=== PATIENT | female | born 1960 | race Caucasian/White ===

== ENCOUNTER 2016-12-14 04:45 | Emergency (ER) | payer OTHER ==
[~2016-12-14] VITALS: Ht 149.9 cm; Wt 116.0 kg
[~2016-12-14 04:45] MED LIST: ADVIN25/60 INH; ALBU1AER9 INH; CARB25TA12 PO; CARB25TA14 PO; CRS10; ECON0.05 TD; FURO40TA3 PO; GABA300C19 PO; INSDGI SC; IPRASOL4 INH; KLN5 PO; LAMO100T PO; LMC/150 PO; NRL25 PO; NVLGIPEN SC; OXGN; OXYC1TAB3 PO; PANT1TAB48 PO; PLMINS INH; POLY335019 PO; REPA1TAB42 PO; ROPI3TAB2 PO; SENN8.6T9 PO; TIZA1CAP PO
[2016-12-14 04:58] VITALS: TEMP 37; Ht 149.9 cm; Wt 116.0 kg
[2016-12-14] MEDS ORDERED: OXYMETAZOLINE HCL 0.05% NA SPR 15 ML BTL ONE (05:00)
[2016-12-14] MEDS ORDERED: SILVER NITR/POTASSIUM NITRATE 10 APPLICATOR PACK ONE (05:04)
[2016-12-14 05:18] VITALS: O2SAT 94
[2016-12-14 05:22] LABS: BASO % 0.5 %; BASO ABS # 0.03 K/uL (0-0.2); EOS % 3.6 %; HEMATOCRIT 35.1 % (37-47); IG% 0.7 %; LYMPH ABS # 0.92 K/uL (1.2-3.4); MEAN CELL VOLUME 91.4 fL (80-100); MEAN CORPUSCULAR HEMOGLOBIN 27.6 pg (25-34); MEAN CORPUSCULAR HGB CONC 30.2 g/dl (32-36); MEAN PLATELET VOLUME 8.8 fL (7.4-10.4); MONO % 9.2 %; PLATELET COUNT 248 K/uL (130-400); RED BLOOD COUNT 3.84 M/uL (4.2-5.4); WHITE BLOOD COUNT 5.76 K/uL (4.8-10.8)
[2016-12-14 05:30] LABS: BUN/CREATININE RATIO 33.3 (10-20); CALCIUM 8.9 mg/dl (8.5-10.1); CREATININE 1.4 mg/dl (0.60-1.20); INR 3.4 (0.9-1.1); PARTIAL THROMBOPLASTIN RATIO 1.6; POTASSIUM 4.5 mmol/L (3.5-5.1); PROTHROMBIN TIME (PATIENT) 38.8 SECONDS (9.0-12.0)
[2016-12-14 05:41] LABS: ANISOCYTOSIS PRESENT; COMPLETE YES; TEAR DROP CELLS 1+
[2016-12-14] MEDS ORDERED: ATOR-54 PO (06:02)
[2016-12-14] MEDS ORDERED: FLUT1INH INH (06:05)
[2016-12-14] MEDS ORDERED: PRLSR20 PO (06:11)
[2016-12-14] MEDS ORDERED: OXYCODONE HCL IR 5 MG TAB (IMMEDIATE RELEASE) PO STA (06:12)
[2016-12-14] MEDS ORDERED: AZAT50TA17 PO (06:16)
[2016-12-14] MEDS ORDERED: PRED-301 PO (06:21)
[2016-12-14] MEDS ORDERED: MULT-513 PO (06:24)
[2016-12-14] MEDS ORDERED: ACET-1311 PO (06:25)
[2016-12-14] MEDS ORDERED: INSDGIPEN SQ (06:32)
[2016-12-14] MEDS ORDERED: POTA-74 PO (06:36)
[2016-12-14] MEDS ORDERED: IPRASOL4 INH ×2 (06:38→06:42)
[2016-12-14] MEDS ORDERED: OXYC1TAB3 PO (06:43)
[2016-12-14] MEDS ORDERED: NITR-5 PO (06:46)
[2016-12-14] MEDS ORDERED: TCMD2 PO (06:48)
[2016-12-14] MEDS ORDERED: NYST100010 TD (06:49)
[2016-12-14 06:58] VITALS: BP 149/58; PULSE 90; O2SAT 96
--- NOTE | 2016-12-14 07:56 | EMERGENCY ROOM VISIT NOTE ---
History Report prepared by Silva: Michael Benedict Under the Supervision of: Dr. Blas Flores M.D. First contact with patient: 05:02 Chief Complaint: NOSE BLEED (MINOR) Stated Complaint: NOSE BLEED, ANXIETY History of Present Illness The patient is a 56 year old female who presents to the Emergency Room with complaints of persistent nose bleed for the past few hours. The patient notes that it was mainly bleeding on the right side. She had been scratching and itching her nose before it started bleeding. In the ambulance en route to the ED , the patient got anxious and was given Ativan which helped her symptoms. The patient is at home from rehabilitation for the last week. She has home nursing coming throughout the week. The states she is stable. She has chronic anxiety and also notes chronic back pain. Her back is sore from lying on the stretcher. She has some leg swelling but this is stable for her. Pt denies LOC , headache, fevers, chills, diaphoresis, visual changes, neck pain, chest pain, breathing difficulties, nausea, vomiting, abdominal pain, melena, hematochezia , urinary symptoms, numbness, weakness, lymphadenopathy, rash, or other complaints. Source of History: patient Onset: past few hours Position: nose Timing: other (persistent) Note: Other associated symptoms: anxiety Review of Systems See HPI for pertinent positives and negatives. A total of ten systems were reviewed and were otherwise negative. Past Medical & Surgical Medical Problems: (1) Acute and chronic respiratory failure ([id number]) (2) Anxiety (3) CHF exacerbation (4) Chronic diastolic heart failure (5) Chronic kidney disease stage 3 (6) Chronic obstructive lung disease (7) Chronic pain (8) Depression (9) Diabetes mellitus type 2 (10) Dyslipidemia (11) GERD (gastroesophageal reflux disease) (12) History of DVT (deep vein thrombosis) (13) History of pulmonary embolism (14) Parkinson's disease Surgical Problems: (1) History of cataract surgery (2) History of delivery (3) Hx of rotator cuff surgery (4) S/p cadaver renal transplant Family History Cancer Diabetes mellitus Heart disease Hypertension Kidney disease Kidney stones Social History Smoking Status: Never Smoker Alcohol Use: none Drug Use: none Marital Status: Housing Status: lives with significant other Occupation Status: unemployed Current/Historical Medications Scheduled Atorvastatin (Lipitor), 20 MG PO DAILY Azathioprine (Imuran), 50 MG PO BID Carbidopa/Levodopa (Sinemet 25MG/250MG), 1 TAB PO UD Carbidopa/Levodopa (Sinemet 25MG/100MG), 1 TAB PO TID Cyclosporine (Neoral), 75 MG PO BID Econazole Nitrate 1% (Spectazole 1%), 1 APPLN TD BID Fluticasone Furoate-Vilanterol (Breo Ellipta), 1 PUFFS INH DAILY Furosemide (Lasix), 40 MG PO BID Gabapentin (Neurontin), 300 MG PO TID Insulin Aspart (Novolog Flexpen), 10 UNITS SC TIDM Insulin Glargine (Lantus Solostar), 40 UNITS SQ HS Ipratropium-Albuterol (Duoneb), 1 TREATMENT INH QID Lamotrigine (Lamictal), 100 MG PO QAM Lamotrigine (Lamictal), 150 MG PO QPM Multivitamins/Minerals (Mvi With Minerals), 1 TAB PO DAILY Omeprazole (Prilosec), 20 MG PO QAM Oxygen (Oxygen), 3 LITERS NA CONTINOUS Potassium Chloride (Potassium Chloride Er), 10 MEQ PO BID Prednisone (Prednisone), 5 MG PO QAM Repaglinide (Prandin), 1 MG PO BID Ropinirole Hydrochloride (Requip), 3 MG PO TID Tizanidine Hcl (Tizanidine Hcl), 2 MG PO BID Warfarin Sod (Coumadin), 2 MG PO DAILY Scheduled PRN Acetaminophen (Tylenol), 650 MG PO Q4H PRN for Pain or Fever Clonazepam (Clonazepam), 0.5 MG PO BID PRN for Anxiety Ipratropium-Albuterol (Duoneb), 1 TREATMENT INH Q4H PRN for SOB/Wheezing Nystatin (Topical) (Nystop), 1 APPLN TD TID PRN for EXCORIATION Oxycodone Ir (Roxicodone Ir), 5 MG PO Q6H PRN for Pain Polyethylene Glycol 3350 (Miralax), 17 GM PO DAILY PRN for Constipation Sennosides (Senexon), 8.6 MG PO HS PRN for Constipation Allergies Coded Allergies: Carisoprodol (Verified Allergy, Unknown, ., 08/23/16) Tiotropium (Verified Allergy, Unknown, UNK, 08/23/16) Cimetidine (Verified Adverse Reaction, Mild, SEVERE BRUISING, 08/23/16) Cyclobenzaprine (Verified Adverse Reaction, Mild, HALLUCINATIONS, 08/23/16 ) Iodinated Diagnostic Agents (Verified Adverse Reaction, Unknown, KIDNEY PROBLEMS, 08/23/16) Quetiapine (Verified Adverse Reaction, Unknown, HALLUCINATIONS, 08/23/16) Physical Exam Vital Signs Date Time Temp Pulse Resp B/P Pulse Ox O2 Delivery O2 Flow Rate FiO2 12/14/16 06:58 90 20 149/58 96 Nasal Cannula 3.0 12/14/16 06:09 98 20 133/77 95 Nasal Cannula 3.0 12/14/16 05:18 94 Nasal Cannula 4.0 12/14/16 04:58 37.0 104 30 136/67 95 Nasal Cannula 4.0 12/14/16 04:56 107 Physical Exam GENERAL: Awake, alert, well-appearing, in no distress. mild tachypnea noted. HENT: Normocephalic, atraumatic. Right anterior septum small arterial bleeding. EYES: Normal conjunctiva. Sclera non-icteric. NECK: Supple. No nuchal rigidity. FROM. No JVD. RESPIRATORY: Clear to auscultation. CARDIAC: Tachycardic. Extremities warm and well perfused. Pulses equal. ABDOMEN: Soft, non-distended. No tenderness to palpation. No rebound or guarding. No masses. RECTAL: Deferred. MUSCULOSKELETAL: Chest examination reveals no tenderness. The back is symmetrical on inspection without obvious abnormality. There is no CVA tenderness to palpation. No joint edema. LOWER EXTREMITIES: Calves are equal size bilaterally and non-tender. 2+ lower extremity edema. Mild discoloration is improved. NEURO: Normal sensorium. No sensory or motor deficits noted. SKIN: No rash or jaundice noted. Medical Decision & Procedures Laboratory Results 12/14/16 04:14 Red Blood Count 3.84, Mean Corpuscular Volume 91.4, Mean Corpuscular Hemoglobin 27.6, Mean Corpuscular Hemoglobin Concent 30.2, Mean Platelet Volume 8.8, Neutrophils (%) (Auto) 70.0, Lymphocytes (%) (Auto) 16.0, Monocytes (%) (Auto) 9.2, Eosinophils (%) (Auto) 3.6, Basophils (%) (Auto) 0.5, Neutrophils # (Auto) 4.03, Lymphocytes # (Auto) 0.92, Monocytes # (Auto) 0.53, Eosinophils # (Auto) 0.21, Basophils # (Auto) 0.03 12/14/16 04:14 Test 12/14/16 04:14 White Blood Count 5.76 K/uL (4.8-10.8) Red Blood Count 3.84 M/uL (4.2-5.4) Hemoglobin 10.6 g/dL (12.0-16.0) Hematocrit 35.1 % (37-47) Mean Corpuscular Volume 91.4 fL (80-100) Mean Corpuscular Hemoglobin 27.6 pg (25-34) Mean Corpuscular Hemoglobin Concent 30.2 g/dl (32-36) Platelet Count 248 K/uL (130-400) Mean Platelet Volume 8.8 fL (7.4-10.4) Neutrophils (%) (Auto) 70.0 % Lymphocytes (%) (Auto) 16.0 % Monocytes (%) (Auto) 9.2 % Eosinophils (%) (Auto) 3.6 % Basophils (%) (Auto) 0.5 % Neutrophils # (Auto) 4.03 K/uL (1.4-6.5) Lymphocytes # (Auto) 0.92 K/uL (1.2-3.4) Monocytes # (Auto) 0.53 K/uL (0.11-0.59) Eosinophils # (Auto) 0.21 K/uL (0-0.5) Basophils # (Auto) 0.03 K/uL (0-0.2) RDW Standard Deviation 69.2 fL (36.4-46.3) RDW Coefficient of Variation 21.0 % (11.5-14.5) Immature Granulocyte % (Auto) 0.7 % Immature Granulocyte # (Auto) 0.04 K/uL (0.00-0.02) Nucleated RBC Absolute Count (auto) 0.04 K/uL (0-0) Nucleated Red Blood Cells % 0.6 % Anisocytosis PRESENT Tear Drop Cells 1+ Prothrombin Time 38.8 SECONDS (9.0-12.0) Prothromb Time International Ratio 3.4 (0.9-1.1) Activated Partial Thromboplast Time 40.6 SECONDS (21.0-31.0) Partial Thromboplastin Ratio 1.6 Anion Gap 10.0 mmol/L (3-11) Est Creatinine Clear Calc Drug Dose 50.6 ml/min Estimated GFR () 48.2 Estimated GFR (Non- 41.6 BUN/Creatinine Ratio 33.3 (10-20) Calcium Level 8.9 mg/dl (8.5-10.1) Laboratory results reviewed by me Medications Administered Medications (Trade) Dose Ordered Sig/Tato Route Start Time Stop Time Status Last Admin Dose Admin Oxycodone HCl (Roxicodone Immediate Rel Tab) 5 mg NOW STAT PO 12/14/16 06:12 12/14/16 06:13 DC 12/14/16 06:16 5 MG Procedure Anterior Nasal Packing Indication: Right anterior septum small arterial bleed Verbal consent obtained. Risks and benefits were explained with the usual customary discussion. A time out was taken. Clots were removed with suction. The right naris was prepped with Afrin. Silver nitrate was used to cauterize the vessel. The patient tolerated this well. Hemostasis was achieved. No complications. ED Course 0453: The patient was evaluated in room B9. A complete history and physical exam was performed. 0500: Ordered Oxymetazoline HCl 75 sprays .ROUTE. 0504: Ordered Silver Nitrate/ Potassium Nitrate 1 pkt .ROUTE. 0510: At this time, an anterior nasal packing procedure was performed on the patient. See procedure note above. 0612: Ordered Oxycodone HCl 5 mg PO. 0641: At this time, I reevaluated the patient and discussed staying in the hospital with her. She was feeling better and wanted to go home. 0645: I reevaluated the patient and the bleeding has stopped. She was comfortable and resting. Discussed results and discharge instructions: She verbalized understanding and agreement. The patient is ready for discharge. Medical Decision Prior records/ancillary studies reviewed. Triage Nursing notes reviewed and agree them. Additional history obtained from her . The states that she was picking at her nose before the bleeding. The patient's history was concerning for epistaxis. Differential diagnosis: Etiologies such as spontaneous bleed, coagulopathy, traumatic injury, fracture, septal hematoma, posterior epistaxis as well as other pathologies were entertained. Physical examination findings: As above. Anterior bleeding source. ER treatment provided: Direct pressure and then nasal suctioning. Intranasal Afrin Silver nitrate cautery Fribrillar hemostatic cellulose applied On reassessment the patient felt better. No additional bleeding. The patient requested oxycodone for her back pain. She takes this medication at home. She was given a 5 mg dose. Diagnostics interpreted by me: The labs revealed a mild anemia on CBC. INR was slightly supratherapeutic at 3.4. The patient will hold her Coumadin today. She panel is unremarkable except for mild hyperglycemia. The patient was observed for several hours. She had no additional bleeding. She is slightly super therapeutic and will hold her Coumadin. I discussed treatment options. I asked the if she was doing well enough at home and she has been getting around with his assistance as well as with caregivers that have been ongoing throughout the week. The patient wants to go home. The will transport. I did offer transport. The patient and declined. By the evaluation outlined above emergent etiologies such as coagulopathy, traumatic injury, fracture, septal hematoma, posterior epistaxis, as well as others were deemed relatively unlikely. The patient and were informed about the findings as listed above. All questions were answered and they were pleased with the treatment. Return instructions were outlined and the patient was discharged in stable condition. Outpatient prescription management: No change except hold Coumadin 1 day Referral: The patient was referred her PCP on Friday. Patient was also given information on follow-up with [facility]. The chart was completed utilizing [employer] Speech voice recognition software. Grammatical errors, random word insertions, pronoun errors, and incomplete sentences are an occasional consequence of this system due to software limitations, ambient noise, and hardware issues. Any formal questions or concerns about the content, text, or information contained within the body of this dictation should be directly addressed to the physician for clarification. Impression Primary Impression: Anterior epistaxis Scribe Attestation The scribe's documentation has been prepared under my direction and personally reviewed by me in its entirety. I confirm that the note above accurately reflects all work, treatment, procedures, and medical decision making performed by me. Departure Information Dispostion Home / Self-Care Referrals Cindy Valdez M.D. (PCP) Forms HOME CARE DOCUMENTATION FORM, IMPORTANT VISIT INFORMATION, WORK / SCHOOL INSTRUCTIONS Patient Instructions [facility] Additional Instructions EPISTAXIS (NOSE BLEED) INSTRUCTIONS: Avoid scratching, rubbing, picking, or blowing your nose. Hold your Coumadin just for Friday. The primer expeditor and drier your nasal passages the more likely they are to bleed. The following product are available [id number] at most drug stores/pharmacies. [place] nasal spray or similar generic saline spray to keep the nose moist 3 to 4 times a day. If bleeding recurs apply 2 sprays of Afrin and direct pressure for an uninterrupted 20 minutes with the nasal clip. On and off pressure is much less effective because it will disturb the clots that are forming. If the bleeding is still a problem after 20 minutes or is so heavy despite the pressure return to the emergency department. Continue current medications. For ENT([id number]) follow up call this week the [facility] office at [phone] for an appointment. Tell the psychiatric secretary you were referred from the ER. Follow-up with your primary care physician in 2 to 3 days for a recheck of your current condition. Call the office on Friday.
[2017-01-14] MEDS ORDERED: SNM/25100 PO (11:54)
[2017-01-14] MEDS ORDERED: OXGN (11:54)
[2017-01-14] MEDS ORDERED: LVQ750 PO (11:54)
[2017-02-12] MEDS ORDERED: HYDR-4330 PO (15:11)
[2017-02-12] MEDS ORDERED: KLN5 PO (15:11)
== END 2016-12-14 07:07 | disposition home or self-care (01) ==
LOC: EDBD 04:45 → C.EDB 04:48
DX: R04.0 Epistaxis (principal); I50.32 Chronic diastolic (congestive) heart failure; E11.9 Type 2 diabetes mellitus without complications; N18.3 Chronic kidney disease, stage 3 (moderate); J44.9 Chronic obstructive pulmonary disease, unspecified; K21.9 Gastro-esophageal reflux disease without esophagitis; G20 Parkinson's disease; E78.5 Hyperlipidemia, unspecified; G89.29 Other chronic pain; F32.9 Major depressive disorder, single episode, unspecified; Z86.711 Personal history of pulmonary embolism; Z79.01 Long term (current) use of anticoagulants; Z79.4 Long term (current) use of insulin; Z99.81 Dependence on supplemental oxygen

== ENCOUNTER 2017-01-06 09:05 | Inpatient (IN) | payer OTHER ==
[2017-01-06] VITALS (9 sets, daily range): BP systolic 104–122; BP diastolic 62–77; PULSE 71–97; TEMP 36.8; O2SAT 92–100; BMI 56.9
[~2017-01-06] VITALS: Ht 149.9 cm; Wt 122.1 kg
[~2017-01-06 09:05] MED LIST changes: +ACET-1311 PO; -ADVIN25/60 INH; -ALBU1AER9 INH; +ATOR-54 PO; +AZAT50TA17 PO; -CRS10; +FLUT1INH INH; +GABA-1218 PO; -GABA300C19 PO; -INSDGI SC; +INSDGIPEN SQ; +MULT-513 PO; +NYST100010 TD; -PANT1TAB48 PO; -PLMINS INH; +POTA-74 PO; +PRED-301 PO; +PRLSR20 PO; +REPA1TAB26 PO; -REPA1TAB42 PO; +TCMD2 PO
[2017-01-06] MEDS ORDERED: ALBUT/IPRATROP 3MG/0.5MG NEB 3 ML VIAL INH STA (09:14)
[2017-01-06] MEDS ORDERED: METHYLPREDNISOLONE 125 MG VIAL IV STA (09:14)
--- NOTE | 2017-01-06 09:24 | EMERGENCY ROOM VISIT NOTE ---
History Report prepared by Silva: Arun Arguello Under the Supervision of: Dr. Saul Hernandez D.O. First contact with patient: 09:10 Chief Complaint: RESPIRATORY PROBLEMS Stated Complaint: RESPIRATORY DISTRESS Nursing Triage Summary: pt arrives via EMS lives at home with family reports increased resp distress X 2 days , denies fever chills , cp, RA sats with 3 liters home 02 78%, pt placed on cpap [facility] History of Present Illness The patient is a 56 year old female who presents to the Emergency Room with complaints of difficulty breathing. The patient was recently admitted to a personal care facility but then was discharged. She is currently living at home and started having shortness of breath over the last few days. The patient presented to the emergency department in respiratory distress. She is placed on BiPAP prior to arrival. The patient denies having any chest pain. Reportedly her oxygen saturation was in the high sixties to lower seventies on 3 liters nasal cannula which is what she normally wears. The patient denies having any new swelling in her legs but she does have edema. She denies having a fever or chest pain. History is very limited secondary to respiratory distress. The patient was maintained on BiPAP as soon as she arrived at the emergency department. They were unable to get an IV into the patient said she received no medications prior to arrival. The patient states that she's had similar episodes in the past. The patient states that she was not intubated on her most recent admission. Source of History: patient History Limited By: other (respiratory distress) Onset: Last few days Position: other (global - sob) Timing: other (persistent) Associated Symptoms: No chest pain, No fevers Note: Associated symptoms: Denies any new leg swelling. Review of Systems See HPI for pertinent positives & negatives. A total of 10 systems reviewed and were otherwise negative. Past Medical & Surgical Medical Problems: (1) Acute and chronic respiratory failure ([id number]) (2) Anxiety (3) CHF exacerbation (4) Chronic diastolic heart failure (5) Chronic kidney disease stage 3 (6) Chronic obstructive lung disease (7) Chronic pain (8) Depression (9) Diabetes mellitus type 2 (10) Dyslipidemia (11) GERD (gastroesophageal reflux disease) (12) History of DVT (deep vein thrombosis) (13) History of pulmonary embolism (14) Parkinson's disease Surgical Problems: (1) History of cataract surgery (2) History of delivery (3) Hx of rotator cuff surgery (4) S/p cadaver renal transplant Family History Cancer Diabetes mellitus Heart disease Hypertension Kidney disease Kidney stones Social History Smoking Status: Never Smoker Alcohol Use: none Drug Use: none Marital Status: Housing Status: lives with significant other Occupation Status: unemployed Current/Historical Medications Scheduled Atorvastatin (Lipitor), 20 MG PO DAILY Azathioprine (Imuran), 50 MG PO BID Carbidopa/Levodopa (Sinemet 25MG/250MG), 1 TAB PO UD Carbidopa/Levodopa (Sinemet 25MG/100MG), 1 TAB PO TID Cyclosporine (Neoral), 75 MG PO BID Fluticasone Prop/Salmeterol (Advair Diskus 250/50 60 Dose), 1 PUFF INH BID Furosemide (Lasix), 40 MG PO BID Gabapentin (Neurontin), 300 MG PO TID Insulin Aspart (Novolog Flexpen), 10 UNITS SC TIDM Insulin Glargine (Lantus Solostar), 40 UNITS SQ HS Ipratropium-Albuterol (Duoneb), 1 TREATMENT INH QID Lamotrigine (Lamictal), 100 MG PO QAM Lamotrigine (Lamictal), 150 MG PO QPM Omeprazole (Prilosec), 20 MG PO QAM Oxygen (Oxygen), 3 LITERS NA CONTINOUS Prednisone (Prednisone), 5 MG PO QAM Repaglinide (Prandin), 1 MG PO BID Ropinirole Hydrochloride (Requip), 3 MG PO TID Tizanidine Hcl (Tizanidine Hcl), 2 MG PO BID Warfarin Sod (Coumadin), 2 MG PO HS Scheduled PRN Acetaminophen (Tylenol), 650 MG PO Q4H PRN for Pain or Fever Clonazepam (Clonazepam), 0.5 MG PO BID PRN for Anxiety Hydrocodone/Acetaminophen 5MG/325MG ([place] 5MG/325MG), 1 TABLET PO HS PRN for Pain Ipratropium-Albuterol (Duoneb), 1 TREATMENT INH Q4H PRN for SOB/Wheezing Oxycodone Ir (Roxicodone Ir), 5 MG PO Q6H PRN for Pain Polyethylene Glycol 3350 (Miralax), 17 GM PO DAILY PRN for Constipation Sennosides (Senexon), 8.6 MG PO HS PRN for Constipation Allergies Coded Allergies: Carisoprodol (Verified Allergy, Unknown, ., 01/06/17) Tiotropium (Verified Allergy, Unknown, UNK, 01/06/17) Cimetidine (Verified Adverse Reaction, Mild, SEVERE BRUISING, 01/06/17) Cyclobenzaprine (Verified Adverse Reaction, Mild, HALLUCINATIONS, 01/06/17) Iodinated Diagnostic Agents (Verified Adverse Reaction, Unknown, KIDNEY PROBLEMS, 01/06/17) Quetiapine (Verified Adverse Reaction, Unknown, HALLUCINATIONS, 01/06/17) Physical Exam Vital Signs Date Time Temp Pulse Resp B/P Pulse Ox O2 Delivery O2 Flow Rate FiO2 01/06/17 11:51 100 CPAP 6.0 60 01/06/17 11:20 88 18 104/62 100 CPAP 01/06/17 10:18 91 20 120/77 100 CPAP 01/06/17 09:44 100 CPAP 6.0 01/06/17 09:21 92 01/06/17 09:21 97 25 100 BiPAP/CPAP 60 01/06/17 09:21 97 100 60 01/06/17 09:18 37.0 94 20 121/74 100 CPAP 6.0 01/06/17 09:18 CPAP 6.0 Physical Exam GENERAL: Patient is awake and very anxious appearing she appears to be having significant difficulty breathing. EYES: The conjunctivae are clear. The pupils are round and reactive. EARS, NOSE, MOUTH AND THROAT: The nose is without any evidence of any deformity. Mucous membranes are moist. There is excoriation over the ears were the oxygen tubing appears to be rubbing into her forehead. NECK: The neck is nontender and supple. RESPIRATORY: Significant tachypnea with poor air movement is noted. Severe conversational dyspnea is noted. Diminished breath sounds are noted throughout. CARDIOVASCULAR: Regular rate and rhythm noted there no murmurs rubs or gallops normal S1 normal S2 GASTROINTESTINAL: The abdomen is soft. Bowel sounds are present in all quadrants. Abdomen is nontender MUSCULOSKELETAL/EXTREMITIES: There is no evidence of gross deformity full range of motion is noted in the hips and shoulders SKIN: There is no obvious evidence of any rash. There significant pedal edema noted. Significant venous stasis changes with erythema is noted in both lower extremity's. NEUROLOGIC: Patient is awake alert and oriented x3. Medical Decision & Procedures ER Provider Diagnostic Interpretation: X-ray results as stated below per interpretation by me and the radiologist. CHEST ONE VIEW PORTABLE CLINICAL HISTORY: Sepsis. Respiratory distress. COMPARISON STUDY: Chest radiograph September 02, [address] August 24, 2016. FINDINGS: There is no pneumothorax or pleural effusion. Cardiomegaly is unchanged. Linear left lower lung opacities favor atelectasis. There is right lower lung airspace opacity which may reflect pneumonia. IMPRESSION: 1. Right lower lung opacity which favors pneumonia. Radiographic follow-up to ensure resolution is recommended. 2. Linear left lower lung opacities which favor atelectasis. Electronically signed by: Isaac Magdaleno M.D. 01/06/2017 9:51 AM Dictated Date/Time: 01/06/2017 9:50 AM Laboratory Results 01/06/17 10:15 Red Blood Count 3.37, Mean Corpuscular Volume 95.0, Mean Corpuscular Hemoglobin 27.9, Mean Corpuscular Hemoglobin Concent 29.4, Mean Platelet Volume 8.3, Neutrophils (%) (Auto) 84.3, Lymphocytes (%) (Auto) 7.4, Monocytes (%) (Auto) 6.6, Eosinophils (%) (Auto) 1.2, Basophils (%) (Auto) 0.2, Neutrophils # (Auto) 5.11, Lymphocytes # (Auto) 0.45, Monocytes # (Auto) 0.40, Eosinophils # (Auto) 0.07, Basophils # (Auto) 0.01 01/06/17 10:15 Test 01/06/17 09:12 01/06/17 10:15 01/06/17 10:20 01/06/17 10:24 White Blood Count 6.06 K/uL (4.8-10.8) Red Blood Count 3.37 M/uL (4.2-5.4) Hemoglobin 9.4 g/dL (12.0-16.0) Hematocrit 32.0 % (37-47) Mean Corpuscular Volume 95.0 fL (80-100) Mean Corpuscular Hemoglobin 27.9 pg (25-34) Mean Corpuscular Hemoglobin Concent 29.4 g/dl (32-36) Platelet Count 253 K/uL (130-400) Mean Platelet Volume 8.3 fL (7.4-10.4) Neutrophils (%) (Auto) 84.3 % Lymphocytes (%) (Auto) 7.4 % Monocytes (%) (Auto) 6.6 % Eosinophils (%) (Auto) 1.2 % Basophils (%) (Auto) 0.2 % Neutrophils # (Auto) 5.11 K/uL (1.4-6.5) Lymphocytes # (Auto) 0.45 K/uL (1.2-3.4) Monocytes # (Auto) 0.40 K/uL (0.11-0.59) Eosinophils # (Auto) 0.07 K/uL (0-0.5) Basophils # (Auto) 0.01 K/uL (0-0.2) RDW Standard Deviation 72.2 fL (36.4-46.3) RDW Coefficient of Variation 21.0 % (11.5-14.5) Immature Granulocyte % (Auto) 0.3 % Immature Granulocyte # (Auto) 0.02 K/uL (0.00-0.02) Nucleated RBC Absolute Count (auto) 0.05 K/uL (0-0) Nucleated Red Blood Cells % 0.9 % Polychromasia 1+ Anisocytosis PRESENT Erythrocyte Sedimentation Rate 51 mm/hr (0-21) Anion Gap 8.0 mmol/L (3-11) Est Creatinine Clear Calc Drug Dose 35.9 ml/min Estimated GFR () 29.5 Estimated GFR (Non- 25.5 BUN/Creatinine Ratio 26.3 (10-20) Calcium Level 8.4 mg/dl (8.5-10.1) Phosphorus Level 5.8 mg/dl (2.5-4.9) Magnesium Level 3.2 mg/dl (1.8-2.4) Total Bilirubin 0.7 mg/dl (0.2-1) Aspartate Amino Transf (AST/SGOT) 115 U/L (15-37) Alanine Aminotransferase (ALT/SGPT) 15 U/L (12-78) Alkaline Phosphatase 151 U/L (45-117) Total Creatine Kinase 1170 U/L (26-192) Creatine Kinase MB 9.0 ng/ml (0.5-3.6) Creatine Kinase MB Ratio 0.8 (0-3.0) Troponin I 0.067 ng/ml (0-0.045) C-Reactive Protein 5.52 mg/dl (0-0.29) Pro-B-Type Natriuretic Peptide 5064 pg/ml (0-900) Total Protein 6.7 gm/dl (6.4-8.2) Albumin 3.2 gm/dl (3.4-5.0) Globulin 3.5 gm/dl (2.5-4.0) Albumin/Globulin Ratio 0.9 (0.9-2) Lipase 284 U/L (73-393) Venous Blood pH 7.21 (7.36-7.41) Venous Blood Partial Pressure CO2 61 mmHg (38.0-50.0) Venous Blood Partial Pressure O2 39 mmHg Venous Blood HCO3 24 mmol/L Venous Blood Oxygen Saturation 62.2 % Venous Blood Base Excess -4.2 mmol/L Bedside Lactic Acid Venous 2.10 mmol/L (0.90-1.70) Test 01/06/17 11:40 Laboratory results per my review. Medications Administered Medications (Trade) Dose Ordered Sig/Tato Route Start Time Stop Time Status Last Admin Dose Admin Albuterol/ Ipratropium (Duoneb) 3 ml NOW STAT INH 01/06/17 09:14 01/06/17 09:15 DC 01/06/17 09:20 3 ML Methylprednisolone Sodium Succinate 125 mg 125 mg NOW STAT IV 01/06/17 09:14 01/06/17 09:15 DC 01/06/17 10:14 125 MG Linezolid/Prmx (Zyvox / D5W/ Premixed D5W) 300 ml @ 300 mls/hr ONE STAT IV 01/06/17 10:05 01/06/17 11:04 DC 01/06/17 11:41 300 MLS/HR Levofloxacin 750 mg 750 mg NOW ONCE IV 01/06/17 10:15 01/06/17 10:16 DC 01/06/17 10:14 750 MG Sodium Chloride (Nss 1000ml) 1,000 ml @ 999 mls/hr Q1H1M STAT IV 01/06/17 11:10 01/06/17 12:10 01/06/17 11:19 999 MLS/HR ECG Indication: SOB/dyspnea Rate (beats per minute): 96 Rhythm: normal sinus Findings: 1st degree AV block, no acute ischemic change Change: no significant change (08/25/2016) ED Course 0910: The patient was evaluated in room B9. A complete history and physical examination were performed. 0914: Ordered Solu-Medrol IV 125 mg IV, Duoneb 3 ml INH. 1005: Ordered Linezolid 600 mg/Prmx 300 ml @ 300 mls/hr IV. 1015: Ordered Levaquin / D5W 750 mg IV. 1110: Ordered NSS 1000 ml @ 999 mls/hr IV. 1128: I discussed the patient with Elise Del Real. She will evaluate the patient for further treatment. 1145: Upon reevaluation, the patient is sitting up in bed. I discussed results and treatment plan with her. She verbalizes agreement and understanding. The patient will be evaluated for further management and care. Medical Decision Prior records/ancillary studies reviewed. Triage Nursing notes reviewed. Additional history obtained from the prehospital personnel. The patient's history was concerning for respiratory difficulties. Differential diagnosis: Etiologies such as infections, reactive airway disease, pneumonia, pneumothorax , COPD, CHF, cardiac ischemia, pulmonary embolism, musculoskeletal, gastrointestinal, as well as others were entertained. The patient is a 56-year-old female who presented to the emergency department by ambulance for shortness of breath. The patient was having severe shortness of breath and was placed on BiPAP prior to arrival. The patient was found have significant respiratory acidosis as well as signs of pneumonia. She also has a history of congestive heart failure and had very significant swelling in both lower extremities. She was started on antibiotic. She was also given a DuoNeb. I discussed the patient's laboratory and radiographic studies with her. Her mentation as well as her oxygenation improved significantly. I discussed her case with the on-call [facility] hospitalist group. They've agreed to evaluate the patient in the emergency department for further management and disposition. Consults Time Called: 1120 Consulting Physician: Elise Del Real Returned Call: 1128 I discussed the patient with Elise Del Real. She will evaluate the patient for further treatment. Impression Primary Impression: Respiratory failure Additional Impressions: Respiratory acidosis Right lower lobe pneumonia Elevated troponin Pulmonary edema Scribe Attestation The scribe's documentation has been prepared under my direction and personally reviewed by me in its entirety. I confirm that the note above accurately reflects all work, treatment, procedures, and medical decision making performed by me. Departure Information Dispostion Being Evaluated By Hospitalist Referrals Cindy Valdez M.D. (PCP) Patient Instructions My [facility] Problem Qualifiers Primary Impression: Respiratory failure Chronicity: acute Respiratory failure complication: hypoxia and hypercapnia Qualified Codes: J96.01 - Acute respiratory failure with hypoxia; J96.02 - Acute respiratory failure with hypercapnia Additional Impressions: Right lower lobe pneumonia Pneumonia type: due to unspecified organism Qualified Codes: J18.1 - Lobar pneumonia, unspecified organism Pulmonary edema Chronicity: acute Qualified Codes: J81.0 - Acute pulmonary edema
--- NOTE | 2017-01-06 09:53 | DIAGNOSTIC IMAGING REPORT ---
CHEST ONE VIEW PORTABLE CLINICAL HISTORY: Sepsis. Respiratory distress. COMPARISON STUDY: Chest radiograph September 02, [address] August 24, 2016. FINDINGS: There is no pneumothorax or pleural effusion. Cardiomegaly is unchanged. Linear left lower lung opacities favor atelectasis. There is right lower lung airspace opacity which may reflect pneumonia. IMPRESSION: 1. Right lower lung opacity which favors pneumonia. Radiographic follow-up to ensure resolution is recommended. 2. Linear left lower lung opacities which favor atelectasis. Electronically signed by: Isaac Magdaleno M.D. 01/06/2017 9:51 AM Dictated Date/Time: 01/06/2017 9:50 AM
[2017-01-06] MEDS ORDERED: HYDR-5688 PO (10:00)
[2017-01-06] MEDS ORDERED: LINEZOLID / D5W 600 MG in PREMIXED IN D5W 300 ML IV STA (10:05)
[2017-01-06] MEDS ORDERED: LEVAQUIN 750MG / 150ML D5W IV ONE (10:15)
[2017-01-06] MEDS ORDERED: ADVIN25/60 INH (10:18)
[2017-01-06 10:40] LABS: BASO % 0.2 %; BASO ABS # 0.01 K/uL (0-0.2); EOS % 1.2 %; IG% 0.3 %; LYMPH % 7.4 %; LYMPH ABS # 0.45 K/uL (1.2-3.4); MEAN CORPUSCULAR HEMOGLOBIN 27.9 pg (25-34); MEAN CORPUSCULAR HGB CONC 29.4 g/dl (32-36); MEAN PLATELET VOLUME 8.3 fL (7.4-10.4); MONO % 6.6 %; NEUT % 84.3 %; PLATELET COUNT 253 K/uL (130-400); RED BLOOD COUNT 3.37 M/uL (4.2-5.4); WHITE BLOOD COUNT 6.06 K/uL (4.8-10.8)
[2017-01-06 10:42] LABS: VEN BLD GAS O2 SATURATION 62.2 %; VEN BLOOD GAS BASE EXCESS -4.2 mmol/L
[2017-01-06 10:58] LABS: BUN/CREATININE RATIO 26.3 (10-20); C-REACTIVE PROTEIN 5.52 mg/dl (0-0.29); CALCIUM 8.4 mg/dl (8.5-10.1); CREATININE 2.1 mg/dl (0.60-1.20); MAGNESIUM 3.2 mg/dl (1.8-2.4); POTASSIUM 5.9 mmol/L (3.5-5.1)
[2017-01-06] MEDS ORDERED: SODIUM CHLORIDE 0.9% 1000ML 1,000 ML IV STA (11:10)
[2017-01-06 11:15] LABS: ALB/GLOB RATIO 0.9 (0.9-2); ANISOCYTOSIS PRESENT; CKMB/CK RATIO 0.8 (0-3.0); COMPLETE YES; PHOSPHORUS 5.8 mg/dl (2.5-4.9); POLYCHROMASIA 1+
[2017-01-06 12:05] LABS: URINE APPEARANCE CLOUDY (CLEAR); URINE COLOR DK YELLOW; URINE NITRITE NEG (NEG); URINE SPECIFIC GRAVITY 1.023 (1.000-1.030); UROBILINOGEN NEG (NEG); ZZUR CULT IF INDIC CLEAN CATCH YES
[2017-01-06 12:12] LABS: MANUAL MICROSCOPIC REQUIRED? NO; REVIEW REQ? YES
[2017-01-06 12:13] LABS: URINE BILIRUBIN NEG (NEG)
[2017-01-06] MEDS ORDERED: ROSU5TAB PO (12:14)
[2017-01-06] MEDS ORDERED: PRT40 PO (12:14)
[2017-01-06] MEDS ORDERED: ASPIRIN 81 MG CHEW PO STA (12:23)
[2017-01-06] MEDS ORDERED: GLUCOSE 40% GEL 15 GM TUBE PO PRN (12:30)
[2017-01-06] MEDS ORDERED: ONDANSETRON INJ 2 MG/ML 2 ML VIAL IV PRN (12:30)
[2017-01-06] MEDS ORDERED: NITROGLYCERIN 0.4 MG SL PER TAB CHARGE SL PRN (12:30)
[2017-01-06] MEDS ORDERED: POLYETHYLENE (MIRALAX) 17 GM PACK PO PRN (12:30)
[2017-01-06] MEDS ORDERED: GLUCOSE 10 TABS/TUBE PO PRN (12:30)
[2017-01-06] MEDS ORDERED: GLUCAGON FOR INJ 1 MG VIAL SQ PRN (12:30)
[2017-01-06] MEDS ORDERED: MoRPHine SULFATE 2 MG/ML CARP IV PRN (12:30)
[2017-01-06] MEDS ORDERED: DEXTROSE 50% 50 ML SYR IV PRN (12:30)
[2017-01-06] MEDS ORDERED: CONSULT PHARMACY STA (12:43)
[2017-01-06] MEDS ORDERED: ASPIRIN 324 MG CHEW ONE (12:56)
[2017-01-06] MEDS ORDERED: ATORVASTATIN 40 MG TAB PO ONE (12:57)
[2017-01-06 13:01] LABS: INR 2.5 (0.9-1.1); PARTIAL THROMBOPLASTIN RATIO 1.3; PROTHROMBIN TIME (PATIENT) 27.5 SECONDS (9.0-12.0)
--- NOTE | 2017-01-06 13:18 | History and Physical ---
History & Physical Date & Time of Service: Jan 06, 2017 at 12:24 Chief Complaint: Respiratory Distress Primary Care Physician: Cindy Valdez M.D. History of Present Illness Source: patient, family, clinic records, hospital records Patient seen and examined. 56 year old female with PMHx of Renal Transplant, COPD on chronic oxygen, Parkinson's disease, DM, h/o PE on Coumadin and other problems listed below presents to the ED complaining of SOB x 2 days. History is taken primarily from the patient's who states the patient seemed more SOB starting last evening. She seemed to be confused and maybe hallucinating as well. She was not following commands as well as she usually does. She slept well through the night. She reports an associated cough, without sputum production. She also reports nasal congestion. Today when home health came they thought she seemed SOB so she was referred to the ED for further evaluation. Reportedly at home patient's oxygen level was in the 70s on her chronic 3 liters. EMS placed patient on CPAP and she was transported to the ED. She denies fevers, chills, chest pain, nausea, vomiting, diarrhea, dysuria, calf pain. Patient recently finished a course of Bactrim for LLE wound. She has chronic skin changes to the BLLE, reports edema is chronic. Patient has had a complicated last several months with multiple admission to [facility]. She was discharged home from rehab on 12/06. In the ED patient is placed on BIPAP , she is CXR shows pneumonia. She received IVFs, Solu-Medrol, duonebs and Zyvox and Levaquin. She will be admitted for further workup and treatment Past Medical/Surgical History Medical Problems: (1) Anxiety Status: Chronic (2) Chronic diastolic heart failure Permanent Comment: echo 02/2015 - EF 60-65%, grade II diastolic dysfunction Status: Chronic (3) Chronic kidney disease stage 3 Status: Chronic (4) Chronic obstructive lung disease Permanent Comment: Steroid and O2 dependent Status: Chronic (5) Chronic pain Status: Chronic (6) Depression Status: Chronic (7) Diabetes mellitus type 2 Permanent Comment: on insulin Status: Chronic (8) Dyslipidemia Status: Chronic (9) GERD (gastroesophageal reflux disease) Status: Chronic (10) History of DVT (deep vein thrombosis) Permanent Comment: anticoagulated on Coumadin Status: Chronic (11) History of pulmonary embolism Permanent Comment: anticoagulated on Coumadin Status: Chronic (12) Parkinson's disease Status: Chronic Surgical Problems: (1) History of cataract surgery Permanent Comment: R eye July 2014, L eye August 2014 Status: Chronic (2) History of delivery Status: Chronic (3) Hx of rotator cuff surgery Permanent Comment: 2003 Status: Chronic (4) S/p cadaver renal transplant Status: Chronic Family History Cancer Diabetes mellitus Heart disease Hypertension Kidney disease Kidney stones Social History Smoking Status: Never Smoker Drug Use: none Marital Status: Housing status: lives with family Occupational Status: unemployed Immunizations History of Influenza Vaccine: Yes Influenza Vaccine Date: Jun 17, 2014 History of Tetanus Vaccine?: Yes Tetanus Immunization Date: Aug 11, 2007 History of Pneumococcal: Yes Pneumococcal Date: Oct 17, 2006 History of Hepatitis B Vaccine: Yes Hepatitis Immunization Date: Jun 27, 2014 Multi-Drug Resistant Organisms History of MDRO: Yes Type of MDRO: MRSA Allergies Coded Allergies: Carisoprodol (Verified Allergy, Unknown, ., 01/06/17) Tiotropium (Verified Allergy, Unknown, UNK, 01/06/17) Cimetidine (Verified Adverse Reaction, Mild, SEVERE BRUISING, 01/06/17) Cyclobenzaprine (Verified Adverse Reaction, Mild, HALLUCINATIONS, 01/06/17) Iodinated Diagnostic Agents (Verified Adverse Reaction, Unknown, KIDNEY PROBLEMS, 01/06/17) Quetiapine (Verified Adverse Reaction, Unknown, HALLUCINATIONS, 01/06/17) Home Medications Scheduled Azathioprine (Imuran), 50 MG PO BID Carbidopa/Levodopa (Sinemet 25MG/250MG), 1 TAB PO UD Carbidopa/Levodopa (Sinemet 25MG/100MG), 1 TAB PO TID Cyclosporine (Neoral), 75 MG PO BID Fluticasone Prop/Salmeterol (Advair Diskus 250/50 60 Dose), 1 PUFF INH BID Furosemide (Lasix), 40 MG PO BID Gabapentin (Neurontin), 300 MG PO TID Insulin Aspart (Novolog Flexpen), 10 UNITS SC TIDM Insulin Glargine (Lantus Solostar), 40 UNITS SQ HS Ipratropium-Albuterol (Duoneb), 1 TREATMENT INH QID Lamotrigine (Lamictal), 100 MG PO QAM Lamotrigine (Lamictal), 150 MG PO QPM Oxygen (Oxygen), 3 LITERS NA CONTINOUS Pantoprazole (Pantoprazole Sodium), 40 MG PO DAILY Prednisone (Prednisone), 5 MG PO QAM Repaglinide (Prandin), 1 MG PO BID Ropinirole Hydrochloride (Requip), 3 MG PO TID Rosuvastatin Calcium (Crestor), 2 TAB PO DAILY Tizanidine Hcl (Tizanidine Hcl), 2 MG PO BID Warfarin Sod (Coumadin), 2 MG PO UD Scheduled PRN Acetaminophen (Tylenol), 650 MG PO Q4H PRN for Pain or Fever Clonazepam (Clonazepam), 0.5 MG PO BID PRN for Anxiety Hydrocodone/Acetaminophen 5MG/325MG ([place] 5MG/325MG), 1 TABLET PO HS PRN for Pain Ipratropium-Albuterol (Duoneb), 1 TREATMENT INH Q4H PRN for SOB/Wheezing Oxycodone Ir (Roxicodone Ir), 5 MG PO Q6H PRN for Pain Polyethylene Glycol 3350 (Miralax), 17 GM PO DAILY PRN for Constipation Sennosides ([place]), 8.6 MG PO HS PRN for Constipation Review of Systems See above for pertinent positives & negatives. A total of 10 systems reviewed and were otherwise negative. Physical Exam Vital Signs Date Time Temp Pulse Resp B/P Pulse Ox O2 Delivery O2 Flow Rate FiO2 01/06/17 11:51 100 CPAP 6.0 60 01/06/17 11:20 88 18 104/62 100 CPAP 01/06/17 10:18 91 20 120/77 100 CPAP 01/06/17 09:44 100 CPAP 6.0 01/06/17 09:21 92 01/06/17 09:21 97 25 100 BiPAP/CPAP 60 01/06/17 09:21 97 100 60 01/06/17 09:18 37.0 94 20 121/74 100 CPAP 6.0 01/06/17 09:18 CPAP 6.0 General Appearance: + pertinent finding (Obses 56 year old female lying in bed on BIPAP, in NAD with family at bedside ) Head: normocephalic, atraumatic Eyes: PERRL, EOMI, sclerae normal ENT: hearing grossly normal Neck: supple, no JVD Respiratory/Chest: chest non-tender, + pertinent finding (BIPAP, dreased breath sound, respiratory rate 24 per minute, able to speak in sentences ) Cardiovascular: regular rate, rhythm, no gallop, no JVD, no murmur, normal peripheral pulses Abdomen/GI: normal bowel sounds, non tender, soft Back: normal inspection, no muscle spasm Extremities/Musculoskelatal: no calf tenderness, + pertinent finding (+2 edema , stasis dermatitis, mild erythema to BLLE no drainage ) Neurologic/Psych: alert, oriented x 3, + pertinent finding ( nonfocal ) Skin: warm/dry, no rash Lymphatic: no adenopathy Diagnostics Laboratory Results Results Past 24 Hours Test 01/06/17 09:12 01/06/17 10:15 01/06/17 10:20 01/06/17 10:24 Range/Units White Blood Count 6.06 4.8-10.8 K/uL Red Blood Count 3.37 4.2-5.4 M/uL Hemoglobin 9.4 12.0-16.0 g/dL Hematocrit 32.0 37-47 % Mean Corpuscular Volume 95.0 80-100 fL Mean Corpuscular Hemoglobin 27.9 25-34 pg Mean Corpuscular Hemoglobin Concent 29.4 32-36 g/dl Platelet Count 253 130-400 K/uL Mean Platelet Volume 8.3 7.4-10.4 fL Neutrophils (%) (Auto) 84.3 % Lymphocytes (%) (Auto) 7.4 % Monocytes (%) (Auto) 6.6 % Eosinophils (%) (Auto) 1.2 % Basophils (%) (Auto) 0.2 % Neutrophils # (Auto) 5.11 1.4-6.5 K/uL Lymphocytes # (Auto) 0.45 1.2-3.4 K/uL Monocytes # (Auto) 0.40 0.11-0.59 K/uL Eosinophils # (Auto) 0.07 0-0.5 K/uL Basophils # (Auto) 0.01 0-0.2 K/uL RDW Standard Deviation 72.2 36.4-46.3 fL RDW Coefficient of Variation 21.0 11.5-14.5 % Immature Granulocyte % (Auto) 0.3 % Immature Granulocyte # (Auto) 0.02 0.00-0.02 K/uL Nucleated RBC Absolute Count (auto) 0.05 0-0 K/uL Nucleated Red Blood Cells % 0.9 % Polychromasia 1+ Anisocytosis PRESENT Erythrocyte Sedimentation Rate 51 0-21 mm/hr Sodium Level 140 136-145 mmol/L Potassium Level 5.9 3.5-5.1 mmol/L Chloride Level 107 98-107 mmol/L Carbon Dioxide Level 25 21-32 mmol/L Anion Gap 8.0 3-11 mmol/L Blood Urea Nitrogen 55 7-18 mg/dl Creatinine 2.10 0.60-1.20 mg/dl Est Creatinine Clear Calc Drug Dose 35.9 ml/min Estimated GFR () 29.5 Estimated GFR (Non- 25.5 BUN/Creatinine Ratio 26.3 10-20 Random Glucose 168 70-99 mg/dl Calcium Level 8.4 8.5-10.1 mg/dl Phosphorus Level 5.8 2.5-4.9 mg/dl Magnesium Level 3.2 1.8-2.4 mg/dl Total Bilirubin 0.7 0.2-1 mg/dl Aspartate Amino Transf (AST/SGOT) 115 15-37 U/L Alanine Aminotransferase (ALT/SGPT) 15 12-78 U/L Alkaline Phosphatase 151 45-117 U/L Total Creatine Kinase 1170 26-192 U/L Creatine Kinase MB 9.0 0.5-3.6 ng/ml Creatine Kinase MB Ratio 0.8 0-3.0 Troponin I 0.067 0-0.045 ng/ml C-Reactive Protein 5.52 0-0.29 mg/dl Pro-B-Type Natriuretic Peptide 5064 0-900 pg/ml Total Protein 6.7 6.4-8.2 gm/dl Albumin 3.2 3.4-5.0 gm/dl Globulin 3.5 2.5-4.0 gm/dl Albumin/Globulin Ratio 0.9 0.9-2 Lipase 284 73-393 U/L Venous Blood pH 7.21 7.36-7.41 Venous Blood Partial Pressure CO2 61 38.0-50.0 mmHg Venous Blood Partial Pressure O2 39 mmHg Venous Blood HCO3 24 mmol/L Venous Blood Oxygen Saturation 62.2 % Venous Blood Base Excess -4.2 mmol/L Bedside Lactic Acid Venous 2.10 0.90-1.70 mmol/L Test 01/06/17 11:40 Range/Units Urine Color DK YELLOW Urine Appearance CLOUDY CLEAR Urine pH 5.0 4.5-7.5 Urine Specific [place] 1.023 1.000-1.030 Urine Protein TRACE NEG Urine Glucose (UA) NEG NEG Urine Ketones TRACE NEG Urine Occult Blood NEG NEG Urine Nitrite NEG NEG Urine Bilirubin NEG NEG Urine Urobilinogen NEG NEG Urine Leukocyte Esterase SMALL NEG Microbiology Results 01/06/17 Blood Culture, Received Pending 01/06/17 Blood Culture, Received Pending 01/06/17 Urine Culture, Received Pending Diagnostic Radiology CXR Per radiologist read: IMPRESSION: 1. Right lower lung opacity which favors pneumonia. Radiographic follow-up to ensure resolution is recommended. 2. Linear left lower lung opacities which favor atelectasis. EKG NSR 96 BPM, Qtc 409 Impression Assessment and Plan 56 year old female with multiple comorbidities presents to the ED in acute respiratory distress ACUTE on CHRONIC RESPIRATORY FAILURE secondary to [facility]ALTHCARE ASSOCIATED PNEUMONIA -Admit to tele -H/O COPD with chronic respiratory failure on 3L NC, presents with hypoxia, respiratory distress -Likely COPD exacerbation secondary to underlying HCAP -CXR with RLL infiltrate, lactate 2.1, no leukocytosis, afebrile, VBG pH 7.21, pCO2 61 -Continue BIPAP for respiratory support -repeat VBG, lactate -Empiric Abx with Levaquin and Zyvox -IV solu-medrol 40mg q8h -Duonebs -Panculture pending -CBC, PRP, Mg in AM -Pulmonary consult for further input -Of note, UA possible infection, denies urinary symptoms, culture pending, Levaquin for HCAP will provide empiric UTI coverage HYPERKALEMIA/HYPERMAGNESEMIA/HYPERPHOSPHATEMIA -Likely secondary to EMMA -no EKG changes -IV hydration -follow labs ACUTE KIDNEY INJURY - h/o renal transplant -crea 2.1, baseline 1.2 -?secondary to acute illness, possible dehydration -gentle IVF hydration -hold diuretics -continue immunosuppressive agents -recent Bactrim use for skin wounds--12/16-01/04 COPD -Likely acute exacerbation secondary to HCAP -IV solu-medrol 40mg IV q8h -continue duonebs -continue BIPAP for respiratory support, wean as able -Abx as above -pulmonary consult placed for further management ELEVATED TROPONIN -0.067, denies chest pain, EKG nonischemic -serial [place], EKGs -update echo -continue statin -add aspirin -monitor in tele DIASTOLIC CHF -update echo -hold Lasix for EMMA -chronic lower extremity edema per family -Monitor volume status IDDM -check A1c -expect hyperglycemia with IV steroids, pharmacy consulted for glycemic control -SSI coverage H/O PE -check INR -continue Coumadin PARKINSON'S DISEASE -continue Carbidopa/levodopa GERD -continue PPI H/O MRSA -contact precautions HLD -continue statin DEPRESSION -continue Lamictal, Requip and clonazepam CODE STATUS:FULL CODE per my discussion with the patient and her DVT PROPHYLAXIS: Coumadin DISPO:In my clinical judgment this beneficiary meets acute admission criteria, established by [facility], that includes being hospitalized through two midnights. Patient seen in collaboration with Dr. Szymanski I have seen and evaluated the patient and have discussed the case with the provider above. I agree with the assessment and plan as stated above. Since prior hospitalization at [facility] in late Jul/early Aug where she was taken off Coumadin, she was readmitted with a PE on 09/20 to [facility] and discharged 10/08. She was placed back on the coumadin at that time. She was then readmitted 10/19- 10/25 for sepsis and sent to [facility] for rehab--discharged on 12/06. She was recently seen by Dermatology for BCC that were biopsied and was placed on Bactrim for wound care--stopped 01/04. states patient is not compliant with CPAP at night because "the people at [facility] said she didn't need it." Currently on BIPAP and much improved with respect to mental status, resp rate has normalized and lungs are clear to auscultation with good airflow. I spoke with respiratory and apprised them of this and her need for nightly BIPAP while admitted. She clearly has a pneumonia, and we will support her with abx and BIPAP and screen for flu. Will also consult pulm as there is a component of pHTN likely 2/2 severe PRASANNA, and a h/o chronic COPD on home oxygen. They follow her as an outpatient. One of her main issues is her morbid obesity which, in conjunction with comorbidities, causes difficulties moving/ambulating and is the basis for alot of her skin problems. She currently has nursing to help with showering, etc. Her states that they have been doing fine since being home from [facility] the past few weeks. However, it should be noted that he is not a great historian, and she is coming in with foul smelling skin folds and excoriations above her ears where her oxygen tubes have been rubbing. PT/OT to re-evaluate and appreciate Case Management input here. Charley Szymanski, DO Level of Care Telemetry Advanced Directives Existing Living Will: No Existing Power of Service Center Manager: No Resuscitation Status FULL RESUSCITATION VTE Prophylaxis Given or contraindicated: Unfractionated heparin SQ Social Service Consult Receiving Home Health
[2017-01-06] MEDS ORDERED: ACETAMINOPHEN 325 MG TAB ONE (13:42)
[2017-01-06] MEDS ORDERED: HEPARIN SOD 5000 UNIT/0.5 ML CARP SQ SCH (14:00)
[2017-01-06] MEDS ORDERED: PHARMACY GLYCEMIC MGMT CONSULT PRN (14:11)
[2017-01-06 14:14] LABS: VEN BLD GAS O2 SATURATION 94.1 %; VEN BLOOD GAS BASE EXCESS -4.6 mmol/L
--- NOTE | 2017-01-06 14:42 | Pharmacy Progress Note ---
Glycemic Control Intl Consult Date of Service Jan 06, 2017. Scope Glycemic Pharmacist consulted by Dr Szymanski on 01/06/17 for glycemic control and to write orders per [facility] inpatient glycemic control protocol Objective Weight (Kilograms): 127.000 Accuchecks BSG (last 24hrs): Test 01/06/17 10:15 Random Glucose 168 mg/dl (70-99) Laboratory Data (last 24hrs) Test 01/06/17 10:15 Anion Gap 8.0 mmol/L BUN/Creatinine Ratio 26.3 Blood Urea Nitrogen 55 mg/dl Creatinine 2.10 mg/dl Potassium Level 5.9 mmol/L Sodium Level 140 mmol/L White Blood Count 6.06 K/uL Red Blood Count 3.37 M/uL Hemoglobin 9.4 g/dL Hematocrit 32.0 % Mean Corpuscular Volume 95.0 fL Mean Corpuscular Hemoglobin 27.9 pg Mean Corpuscular Hemoglobin Concent 29.4 g/dl Platelet Count 253 K/uL Mean Platelet Volume 8.3 fL Neutrophils (%) (Auto) 84.3 % Lymphocytes (%) (Auto) 7.4 % Monocytes (%) (Auto) 6.6 % Eosinophils (%) (Auto) 1.2 % Basophils (%) (Auto) 0.2 % Neutrophils # (Auto) 5.11 K/uL Lymphocytes # (Auto) 0.45 K/uL Monocytes # (Auto) 0.40 K/uL Eosinophils # (Auto) 0.07 K/uL Basophils # (Auto) 0.01 K/uL Recent Pertinent Medications Outpatient Anti-diabetic Regimen: * Lantus 40 units HS plus Novolog 10 units with meals * A1c = 7.9 % 08/24/2016 Risk Factors for Insulin Resistance: * Steroids: Solu-Medrol 125 mg IV in ED then Solu-Medrol 40 mg IV q8 hours * Infection: respiratory * Diet: NPO except medications Assessment & Plan ASSESSMENT: * ADA & AACE recommend a goal blood sugar range 140-180 mg/dl for the majority of critically ill & non-critically ill patients. However, more stringent targets may be selected in individual cases. * Ms Haas is a 56 year old F who is familiar to the glycemic service. She is currently being admitted for respiratory distress. She has a couple day history of increased shortness of breath and confusion. She has a cough with sputum. She has been admitted and is started on steroids with antibiotics. * Based upon previous data for the patient where she required Lantus 35 units twice daily and Novolog (correction factor of 1:10 and carbohydrate ratio of 1:5 ) while eating, she required approximately 120 units/day while on the same steroids regimen. Her kidney function was slightly better, but I believe current kidney dysfunction will resolve shortly. This previous data lends itself to a 50/50 basal/bolus split of Lantus 30 units BID while keeping the same Novolog parameters (reduced doses are utilized due to NPO status). As the patient has reasonable outpatient control of her diabetes and with the utilization of steroids, a lower goal range will be used. Overnight Accuchecks will be added to ensure that the patient will not have too high of blood sugars as there are several factors that are different about this admission. PLAN FOR INPATIENT GLYCEMIC CONTROL: * Basal insulin with LANTUS 30 units SQ BID * Correctional Insulin with NOVOLOG Q4hrs while NPO * Goal Range: Low 120 mg/dL - High 160 mg/dL * Correction Factor: 10 mg/dL/unit * Nutritional / Prandial insulin per carb ratio of 1 unit per 5 grams CHO consumed * Please note that the plan above was derived based on current level of insulin resistance and hospital stress. These recommendations are appropriate for inpatient admission only. Plan of care upon discharge will need to be reassessed to avoid potential outpatient hypo/hyperglycemia. Thank you.
[2017-01-06] MEDS ORDERED: LEVOFLOXACIN CONSULT ACTIVE PRN (14:45)
[2017-01-06] MEDS ORDERED: LINEZOLID CONSULT ACTIVE PRN (14:45)
[2017-01-06] MEDS: HYDROCODONE/ACETAMOPHEN 5/325MG TAB PO PRN (15:47)
[2017-01-06] MEDS ORDERED: INSULIN ASPART 100 UNITS/ML 3 ML PEN SC SCH ×2 (16:00→18:00)
[2017-01-06] MEDS ORDERED: WARF2TAB8 PO (16:00)
[2017-01-06] MEDS ORDERED: WARF1TAB6 PO (16:00)
[2017-01-06] MEDS ORDERED: LINEZOLID 600MG / D5W IV SCH (16:30)
[2017-01-06] MEDS ORDERED: CEFEPIME IV 2000 MG in DEXTROSE 5% 100ML IV ONE (16:30)
[2017-01-06] MEDS ORDERED: [UNRECOGNIZED DRUG - REMARK] SCH (16:32)
[2017-01-06] MEDS ORDERED: VANCOMYCIN CONSULT ACTIVE PRN (16:45)
[2017-01-06 16:57] LABS: CKMB/CK RATIO 0.8 (0-3.0)
[2017-01-06] MEDS ORDERED: VANCOMYCIN INJ 2,700 MG in SODIUM CHLORIDE 0.9% 500ML 500 ML IV ONE (17:00)
[2017-01-06] MEDS: CLONAZEPAM 0.5 MG TAB PO PRN (17:51)
[2017-01-06] MEDS ORDERED: NURSING VERBAL MED ORDER ONE ×2 (18:15→20:00)
[2017-01-06] MEDS ORDERED: WARFARIN SOD 1 MG TAB PO SCH (18:30)
[2017-01-06] MEDS: CARBIDOPA/LEVODOPA 25/100MG TAB PO SCH ×2 (19:10→21:01)
[2017-01-06] MEDS: CARBIDOPA/LEVODOPA 25-250 1 EA TAB PO SCH (19:11)
[2017-01-06] MEDS: METHYLPREDNISOLONE IV 40 MG in SYRINGE 0 ML IV SCH (19:12)
[2017-01-06] MEDS: ALBUT/IPRATROP 3MG/0.5MG NEB 3 ML VIAL INH SCH (19:15)
[2017-01-06] MEDS: ACETAMINOPHEN 325 MG TAB PO PRN (19:23)
[2017-01-06] MEDS: SODIUM CHLORIDE 0.9% 1000ML 1,000 ML IV SCH (19:24)
[2017-01-06] MEDS: MICONAZOLE NITRATE POWDER 43 GM EXT PRN (20:54)
[2017-01-06] MEDS: FLUTICASONE/SALMETEROL 250/50 (ADVAIR) 14 PUFF/1 INHALER INH SCH (20:55)
[2017-01-06] MEDS: ROPINIROLE HCL 1 MG TAB PO SCH (20:56)
[2017-01-06] MEDS: GABAPENTIN 300 MG CAP PO SCH (20:56)
[2017-01-06] MEDS: AZATHIOPRINE 50 MG TAB PO SCH (20:57)
[2017-01-06] MEDS: CycloSPORINE (NEORAL) 25 MG CAP PO SCH (20:59)
[2017-01-06] MEDS ORDERED: INSULIN GLARGINE SOLOSTAR 100 UNITS/ML 3 ML PEN SC SCH (21:00)
[2017-01-06] MEDS: INSULIN ASPART 100 UNITS/ML 3 ML PEN SC SCH (21:11)
[2017-01-06 22:25] LABS: INFLUENZA A PCR Neg for Influ A (NEG); INFLUENZA B PCR Neg for Influ B (NEG)
[2017-01-06 23:14] LABS: CKMB/CK RATIO 0.8 (0-3.0)
[2017-01-07] VITALS (14 sets, daily range): BP systolic 113–129; BP diastolic 61–80; PULSE 69–84; TEMP 36.5–36.8; O2SAT 89–100
[2017-01-07] MEDS ORDERED: INSULIN ASPART 100 UNITS/ML 3 ML PEN SC SCH
[2017-01-07] MEDS: METHYLPREDNISOLONE IV 40 MG in SYRINGE 0 ML IV SCH ×2 (02:04→10:39)
[2017-01-07] MEDS: ACETAMINOPHEN 325 MG TAB PO PRN (02:49)
[2017-01-07] MEDS: INSULIN ASPART 100 UNITS/ML 3 ML PEN SC SCH ×4 (05:04→23:51)
[2017-01-07] MEDS: CARBIDOPA/LEVODOPA 25/100MG TAB PO SCH ×5 (05:09→20:08)
[2017-01-07] MEDS: SODIUM CHLORIDE 0.9% 1000ML 1,000 ML IV SCH (05:09)
[2017-01-07 05:59] LABS: HEMATOCRIT 31.9 % (37-47); IG% 0.3 %; LYMPH % 2.5 %; LYMPH ABS # 0.17 K/uL (1.2-3.4); MEAN CELL VOLUME 94.1 fL (80-100); MEAN CORPUSCULAR HEMOGLOBIN 27.7 pg (25-34); MEAN CORPUSCULAR HGB CONC 29.5 g/dl (32-36); MEAN PLATELET VOLUME 8.4 fL (7.4-10.4); MONO % 1.2 %; PLATELET COUNT 234 K/uL (130-400); RED BLOOD COUNT 3.39 M/uL (4.2-5.4); WHITE BLOOD COUNT 6.87 K/uL (4.8-10.8)
[2017-01-07 06:14] LABS: INR 2.9 (0.9-1.1); PROTHROMBIN TIME (PATIENT) 31.9 SECONDS (9.0-12.0)
[2017-01-07 06:30] LABS: BUN/CREATININE RATIO 33.6 (10-20); CALCIUM 8.1 mg/dl (8.5-10.1); CREATININE 1.8 mg/dl (0.60-1.20); MAGNESIUM 3.4 mg/dl (1.8-2.4); POTASSIUM 5.9 mmol/L (3.5-5.1)
[2017-01-07 06:31] LABS: PHOSPHORUS 5.3 mg/dl (2.5-4.9)
[2017-01-07 06:32] LABS: ANISOCYTOSIS PRESENT; COMPLETE YES; ECHINOCYTES 1+; OVALOCYTES 1+
[2017-01-07 07:02] LABS: ESTIMATED AVERAGE GLUCOSE 143 mg/dl; HA1C FLAG Normal (Normal)
[2017-01-07] MEDS: ALBUT/IPRATROP 3MG/0.5MG NEB 3 ML VIAL INH SCH ×4 (07:37→19:09)
[2017-01-07] MEDS: HYDROCODONE/ACETAMOPHEN 5/325MG TAB PO PRN ×2 (08:00→13:50)
--- NOTE | 2017-01-07 08:35 | PULMONARY CONSULTATION ---
DATE OF CONSULTATION: 01/07/2017 HISTORY OF PRESENT ILLNESS: The patient is a 56-year-old female, who was admitted to the hospital last night through the Emergency Room after being evaluated by Dr. Hernandez and Dr. Szymanski has asked me to evaluate the patient from a pulmonary standpoint. The patient carries a history of chronic obstructive lung disease on chronic oxygen therapy and apparently has been hospitalized at [facility] several times for COPD and respiratory failure. She carries a history of chronic respiratory failure secondary to Parkinson's disease and chronic obstructive lung disease. She was hospitalized here in July 2016 with respiratory failure at that time with profound acidosis. On 08/23/2016 her venous blood gas revealed pH of 7.26, pCO2 of 64, pO2 of 45. She did have a CT of the chest on 08/24/2016 that revealed chronic interstitial changes and increase in bronchovascular markings with mild cardiomegaly consistent with perhaps some mild chronic obstructive lung disease and heart failure. Nonetheless, she presented to the Emergency Room with shortness of breath over a two-day period of time. She recently was admitted to a personal care facility and was discharged, had been at [facility], although we are not having any of those records. Chest x-ray at this point reveals a right lower lobe infiltrate. Apparently, she developed shortness of breath over several days' period of time associated with which she states is cough which was nonproductive. She denies aspiration, nausea, vomiting or upper airway symptoms. No one in her family has been ill. She has developed worsening edema of the lower extremities, although she denied that she has some erythematous changes over the lower extremities with edema now and edema of her hands as well. ENT evaluated her and had difficulty with getting an IV placed. She was seen in the Emergency Room. Oxygen saturation is 100% on CPAP, 6 liters. Blood pressure 121/74 and she was afebrile with a pulse of 94 and regular. Chest x-ray showed right lower lobe infiltrate with some atelectatic changes at the left base. White count was normal. Hemoglobin of 9.4, BUN of 55 and creatinine of 2.1. She was placed on IV antibiotics; but only Levaquin and vancomycin. She was given cefepime one dose as well apparently. She has not been placed on any of the penicillin derivatives. Infectious disease consultation has been placed. The patient is comfortable on BiPAP at the present time. She does not wear that at home. She states she has not had any other significant symptoms. She is very limited in her activity at home because of her obesity and chronic obstructive lung disease. She states she has been using her inhalers. There was a history of perhaps some confusion at home with some hallucinations. She was really following commands, although presently she nods her head yes and no appropriately. PAST MEDICAL HISTORY: Well outlined in the records includes; chronic obstructive lung disease with respiratory failure, chronic kidney disease with transplant, obesity, depression, diabetes mellitus, hyperlipidemia and GERD, the patient states that has been under good control. She carries a history of deep vein thrombosis on Coumadin, history of pulmonary embolism and Parkinson's disease. PAST SURGICAL HISTORY: Cataract surgery, , rotator cuff surgery and again the cadaver renal transplant. SOCIAL HISTORY: She states she has never been a tobacco user. She lives with her family. She has not had any industrial exposures from what I can glean from the records. ALLERGIES: Noted and are multiple. MEDICATIONS: Noted. She carries a history of respiratory failure, has been admitted to the intensive care unit several times in the past as well with respiratory failure and sepsis. Her history noted for chronic obstructive lung disease from what I can glean from the records. PHYSICAL EXAMINATION: VITALS: Now reveals her blood pressure to be 124/73, her pulse is 70 and regular, respiratory rate is 20 now and she is afebrile. Her weight is 127.3 kilograms. When she was here in July she was 138.5 kilograms; so she has lost about 11 kilograms in the last six months or so. HEENT: She has a BiPAP in place. There is no evidence of thrush. There is a markedly reduced opening in the posterior pharynx with a large tongue, redundant tissue. No neck vein distention or HJR is noted, but she is obese. I did not detect any adenopathy. Thyroid is nonpalpable. She is sitting up at about 60 degrees. Expansion of the thorax is good with deep inspiration with no muscle weakness noted. HEART: Regular rate and rhythm, 1/6 mid to late systolic murmur heard at the apex. It is nonradiating. I do not detect any gallops, but the heart sounds are quite distant. LUNGS: Reveal few crackles at the right base. No fremitus is noted, but decreased breath sounds are noted. No wheezing is noted. ABDOMEN: Soft and massively obese, nontender. EXTREMITIES: She has some erythematous changes in the lower extremities with some scaling of the left pretibial area. It did not appear to be warm to me. However it was quite erythematous, suggestive of cellulitis. Capillary refill to the toes look good. LABORATORY DATA: White count 6.87, H\T\H 9.4 and 31.9% with a platelet count of 234,000. Venous blood gas is noted; it did improve with BiPAP. Potassium is 5.9, BUN 61, creatinine 1.8. Magnesium was considerably increased at 3.4. INR is 2.9. Today urinalysis revealed 10 to 30 inflammatory cells with some yeast in the urine as well. MRSA DNA surveillance screen is negative. Blood cultures are pending. IMPRESSION: 1. Respiratory failure with hypercapnia and hypoxemia. This appears to be acute on chronic. She states she has never been a tobacco user, much of this may be profound. Hypoventilation syndrome related to her severe chronic obstructive lung disease. 2. Right lower lobe pneumonia. This certainly would complicate her chronic obstructive pulmonary disease if she does have chronic obstructive lung disease. This needs to be considered a healthcare facility associated pneumonia since she has been in a personal alf and has a history of multiple admissions to [facility] recently. 3. Chronic kidney disease status post cadaver renal transplant. 4. Hyperkalemia. 5. Probable cellulitis of the lower extremities. RECOMMENDATIONS: 1. At this point, I would continue with her present medications. We will have an ID consult, but she should probably have Zosyn added to cover gram negative organisms for right lower lobe pneumonia. 2. Continue on Coumadin. 3. At this point, I would continue on the Advair 250/50 one inhalation b.i.d. and I think the methylprednisolone could be cut to 20 mg IV q. 12 hours and tapered down over several days. I cannot tell from the records whether she has been on chronic prednisone; she states she has not been on that. 4. I suggest a neurology evaluation as well for adjustment of the Sinemet. 5. Antireflux regimen. With Parkinson's disease and a history of reflux she is at great risk for developing aspiration. Again, she may need Zosyn added; we will see what the infectious disease specialist adds today. We will repeat a chest x-ray again in about 48 hours. She has had a Legionella titer ordered and that is pending as well. I think we just continue her on the Advair for now, DuoNeb could be added if she developed worsening respiratory insufficiency; it will help to enhance mucociliary clearance. Also, continue on her level of BiPAP now since her hypercapnia has improved. Thanks for asking me to evaluate Ms. Haas and I will be glad to follow along with you during her hospital stay.
[2017-01-07] MEDS ORDERED: ATORVASTATIN 40 MG TAB PO SCH (09:00)
[2017-01-07] MEDS ORDERED: INSULIN GLARGINE SOLOSTAR 100 UNITS/ML 3 ML PEN SC SCH (09:00)
[2017-01-07] MEDS: ROPINIROLE HCL 1 MG TAB PO SCH ×3 (09:45→20:09)
[2017-01-07] MEDS: FLUTICASONE/SALMETEROL 250/50 (ADVAIR) 14 PUFF/1 INHALER INH SCH ×2 (09:45→20:08)
[2017-01-07] MEDS: CARBIDOPA/LEVODOPA 25-250 1 EA TAB PO SCH ×2 (09:45→15:39)
[2017-01-07] MEDS: CycloSPORINE (NEORAL) 25 MG CAP PO SCH ×2 (09:45→20:10)
[2017-01-07] MEDS: GABAPENTIN 300 MG CAP PO SCH ×3 (09:46→20:09)
[2017-01-07] MEDS: PANTOprazole SOD 40 MG TAB PO SCH (09:46)
[2017-01-07] MEDS: AZATHIOPRINE 50 MG TAB PO SCH ×2 (09:47→20:12)
[2017-01-07] MEDS: ROSUVASTATIN CALCIUM 10 MG TAB PO SCH (09:47)
--- NOTE | 2017-01-07 10:13 | Medical Consult ---
Consultation Date of Consultation: Jan 07, 2017. Attending Physician: Karson Hardy MD Reason for Consultation: HCAP History of Present Illness Patient is a 56-year-old female presented to the emergency department with complaints of shortness of breath. She states that she has been short of breath for multiple days prior to admission. She was recently discharged from a rehab facility to home. The patient was previously seen by infectious diseases consultation in regard to bilateral lower extremity cellulitis. The patient states that she has had some pain in her bilateral lower extremities recently, but this is chronic. Prior to admission the patient was found to be hypoxic by EMS. Since admission, the patient's white blood cell count has been 6.87. Her ESR was elevated at 51. CRP was 5.52. Her creatinine was 2.10 on admission, and her creatinine kinase level was noted to be 1170. She had a chest x-ray on admission as well which showed right lower lung opacity favoring pneumonia and linear left lower lung opacities favoring atelectasis. Since admission, the patient has received doses of Levaquin, Zyvox, cefepime, and vancomycin. Urine culture is showing 3 types of organisms present. MRSA nasal swab was negative. Blood cultures pending. Past Medical/Surgical History Medical Problems: (1) Acute on chronic heart failure Status: Acute (2) Ambulatory dysfunction Status: Acute (3) Anterior epistaxis Status: Acute (4) COPD exacerbation Status: Acute (5) Dyspnea Status: Acute (6) Elevated troponin Status: Acute (7) Hypoxia Status: Acute (8) Hypoxia Status: Acute (9) Left leg cellulitis Status: Acute (10) Pneumonia Status: Acute (11) Pulmonary edema Status: Acute (12) Respiratory acidosis Status: Acute (13) Respiratory failure Status: Acute (14) Respiratory failure Status: Acute (15) Respiratory failure Status: Acute (16) Right lower lobe pneumonia Status: Acute (17) Sepsis Status: Acute (18) Subtherapeutic international normalized ratio (INR) Status: Acute (19) UTI (urinary tract infection) Status: Acute (20) UTI (urinary tract infection) Status: Acute Medical Problems: (1) Acute and chronic respiratory failure ([id number]) (2) Anxiety (3) CHF exacerbation (4) Chronic diastolic heart failure (5) Chronic kidney disease stage 3 (6) Chronic obstructive lung disease (7) Chronic pain (8) Depression (9) Diabetes mellitus type 2 (10) Dyslipidemia (11) GERD (gastroesophageal reflux disease) (12) History of DVT (deep vein thrombosis) (13) History of pulmonary embolism (14) Parkinson's disease (15) Respiratory distress Surgical Problems: (1) History of cataract surgery (2) History of delivery (3) Hx of rotator cuff surgery (4) S/p cadaver renal transplant Family History Cancer Diabetes mellitus Heart disease Hypertension Kidney disease Kidney stones Noncontributory Social History Smoking Status: Never Smoker Drug Use: none Marital Status: Housing Status: lives with significant other Occupation Status: unemployed Allergies Coded Allergies: Carisoprodol (Verified Allergy, Unknown, ., 01/06/17) Tiotropium (Verified Allergy, Unknown, UNK, 01/06/17) Cimetidine (Verified Adverse Reaction, Mild, SEVERE BRUISING, 01/06/17) Cyclobenzaprine (Verified Adverse Reaction, Mild, HALLUCINATIONS, 01/06/17) Iodinated Diagnostic Agents (Verified Adverse Reaction, Unknown, KIDNEY PROBLEMS, 01/06/17) Quetiapine (Verified Adverse Reaction, Unknown, HALLUCINATIONS, 01/06/17) Home Medications Reported Home Medications Medications Dose Route/Sig Max Daily Dose Days Date Category Dose Instructions Jantoven (Warfarin Sodium) 2 Mg Tab 2 Mg PO 5XWK 01/06/17 Reported FRIDAY,FRIDAY,FRIDAY, FRIDAY & FRIDAY Jantoven (Warfarin Sodium) 1 Mg Tab 1 Mg PO 2XWK 01/06/17 Reported FRIDAY AND FRIDAY Crestor (Rosuvastatin Calcium) 5 Mg Tab 2 Tab PO DAILY 30 01/06/17 Reported Pantoprazole Sodium (Pantoprazole) 40 Mg Tab 40 Mg PO DAILY 01/06/17 Reported Advair Diskus 250/50 60 Dose (Fluticasone Prop/Salmeterol) 1 Ea Aerp 1 Puff INH BID 01/06/17 Reported [place] 5MG/325MG (Acetaminophen/Hydrocodone Bitart) Tab 1 Tablet PO HS PRN 01/06/17 Reported PRN PAIN Roxicodone Ir (Oxycodone HCl) 5 Mg Tab 5 Mg PO Q6H PRN 12/14/16 Reported NEEDED FOR PAIN # 6-10 Duoneb (Ipratropium-Albuterol) 3 Ml Nebu 1 Treatment INH Q4H PRN 12/14/16 Reported Duoneb (Ipratropium-Albuterol) 3 Ml Nebu 1 Treatment INH QID 12/14/16 Reported Lantus Solostar (Insulin Glargine) 100 Unit/Ml Inj 40 Units SQ HS 12/14/16 Reported Tylenol (Acetaminophen) 325 Mg Tab 650 Mg PO Q4H PRN 12/14/16 Reported NEEDED FOR PAIN # 1-5 OR TEMP > 100f NTE 3GM APAP/24HRS Prednisone 5 Mg Tab 5 Mg PO QAM 12/14/16 Reported TAKE WITH BREAKFAST Imuran (Azathioprine) 50 Mg Tab 50 Mg PO BID 12/14/16 Reported Novolog Flexpen (Insulin Aspart) 100 Units/Ml Inj 10 Units SC TIDM 30 09/02/16 Rx Clonazepam 0.5 Mg Tab 0.5 Mg PO BID PRN 08/01/16 Reported Sinemet 25MG/100MG (Carbidopa/Levodopa) Tab 1 Tab PO 5XD 07/06/16 Reported Dosing schedule was a verbal obtained from Dr. Szymanski after she reviewed [facility] records. Per pt's : 5 x daily dosing times are 05,07,11,15,20. Sinemet 25MG/250MG (Carbidopa/Levodopa) Tab 1 Tab PO BID 07/06/16 Reported Dosing schedule was a verbal obtained from Dr. Szymanski after she reviewed [facility] records 01/06/17. Oxygen Gas 3 Liters NA CONTINOUS 07/02/16 Reported Senexon (Sennosides) 8.6 Mg Tab 8.6 Mg PO HS PRN 04/30/16 Reported Miralax (Polyethylene Glycol 3350) 1 Pow Pow 17 Gm PO DAILY PRN 04/30/16 Reported Lamictal (Lamotrigine) 150 Mg Tab 150 Mg PO QPM 02/25/15 Reported Lamictal (Lamotrigine) 100 Mg Tab 100 Mg PO QAM 02/25/15 Reported Neurontin (Gabapentin) 300 Mg Cap 300 Mg PO TID 02/25/15 Reported Requip (Ropinirole Hydrochloride) 3 Mg Tab 3 Mg PO TID 02/25/15 Reported Lasix (Furosemide) 40 Mg Tab 40 Mg PO BID 02/25/15 Reported Neoral (Cyclosporine) 25 Mg Cap 75 Mg PO BID 5/30/15 Reported Prandin (Repaglinide) 1 Mg Tab 1 Mg PO BID 02/25/15 Reported 15 MINUTES BEFORE LUNCH AND SUPPER Tizanidine Hcl 2 Mg Cap 2 Mg PO BID 02/25/15 Reported Current Inpatient Medications Current Inpatient Medications Medications (Trade) Dose Ordered Sig/Tato Route Start Time Stop Time Status Last Admin Dose Admin Acetaminophen (Tylenol Tab) 650 mg Q4H PRN PO 01/06/17 12:30 02/05/17 12:29 01/07/17 02:49 650 MG Ondansetron HCl (Zofran Inj) 4 mg Q6H PRN IV 01/06/17 12:30 02/05/17 12:29 Nitroglycerin (Nitrostat Tab) 0.4 mg UD PRN SL 01/06/17 12:30 02/05/17 12:29 Morphine Sulfate (MoRPHine SULFATE INJ) 2 mg Q30M PRN IV 01/06/17 12:30 01/20/17 12:29 Polyethylene (Miralax Powder Packet) 17 gm DAILY PRN PO 01/06/17 12:30 02/05/17 12:29 Glucose (Glucose 40% Gel) 15-30 GRAMS 15 GRAMS... UD PRN PO 01/06/17 12:30 02/05/17 12:29 Glucose (Glucose Chew Tab) 4-8 Tablets 4 Tabl... UD PRN PO 01/06/17 12:30 02/05/17 12:29 Dextrose (Dextrose 50% 50ML Syringe) 25-50ML OF 50% DW IV FOR... UD PRN IV 01/06/17 12:30 02/05/17 12:29 Glucagon (Glucagon Inj) 1 mg UD PRN SQ 01/06/17 12:30 02/05/17 12:29 Miscellaneous Information (Consult Glycemic Management Pharmacy) 1 ea UD PRN N/A 01/06/17 14:11 02/05/17 14:10 Albuterol/ Ipratropium (Duoneb) 3 ml QIDR INH 01/06/17 16:00 02/05/17 15:59 01/07/17 07:37 3 ML Miscellaneous Information 1 ea 1 ea UD N/A 01/06/17 16:32 02/05/17 16:31 Methylprednisolone Sodium Succinate/ Syringe (Solu-Medrol IV/ Syringe) 0.64 ml @ 1.5 mls/min Q8H IV 01/06/17 18:00 02/05/17 12:59 01/07/17 02:04 1.5 MLS/MIN Azathioprine (Imuran Tab) 37.5 mg BID PO 01/06/17 21:00 02/05/17 20:59 01/07/17 09:47 37.5 MG Carbidopa/Levodopa (Sinemet 25/ 100MG Tab) 1 tab DAILY@0500,0700,1100,1500,2000 PO 01/06/17 15:00 02/05/17 14:59 01/07/17 09:45 1 TAB Carbidopa/Levodopa (Sinemet 25/ 250MG Tab) 1 tab BID@0700,1500 PO 01/06/17 15:00 02/05/17 14:59 01/07/17 09:45 1 TAB Clonazepam (Klonopin Tab) 0.5 mg BID PRN PO 01/06/17 13:30 02/05/17 13:29 01/06/17 17:51 0.5 MG Cyclosporine (Neoral Cap) 75 mg BID PO 01/06/17 21:00 02/05/17 20:59 01/07/17 09:45 75 MG Salmeterol Xinafoate/ Fluticasone (Advair Diskus 250/50 Inh) 1 puff BID INH 01/06/17 21:00 02/05/17 20:59 01/07/17 09:45 1 PUFF Gabapentin (Neurontin Cap) 300 mg TID PO 01/06/17 21:00 02/05/17 20:59 01/07/17 09:46 300 MG Lamotrigine (Lamictal Tab) 100 mg QAM PO 01/07/17 09:00 02/06/17 08:59 01/07/17 09:45 100 MG Pantoprazole Sodium (Protonix Tab) 40 mg DAILY PO 01/07/17 09:00 02/06/17 08:59 01/07/17 09:46 40 MG Ropinirole HCl (Requip Tab) 3 mg TID PO 01/06/17 21:00 02/05/17 20:59 01/07/17 09:45 3 MG Rosuvastatin Calcium (Crestor Tab) 10 mg DAILY PO 01/07/17 09:00 02/06/17 08:59 01/07/17 09:47 10 MG Warfarin Sodium (Coumadin Tab) 2 mg SuTuWeThSa@1600 PO 01/07/17 16:00 02/06/17 15:59 Lamotrigine (Lamictal Tab) 150 mg QPM PO 01/06/17 21:00 02/05/17 20:59 01/06/17 21:00 150 MG Acetaminophen/ Hydrocodone Bitart 1 tab 1 tab Q8 PRN PO 01/06/17 13:45 01/20/17 13:44 01/06/17 15:47 1 TAB Levofloxacin/Prmx (Levaquin / D5W/ Premixed D5W) 150 ml @ 100 mls/hr Q48H IV 01/08/17 10:00 01/15/17 09:59 Levofloxacin (Consult) 1 ea UD PRN N/A 01/06/17 14:45 02/05/17 14:44 Warfarin Sodium (Coumadin Tab) 1 mg MoFr@1600 PO 01/06/17 18:30 02/05/17 17:29 01/06/17 19:13 1 MG Vancomycin HCl (Consult) 1 ea UD PRN N/A 01/06/17 16:45 02/05/17 16:44 Miconazole Nitrate (Desenex Powder) 1 appln PRN PRN EXT 01/06/17 18:45 02/05/17 18:44 01/06/17 20:54 1 APPLN Insulin Aspart (novoLOG ASPART) SLIDING SCALE If C... Q6H SC 01/06/17 22:00 02/05/17 21:59 01/07/17 05:04 1 UNITS Insulin Glargine (Lantus Solostar Pen) 25 unit Q12 SC 01/07/17 09:00 02/06/17 08:59 01/07/17 09:46 25 UNIT Review of Systems Constitutional: + fatigue, + sweats, + weakness, No chills, No fever Eyes: No worsening of vision ENT: No hearing loss Respiratory: + cough, + dyspnea on exertion, + shortness of breath, No sputum Cardiovascular: No chest pain, No palpitations Abdomen: + nausea, No diarrhea, No vomiting Musculoskeletal: + swelling (B/L LE- chronic, painful) Genitourinary - Female: No dysuria, No urinary frequency Integumentary: + color change (erythema of B/L LE- chronic), No itch, No rash Physical Exam Date Time Temp Pulse Resp B/P Pulse Ox O2 Delivery O2 Flow Rate FiO2 01/07/17 04:01 36.5 75 20 124/73 97 BiPAP 01/07/17 04:00 100 BiPAP 55 01/07/17 02:40 71 94 55 01/07/17 00:00 100 BiPAP 55 01/06/17 23:52 36.8 72 22 118/72 94 BiPAP 01/06/17 22:59 55 01/06/17 22:05 71 92 50 01/06/17 20:23 36.8 76 18 104/62 94 Room Air 01/06/17 20:00 BiPAP 01/06/17 20:00 93 BiPAP 01/06/17 19:17 78 98 60 01/06/17 19:15 78 18 98 BiPAP/CPAP 60 01/06/17 17:40 79 22 122/77 97 Non-Rebreather 01/06/17 17:05 80 97 01/06/17 17:00 123/66 01/06/17 16:35 79 19 98 01/06/17 16:30 108/66 01/06/17 16:05 82 20 97 01/06/17 16:00 132/75 01/06/17 15:35 81 21 97 01/06/17 15:30 155/90 01/06/17 15:30 80 20 155/90 96 CPAP 01/06/17 15:05 81 20 97 01/06/17 15:00 141/82 01/06/17 14:35 82 23 96 01/06/17 14:30 129/83 01/06/17 14:05 83 22 96 01/06/17 14:01 150/79 01/06/17 14:00 82 20 129/83 99 CPAP 01/06/17 13:35 82 19 96 01/06/17 13:30 121/79 01/06/17 13:05 86 24 95 01/06/17 13:00 122/74 01/06/17 12:42 133/74 01/06/17 12:35 87 25 97 01/06/17 12:05 91 22 98 01/06/17 12:00 136/77 01/06/17 11:51 100 CPAP 6.0 60 01/06/17 11:39 124/86 01/06/17 11:35 93 98 01/06/17 11:20 88 18 104/62 100 CPAP 01/06/17 11:06 104/62 01/06/17 11:05 86 18 98 01/06/17 11:00 104/62 01/06/17 10:35 87 19 100 01/06/17 10:30 123/65 01/06/17 10:19 120/77 01/06/17 10:18 91 20 120/77 100 CPAP 01/06/17 10:05 93 22 100 General Appearance: + mild distress, + obese Head: normocephalic, atraumatic Eyes: normal inspection, sclerae normal ENT: hearing grossly normal Neck: supple, trachea midline Respiratory/Chest: chest non-tender, + respiratory distress (mild), + decreased breath sounds (bases), + accessory muscle use, + crackles (mild upper lobes, moderate right lower lobe), + pertinent finding (mask in place for O2) Cardiovascular: regular rate, rhythm Abdomen/GI: normal bowel sounds, non tender, + distended Extremities/Musculoskelatal: + swelling (Mild to moderate edema B/L LE. Mild tenderness to palpation. ) Neurologic/Psych: alert, + pertinent finding (lethargic) Skin: warm/dry, no rash, + pertinent finding (mild erythema of B/L LE- appears likely chronic. Very mild warmth of LLE) Laboratory Results CHEST ONE VIEW PORTABLE CLINICAL HISTORY: Sepsis. Respiratory distress. COMPARISON STUDY: Chest radiograph September 02, [address] August 24, 2016. FINDINGS: There is no pneumothorax or pleural effusion. Cardiomegaly is unchanged. Linear left lower lung opacities favor atelectasis. There is right lower lung airspace opacity which may reflect pneumonia. IMPRESSION: 1. Right lower lung opacity which favors pneumonia. Radiographic follow-up to ensure resolution is recommended. 2. Linear left lower lung opacities which favor atelectasis. Item Value Date Time MRSA DNA Surveillance Screen - Final Complete 01/06/17 2050 Nasal Specimen Negative for MRSA by DNA Probe Urine Culture - Final Complete 01/06/17 1140 Urine , Clean Catch THREE TYPES OF ORGANISMS PRESENT, ALL... Blood Culture Received 01/06/17 1015 Blood Pending Blood Culture Received 01/06/17 0930 Blood Pending Last 24 Hours Test 01/06/17 10:15 01/06/17 10:20 01/06/17 10:24 01/06/17 11:40 White Blood Count 6.06 K/uL Red Blood Count 3.37 M/uL Hemoglobin 9.4 g/dL Hematocrit 32.0 % Mean Corpuscular Volume 95.0 fL Mean Corpuscular Hemoglobin 27.9 pg Mean Corpuscular Hemoglobin Concent 29.4 g/dl Platelet Count 253 K/uL Mean Platelet Volume 8.3 fL Neutrophils (%) (Auto) 84.3 % Lymphocytes (%) (Auto) 7.4 % Monocytes (%) (Auto) 6.6 % Eosinophils (%) (Auto) 1.2 % Basophils (%) (Auto) 0.2 % Neutrophils # (Auto) 5.11 K/uL Lymphocytes # (Auto) 0.45 K/uL Monocytes # (Auto) 0.40 K/uL Eosinophils # (Auto) 0.07 K/uL Basophils # (Auto) 0.01 K/uL RDW Standard Deviation 72.2 fL RDW Coefficient of Variation 21.0 % Immature Granulocyte % (Auto) 0.3 % Immature Granulocyte # (Auto) 0.02 K/uL Nucleated RBC Absolute Count (auto) 0.05 K/uL Nucleated Red Blood Cells % 0.9 % Polychromasia 1+ Anisocytosis PRESENT Erythrocyte Sedimentation Rate 51 mm/hr Sodium Level 140 mmol/L Potassium Level 5.9 mmol/L Chloride Level 107 mmol/L Carbon Dioxide Level 25 mmol/L Anion Gap 8.0 mmol/L Blood Urea Nitrogen 55 mg/dl Creatinine 2.10 mg/dl Est Creatinine Clear Calc Drug Dose 35.9 ml/min Estimated GFR () 29.5 Estimated GFR (Non- 25.5 BUN/Creatinine Ratio 26.3 Random Glucose 168 mg/dl Calcium Level 8.4 mg/dl Phosphorus Level 5.8 mg/dl Magnesium Level 3.2 mg/dl Total Bilirubin 0.7 mg/dl Aspartate Amino Transf (AST/SGOT) 115 U/L Alanine Aminotransferase (ALT/SGPT) 15 U/L Alkaline Phosphatase 151 U/L Total Creatine Kinase 1170 U/L Creatine Kinase MB 9.0 ng/ml Creatine Kinase MB Ratio 0.8 Troponin I 0.067 ng/ml C-Reactive Protein 5.52 mg/dl Pro-B-Type Natriuretic Peptide 5064 pg/ml Total Protein 6.7 gm/dl Albumin 3.2 gm/dl Globulin 3.5 gm/dl Albumin/Globulin Ratio 0.9 Lipase 284 U/L Venous Blood pH 7.21 Venous Blood Partial Pressure CO2 61 mmHg Venous Blood Partial Pressure O2 39 mmHg Venous Blood HCO3 24 mmol/L Venous Blood Oxygen Saturation 62.2 % Venous Blood Base Excess -4.2 mmol/L Bedside Lactic Acid Venous 2.10 mmol/L Urine Color DK YELLOW Urine Appearance CLOUDY Urine pH 5.0 Urine Specific [place] 1.023 Urine Protein TRACE Urine Glucose (UA) NEG Urine Ketones TRACE Urine Occult Blood NEG Urine Nitrite NEG Urine Bilirubin NEG Urine Urobilinogen NEG Urine Leukocyte Esterase SMALL Urine WBC (Auto) 10-30 /hpf Urine RBC (Auto) 0-4 /hpf Urine Hyaline Casts (Auto) 1-5 /lpf Urine Epithelial Cells (Auto) 5-10 /lpf Urine Bacteria (Auto) NEG Urine Renal Epithelial Cells /lpf Urine Pathogenic Casts /lpf Urine Yeast (Auto) BUD W/ HYPHAE Test 01/06/17 12:25 01/06/17 14:00 01/06/17 15:56 01/06/17 18:03 Prothrombin Time 27.5 SECONDS Prothromb Time International Ratio 2.5 Activated Partial Thromboplast Time 33.4 SECONDS Partial Thromboplastin Ratio 1.3 Venous Blood pH 7.28 Venous Blood Partial Pressure CO2 48 mmHg Venous Blood Partial Pressure O2 89 mmHg Venous Blood HCO3 22 mmol/L Venous Blood Oxygen Saturation 94.1 % Venous Blood Base Excess -4.6 mmol/L Lactic Acid Level 0.9 mmol/L Total Creatine Kinase 1063 U/L Creatine Kinase MB 8.0 ng/ml Creatine Kinase MB Ratio 0.8 Troponin I 0.057 ng/ml Bedside Glucose 194 mg/dl Test 01/06/17 20:45 01/06/17 20:58 01/06/17 22:07 01/06/17 22:41 Influenza Type A (RT-PCR) Neg for Influ A Influenza Type B (RT-PCR) Neg for Influ B Bedside Glucose 211 mg/dl Total Creatine Kinase 865 U/L Creatine Kinase MB 6.6 ng/ml Creatine Kinase MB Ratio 0.8 Troponin I 0.029 ng/ml Test 01/07/17 05:00 01/07/17 05:03 Bedside Glucose 166 mg/dl White Blood Count 6.87 K/uL Red Blood Count 3.39 M/uL Hemoglobin 9.4 g/dL Hematocrit 31.9 % Mean Corpuscular Volume 94.1 fL Mean Corpuscular Hemoglobin 27.7 pg Mean Corpuscular Hemoglobin Concent 29.5 g/dl Platelet Count 234 K/uL Mean Platelet Volume 8.4 fL Neutrophils (%) (Auto) 96.0 % Lymphocytes (%) (Auto) 2.5 % Monocytes (%) (Auto) 1.2 % Eosinophils (%) (Auto) 0.0 % Basophils (%) (Auto) 0.0 % Neutrophils # (Auto) 6.60 K/uL Lymphocytes # (Auto) 0.17 K/uL Monocytes # (Auto) 0.08 K/uL Eosinophils # (Auto) 0.00 K/uL Basophils # (Auto) 0.00 K/uL RDW Standard Deviation 70.7 fL RDW Coefficient of Variation 20.6 % Immature Granulocyte % (Auto) 0.3 % Immature Granulocyte # (Auto) 0.02 K/uL Nucleated RBC Absolute Count (auto) 0.09 K/uL Nucleated Red Blood Cells % 1.3 % Anisocytosis PRESENT Ovalocytes 1+ Echinocytes 1+ Prothrombin Time 31.9 SECONDS Prothromb Time International Ratio 2.9 Sodium Level 142 mmol/L Potassium Level 5.9 mmol/L Chloride Level 111 mmol/L Carbon Dioxide Level 23 mmol/L Anion Gap 8.0 mmol/L Blood Urea Nitrogen 61 mg/dl Creatinine 1.80 mg/dl Est Creatinine Clear Calc Drug Dose 41.8 ml/min Estimated GFR () 35.6 Estimated GFR (Non- 30.7 BUN/Creatinine Ratio 33.6 Random Glucose 163 mg/dl Estimated Average Glucose 143 mg/dl Hemoglobin A1c 6.6 % Calcium Level 8.1 mg/dl Phosphorus Level 5.3 mg/dl Magnesium Level 3.4 mg/dl Assessment & Plan Diabetic female with chronic immunocompromise following renal transplant with RLL pneumonia and possible LLE acute on chronic cellulitis. She has received multiple medications since admission including Vancomycin, Zyvox, Cefepime, and Levaquin. MRSA nasal swab was negative. Will D/C Zyvox, Cefepime, and Levaquin. Will continue IV Vancomycin due to mild concern for acute on chronic cellulitis of LLE with hx of MRSA. Will change to IV Zosyn for continued coverage and concerns of gram negative or anaerobic infection due to patient immunocompromise , recent hospitalizations, and lethargy on exam. Will also check procalcitonin. We will continue to follow the patient. PROVIDER ADDENDUM: Patient examined and reviewed with Ms. Haddad. Agree with above assessment.
[2017-01-07] MEDS ORDERED: NURSING VERBAL MED ORDER ONE (10:15)
[2017-01-07] MEDS ORDERED: PIPERACILL/TAZOBAC CONSULT ACTIVE PRN (10:30)
[2017-01-07] MEDS ORDERED: PIPERACILL/TAZOBAC IV 4.5 GM in DEXTROSE 5% 100ML IV ONE (11:00)
[2017-01-07] MEDS ORDERED: PERFLUTREN LIPID MICROSPHERE (DEFINITY) IV ONE (11:21)
--- NOTE | 2017-01-07 13:05 | Progress Note ---
Internal Med Progress Note Date of Service: Jan 07, 2017. Provider Documentation: SUBJECTIVE: Patient is seen and examined at bedside. Currently she is in mild respiratory distress but is able to converse. Reports SOB, dry cough. Denies any chest pain , abd pain. Offers no other complaints. Poor historian. OBJECTIVE: Vital Signs-as noted below Physical Exam: General Appearance:Obese, mild resp. distress Head: normocephalic, Atraumatic Eyes: normal inspection, EOMI, PERRL Neck: supple, Trachea midline Respiratory/Chest: Decreased breath sounds, CTA Cardiovascular: S1, S2, No murmur Abdomen/GI:Soft, Non tender, Bowel sounds present, Obese Extremities/Musculoskelatal:B/L LE erythematous, + edema Neurologic/Psych:AAOX3, Able to move all extremities Skin: normal color, warm Lab data as noted below. ASSESSMENT & PLAN: ACUTE on CHRONIC RESPIRATORY FAILURE Hypercapnia and Hypoxemia H/O COPD: mild COPD exacerbation secondary to HCAP Chronic oxygen dependency 3L NC CXR with RLL infiltrate, afebrile Respiratory support per pulmonology Continue IV antibiotics Continue IV solu-medrol 20mg BID, duonebs Follow up cultures Appreciate Pulmonary input Possible UTI: Follow up cultures continue Abx B/L LE CELLULITIS: Continue IV antibiotics per ID follow up cultures Appreciate ID consult HYPERKALEMIA/HYPERMAGNESEMIA/HYPERPHOSPHATEMIA Likely secondary to EMMA No EKG changes S/P IV hydration Monitor labs EMMA H/O renal transplant : on Azathioprine Recent Bactrim use (stopped on 01/04/17) after biopsy of BCC Cr baseline 1.2 Slowly improvin.8 today S/P IVF hold diuretics, avoid nephrotoxic agents Monitor renal function PRASANNA Not compliant with CPAP at night ELEVATED TROPONIN Mild troponin elevation Denies chest pain, EKG nonischemic DIASTOLIC CHF update echo Lasix held secondary to EMMA chronic lower extremity edema per family Monitor volume status DM II Uncontrolled secondary to steroid use ISS, accu checks PARKINSON'S DISEASE continue Carbidopa/levodopa Neurology consulted per recommendations from Pulmonology GERD continue PPI H/O MRSA contact precautions HLD continue statin DEPRESSION continue Lamictal, Requip and clonazepam H/O PE: On Coumadin INR therapeutic CODE STATUS: FULL CODE DVT PX: On Coumadin DISPOSITION: Continue to monitor in Telemetry Vital Signs: Date Time Temp Pulse Resp B/P Pulse Ox O2 Delivery O2 Flow Rate FiO2 01/07/17 11:20 78 20 100 Venturi Mask 15.0 50 01/07/17 10:38 36.7 82 20 129/80 89 01/07/17 08:00 CPAP 01/07/17 07:37 76 22 98 BiPAP/CPAP 50 01/07/17 04:01 36.5 75 20 124/73 97 BiPAP 01/07/17 04:00 100 BiPAP 55 01/07/17 02:40 71 94 55 01/07/17 00:00 100 BiPAP 55 01/06/17 23:52 36.8 72 22 118/72 94 BiPAP 01/06/17 22:59 55 01/06/17 22:05 71 92 50 01/06/17 20:23 36.8 76 18 104/62 94 Room Air 01/06/17 20:00 BiPAP 01/06/17 20:00 93 BiPAP 01/06/17 19:17 78 98 60 01/06/17 19:15 78 18 98 BiPAP/CPAP 60 01/06/17 17:40 79 22 122/77 97 Non-Rebreather 01/06/17 17:05 80 97 01/06/17 17:00 123/66 01/06/17 16:35 79 19 98 01/06/17 16:30 108/66 01/06/17 16:05 82 20 97 01/06/17 16:00 132/75 01/06/17 15:35 81 21 97 01/06/17 15:30 155/90 01/06/17 15:30 80 20 155/90 96 CPAP 01/06/17 15:05 81 20 97 01/06/17 15:00 141/82 01/06/17 14:35 82 23 96 01/06/17 14:30 129/83 01/06/17 14:05 83 22 96 01/06/17 14:01 150/79 01/06/17 14:00 82 20 129/83 99 CPAP Lab Results: Results Past 24 Hours Test 01/06/17 14:00 01/06/17 15:56 01/06/17 18:03 01/06/17 20:45 Range/Units Venous Blood pH 7.28 7.36-7.41 Venous Blood Partial Pressure CO2 48 38.0-50.0 mmHg Venous Blood Partial Pressure O2 89 mmHg Venous Blood HCO3 22 mmol/L Venous Blood Oxygen Saturation 94.1 % Venous Blood Base Excess -4.6 mmol/L Lactic Acid Level 0.9 0.4-2.0 mmol/L Total Creatine Kinase 1063 26-192 U/L Creatine Kinase MB 8.0 0.5-3.6 ng/ml Creatine Kinase MB Ratio 0.8 0-3.0 Troponin I 0.057 0-0.045 ng/ml Bedside Glucose 194 70-90 mg/dl Influenza Type A (RT-PCR) Neg for Influ A NEG Influenza Type B (RT-PCR) Neg for Influ B NEG Test 01/06/17 20:58 01/06/17 22:07 01/06/17 22:41 01/07/17 05:00 Range/Units Bedside Glucose 211 166 70-90 mg/dl Total Creatine Kinase 865 26-192 U/L Creatine Kinase MB 6.6 0.5-3.6 ng/ml Creatine Kinase MB Ratio 0.8 0-3.0 Troponin I 0.029 0-0.045 ng/ml Test 01/07/17 05:03 01/07/17 10:48 01/07/17 12:29 Range/Units White Blood Count 6.87 4.8-10.8 K/uL Red Blood Count 3.39 4.2-5.4 M/uL Hemoglobin 9.4 12.0-16.0 g/dL Hematocrit 31.9 37-47 % Mean Corpuscular Volume 94.1 80-100 fL Mean Corpuscular Hemoglobin 27.7 25-34 pg Mean Corpuscular Hemoglobin Concent 29.5 32-36 g/dl Platelet Count 234 130-400 K/uL Mean Platelet Volume 8.4 7.4-10.4 fL Neutrophils (%) (Auto) 96.0 % Lymphocytes (%) (Auto) 2.5 % Monocytes (%) (Auto) 1.2 % Eosinophils (%) (Auto) 0.0 % Basophils (%) (Auto) 0.0 % Neutrophils # (Auto) 6.60 1.4-6.5 K/uL Lymphocytes # (Auto) 0.17 1.2-3.4 K/uL Monocytes # (Auto) 0.08 0.11-0.59 K/uL Eosinophils # (Auto) 0.00 0-0.5 K/uL Basophils # (Auto) 0.00 0-0.2 K/uL RDW Standard Deviation 70.7 36.4-46.3 fL RDW Coefficient of Variation 20.6 11.5-14.5 % Immature Granulocyte % (Auto) 0.3 % Immature Granulocyte # (Auto) 0.02 0.00-0.02 K/uL Nucleated RBC Absolute Count (auto) 0.09 0-0 K/uL Nucleated Red Blood Cells % 1.3 % Anisocytosis PRESENT Ovalocytes 1+ Echinocytes 1+ Prothrombin Time 31.9 9.0-12.0 SECONDS Prothromb Time International Ratio 2.9 0.9-1.1 Sodium Level 142 136-145 mmol/L Potassium Level 5.9 3.5-5.1 mmol/L Chloride Level 111 98-107 mmol/L Carbon Dioxide Level 23 21-32 mmol/L Anion Gap 8.0 3-11 mmol/L Blood Urea Nitrogen 61 7-18 mg/dl Creatinine 1.80 0.60-1.20 mg/dl Est Creatinine Clear Calc Drug Dose 41.8 ml/min Estimated GFR () 35.6 Estimated GFR (Non- 30.7 BUN/Creatinine Ratio 33.6 10-20 Random Glucose 163 70-99 mg/dl Estimated Average Glucose 143 mg/dl Hemoglobin A1c 6.6 4.5-5.6 % Calcium Level 8.1 8.5-10.1 mg/dl Phosphorus Level 5.3 2.5-4.9 mg/dl Magnesium Level 3.4 1.8-2.4 mg/dl Random Vancomycin Level 17.7 mcg/ml Bedside Glucose 151 70-90 mg/dl Microbiology Results 01/06/17 MRSA DNA Surveillance Screen - Final, Complete Specimen Negative for MRSA by DNA Probe 01/07/17 Urine Culture, Received Pending
[2017-01-07] MEDS: VANCOMYCIN INJ 1,650 MG in SODIUM CHLORIDE 0.9% 500ML 500 ML IV SCH (13:09)
--- NOTE | 2017-01-07 13:21 | ECHOCARDIOGRAM REPORT ---
*NOTICE TO RECEIVING CONSTITUTION PARTY AGENCY This information is strictly Confidential and protected under [place] law. [place] law prohibits you from making any further disclosure of this information unless further disclosure is expressly permitted by the written consent of the person to whom it pertains or is authorized by law. A general authorization for the release of medical or other information is not sufficient for this purpose. Hospital accepts no responsibility if the information is made available to any other person, INCLUDING THE PATIENT. Interpretation Summary * Name: SARATH LANDRUM Study Date: 01/07/2017 10:49 AM BP: 124/73 mmHg * Patient Location: .2T\S\E216\S\1 HR: 75 * : 1960 (M/d/yyy) Gender: Female Height: 59 in * Age: 56 yrs Ethnicity: CA Weight: 279 lb * Ordering Physician: Charley Szymanski * Performed By: Melina Nino RDCS * * Reason For Study: Congestive heart failure * BSA: 2.1 m2 * -- Conclusions -- * The left ventricle is normal in size. * There is normal left ventricular wall thickness. * Left ventricular systolic function is normal. * The left ventricular wall motion is normal. * Ejection Fraction = 55-60%. * Dilated inferior vena cava with reduced collapsability with sniff indicates an elevated right atrial pressure of 15 mmHg * There is no pericardial effusion. Procedure Details * A complete two-dimensional transthoracic echocardiogram was performed (2D, M-mode, Doppler and color flow Doppler). * A contrast injection of Definity was performed to improve assessment of LV function. * Contrast was injected into an intravenous site in the right arm. * One vial of Definity ultrasound contrast was diluted in normal saline to a total volume of 10 ml. A total of '2' ml of solution was administered during imaging. * Lot # [id number] of Definity utilized for procedure. * Expiration date 1 NOV 16. * The attending nurse who injected the contrast agent was Kiesha Mccullough RN. Left Ventricle * The left ventricle is normal in size. * There is normal left ventricular wall thickness. * Ejection Fraction = 55-60%. * Left ventricular systolic function is normal. * The left ventricular wall motion is normal. Right Ventricle * The right ventricle is normal in size and function. Atria * The left atrial size is normal. * Right atrial size is normal. * No ASD detected; PFO is not assessed. Mitral Valve * There is mild to moderate mitral annular calcification. * There is no mitral valve stenosis. * There is trace mitral regurgitation. Tricuspid Valve * The tricuspid valve anatomy is normal. * There is no tricuspid stenosis. * There is trace tricuspid regurgitation. Aortic Valve * The aortic valve is trileaflet. * No hemodynamically significant valvular aortic stenosis. * No aortic regurgitation is present. Pulmonic Valve * The pulmonic valve is not well visualized. Great Vessels * The aortic root is normal size. Pericardium/Pleural * There is no pericardial effusion. Great Vessels * Dilated inferior vena cava with reduced collapsability with sniff indicates an elevated right atrial pressure of 15 mmHg Left Ventricular Diastolic Function * Diastolic dysfunction, Grade II (pseudonormalization pattern). MMode 2D Measurements and Calculations IVSd 0.98 cm LVIDd 5.0 cm LVIDs 3.2 cm LVPWd 0.88 cm IVS/LVPW 1.1 FS 36.5 % EDV(Teich) 119.9 ml ESV(Teich) 40.8 ml EF(Teich) 66.0 % EDV(cubed) 127.2 ml ESV(cubed) 32.6 ml EF(cubed) 74.4 % LV mass(C)d 166.6 grams LV mass(C)dI 78.4 grams/m\S\2 SV(Teich) 79.1 ml SI(Teich) 37.2 ml/m\S\2 SV(cubed) 94.6 ml SI(cubed) 44.6 ml/m\S\2 Ao root diam 2.7 cm Ao root area 5.9 cm\S\2 ACS 2.0 cm LA dimension 3.4 cm asc Aorta Diam 3.5 cm LA/Ao 1.3 LVAd ap4 31.0 cm\S\2 LVLd ap4 7.8 cm EDV(MOD-sp4) 98.6 ml EDV(sp4-el) 104.1 ml LVAs ap4 16.1 cm\S\2 LVLs ap4 6.4 cm ESV(MOD-sp4) 32.8 ml ESV(sp4-el) 34.3 ml EF(MOD-sp4) 66.7 % EF(sp4-el) 67.1 % LVAd ap2 26.6 cm\S\2 LVLd ap2 7.5 cm EDV(MOD-sp2) 76.3 ml EDV(sp2-el) 79.6 ml LVAs ap2 14.8 cm\S\2 LVLs ap2 6.0 cm ESV(MOD-sp2) 29.4 ml ESV(sp2-el) 30.8 ml EF(MOD-sp2) 61.4 % EF(sp2-el) 61.3 % LVLd %diff -3.82 % EDV(MOD-bp) 88.5 ml LVLs %diff -6.67 % ESV(MOD-bp) 30.9 ml EF(MOD-bp) 65.0 % SV(MOD-sp4) 65.8 ml SI(MOD-sp4) 31.0 ml/m\S\2 SV(MOD-sp2) 46.9 ml SI(MOD-sp2) 22.1 ml/m\S\2 SV(MOD-bp) 57.6 ml SI(MOD-bp) 27.1 ml/m\S\2 SV(sp4-el) 69.9 ml SI(sp4-el) 32.9 ml/m\S\2 SV(sp2-el) 48.8 ml SI(sp2-el) 23.0 ml/m\S\2 Doppler Measurements and Calculations MV E max raffy 119.8 cm/sec MV A max raffy 93.6 cm/sec MV E/A 1.3 MV dec time 0.21 sec Ao V2 max 165.6 cm/sec Ao max PG 11.0 mmHg Ao max PG (full) 3.2 mmHg LV V1 max PG 7.8 mmHg LV V1 max 139.2 cm/sec PA V2 max 119.4 cm/sec PA max PG 5.7 mmHg PA acc slope 1155.6 cm/sec\S\2 PA acc time 0.06 sec TR max raffy 266.0 cm/sec PA pr(Accel) 50.5 mmHg
--- NOTE | 2017-01-07 15:02 | Pharmacy Progress Note ---
Pharmacy Antibiotic Prog Note Date of Service Jan 07, 2017. Subjective The patient is currently receiving vancomycin 2700 mg IV x 1 dose at 1700 on The patient is currently on day # 2 of IV therapy. Objective Height (Feet): 4 Height (Inches): 11.00 Weight (Kilograms): 127.300 Levels: Item Value Date Time Random Vancomycin Level 17.7 mcg/ml 01/07/17 1048 Lab Results (24hrs): Laboratory Tests Test 01/07/17 05:03 BUN/Creatinine Ratio 33.6 Blood Urea Nitrogen 61 mg/dl Creatinine 1.80 mg/dl White Blood Count 6.87 K/uL Red Blood Count 3.39 M/uL Hemoglobin 9.4 g/dL Hematocrit 31.9 % Mean Corpuscular Volume 94.1 fL Mean Corpuscular Hemoglobin 27.7 pg Mean Corpuscular Hemoglobin Concent 29.5 g/dl Platelet Count 234 K/uL Mean Platelet Volume 8.4 fL Neutrophils (%) (Auto) 96.0 % Lymphocytes (%) (Auto) 2.5 % Monocytes (%) (Auto) 1.2 % Eosinophils (%) (Auto) 0.0 % Basophils (%) (Auto) 0.0 % Neutrophils # (Auto) 6.60 K/uL Lymphocytes # (Auto) 0.17 K/uL Monocytes # (Auto) 0.08 K/uL Eosinophils # (Auto) 0.00 K/uL Basophils # (Auto) 0.00 K/uL Assessment & Plan ASSESSMENT * Ms Haas is a 56 Y/O F who was admitted yesterday, 01/06/17, for acute respiratory distress. She was diagnosed for possible hospital acquired pneumonia (HAP). She continues to c/o SOB and difficulty breathing. She remains afebrile and her white count is normal. * The patient is immunosuppressed with azathioprine usage. She was recently using Bactrim as an outpatient, but this was stopped. PLAN This drug level is: Therapeutic Start vancomycin 1650 mg IV every 18 hours. (previous data from the patient demonstrates that at q12 hours the patient accumulates moderately but this is with normal renal function and 15 mg/kg dosing. With the acute kidney injury, which appears to be resolving rapidly, a 13 mg/kg dosing was utilized with every 18 hours which is extended from what baseline dosing would require) Goal peak level estimate: between 35 - 40 mcg/mL. Goal trough level estimate: between 10 - 25 mcg/mL (indication: cellulitis). Trough has been ordered for: prior to 1900 dose. Pharmacy will continue to follow and will adjust dose/frequency as necessary. Thank you
[2017-01-07] MEDS: PIPERACILL/TAZOBAC IV 4.5 GM in DEXTROSE 5% 100ML 100 ML IV SCH ×3 (15:39→23:56)
--- NOTE | 2017-01-07 15:53 | Pharmacy Progress Note ---
Glycemic Control: Progress Nt Date of Service Jan 07, 2017. Scope Glycemic Pharmacist consulted by Dr Szymanski on 01/06 for glycemic control and to write orders per [facility] inpatient glycemic control protocol. Objective Accuchecks BSG (last 24hrs): Test 01/06/17 18:03 01/06/17 20:58 01/07/17 05:00 01/07/17 05:03 Bedside Glucose 194 mg/dl (70-90) 211 mg/dl (70-90) 166 mg/dl (70-90) Random Glucose 163 mg/dl (70-99) Test 01/07/17 12:29 Bedside Glucose 151 mg/dl (70-90) Laboratory Data (last 24hrs) Test 01/07/17 05:03 Anion Gap 8.0 mmol/L BUN/Creatinine Ratio 33.6 Blood Urea Nitrogen 61 mg/dl Creatinine 1.80 mg/dl Hemoglobin A1c 6.6 % Potassium Level 5.9 mmol/L Sodium Level 142 mmol/L White Blood Count 6.87 K/uL Red Blood Count 3.39 M/uL Hemoglobin 9.4 g/dL Hematocrit 31.9 % Mean Corpuscular Volume 94.1 fL Mean Corpuscular Hemoglobin 27.7 pg Mean Corpuscular Hemoglobin Concent 29.5 g/dl Platelet Count 234 K/uL Mean Platelet Volume 8.4 fL Neutrophils (%) (Auto) 96.0 % Lymphocytes (%) (Auto) 2.5 % Monocytes (%) (Auto) 1.2 % Eosinophils (%) (Auto) 0.0 % Basophils (%) (Auto) 0.0 % Neutrophils # (Auto) 6.60 K/uL Lymphocytes # (Auto) 0.17 K/uL Monocytes # (Auto) 0.08 K/uL Eosinophils # (Auto) 0.00 K/uL Basophils # (Auto) 0.00 K/uL HbA1c: Test 01/07/17 05:03 Hemoglobin A1c 6.6 % (4.5-5.6) H Recent Pertinent Medications Outpatient Anti-diabetic Regimen: * Lantus 40 units qHS * Novolog 10 units with meals The patient is currently receiving: * Basal insulin: Lantus 25 units every 12 hours * Correctional Insulin: Novolog Correction per scale q6h Goal Range: Low 120 mg/dL - High 160 mg/dL Correction Factor: 10 mg/dL/unit * Prandial insulin: Per carb ratio of 1 unit per 5 grams CHO consumed Risk Factors for Insulin Resistance: * Steroids: Solu-medrol 40 mg q8h -> decreased to 20 mg q12h * Infection: on Levaquin and vanc for pneumonia * Diet: NPO Assessment & Plan ASSESSMENT: From 01/06/17 note: * ADA & AACE recommend a goal blood sugar range 140-180 mg/dl for the majority of critically ill & non-critically ill patients. However, more stringent targets may be selected in individual cases. * Ms Haas is a 56 year old F who is familiar to the glycemic service. She is currently being admitted for respiratory distress. She has a couple day history of increased shortness of breath and confusion. She has a cough with sputum. She has been admitted and is started on steroids with antibiotics. * Based upon previous data for the patient where she required Lantus 35 units twice daily and Novolog (correction factor of 1:10 and carbohydrate ratio of 1:5 ) while eating, she required approximately 120 units/day while on the same steroids regimen. Her kidney function was slightly better, but I believe current kidney dysfunction will resolve shortly. This previous data lends itself to a 50/50 basal/bolus split of Lantus 30 units BID while keeping the same Novolog parameters (reduced doses are utilized due to NPO status). As the patient has reasonable outpatient control of her diabetes and with the utilization of steroids, a lower goal range will be used. Overnight Accuchecks will be added to ensure that the patient will not have too high of blood sugars as there are several factors that are different about this admission. 01/07/17 * Ms. Haas has had stable BSGs on the current insulin regimen but steroids are being decreased further tonight * She is also still NPO * Will plan to reduce Lantus further and loosen the CF to coincide with the steroid reduction. The CR is comparable to her previous admission on the same daily dose of steroids so will continue with this. PLAN FOR INPATIENT GLYCEMIC CONTROL: * Decrease Lantus to 20 units BID * Continue Novolog q6h * Goal 120-160 * LOOSEN CF to 15 * Continue CR 5 * Please note that the plan above was derived based on current level of insulin resistance and hospital stress. These recommendations are appropriate for inpatient admission only. Plan of care upon discharge will need to be reassessed to avoid potential outpatient hypo/hyperglycemia. Thank you.
[2017-01-07] MEDS ORDERED: WARFARIN SOD 2 MG TAB PO SCH (16:00)
--- NOTE | 2017-01-07 16:13 | Neurology Consultation ---
Neurology Consultation Date of Consultation: Jan 07, 2017. Attending Physician: Karson Hardy MD Primary Care Physician: Cindy Valdez M.D. 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 She does not have a typical resting tremor and has not exhibited significant rigidity over the course of her illness. She has had a mild, mixed, intermittent, somewhat diffuse tremor with resting, postural, and action components as well as some associated perioral tremor/dyskinetic movements. She is not exhibited significant memory or cognitive dysfunction. Although she has considerable functional impairment as a result of her persistent neurological symptoms, she has not exhibited a dramatic decline in her neurological status since I have been following her. She has never had a robust response to levodopa, at a variety of dosages in the past. Dopamine agonists have also not been very helpful. She has not filled a prescription for her Parkinson's medications through my office in quite some time and indicates that her primary care physician has been providing her prescriptions for both dosages of Sinemet. The patient indicates that she has been taking Sinemet 25/250 mg 5 times per day as well as Sinemet 25/100 mg 5 times per day. She typically takes her first dosage at around 5 AM but does not attempt to get up out of bed until 7 AM, when she takes her second dosage. She indicates that she is typically able to move around and walk to a limited degree first thing in the morning. However, her in ambulatory function generally declines as the day progresses. Her response to Sinemet in the afternoon and evening seems to be much less reliable. Past medical history is notable for COPD, pulmonary embolism, anticoagulation, insulin-dependent diabetes mellitus, and diabetic peripheral neuropathy. She presented to the emergency department on January 06 complaining of shortness of breath. Her had apparently noted increasing confusion as well. The patient reports that her breathing and confusion seemed to be much improved compared with her initial presentation to the [facility]. She has been receiving a lower dosage of Sinemet although it is unclear if this dosage change has resulted in any worsening in her parkinsonism. Past Medical/Surgical History Medical Problems: (1) Acute on chronic heart failure Status: Acute (2) Ambulatory dysfunction Status: Acute (3) Anterior epistaxis Status: Acute (4) COPD exacerbation Status: Acute (5) Dyspnea Status: Acute (6) Elevated troponin Status: Acute (7) Hypoxia Status: Acute (8) Hypoxia Status: Acute (9) Left leg cellulitis Status: Acute (10) Pneumonia Status: Acute (11) Pulmonary edema Status: Acute (12) Respiratory acidosis Status: Acute (13) Respiratory failure Status: Acute (14) Respiratory failure Status: Acute (15) Respiratory failure Status: Acute (16) Right lower lobe pneumonia Status: Acute (17) Sepsis Status: Acute (18) Subtherapeutic international normalized ratio (INR) Status: Acute (19) UTI (urinary tract infection) Status: Acute (20) UTI (urinary tract infection) Status: Acute Family History Family history significant for malignancy, diabetes mellitus, and hypertension. No known family history of Parkinson's disease or other neurodegenerative condition. Social History Smoking Status: Never smoker Drug Use: none Marital Status: Housing Status: lives with significant other Occupation Status: unemployed Allergies Coded Allergies: Carisoprodol (Verified Allergy, Unknown, ., 01/06/17) Tiotropium (Verified Allergy, Unknown, UNK, 01/06/17) Cimetidine (Verified Adverse Reaction, Mild, SEVERE BRUISING, 01/06/17) Cyclobenzaprine (Verified Adverse Reaction, Mild, HALLUCINATIONS, 01/06/17) Iodinated Diagnostic Agents (Verified Adverse Reaction, Unknown, KIDNEY PROBLEMS, 01/06/17) Quetiapine (Verified Adverse Reaction, Unknown, HALLUCINATIONS, 01/06/17) Current Inpatient Medications Current Inpatient Medications Medications (Trade) Dose Ordered Sig/Tato Route Start Time Stop Time Status Last Admin Dose Admin Acetaminophen (Tylenol Tab) 650 mg Q4H PRN PO 01/06/17 12:30 02/05/17 12:29 01/07/17 02:49 650 MG Ondansetron HCl (Zofran Inj) 4 mg Q6H PRN IV 01/06/17 12:30 02/05/17 12:29 Nitroglycerin (Nitrostat Tab) 0.4 mg UD PRN SL 01/06/17 12:30 02/05/17 12:29 Morphine Sulfate (MoRPHine SULFATE INJ) 2 mg Q30M PRN IV 01/06/17 12:30 01/20/17 12:29 Polyethylene (Miralax Powder Packet) 17 gm DAILY PRN PO 01/06/17 12:30 02/05/17 12:29 Glucose (Glucose 40% Gel) 15-30 GRAMS 15 GRAMS... UD PRN PO 01/06/17 12:30 02/05/17 12:29 Glucose (Glucose Chew Tab) 4-8 Tablets 4 Tabl... UD PRN PO 01/06/17 12:30 02/05/17 12:29 Dextrose (Dextrose 50% 50ML Syringe) 25-50ML OF 50% DW IV FOR... UD PRN IV 01/06/17 12:30 02/05/17 12:29 Glucagon (Glucagon Inj) 1 mg UD PRN SQ 01/06/17 12:30 02/05/17 12:29 Miscellaneous Information (Consult Glycemic Management Pharmacy) 1 ea UD PRN N/A 01/06/17 14:11 02/05/17 14:10 Albuterol/ Ipratropium (Duoneb) 3 ml QIDR INH 01/06/17 16:00 02/05/17 15:59 01/07/17 14:50 3 ML Miscellaneous Information 1 ea 1 ea UD N/A 01/06/17 16:32 02/05/17 16:31 Methylprednisolone Sodium Succinate/ Syringe (Solu-Medrol IV/ Syringe) 0.64 ml @ 1.5 mls/min Q8H IV 01/06/17 18:00 01/07/17 17:59 01/07/17 10:39 1.5 MLS/MIN Azathioprine (Imuran Tab) 37.5 mg BID PO 01/06/17 21:00 02/05/17 20:59 01/07/17 09:47 37.5 MG Carbidopa/Levodopa (Sinemet 25/ 100MG Tab) 1 tab DAILY@0500,0700,1100,1500,2000 PO 01/06/17 15:00 02/05/17 14:59 01/07/17 15:39 1 TAB Carbidopa/Levodopa (Sinemet 25/ 250MG Tab) 1 tab BID@0700,1500 PO 01/06/17 15:00 02/05/17 14:59 01/07/17 15:39 1 TAB Clonazepam (Klonopin Tab) 0.5 mg BID PRN PO 01/06/17 13:30 02/05/17 13:29 01/06/17 17:51 0.5 MG Cyclosporine (Neoral Cap) 75 mg BID PO 01/06/17 21:00 02/05/17 20:59 01/07/17 09:45 75 MG Salmeterol Xinafoate/ Fluticasone (Advair Diskus 250/50 Inh) 1 puff BID INH 01/06/17 21:00 02/05/17 20:59 01/07/17 09:45 1 PUFF Gabapentin (Neurontin Cap) 300 mg TID PO 01/06/17 21:00 02/05/17 20:59 01/07/17 13:13 300 MG Lamotrigine (Lamictal Tab) 100 mg QAM PO 01/07/17 09:00 02/06/17 08:59 01/07/17 09:45 100 MG Pantoprazole Sodium (Protonix Tab) 40 mg DAILY PO 01/07/17 09:00 02/06/17 08:59 01/07/17 09:46 40 MG Ropinirole HCl (Requip Tab) 3 mg TID PO 01/06/17 21:00 02/05/17 20:59 01/07/17 13:12 3 MG Rosuvastatin Calcium (Crestor Tab) 10 mg DAILY PO 01/07/17 09:00 02/06/17 08:59 01/07/17 09:47 10 MG Warfarin Sodium (Coumadin Tab) 2 mg SuTuWeThSa@1600 PO 01/07/17 16:00 02/06/17 15:59 01/07/17 15:39 2 MG Lamotrigine (Lamictal Tab) 150 mg QPM PO 01/06/17 21:00 02/05/17 20:59 01/06/17 21:00 150 MG Acetaminophen/ Hydrocodone Bitart ([place] 5/325 Tab) 1 tab Q8 PRN PO 01/06/17 13:45 01/20/17 13:44 01/07/17 13:50 1 TAB Warfarin Sodium (Coumadin Tab) 1 mg MoFr@1600 PO 01/06/17 18:30 02/05/17 17:29 01/06/17 19:13 1 MG Vancomycin HCl (Consult) 1 ea UD PRN N/A 01/06/17 16:45 02/05/17 16:44 Miconazole Nitrate (Desenex Powder) 1 appln PRN PRN EXT 01/06/17 18:45 02/05/17 18:44 01/06/17 20:54 1 APPLN Insulin Glargine 25 unit 25 unit Q12 SC 01/07/17 09:00 02/06/17 08:59 01/07/17 09:46 25 UNIT Piperacillin Sod/ Tazobactam Sod/ Dextrose (Zosyn Iv/D5 100ml) 120 ml @ 30 mls/hr Q8H IV 01/07/17 16:00 01/14/17 15:59 01/07/17 15:39 30 MLS/HR Piperacillin Sod/ Tazobactam Sod (Consult) 1 ea UD PRN N/A 01/07/17 10:30 02/06/17 10:29 Insulin Aspart SLIDING SCALE If C... Q6 SC 01/07/17 12:00 02/05/17 21:59 Vancomycin HCl 1650 mg/Sodium Chloride 533 ml @ 200 mls/hr Q18H IV 01/07/17 13:00 01/13/17 23:59 01/07/17 13:09 200 MLS/HR Methylprednisolone Sodium Succinate/ Syringe (Solu-Medrol IV/ Syringe) 0.32 ml @ 1.5 mls/min Q12H IV 01/07/17 22:00 02/06/17 21:59 Review of Systems The patient complains of feeling feverish and fatigued. She denies any changes in vision or hearing. She does complain of some chest discomfort and shortness of breath. No palpitations. She complains of constipation, no abdominal pain. No dysuria. She denies, skin lesions or sores. No swollen glands. She does complain of some mild baseline anxiety. She denies significant muscle or joint pain at this time. She does complain of chronic numbness and tingling affecting her toes and feet. A full 10 point review of systems was obtained from this patient and is as described in the history of present illness and otherwise listed above. Physical Exam Vital Signs (Past 24 Hrs): Date Time Temp Pulse Resp B/P Pulse Ox O2 Delivery O2 Flow Rate FiO2 4/11/17 14:50 74 20 94 Nasal Cannula 3.0 01/07/17 12:00 Venturi Mask 01/07/17 11:20 78 20 100 Venturi Mask 15.0 50 01/07/17 10:38 36.7 82 20 129/80 89 01/07/17 08:00 CPAP 01/07/17 07:37 76 22 98 BiPAP/CPAP 50 01/07/17 04:01 36.5 75 20 124/73 97 BiPAP 01/07/17 04:00 100 BiPAP 55 01/07/17 02:40 71 94 55 01/07/17 00:00 100 BiPAP 55 01/06/17 23:52 36.8 72 22 118/72 94 BiPAP 01/06/17 22:59 55 01/06/17 22:05 71 92 50 01/06/17 20:23 36.8 76 18 104/62 94 Room Air 01/06/17 20:00 BiPAP 01/06/17 20:00 93 BiPAP 01/06/17 19:17 78 98 60 01/06/17 19:15 78 18 98 BiPAP/CPAP 60 01/06/17 17:40 79 22 122/77 97 Non-Rebreather 01/06/17 17:05 80 97 01/06/17 17:00 123/66 01/06/17 16:35 79 19 98 01/06/17 16:30 108/66 01/06/17 16:05 82 20 97 01/06/17 16:00 132/75 The patient is an obese, chronically ill, elderly female. She is lying in bed in a comfortable fashion, no acute distress. She is not agitated and interacts appropriately. The patient is alert and oriented to person place and time area did she exhibits normal concentration and attention. Recent and remote memory intact. She is able to name objects and repeat phrases. She exhibits a normal spontaneous speech pattern. Fund of knowledge and vocabulary normal. Visual perkins full to confrontation. Visual acuity normal. Pupils equal round reactive to light and accommodation. Eye movements normal. No nystagmus. Facial sensation intact. There is no facial droop. No facial weakness. Palate elevates to midline. Tongue protrudes to midline. Shoulder shrug and hearing intact bilaterally. There is diminished sensation to vibration and light touch in a length dependent fashion. Deep tendon reflexes are diminished throughout. Plantar responses silent bilaterally. There is no pronator drift with outstretched arms. No dysmetria with finger to nose bilaterally. Patient unable to perform heel to power bilaterally due to morbid obesity and positioning factors while lying in bed. I'm unable to adequately visualize the optic nerves and posterior segments with ophthalmoscopic examination. There are no carotid bruits to auscultation, carotid pulses normal. Musculoskeletal examination is somewhat difficult due to morbid obesity and positioning factors. However, strength seems to be normal in all 4 limbs although she does have chronic bilateral foot drops. Muscle tone is diffusely normal, no rigidity or spasticity. The patient does not exhibit a rest tremor at this time. She does exhibit a mild, coarse, postural and action tremor that seems to be fairly symmetric, affecting both upper extremities. She also exhibits an intermittent perioral dyskinetic tremor. There is no atrophy. Gait and station cannot be tested. Laboratory Results Past 24 Hours: 01/07/17 05:03 Red Blood Count 3.39, Mean Corpuscular Volume 94.1, Mean Corpuscular Hemoglobin 27.7, Mean Corpuscular Hemoglobin Concent 29.5, Mean Platelet Volume 8.4, Neutrophils (%) (Auto) 96.0, Lymphocytes (%) (Auto) 2.5, Monocytes (%) (Auto) 1.2, Eosinophils (%) (Auto) 0.0, Basophils (%) (Auto) 0.0, Neutrophils # (Auto) 6.60, Lymphocytes # (Auto) 0.17, Monocytes # (Auto) 0.08, Eosinophils # (Auto) 0.00, Basophils # (Auto) 0.00 01/07/17 05:03 Test 01/06/17 15:56 01/06/17 20:45 01/06/17 22:07 01/06/17 22:41 Lactic Acid Level 0.9 mmol/L (0.4-2.0) Influenza Type A (RT-PCR) Neg for Influ A (NEG) Influenza Type B (RT-PCR) Neg for Influ B (NEG) Total Creatine Kinase 865 U/L (26-192) Creatine Kinase MB 6.6 ng/ml (0.5-3.6) Creatine Kinase MB Ratio 0.8 (0-3.0) Troponin I 0.029 ng/ml (0-0.045) Test 01/07/17 05:03 01/07/17 10:48 01/07/17 12:29 01/07/17 15:25 White Blood Count 6.87 K/uL (4.8-10.8) Red Blood Count 3.39 M/uL (4.2-5.4) Hemoglobin 9.4 g/dL (12.0-16.0) Hematocrit 31.9 % (37-47) Mean Corpuscular Volume 94.1 fL (80-100) Mean Corpuscular Hemoglobin 27.7 pg (25-34) Mean Corpuscular Hemoglobin Concent 29.5 g/dl (32-36) Platelet Count 234 K/uL (130-400) Mean Platelet Volume 8.4 fL (7.4-10.4) Neutrophils (%) (Auto) 96.0 % Lymphocytes (%) (Auto) 2.5 % Monocytes (%) (Auto) 1.2 % Eosinophils (%) (Auto) 0.0 % Basophils (%) (Auto) 0.0 % Neutrophils # (Auto) 6.60 K/uL (1.4-6.5) Lymphocytes # (Auto) 0.17 K/uL (1.2-3.4) Monocytes # (Auto) 0.08 K/uL (0.11-0.59) Eosinophils # (Auto) 0.00 K/uL (0-0.5) Basophils # (Auto) 0.00 K/uL (0-0.2) RDW Standard Deviation 70.7 fL (36.4-46.3) RDW Coefficient of Variation 20.6 % (11.5-14.5) Immature Granulocyte % (Auto) 0.3 % Immature Granulocyte # (Auto) 0.02 K/uL (0.00-0.02) Nucleated RBC Absolute Count (auto) 0.09 K/uL (0-0) Nucleated Red Blood Cells % 1.3 % Anisocytosis PRESENT Ovalocytes 1+ Echinocytes 1+ Prothrombin Time 31.9 SECONDS (9.0-12.0) Prothromb Time International Ratio 2.9 (0.9-1.1) Anion Gap 8.0 mmol/L (3-11) Est Creatinine Clear Calc Drug Dose 41.8 ml/min Estimated GFR () 35.6 Estimated GFR (Non- 30.7 BUN/Creatinine Ratio 33.6 (10-20) Estimated Average Glucose 143 mg/dl Hemoglobin A1c 6.6 % (4.5-5.6) Calcium Level 8.1 mg/dl (8.5-10.1) Phosphorus Level 5.3 mg/dl (2.5-4.9) Magnesium Level 3.4 mg/dl (1.8-2.4) Random Vancomycin Level 17.7 mcg/ml Bedside Glucose 151 mg/dl (70-90) Date/Time Source Procedure Growth Status 01/06/17 20:50 Nasal MRSA DNA Surveillance Screen - Final Specimen Negative for MRSA by DNA Probe Complete Impression Atypical parkinsonism which has been characterized primarily by bradykinesia, gait impairment, and reported freezing episodes. She has never had a robust response to levodopa in the past and reports currently taking both the 25/100 mg and 25/250 mg tablets 5 times per day. These prescriptions have reportedly been filled by her primary care physician. Plan At this point, I would recommend discontinuing the 25/250 mg Sinemet tablets. She may take two 25/100 mg Sinemet tablets 5 times per day, at the current dosing interval. Further dosage increases may be made depending on her clinical status going forward. This patient should follow-up with me in clinic within a few weeks of her discharge. Please contact me if I may be of further assistance.
--- NOTE | 2017-01-07 18:21 | Pharmacy Progress Note ---
Pharmacy Antibiotic Consult Date of Service: Jan 07, 2017. Pharmacy Dosing Scope Pharmacy is consulted to initiate Vanco IV dosing therapy, order appropriate labs and adjust drug dose/frequency. Subjective The patient is a 56 year old female admitted on Jan 06, 2017 at 12:36. Objective Height (Feet): 4 Height (Inches): 11.00 Weight (Kilograms): 127.300 Lab Results (24hrs): Laboratory Tests Test 01/07/17 05:03 BUN/Creatinine Ratio 33.6 Blood Urea Nitrogen 61 mg/dl Creatinine 1.80 mg/dl White Blood Count 6.87 K/uL Red Blood Count 3.39 M/uL Hemoglobin 9.4 g/dL Hematocrit 31.9 % Mean Corpuscular Volume 94.1 fL Mean Corpuscular Hemoglobin 27.7 pg Mean Corpuscular Hemoglobin Concent 29.5 g/dl Platelet Count 234 K/uL Mean Platelet Volume 8.4 fL Neutrophils (%) (Auto) 96.0 % Lymphocytes (%) (Auto) 2.5 % Monocytes (%) (Auto) 1.2 % Eosinophils (%) (Auto) 0.0 % Basophils (%) (Auto) 0.0 % Neutrophils # (Auto) 6.60 K/uL Lymphocytes # (Auto) 0.17 K/uL Monocytes # (Auto) 0.08 K/uL Eosinophils # (Auto) 0.00 K/uL Basophils # (Auto) 0.00 K/uL Assessment & Plan Pt is currently experiencing EMMA. Scr=2.1, eCrCl=36. Elevated compared to baseline Scr of 1.2. Will order Vanco 2700mg (21mg/kg) x1. Will check random lvl morning of 01/07. Pt's population p'kinetics: t1/2=20hrs, ke=[id number] Pharmacy will continue to follow and will adjust dose/frequency as necessary. Thank you
[2017-01-07] MEDS: INSULIN GLARGINE SOLOSTAR 100 UNITS/ML 3 ML PEN SC SCH (20:11)
[2017-01-07] MEDS: CLONAZEPAM 0.5 MG TAB PO PRN (20:19)
[2017-01-07] MEDS ORDERED: METHYLPREDNISOLONE IV 20 MG in SYRINGE 0 ML IV SCH (22:00)
[2017-01-08] VITALS (13 sets, daily range): BP systolic 112–142; BP diastolic 67–79; PULSE 66–90; TEMP 36.4–36.9; O2SAT 93–100
[2017-01-08] MEDS: HYDROCODONE/ACETAMOPHEN 5/325MG TAB PO PRN ×3 (02:31→20:45)
[2017-01-08] MEDS: CARBIDOPA/LEVODOPA 25/100MG TAB PO SCH ×5 (05:14→20:31)
[2017-01-08] MEDS: INSULIN ASPART 100 UNITS/ML 3 ML PEN SC SCH ×4 (05:36→20:37)
[2017-01-08] MEDS: ACETAMINOPHEN 325 MG TAB PO PRN (05:36)
[2017-01-08] MEDS: VANCOMYCIN INJ 1,650 MG in SODIUM CHLORIDE 0.9% 500ML 500 ML IV SCH (06:09)
[2017-01-08] MEDS: ALBUT/IPRATROP 3MG/0.5MG NEB 3 ML VIAL INH SCH ×4 (06:56→19:35)
[2017-01-08 07:37] LABS: HEMATOCRIT 30.5 % (37-47); IG% 0.2 %; LYMPH % 3.2 %; LYMPH ABS # 0.28 K/uL (1.2-3.4); MEAN CELL VOLUME 93.8 fL (80-100); MEAN CORPUSCULAR HEMOGLOBIN 27.4 pg (25-34); MEAN CORPUSCULAR HGB CONC 29.2 g/dl (32-36); MEAN PLATELET VOLUME 8.3 fL (7.4-10.4); MONO % 2.3 %; NEUT % 94.3 %; PLATELET COUNT 224 K/uL (130-400); RED BLOOD COUNT 3.25 M/uL (4.2-5.4); WHITE BLOOD COUNT 8.67 K/uL (4.8-10.8)
[2017-01-08] MEDS: FLUTICASONE/SALMETEROL 250/50 (ADVAIR) 14 PUFF/1 INHALER INH SCH ×2 (07:47→20:30)
[2017-01-08] MEDS: CycloSPORINE (NEORAL) 25 MG CAP PO SCH ×2 (07:48→20:30)
[2017-01-08] MEDS: PANTOprazole SOD 40 MG TAB PO SCH (07:48)
[2017-01-08] MEDS: GABAPENTIN 300 MG CAP PO SCH ×3 (07:48→20:31)
[2017-01-08] MEDS: ROPINIROLE HCL 1 MG TAB PO SCH ×3 (07:48→20:30)
[2017-01-08] MEDS: INSULIN GLARGINE SOLOSTAR 100 UNITS/ML 3 ML PEN SC SCH ×2 (07:49→20:37)
[2017-01-08] MEDS: AZATHIOPRINE 50 MG TAB PO SCH ×2 (07:50→20:31)
[2017-01-08] MEDS: ROSUVASTATIN CALCIUM 10 MG TAB PO SCH (07:51)
[2017-01-08 07:55] LABS: ANISOCYTOSIS PRESENT; COMPLETE YES; ECHINOCYTES 1+; HYPOCHROMIA PRESENT; POLYCHROMASIA 1+; PROTHROMBIN TIME (PATIENT) 65.4 SECONDS (9.0-12.0)
[2017-01-08 07:58] LABS: INR 5.7 (0.9-1.1)
--- NOTE | 2017-01-08 08:02 | PROGRESS NOTE ---
DATE: 01/08/2017 SUBJECTIVE: The patient is considerably improved today. She is tolerating the BiPAP well, tolerating the IV antimicrobial agents well. She continues to just have very minimal cough which is nonproductive. She denies chest pain or shortness of breath. She did sit on the side of the bed yesterday and tolerated that fairly well. She has not been out of bed and I think that would be important now. Cardiac status is good with a normal sinus rhythm. She is awake, alert and oriented, has a Caceres catheter in place. She did have a neurology evaluation with Dr. Weaver yesterday for Parkinson's disease. It is thought that discontinuing the 25/250 mg Sinemet tablets and change her to 25/100 five times a day would be appropriate. He will follow up with her in the clinic, nonetheless. PHYSICAL EXAMINATION: VITAL SIGNS: Hemodynamically she is stable. Blood pressure 127/68, oxygen saturations 98% on 3 liters on BiPAP. She is afebrile. I\T\O was 3156 in, 925 out. Weight is 127.4, down from 127.7 on the 10th. GENERAL: According to nurses' note she had a fairly good day. Medications reviewed. She is tolerating the steroids well. HEENT: Unremarkable except for a small posterior pharynx with a large tongue with no evidence of thrush. No neck vein distention or HJR noted. No nodes noted. HEART: Regular rate and rhythm, 2/6 systolic murmur heard at the apex. LUNGS: Reveal decreased breath sounds bilaterally, otherwise are clear. ABDOMEN: Soft, nontender. EXTREMITIES: She has no cyanosis, clubbing or edema. DATA: Chest x-ray revealed infiltrative process at the right base. MRSA DNA surveillance screen is negative. Urine cultures show 3 types of organisms. Blood cultures are pending. CBC and PRP are pending. Sugars in the 150 range. IMPRESSION: 1. Respiratory failure, improved. 2. Right lower lobe pneumonia. 3. Chronic obstructive pulmonary disease with exacerbation. 4. Parkinson's disease. RECOMMENDATIONS: Continue with her present IV antimicrobial agents, Coumadin, increase activity. I think she could probably be switched to 20 mg of prednisone with a taper over about 3 or 4 days to a week. I think getting her up and out of bed would be appropriate as well. Overall, she is stable.
[2017-01-08 08:04] LABS: BUN/CREATININE RATIO 37.9 (10-20); CREATININE 1.8 mg/dl (0.60-1.20); MAGNESIUM 3.2 mg/dl (1.8-2.4); POTASSIUM 5.1 mmol/L (3.5-5.1)
[2017-01-08] MEDS: PIPERACILL/TAZOBAC IV 4.5 GM in DEXTROSE 5% 100ML 100 ML IV SCH ×3 (09:53→23:18)
--- NOTE | 2017-01-08 09:55 | Progress Note ---
Internal Med Progress Note Date of Service: Jan 08, 2017. Provider Documentation: SUBJECTIVE: Patient is seen and examined at bedside. Respiratory status is much improved today. Has non productive cough. Denies chest pain, wheezing, abd pain. Offers no other complaints. Poor historian. OBJECTIVE: Vital Signs-as noted below Physical Exam: General Appearance:Obese, No apparent distress Head: normocephalic, Atraumatic Eyes: normal inspection, EOMI, PERRL Neck: supple, Trachea midline Respiratory/Chest: Decreased breath sounds, CTA Cardiovascular: S1, S2, No murmur Abdomen/GI:Soft, Non tender, Bowel sounds present, Obese Extremities/Musculoskelatal:B/L LE erythematous, + edema Neurologic/Psych:AAOX3, Able to move all extremities Skin: normal color, warm Lab data as noted below. ASSESSMENT & PLAN: ACUTE on CHRONIC RESPIRATORY FAILURE Hypercapnia and Hypoxemia H/O COPD: mild COPD exacerbation secondary to HCAP Chronic oxygen dependency 3L NC CXR with RLL infiltrate, afebrile Respiratory support per pulmonology Continue IV antibiotics S/P IV solu mderol Change Po prednisone: Taper, Continue duonebs Follow up cultures Appreciate Pulmonary input Coagulopathy: Likely secondary to meds Hold Coumadin No active bleeding Monitor INR Possible UTI: Repeat urine culture pending continue Abx B/L LE CELLULITIS: Continue IV antibiotics per ID follow up cultures Blood cultures: No growth to date Appreciate ID consult HYPERKALEMIA/HYPERMAGNESEMIA/HYPERPHOSPHATEMIA Likely secondary to EMMA Hyperkalemia resolved Hypermagnesemia improving No EKG changes S/P IV hydration Monitor labs EMMA H/O renal transplant : on Azathioprine Recent Bactrim use (stopped on 01/04/17) after biopsy of BCC Cr baseline 1.2 Slowly improvin.8 today Cr levels stable S/P IVF continue to hold diuretics, avoid nephrotoxic agents Monitor renal function PRASANNA Not compliant with CPAP at night ELEVATED TROPONIN Mild troponin elevation Denies chest pain, EKG nonischemic ECHO: normal LV wall motion DIASTOLIC CHF ECHO: as below EF:55-60% Lasix held secondary to EMMA chronic lower extremity edema per family Monitor volume status DM II Uncontrolled secondary to steroid use ISS, accu checks PARKINSON'S DISEASE continue Carbidopa/levodopa per recommendations from Neurology 25/250 mg Sinemet tablets discontinued Continue two 25/100 mg Sinemet tablets 5 times per day Appreciate Neurology input Needs follow up with upon discharge GERD continue PPI H/O MRSA contact precautions HLD continue statin DEPRESSION continue Lamictal, Requip and clonazepam H/O PE: On Coumadin INR therapeutic CODE STATUS: FULL CODE DVT PX: On Coumadin DISPOSITION: Continue to monitor in Telemetry PROCEDURES: ECHO: * The left ventricle is normal in size. * There is normal left ventricular wall thickness. * Left ventricular systolic function is normal. * The left ventricular wall motion is normal. * Ejection Fraction = 55-60%. * Dilated inferior vena cava with reduced collapsability with sniff indicates an elevated right atrial pressure of 15 mmHg * There is no pericardial effusion. Vital Signs: Date Time Temp Pulse Resp B/P Pulse Ox O2 Delivery O2 Flow Rate FiO2 01/08/17 08:44 36.7 71 24 112/67 100 Nasal Cannula 3.0 01/08/17 08:00 Nasal Cannula 3.0 01/08/17 07:13 36.7 74 20 120/74 94 Nasal Cannula 3.0 01/08/17 06:56 66 20 96 Nasal Cannula 3.0 01/08/17 04:00 Nasal Cannula 3.0 01/08/17 03:50 71 98 55 01/08/17 03:48 36.6 74 20 127/68 98 BiPAP 01/08/17 00:00 Nasal Cannula 3.0 01/07/17 23:56 36.6 75 20 116/61 99 BiPAP 01/07/17 21:51 78 99 55 01/07/17 20:00 Nasal Cannula 3.0 01/07/17 19:55 36.8 84 22 118/ 99 Nasal Cannula 3.0 01/07/17 19:09 78 20 96 Nasal Cannula 3.0 01/07/17 16:00 Nasal Cannula 3.0 01/07/17 15:27 36.8 81 20 113/69 95 Nasal Cannula 2.5 01/07/17 14:50 74 20 94 Nasal Cannula 3.0 01/07/17 12:00 Venturi Mask 01/07/17 11:20 78 20 100 Venturi Mask 15.0 50 01/07/17 10:38 36.7 82 20 129/80 89 Lab Results: Results Past 24 Hours Test 01/07/17 10:48 01/07/17 12:29 01/07/17 15:40 01/07/17 17:56 Range/Units Random Vancomycin Level 17.7 mcg/ml Bedside Glucose 151 147 70-90 mg/dl Procalcitonin 2.55 0-0.5 ng/mL Test 01/07/17 20:06 01/07/17 23:45 01/08/17 05:34 01/08/17 07:28 Range/Units Bedside Glucose 174 150 148 70-90 mg/dl White Blood Count 8.67 4.8-10.8 K/uL Red Blood Count 3.25 4.2-5.4 M/uL Hemoglobin 8.9 12.0-16.0 g/dL Hematocrit 30.5 37-47 % Mean Corpuscular Volume 93.8 80-100 fL Mean Corpuscular Hemoglobin 27.4 25-34 pg Mean Corpuscular Hemoglobin Concent 29.2 32-36 g/dl Platelet Count 224 130-400 K/uL Mean Platelet Volume 8.3 7.4-10.4 fL Neutrophils (%) (Auto) 94.3 % Lymphocytes (%) (Auto) 3.2 % Monocytes (%) (Auto) 2.3 % Eosinophils (%) (Auto) 0.0 % Basophils (%) (Auto) 0.0 % Neutrophils # (Auto) 8.17 1.4-6.5 K/uL Lymphocytes # (Auto) 0.28 1.2-3.4 K/uL Monocytes # (Auto) 0.20 0.11-0.59 K/uL Eosinophils # (Auto) 0.00 0-0.5 K/uL Basophils # (Auto) 0.00 0-0.2 K/uL RDW Standard Deviation 71.9 36.4-46.3 fL RDW Coefficient of Variation 20.9 11.5-14.5 % Immature Granulocyte % (Auto) 0.2 % Immature Granulocyte # (Auto) 0.02 0.00-0.02 K/uL Nucleated RBC Absolute Count (auto) 0.09 0-0 K/uL Nucleated Red Blood Cells % 1.0 % Polychromasia 1+ Hypochromasia PRESENT Anisocytosis PRESENT Echinocytes 1+ Prothrombin Time 65.4 9.0-12.0 SECONDS Prothromb Time International Ratio 5.7 0.9-1.1 Sodium Level 139 136-145 mmol/L Potassium Level 5.1 3.5-5.1 mmol/L Chloride Level 108 98-107 mmol/L Carbon Dioxide Level 23 21-32 mmol/L Anion Gap 8.0 3-11 mmol/L Blood Urea Nitrogen 68 7-18 mg/dl Creatinine 1.80 0.60-1.20 mg/dl Est Creatinine Clear Calc Drug Dose 41.9 ml/min Estimated GFR () 35.6 Estimated GFR (Non- 30.7 BUN/Creatinine Ratio 37.9 10-20 Random Glucose 148 70-99 mg/dl Calcium Level 8.2 8.5-10.1 mg/dl Magnesium Level 3.2 1.8-2.4 mg/dl Microbiology Results 01/07/17 Urine Culture, Received Pending
[2017-01-08] MEDS ORDERED: LEVOFLOXACIN 750MG / D5W IV SCH (10:00)
[2017-01-08] MEDS ORDERED: NURSING VERBAL MED ORDER ONE (11:00)
--- NOTE | 2017-01-08 11:17 | Neurology Progress Notes ---
Neurology Progress Note Date of Service Jan 08, 2017. Subjective Follow-up for atypical Parkinson's disease The patient does not report much change in her parkinsonism compared with yesterday. Her dosage of Sinemet was adjusted. She continues to complain of generally slow movement although she has not been up out of bed. She denies any particular side effects related to the recent medication adjustment. Past medical history also notable for diabetic peripheral neuropathy. This patient complains of persistent, mild, numbness and tingling and some associated turning-type pain that has been present for several years and not significantly changed. The patient has been admitted to the hospital for management of pneumonia. She denies significant chest pain, shortness of breath, coughing, or fever at this time. Objective Date Time Temp Pulse Resp B/P Pulse Ox O2 Delivery O2 Flow Rate FiO2 01/08/17 08:44 36.7 71 24 112/67 100 Nasal Cannula 3.0 01/08/17 08:00 Nasal Cannula 3.0 01/08/17 07:13 36.7 74 20 120/74 94 Nasal Cannula 3.0 01/08/17 06:56 66 20 96 Nasal Cannula 3.0 01/08/17 04:00 Nasal Cannula 3.0 01/08/17 03:50 71 98 55 01/08/17 03:48 36.6 74 20 127/68 98 BiPAP 01/08/17 00:00 Nasal Cannula 3.0 01/07/17 23:56 36.6 75 20 116/61 99 BiPAP 01/07/17 21:51 78 99 55 01/07/17 20:00 Nasal Cannula 3.0 01/07/17 19:55 36.8 84 22 118/ 99 Nasal Cannula 3.0 01/07/17 19:09 78 20 96 Nasal Cannula 3.0 01/07/17 16:00 Nasal Cannula 3.0 01/07/17 15:27 36.8 81 20 113/69 95 Nasal Cannula 2.5 01/07/17 14:50 74 20 94 Nasal Cannula 3.0 01/07/17 12:00 Venturi Mask 01/07/17 11:20 78 20 100 Venturi Mask 15.0 50 Last 24 Hours Test 01/07/17 12:29 01/07/17 15:40 01/07/17 17:56 01/07/17 20:06 Bedside Glucose 151 mg/dl 147 mg/dl 174 mg/dl Procalcitonin 2.55 ng/mL Test 01/07/17 23:45 01/08/17 05:34 01/08/17 07:28 Bedside Glucose 150 mg/dl 148 mg/dl White Blood Count 8.67 K/uL Red Blood Count 3.25 M/uL Hemoglobin 8.9 g/dL Hematocrit 30.5 % Mean Corpuscular Volume 93.8 fL Mean Corpuscular Hemoglobin 27.4 pg Mean Corpuscular Hemoglobin Concent 29.2 g/dl Platelet Count 224 K/uL Mean Platelet Volume 8.3 fL Neutrophils (%) (Auto) 94.3 % Lymphocytes (%) (Auto) 3.2 % Monocytes (%) (Auto) 2.3 % Eosinophils (%) (Auto) 0.0 % Basophils (%) (Auto) 0.0 % Neutrophils # (Auto) 8.17 K/uL Lymphocytes # (Auto) 0.28 K/uL Monocytes # (Auto) 0.20 K/uL Eosinophils # (Auto) 0.00 K/uL Basophils # (Auto) 0.00 K/uL RDW Standard Deviation 71.9 fL RDW Coefficient of Variation 20.9 % Immature Granulocyte % (Auto) 0.2 % Immature Granulocyte # (Auto) 0.02 K/uL Nucleated RBC Absolute Count (auto) 0.09 K/uL Nucleated Red Blood Cells % 1.0 % Polychromasia 1+ Hypochromasia PRESENT Anisocytosis PRESENT Echinocytes 1+ Prothrombin Time 65.4 SECONDS Prothromb Time International Ratio 5.7 Sodium Level 139 mmol/L Potassium Level 5.1 mmol/L Chloride Level 108 mmol/L Carbon Dioxide Level 23 mmol/L Anion Gap 8.0 mmol/L Blood Urea Nitrogen 68 mg/dl Creatinine 1.80 mg/dl Est Creatinine Clear Calc Drug Dose 41.9 ml/min Estimated GFR () 35.6 Estimated GFR (Non- 30.7 BUN/Creatinine Ratio 37.9 Random Glucose 148 mg/dl Calcium Level 8.2 mg/dl Magnesium Level 3.2 mg/dl Exam: The patient is an overweight, elderly female. She is lying comfortably in bed, no acute distress. She is alert and attentive. Recent and remote memory intact. She exhibits a normal spontaneous speech pattern. Fund of knowledge and vocabulary normal. Visual perkins full to confrontation. Pupils equal round reactive to light and accommodation. Eye movements normal. No nystagmus. There is no facial droop. Facial expression is perhaps mildly diminished, i.e. masked faces. Palate elevates to midline. Tongue protrudes to midline. Hearing intact bilaterally. Muscle strength is normal throughout although full confrontation testing limited due to patient's morbid obesity and current positioning factors while lying in bed. She does have bilateral dropped feet. Muscle tone normal throughout. No atrophy. She does not have a rest tremor. No perioral/dyskinetic movements observed at this time. Current Inpatient Medications Medications (Trade) Dose Ordered Sig/Tato Route Start Time Stop Time Status Last Admin Dose Admin Acetaminophen (Tylenol Tab) 650 mg Q4H PRN PO 01/06/17 12:30 02/05/17 12:29 01/08/17 05:36 650 MG Ondansetron HCl (Zofran Inj) 4 mg Q6H PRN IV 01/06/17 12:30 02/05/17 12:29 Nitroglycerin (Nitrostat Tab) 0.4 mg UD PRN SL 01/06/17 12:30 02/05/17 12:29 Morphine Sulfate (MoRPHine SULFATE INJ) 2 mg Q30M PRN IV 01/06/17 12:30 01/20/17 12:29 Polyethylene (Miralax Powder Packet) 17 gm DAILY PRN PO 01/06/17 12:30 02/05/17 12:29 Glucose (Glucose 40% Gel) 15-30 GRAMS 15 GRAMS... UD PRN PO 01/06/17 12:30 02/05/17 12:29 Glucose (Glucose Chew Tab) 4-8 Tablets 4 Tabl... UD PRN PO 01/06/17 12:30 02/05/17 12:29 Dextrose (Dextrose 50% 50ML Syringe) 25-50ML OF 50% DW IV FOR... UD PRN IV 01/06/17 12:30 02/05/17 12:29 Glucagon (Glucagon Inj) 1 mg UD PRN SQ 01/06/17 12:30 02/05/17 12:29 Miscellaneous Information (Consult Glycemic Management Pharmacy) 1 ea UD PRN N/A 01/06/17 14:11 02/05/17 14:10 Albuterol/ Ipratropium (Duoneb) 3 ml QIDR INH 01/06/17 16:00 02/05/17 15:59 01/08/17 06:56 3 ML Miscellaneous Information (Pharmacy Consult) 1 ea UD N/A 01/06/17 16:32 02/05/17 16:31 Azathioprine (Imuran Tab) 37.5 mg BID PO 01/06/17 21:00 02/05/17 20:59 01/08/17 07:50 37.5 MG Clonazepam (Klonopin Tab) 0.5 mg BID PRN PO 01/06/17 13:30 02/05/17 13:29 01/07/17 20:19 0.5 MG Cyclosporine (Neoral Cap) 75 mg BID PO 01/06/17 21:00 02/05/17 20:59 01/08/17 07:48 75 MG Salmeterol Xinafoate/ Fluticasone (Advair Diskus 250/50 Inh) 1 puff BID INH 01/06/17 21:00 02/05/17 20:59 01/08/17 07:47 1 PUFF Gabapentin (Neurontin Cap) 300 mg TID PO 01/06/17 21:00 02/05/17 20:59 01/08/17 07:48 300 MG Lamotrigine (Lamictal Tab) 100 mg QAM PO 01/07/17 09:00 02/06/17 08:59 01/08/17 07:50 100 MG Pantoprazole Sodium (Protonix Tab) 40 mg DAILY PO 01/07/17 09:00 02/06/17 08:59 01/08/17 07:48 40 MG Ropinirole HCl (Requip Tab) 3 mg TID PO 01/06/17 21:00 02/05/17 20:59 01/08/17 07:48 3 MG Rosuvastatin Calcium (Crestor Tab) 10 mg DAILY PO 01/07/17 09:00 02/06/17 08:59 01/08/17 07:51 10 MG Warfarin Sodium (Coumadin Tab) 2 mg SuTuWeThSa@1600 PO 01/07/17 16:00 02/06/17 15:59 Future Hold 01/07/17 15:39 2 MG Lamotrigine (Lamictal Tab) 150 mg QPM PO 01/06/17 21:00 02/05/17 20:59 4/11/17 20:10 150 MG Acetaminophen/ Hydrocodone Bitart ([place] 5/325 Tab) 1 tab Q8 PRN PO 01/06/17 13:45 01/20/17 13:44 01/08/17 02:31 1 TAB Warfarin Sodium (Coumadin Tab) 1 mg MoFr@1600 PO 01/06/17 18:30 02/05/17 17:29 Future Hold 01/06/17 19:13 1 MG Vancomycin HCl (Consult) 1 ea UD PRN N/A 01/06/17 16:45 02/05/17 16:44 Miconazole Nitrate 1 appln 1 appln PRN PRN EXT 01/06/17 18:45 02/05/17 18:44 01/06/17 20:54 1 APPLN Piperacillin Sod/ Tazobactam Sod/ Dextrose (Zosyn Iv/D5 100ml) 120 ml @ 30 mls/hr Q8H IV 01/07/17 16:00 01/14/17 15:59 01/08/17 09:53 30 MLS/HR Piperacillin Sod/ Tazobactam Sod (Consult) 1 ea UD PRN N/A 01/07/17 10:30 02/06/17 10:29 Insulin Aspart SLIDING SCALE If C... Q6 SC 01/07/17 12:00 02/05/17 21:59 Vancomycin HCl/ Sodium Chloride (Vancomycin Inj/ Nss 500ml) 533 ml @ 200 mls/hr Q18H IV 01/07/17 13:00 01/13/17 23:59 01/08/17 06:09 200 MLS/HR Insulin Glargine (Lantus Solostar Pen) 20 unit Q12 SC 01/07/17 21:00 02/06/17 20:59 01/08/17 07:49 20 UNIT Carbidopa/Levodopa (Sinemet 25/ 100MG Tab) 2 tab DAILY@0500,0700,1100,1500,2000 PO 01/07/17 20:00 02/06/17 19:59 01/08/17 07:47 2 TAB Prednisone (PredniSONE TAB) 20 mg BID PO 01/08/17 11:00 01/08/17 23:00 Prednisone (PredniSONE TAB) 20 mg DAILY PO 01/09/17 09:00 02/08/17 08:59 Miscellaneous Information (Nursing Verbal Med Order) 1 ea ONE ONCE N/A 01/08/17 11:00 01/08/17 11:01 UNV Impression 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 Her condition has generally been poorly responsive to treatment in the past. She is currently taking Sinemet. Her dosage was adjusted yesterday. She seems to be a bit less tremulous this morning which may indicate some response to her medication. However, the patient has previously noted that her symptoms are typically worse in the afternoon which is when she was evaluated yesterday. Chronic diabetic peripheral neuropathy with mild to moderate neuropathic pain and bilateral drop foot. This condition has been relatively stable. Plan Continue with Sinemet 25/100 mg, 2 tablets, 5 times per day as per the current dosing schedule. Her dosage of Sinemet may be gradually increased by one half tablet per dose over the next few weeks to assess her response to gradual dose escalation. I would like to reevaluate this patient in neurology clinic in 1-2 weeks for further recommendations regarding additional dosage changes. She may remain on her current regimen for the time being. She may remain on her current dosage of gabapentin for management of diabetic peripheral neuropathy pain.
--- NOTE | 2017-01-08 11:31 | Infectious Disease Progress Nt ---
Progress Note Date of Service Jan 08, 2017. Subjective Pt evaluation today including: conversation w/ patient, physical exam, chart review, lab review, review of studies, review of inpatient medication list Patient is feeling improved today. She is having less SOB but does continue to have some mild cough and SOB. WBC count stable at 8.67. Creatinine stable at 1.80. Repeat urine culture pending. Procalcitonin was 2.55. All Other Systems: Reviewed and Negative Medications Current Inpatient Medications Medications (Trade) Dose Ordered Sig/Tato Route Start Time Stop Time Status Last Admin Dose Admin Acetaminophen (Tylenol Tab) 650 mg Q4H PRN PO 01/06/17 12:30 02/05/17 12:29 01/08/17 05:36 650 MG Ondansetron HCl (Zofran Inj) 4 mg Q6H PRN IV 01/06/17 12:30 02/05/17 12:29 Nitroglycerin (Nitrostat Tab) 0.4 mg UD PRN SL 01/06/17 12:30 02/05/17 12:29 Morphine Sulfate (MoRPHine SULFATE INJ) 2 mg Q30M PRN IV 01/06/17 12:30 01/20/17 12:29 Polyethylene (Miralax Powder Packet) 17 gm DAILY PRN PO 01/06/17 12:30 02/05/17 12:29 Glucose (Glucose 40% Gel) 15-30 GRAMS 15 GRAMS... UD PRN PO 01/06/17 12:30 02/05/17 12:29 Glucose (Glucose Chew Tab) 4-8 Tablets 4 Tabl... UD PRN PO 01/06/17 12:30 02/05/17 12:29 Dextrose (Dextrose 50% 50ML Syringe) 25-50ML OF 50% DW IV FOR... UD PRN IV 01/06/17 12:30 02/05/17 12:29 Glucagon (Glucagon Inj) 1 mg UD PRN SQ 01/06/17 12:30 02/05/17 12:29 Miscellaneous Information (Consult Glycemic Management Pharmacy) 1 ea UD PRN N/A 01/06/17 14:11 02/05/17 14:10 Albuterol/ Ipratropium (Duoneb) 3 ml QIDR INH 01/06/17 16:00 02/05/17 15:59 01/08/17 06:56 3 ML Miscellaneous Information (Pharmacy Consult) 1 ea UD N/A 01/06/17 16:32 02/05/17 16:31 Azathioprine (Imuran Tab) 37.5 mg BID PO 01/06/17 21:00 02/05/17 20:59 01/08/17 07:50 37.5 MG Clonazepam (Klonopin Tab) 0.5 mg BID PRN PO 01/06/17 13:30 02/05/17 13:29 01/07/17 20:19 0.5 MG Cyclosporine (Neoral Cap) 75 mg BID PO 01/06/17 21:00 02/05/17 20:59 01/08/17 07:48 75 MG Salmeterol Xinafoate/ Fluticasone (Advair Diskus 250/50 Inh) 1 puff BID INH 01/06/17 21:00 02/05/17 20:59 01/08/17 07:47 1 PUFF Gabapentin (Neurontin Cap) 300 mg TID PO 01/06/17 21:00 02/05/17 20:59 01/08/17 07:48 300 MG Lamotrigine (Lamictal Tab) 100 mg QAM PO 01/07/17 09:00 02/06/17 08:59 01/08/17 07:50 100 MG Pantoprazole Sodium (Protonix Tab) 40 mg DAILY PO 01/07/17 09:00 02/06/17 08:59 01/08/17 07:48 40 MG Ropinirole HCl (Requip Tab) 3 mg TID PO 01/06/17 21:00 02/05/17 20:59 01/08/17 07:48 3 MG Rosuvastatin Calcium (Crestor Tab) 10 mg DAILY PO 01/07/17 09:00 02/06/17 08:59 01/08/17 07:51 10 MG Warfarin Sodium (Coumadin Tab) 2 mg SuTuWeThSa@1600 PO 01/07/17 16:00 02/06/17 15:59 Future Hold 01/07/17 15:39 2 MG Lamotrigine (Lamictal Tab) 150 mg QPM PO 01/06/17 21:00 02/05/17 20:59 01/07/17 20:10 150 MG Acetaminophen/ Hydrocodone Bitart ([place] 5/325 Tab) 1 tab Q8 PRN PO 01/06/17 13:45 01/20/17 13:44 01/08/17 11:17 1 TAB Warfarin Sodium (Coumadin Tab) 1 mg MoFr@1600 PO 01/06/17 18:30 02/05/17 17:29 Future Hold 01/06/17 19:13 1 MG Vancomycin HCl (Consult) 1 ea UD PRN N/A 01/06/17 16:45 02/05/17 16:44 Miconazole Nitrate 1 appln 1 appln PRN PRN EXT 01/06/17 18:45 02/05/17 18:44 01/06/17 20:54 1 APPLN Piperacillin Sod/ Tazobactam Sod/ Dextrose (Zosyn Iv/D5 100ml) 120 ml @ 30 mls/hr Q8H IV 01/07/17 16:00 01/14/17 15:59 01/08/17 09:53 30 MLS/HR Piperacillin Sod/ Tazobactam Sod 1 ea 1 ea UD PRN N/A 01/07/17 10:30 02/06/17 10:29 Vancomycin HCl/ Sodium Chloride (Vancomycin Inj/ Nss 500ml) 533 ml @ 200 mls/hr Q18H IV 01/07/17 13:00 01/13/17 23:59 01/08/17 06:09 200 MLS/HR Insulin Glargine (Lantus Solostar Pen) 20 unit Q12 SC 01/07/17 21:00 02/06/17 20:59 01/08/17 07:49 20 UNIT Carbidopa/Levodopa (Sinemet 25/ 100MG Tab) 2 tab DAILY@0500,0700,1100,1500,2000 PO 01/07/17 20:00 02/06/17 19:59 01/08/17 11:17 2 TAB Prednisone (PredniSONE TAB) 20 mg BID PO 01/08/17 11:00 01/08/17 23:00 01/08/17 11:20 20 MG Prednisone (PredniSONE TAB) 20 mg DAILY PO 01/09/17 09:00 02/08/17 08:59 Insulin Aspart (novoLOG ASPART) SLIDING SCALE If C... ACHS SC 01/08/17 11:00 02/07/17 10:59 Objective Vital Signs Date Time Temp Pulse Resp B/P Pulse Ox O2 Delivery O2 Flow Rate FiO2 01/08/17 11:09 36.4 75 22 114/69 98 Room Air 3.0 01/08/17 08:44 36.7 71 24 112/67 100 Nasal Cannula 3.0 01/08/17 08:00 Nasal Cannula 3.0 01/08/17 07:13 36.7 74 20 120/74 94 Nasal Cannula 3.0 01/08/17 06:56 66 20 96 Nasal Cannula 3.0 01/08/17 04:00 Nasal Cannula 3.0 01/08/17 03:50 71 98 55 01/08/17 03:48 36.6 74 20 127/68 98 BiPAP 01/08/17 00:00 Nasal Cannula 3.0 01/07/17 23:56 36.6 75 20 116/61 99 BiPAP 01/07/17 21:51 78 99 55 01/07/17 20:00 Nasal Cannula 3.0 01/07/17 19:55 36.8 84 22 118/ 99 Nasal Cannula 3.0 01/07/17 19:09 78 20 96 Nasal Cannula 3.0 01/07/17 16:00 Nasal Cannula 3.0 01/07/17 15:27 36.8 81 20 113/69 95 Nasal Cannula 2.5 01/07/17 14:50 74 20 94 Nasal Cannula 3.0 01/07/17 12:00 Venturi Mask Physical Exam General Appearance: no apparent distress, + obese Eyes: normal inspection, sclerae normal ENT: hearing grossly normal Neck: supple, trachea midline Respiratory/Chest: chest non-tender, no accessory muscle use, + respiratory distress (tachypnea on exam), + decreased breath sounds (bases), + pertinent finding (mild coarse breath sounds upper lobes) Cardiovascular: + pertinent finding (distant heart sounds) Abdomen: normal bowel sounds, non tender Neurologic/Psychiatric: alert, normal mood/affect Skin: normal color, warm/dry, no rash Laboratory Results Item Value Date Time Urine Culture Received 01/07/17 1045 Urine,Catheterized Pending MRSA DNA Surveillance Screen - Final Complete 01/06/17 2050 Nasal Specimen Negative for MRSA by DNA Probe Urine Culture - Final Complete 01/06/17 1140 Urine , Clean Catch THREE TYPES OF ORGANISMS PRESENT, ALL... Blood Culture - Preliminary Resulted 01/06/17 1015 Blood NO GROWTH TO DATE. Blood Culture - Preliminary Resulted 01/06/17 0930 Blood NO GROWTH TO DATE. Last 24 Hours Test 01/07/17 12:29 01/07/17 15:40 01/07/17 17:56 01/07/17 20:06 Bedside Glucose 151 mg/dl 147 mg/dl 174 mg/dl Procalcitonin 2.55 ng/mL Test 01/07/17 23:45 01/08/17 05:34 01/08/17 07:28 Bedside Glucose 150 mg/dl 148 mg/dl White Blood Count 8.67 K/uL Red Blood Count 3.25 M/uL Hemoglobin 8.9 g/dL Hematocrit 30.5 % Mean Corpuscular Volume 93.8 fL Mean Corpuscular Hemoglobin 27.4 pg Mean Corpuscular Hemoglobin Concent 29.2 g/dl Platelet Count 224 K/uL Mean Platelet Volume 8.3 fL Neutrophils (%) (Auto) 94.3 % Lymphocytes (%) (Auto) 3.2 % Monocytes (%) (Auto) 2.3 % Eosinophils (%) (Auto) 0.0 % Basophils (%) (Auto) 0.0 % Neutrophils # (Auto) 8.17 K/uL Lymphocytes # (Auto) 0.28 K/uL Monocytes # (Auto) 0.20 K/uL Eosinophils # (Auto) 0.00 K/uL Basophils # (Auto) 0.00 K/uL RDW Standard Deviation 71.9 fL RDW Coefficient of Variation 20.9 % Immature Granulocyte % (Auto) 0.2 % Immature Granulocyte # (Auto) 0.02 K/uL Nucleated RBC Absolute Count (auto) 0.09 K/uL Nucleated Red Blood Cells % 1.0 % Polychromasia 1+ Hypochromasia PRESENT Anisocytosis PRESENT Echinocytes 1+ Prothrombin Time 65.4 SECONDS Prothromb Time International Ratio 5.7 Sodium Level 139 mmol/L Potassium Level 5.1 mmol/L Chloride Level 108 mmol/L Carbon Dioxide Level 23 mmol/L Anion Gap 8.0 mmol/L Blood Urea Nitrogen 68 mg/dl Creatinine 1.80 mg/dl Est Creatinine Clear Calc Drug Dose 41.9 ml/min Estimated GFR () 35.6 Estimated GFR (Non- 30.7 BUN/Creatinine Ratio 37.9 Random Glucose 148 mg/dl Calcium Level 8.2 mg/dl Magnesium Level 3.2 mg/dl Assessment and Plan Diabetic female with chronic immunocompromise following renal transplant with RLL pneumonia and possible LLE acute on chronic cellulitis. Will continue IV Vancomycin due to mild concern for acute on chronic cellulitis of LLE with hx of MRSA and will continue IV Zosyn for continued coverage and concerns of gram negative or anaerobic infection. She likely will need at least 1 more day of IV therapy if she continues to improve hopefully will transition to PO. We will follow. PROVIDER ADDENDUM: Patient reviewed with Ms. Haddad. Agree with above assessment.
[2017-01-08] MEDS: CLONAZEPAM 0.5 MG TAB PO PRN ×2 (14:15→23:51)
[2017-01-08 14:55] LABS: CALCIUM 8.7 mg/dl (8.5-10.1)
--- NOTE | 2017-01-08 14:56 | Pharmacy Progress Note ---
Glycemic Control: Progress Nt Date of Service Jan 08, 2017. Scope Glycemic Pharmacist consulted by Dr Szymanski on 01/06/2017 for glycemic control and to write orders per [facility] inpatient glycemic control protocol. Objective Accuchecks BSG (last 24hrs): Test 01/07/17 17:56 01/07/17 20:06 01/07/17 23:45 01/08/17 05:34 Bedside Glucose 147 mg/dl (70-90) 174 mg/dl (70-90) 150 mg/dl (70-90) 148 mg/dl (70-90) Test 01/08/17 07:28 01/08/17 11:18 Random Glucose 148 mg/dl (70-99) Bedside Glucose 151 mg/dl (70-90) Laboratory Data (last 24hrs) Test 01/08/17 07:28 Anion Gap 8.0 mmol/L BUN/Creatinine Ratio 37.9 Blood Urea Nitrogen 68 mg/dl Creatinine 1.80 mg/dl Potassium Level 5.1 mmol/L Sodium Level 139 mmol/L White Blood Count 8.67 K/uL Red Blood Count 3.25 M/uL Hemoglobin 8.9 g/dL Hematocrit 30.5 % Mean Corpuscular Volume 93.8 fL Mean Corpuscular Hemoglobin 27.4 pg Mean Corpuscular Hemoglobin Concent 29.2 g/dl Platelet Count 224 K/uL Mean Platelet Volume 8.3 fL Neutrophils (%) (Auto) 94.3 % Lymphocytes (%) (Auto) 3.2 % Monocytes (%) (Auto) 2.3 % Eosinophils (%) (Auto) 0.0 % Basophils (%) (Auto) 0.0 % Neutrophils # (Auto) 8.17 K/uL Lymphocytes # (Auto) 0.28 K/uL Monocytes # (Auto) 0.20 K/uL Eosinophils # (Auto) 0.00 K/uL Basophils # (Auto) 0.00 K/uL HbA1c: Test 01/07/17 05:03 Hemoglobin A1c 6.6 % (4.5-5.6) H Recent Pertinent Medications Outpatient Anti-diabetic Regimen: * Lantus 40 units HS plus Novolog 10 units with meals Risk Factors for Insulin Resistance: * Steroids: Was Solu-Medrol 20 mg IV q12 hours received last dose on 01/07/17 in the evening; now starting prednisone 20 mg PO BID x 1 day which will be reduced to prednisone 20 mg Po daily * Infection: respiratory * Diet: NPO except medications for breakfast and changed to type 2 diet for lunch Assessment & Plan ASSESSMENT: * ADA & AACE recommend a goal blood sugar range 140-180 mg/dl for the majority of critically ill & non-critically ill patients. However, more stringent targets may be selected in individual cases. From 01/06/2017 note * Ms Haas is a 56 year old F who is familiar to the glycemic service. She is currently being admitted for respiratory distress. She has a couple day history of increased shortness of breath and confusion. She has a cough with sputum. She has been admitted and is started on steroids with antibiotics. * Based upon previous data for the patient where she required Lantus 35 units twice daily and Novolog (correction factor of 1:10 and carbohydrate ratio of 1:5 ) while eating, she required approximately 120 units/day while on the same steroids regimen. Her kidney function was slightly better, but I believe current kidney dysfunction will resolve shortly. This previous data lends itself to a 50/50 basal/bolus split of Lantus 30 units BID while keeping the same Novolog parameters (reduced doses are utilized due to NPO status). As the patient has reasonable outpatient control of her diabetes and with the utilization of steroids, a lower goal range will be used. Overnight Accuchecks will be added to ensure that the patient will not have too high of blood sugars as there are several factors that are different about this admission. From 01/07/2017 note: * Ms. Haas has had stable BSGs on the current insulin regimen but steroids are being decreased further tonight * She is also still NPO * Will plan to reduce Lantus further and loosen the CF to coincide with the steroid reduction. The CR is comparable to her previous admission on the same daily dose of steroids so will continue with this. 01/08/2017 * Ms Haas was started on a diet today. As she was NPO yesterday, she received a total of 46 units of insulin which represents her basal needs. I believe now that she has started on a diet, I will continue the basal at Lantus 20 units BID. I will also continue the same correction factor and carbohydrate ratio. * Based upon previous data, whenever the patient changes from IV steroids to PO steroids, the patient does require a correction factor and carbohydrate ratio of 1:15 and 1:5. I will continue this regimen and adjust as the steroids decrease. PLAN FOR INPATIENT GLYCEMIC CONTROL: * DECREASE to LANTUS 20 units SQ BID * Correctional Insulin with NOVOLOG ACHS * Goal Range: Low 120 mg/dL - High 160 mg/dL * Correction Factor: 15 mg/dL/unit * Nutritional / Prandial insulin per carb ratio of 1 unit per 5 grams CHO consumed * Please note that the plan above was derived based on current level of insulin resistance and hospital stress. These recommendations are appropriate for inpatient admission only. Plan of care upon discharge will need to be reassessed to avoid potential outpatient hypo/hyperglycemia. Thank you.
[2017-01-09] VITALS (16 sets, daily range): BP systolic 122–153; BP diastolic 54–85; PULSE 71–88; TEMP 36.5–36.9; O2SAT 94–98
[2017-01-09] MEDS: VANCOMYCIN INJ 1,650 MG in SODIUM CHLORIDE 0.9% 500ML 500 ML IV SCH (01:45)
[2017-01-09] MEDS: ACETAMINOPHEN 325 MG TAB PO PRN ×3 (01:46→23:15)
[2017-01-09] MEDS: CARBIDOPA/LEVODOPA 25/100MG TAB PO SCH ×5 (05:21→20:57)
[2017-01-09 05:56] LABS: EOS % 0.1 %; HEMATOCRIT 32.6 % (37-47); IG% 0.1 %; LYMPH % 3.8 %; LYMPH ABS # 0.28 K/uL (1.2-3.4); MEAN CELL VOLUME 94.2 fL (80-100); MEAN CORPUSCULAR HEMOGLOBIN 27.7 pg (25-34); MEAN CORPUSCULAR HGB CONC 29.4 g/dl (32-36); MEAN PLATELET VOLUME 8.8 fL (7.4-10.4); MONO % 4.3 %; NEUT % 91.7 %; PLATELET COUNT 264 K/uL (130-400); RED BLOOD COUNT 3.46 M/uL (4.2-5.4); WHITE BLOOD COUNT 7.39 K/uL (4.8-10.8)
[2017-01-09 06:14] LABS: INR 2.1 (0.9-1.1); PROTHROMBIN TIME (PATIENT) 23.1 SECONDS (9.0-12.0)
[2017-01-09 06:18] LABS: ANISOCYTOSIS PRESENT; COMPLETE YES; POLYCHROMASIA 1+; TEAR DROP CELLS 1+
[2017-01-09 06:35] LABS: BUN/CREATININE RATIO 40.7 (10-20); CALCIUM 8.3 mg/dl (8.5-10.1); CREATININE 1.7 mg/dl (0.60-1.20); MAGNESIUM 3.2 mg/dl (1.8-2.4)
[2017-01-09] MEDS: HYDROCODONE/ACETAMOPHEN 5/325MG TAB PO PRN ×3 (06:37→22:16)
[2017-01-09 07:58] LABS: ECHINOCYTES 1+
[2017-01-09] MEDS: INSULIN ASPART 100 UNITS/ML 3 ML PEN SC SCH ×4 (07:58→21:04)
[2017-01-09] MEDS: FLUTICASONE/SALMETEROL 250/50 (ADVAIR) 14 PUFF/1 INHALER INH SCH ×2 (07:59→20:52)
[2017-01-09] MEDS: ROSUVASTATIN CALCIUM 10 MG TAB PO SCH (07:59)
[2017-01-09] MEDS: CycloSPORINE (NEORAL) 25 MG CAP PO SCH ×2 (08:01→20:55)
[2017-01-09] MEDS: GABAPENTIN 300 MG CAP PO SCH ×3 (08:02→20:56)
[2017-01-09] MEDS: AZATHIOPRINE 50 MG TAB PO SCH ×2 (08:02→20:54)
[2017-01-09] MEDS: PANTOprazole SOD 40 MG TAB PO SCH (08:03)
[2017-01-09] MEDS: ROPINIROLE HCL 1 MG TAB PO SCH ×3 (08:04→20:56)
[2017-01-09] MEDS: INSULIN GLARGINE SOLOSTAR 100 UNITS/ML 3 ML PEN SC SCH ×2 (08:05→21:03)
[2017-01-09] MEDS: ALBUT/IPRATROP 3MG/0.5MG NEB 3 ML VIAL INH SCH ×4 (08:26→19:17)
--- NOTE | 2017-01-09 09:18 | Pharmacy Progress Note ---
Glycemic Control: Progress Nt Date of Service Jan 09, 2017. Scope Glycemic Pharmacist consulted by Dr Szymanski on 01/06 for glycemic control and to write orders per [facility] inpatient glycemic control protocol. Objective Accuchecks BSG (last 24hrs): Test 01/08/17 11:18 01/08/17 16:22 01/08/17 20:19 01/09/17 05:17 Bedside Glucose 151 mg/dl (70-90) 228 mg/dl (70-90) 315 mg/dl (70-90) Random Glucose 158 mg/dl (70-99) Test 01/09/17 06:22 Bedside Glucose 166 mg/dl (70-90) Laboratory Data (last 24hrs) Test 01/09/17 05:17 Anion Gap 9.0 mmol/L BUN/Creatinine Ratio 40.7 Blood Urea Nitrogen 69 mg/dl Creatinine 1.70 mg/dl Potassium Level 5.0 mmol/L Sodium Level 141 mmol/L White Blood Count 7.39 K/uL Red Blood Count 3.46 M/uL Hemoglobin 9.6 g/dL Hematocrit 32.6 % Mean Corpuscular Volume 94.2 fL Mean Corpuscular Hemoglobin 27.7 pg Mean Corpuscular Hemoglobin Concent 29.4 g/dl Platelet Count 264 K/uL Mean Platelet Volume 8.8 fL Neutrophils (%) (Auto) 91.7 % Lymphocytes (%) (Auto) 3.8 % Monocytes (%) (Auto) 4.3 % Eosinophils (%) (Auto) 0.1 % Basophils (%) (Auto) 0.0 % Neutrophils # (Auto) 6.77 K/uL Lymphocytes # (Auto) 0.28 K/uL Monocytes # (Auto) 0.32 K/uL Eosinophils # (Auto) 0.01 K/uL Basophils # (Auto) 0.00 K/uL HbA1c: Test 01/07/17 05:03 Hemoglobin A1c 6.6 % (4.5-5.6) H Recent Pertinent Medications Outpatient Anti-diabetic Regimen: * Lantus 40 units qHS * Novolog 10 units with meals The patient is currently receiving: * Basal insulin: Lantus 20 units every 12 hours * Correctional Insulin: Novolog Correction per scale ACHS Goal Range: Low 120 mg/dL - High 160 mg/dL Correction Factor: 15 mg/dL/unit * Prandial insulin: Per carb ratio of 1 unit per 5 grams CHO consumed Risk Factors for Insulin Resistance: * Steroids: prednisone being tapered further from 20 mg BID to 20 mg daily starting today * Infection: on Zosyn and vanc for pneumonia * Diet: type 2 diabetes - 50-70 gm CHO w/ each meal Assessment & Plan ASSESSMENT: From 01/06/17 note: * ADA & AACE recommend a goal blood sugar range 140-180 mg/dl for the majority of critically ill & non-critically ill patients. However, more stringent targets may be selected in individual cases. * Ms Haas is a 56 year old F who is familiar to the glycemic service. She is currently being admitted for respiratory distress. She has a couple day history of increased shortness of breath and confusion. She has a cough with sputum. She has been admitted and is started on steroids with antibiotics. * Based upon previous data for the patient where she required Lantus 35 units twice daily and Novolog (correction factor of 1:10 and carbohydrate ratio of 1:5 ) while eating, she required approximately 120 units/day while on the same steroids regimen. Her kidney function was slightly better, but I believe current kidney dysfunction will resolve shortly. This previous data lends itself to a 50/50 basal/bolus split of Lantus 30 units BID while keeping the same Novolog parameters (reduced doses are utilized due to NPO status). As the patient has reasonable outpatient control of her diabetes and with the utilization of steroids, a lower goal range will be used. Overnight Accuchecks will be added to ensure that the patient will not have too high of blood sugars as there are several factors that are different about this admission. 01/07/17 * Ms. Haas has had stable BSGs on the current insulin regimen but steroids are being decreased further tonight * She is also still NPO * Will plan to reduce Lantus further and loosen the CF to coincide with the steroid reduction. The CR is comparable to her previous admission on the same daily dose of steroids so will continue with this. 01/08/2017 * Ms Haas was started on a diet today. As she was NPO yesterday, she received a total of 46 units of insulin which represents her basal needs. I believe now that she has started on a diet, I will continue the basal at Lantus 20 units BID. I will also continue the same correction factor and carbohydrate ratio. * Based upon previous data, whenever the patient changes from IV steroids to PO steroids, the patient does require a correction factor and carbohydrate ratio of 1:15 and 1:5. I will continue this regimen and adjust as the steroids decrease. 01/09/17 * Ms. Haas rec'd 82 units of insulin yesterday w/ BSGs ranging from a fasting of 158 to 315 last evening * BSGs have started to increase secondary to po intake * I will plan to continue the basal dose and same CF/CR for now, even though steroids are being reduced. This is because po intake has been advanced and she was still high yesterday after receiving her Novolog. * From previous admissions on a similar steroid dose, she required ~80 units/ day so her current regimen should be appropriate. PLAN FOR INPATIENT GLYCEMIC CONTROL: * Continue Lantus 20 units BID - will try to work towards once daily dosing closer to discharge * Continue Novolog ACHS * Goal 120-160 * CF 15 * CR 5 RECOMMENDATIONS FOR DISCHARGE: * A1c is excellent and indicates very good control as an outpatient * Patient can resume outpatient regimen upon discharge with the caveat that if steroids are continued, she will need this adjusted temporarily - please consider calling pharmacy to discuss discharge plan if steroids are to be continued Thank you.
[2017-01-09] MEDS: PIPERACILL/TAZOBAC IV 4.5 GM in DEXTROSE 5% 100ML 100 ML IV SCH ×3 (09:44→23:49)
--- NOTE | 2017-01-09 10:12 | Progress Note ---
Internal Med Progress Note Date of Service: Jan 09, 2017. Provider Documentation: SUBJECTIVE: Patient is seen and examined at bedside. Has mild non productive cough. SOB better. Denies chest pain, wheezing, abd pain. Offers no other complaints. Family at bedside. OBJECTIVE: Vital Signs-as noted below Physical Exam: General Appearance:Obese, No apparent distress Head: normocephalic, Atraumatic Eyes: normal inspection, EOMI, PERRL Neck: supple, Trachea midline Respiratory/Chest: Decreased breath sounds, + few scattered creps Cardiovascular: S1, S2, No murmur Abdomen/GI:Soft, Non tender, Bowel sounds present, Obese Extremities/Musculoskelatal:B/L LE erythematous, + edema Neurologic/Psych:AAOX3, Able to move all extremities Skin: normal color, warm Lab data as noted below. ASSESSMENT & PLAN: ACUTE on CHRONIC RESPIRATORY FAILURE Hypercapnia and Hypoxemia H/O COPD: mild COPD exacerbation secondary to HCAP Chronic oxygen dependency 3L NC CXR with RLL infiltrate, afebrile Respiratory support per pulmonology Continue IV antibiotics per ID S/P IV solu mderol Continue PO prednisone taper Continue duonebs Follow up cultures: No growth to date Appreciate Pulmonary input Coagulopathy: Likely secondary to meds Resolved INR:2.1 today Give warfarin 1mg today Plan to resume regular scheduled Coumadin tomorrow No active bleeding Monitor INR Possible UTI: Less likely Urine culture: yeast B/L LE CELLULITIS: Continue IV antibiotics per ID Blood cultures: No growth to date Appreciate ID consult HYPERKALEMIA/HYPERMAGNESEMIA/HYPERPHOSPHATEMIA Likely secondary to EMMA Improving No EKG changes S/P IV hydration Monitor labs EMMA H/O renal transplant : on Azathioprine Recent Bactrim use (stopped on 01/04/17) after biopsy of BCC Cr baseline 1.2 Slowly improvin.7 today Cr levels stable S/P IVF continue to hold diuretics, avoid nephrotoxic agents Monitor renal function PRASANNA Not compliant with CPAP at night ELEVATED TROPONIN Mild troponin elevation Denies chest pain, EKG nonischemic ECHO: normal LV wall motion DIASTOLIC CHF ECHO: as below EF:55-60% Lasix held secondary to EMMA chronic lower extremity edema per family Monitor volume status DM II Uncontrolled secondary to steroid use ISS, accu checks PARKINSON'S DISEASE continue Carbidopa/levodopa per recommendations from Neurology 25/250 mg Sinemet tablets discontinued Continue two 25/100 mg Sinemet tablets 5 times per day Appreciate Neurology input Needs follow up with upon discharge GERD continue PPI H/O MRSA contact precautions HLD continue statin DEPRESSION continue Lamictal, Requip and clonazepam H/O PE: On Coumadin INR therapeutic CODE STATUS: FULL CODE DVT PX: On Coumadin INR therapeutic DISPOSITION: Plan to transfer to medical floor May benefit from rehab PROCEDURES: ECHO: * The left ventricle is normal in size. * There is normal left ventricular wall thickness. * Left ventricular systolic function is normal. * The left ventricular wall motion is normal. * Ejection Fraction = 55-60%. * Dilated inferior vena cava with reduced collapsability with sniff indicates an elevated right atrial pressure of 15 mmHg * There is no pericardial effusion. Vital Signs: Date Time Temp Pulse Resp B/P Pulse Ox O2 Delivery O2 Flow Rate FiO2 01/09/17 08:47 36.5 88 20 141/85 95 Nasal Cannula 3.0 01/09/17 08:00 97 Nasal Cannula 3.0 01/09/17 06:55 71 20 97 Nasal Cannula 3.0 01/09/17 04:00 BiPAP 3.0 01/09/17 03:52 36.6 78 22 132/63 97 BiPAP 01/09/17 00:00 36.8 79 22 122/54 98 BiPAP 01/09/17 00:00 BiPAP 3.0 01/08/17 21:21 85 99 50 01/08/17 20:00 Nasal Cannula 3.0 01/08/17 19:47 36.8 90 20 120/69 93 Nasal Cannula 3.0 01/08/17 19:38 85 20 97 Nasal Cannula 3.0 01/08/17 16:00 Nasal Cannula 3.0 01/08/17 15:33 36.9 82 20 142/79 98 Nasal Cannula 2.5 01/08/17 15:15 81 20 94 Nasal Cannula 3.0 01/08/17 12:00 Nasal Cannula 3.0 01/08/17 11:49 71 20 96 Nasal Cannula 3.0 01/08/17 11:29 36.5 82 20 117/75 97 Nasal Cannula 3.0 01/08/17 11:09 36.4 75 22 114/69 98 Room Air 3.0 Lab Results: Results Past 24 Hours Test 01/08/17 11:18 01/08/17 16:22 01/08/17 20:19 01/09/17 05:17 Range/Units Bedside Glucose 151 228 315 70-90 mg/dl White Blood Count 7.39 4.8-10.8 K/uL Red Blood Count 3.46 4.2-5.4 M/uL Hemoglobin 9.6 12.0-16.0 g/dL Hematocrit 32.6 37-47 % Mean Corpuscular Volume 94.2 80-100 fL Mean Corpuscular Hemoglobin 27.7 25-34 pg Mean Corpuscular Hemoglobin Concent 29.4 32-36 g/dl Platelet Count 264 130-400 K/uL Mean Platelet Volume 8.8 7.4-10.4 fL Neutrophils (%) (Auto) 91.7 % Lymphocytes (%) (Auto) 3.8 % Monocytes (%) (Auto) 4.3 % Eosinophils (%) (Auto) 0.1 % Basophils (%) (Auto) 0.0 % Neutrophils # (Auto) 6.77 1.4-6.5 K/uL Lymphocytes # (Auto) 0.28 1.2-3.4 K/uL Monocytes # (Auto) 0.32 0.11-0.59 K/uL Eosinophils # (Auto) 0.01 0-0.5 K/uL Basophils # (Auto) 0.00 0-0.2 K/uL RDW Standard Deviation 70.6 36.4-46.3 fL RDW Coefficient of Variation 20.8 11.5-14.5 % Immature Granulocyte % (Auto) 0.1 % Immature Granulocyte # (Auto) 0.01 0.00-0.02 K/uL Nucleated RBC Absolute Count (auto) 0.05 0-0 K/uL Nucleated Red Blood Cells % 0.7 % Polychromasia 1+ Anisocytosis PRESENT Tear Drop Cells 1+ Echinocytes 1+ Prothrombin Time 23.1 9.0-12.0 SECONDS Prothromb Time International Ratio 2.1 0.9-1.1 Sodium Level 141 136-145 mmol/L Potassium Level 5.0 3.5-5.1 mmol/L Chloride Level 110 98-107 mmol/L Carbon Dioxide Level 22 21-32 mmol/L Anion Gap 9.0 3-11 mmol/L Blood Urea Nitrogen 69 7-18 mg/dl Creatinine 1.70 0.60-1.20 mg/dl Est Creatinine Clear Calc Drug Dose 46.3 ml/min Estimated GFR () 38.1 Estimated GFR (Non- 32.9 BUN/Creatinine Ratio 40.7 10-20 Random Glucose 158 70-99 mg/dl Calcium Level 8.3 8.5-10.1 mg/dl Magnesium Level 3.2 1.8-2.4 mg/dl Test 01/09/17 06:22 Range/Units Bedside Glucose 166 70-90 mg/dl
--- NOTE | 2017-01-09 10:42 | Infectious Disease Progress Nt ---
Progress Note Date of Service Jan 09, 2017. Subjective Pt evaluation today including: conversation w/ patient, conversation w/ family (), physical exam, chart review, lab review, review of studies, conversation w/ senior talent management consultant (Dr. Hardy), review of inpatient medication list WBC count stable today at 7.39. Urine culture growing non-tabatha albicans yeast but patient also has Caceres in place. She is improving on IV abx therapy. Her left leg looks better and is less painful today. She states that she continues to have mild SOB increased from baseline, but otherwise is hoping to go home soon. Creatinine slightly improved to 1.7 today. Urine is business strategist color today. All Other Systems: Reviewed and Negative Medications Current Inpatient Medications Medications (Trade) Dose Ordered Sig/Tato Route Start Time Stop Time Status Last Admin Dose Admin Acetaminophen (Tylenol Tab) 650 mg Q4H PRN PO 01/06/17 12:30 02/05/17 12:29 01/09/17 01:46 650 MG Ondansetron HCl (Zofran Inj) 4 mg Q6H PRN IV 01/06/17 12:30 02/05/17 12:29 Nitroglycerin (Nitrostat Tab) 0.4 mg UD PRN SL 01/06/17 12:30 02/05/17 12:29 Morphine Sulfate (MoRPHine SULFATE INJ) 2 mg Q30M PRN IV 01/06/17 12:30 01/20/17 12:29 Polyethylene (Miralax Powder Packet) 17 gm DAILY PRN PO 01/06/17 12:30 02/05/17 12:29 Glucose (Glucose 40% Gel) 15-30 GRAMS 15 GRAMS... UD PRN PO 01/06/17 12:30 02/05/17 12:29 Glucose (Glucose Chew Tab) 4-8 Tablets 4 Tabl... UD PRN PO 01/06/17 12:30 02/05/17 12:29 Dextrose (Dextrose 50% 50ML Syringe) 25-50ML OF 50% DW IV FOR... UD PRN IV 01/06/17 12:30 02/05/17 12:29 Glucagon (Glucagon Inj) 1 mg UD PRN SQ 01/06/17 12:30 02/05/17 12:29 Miscellaneous Information (Consult Glycemic Management Pharmacy) 1 ea UD PRN N/A 01/06/17 14:11 02/05/17 14:10 Albuterol/ Ipratropium (Duoneb) 3 ml QIDR INH 01/06/17 16:00 02/05/17 15:59 01/09/17 08:26 3 ML Miscellaneous Information (Pharmacy Consult) 1 ea UD N/A 01/06/17 16:32 02/05/17 16:31 Azathioprine (Imuran Tab) 37.5 mg BID PO 01/06/17 21:00 02/05/17 20:59 01/09/17 08:02 37.5 MG Clonazepam (Klonopin Tab) 0.5 mg BID PRN PO 01/06/17 13:30 02/05/17 13:29 01/08/17 23:51 0.5 MG Cyclosporine (Neoral Cap) 75 mg BID PO 01/06/17 21:00 02/05/17 20:59 01/09/17 08:01 75 MG Salmeterol Xinafoate/ Fluticasone (Advair Diskus 250/50 Inh) 1 puff BID INH 01/06/17 21:00 02/05/17 20:59 01/09/17 07:59 1 PUFF Gabapentin (Neurontin Cap) 300 mg TID PO 01/06/17 21:00 02/05/17 20:59 01/09/17 08:02 300 MG Lamotrigine (Lamictal Tab) 100 mg QAM PO 01/07/17 09:00 02/06/17 08:59 01/09/17 08:00 100 MG Pantoprazole Sodium (Protonix Tab) 40 mg DAILY PO 01/07/17 09:00 02/06/17 08:59 01/09/17 08:03 40 MG Ropinirole HCl (Requip Tab) 3 mg TID PO 01/06/17 21:00 02/05/17 20:59 01/09/17 08:04 3 MG Rosuvastatin Calcium (Crestor Tab) 10 mg DAILY PO 01/07/17 09:00 02/06/17 08:59 01/09/17 07:59 10 MG Warfarin Sodium (Coumadin Tab) 2 mg SuTuWeThSa@1600 PO 01/07/17 16:00 02/06/17 15:59 Future Hold 01/07/17 15:39 2 MG Lamotrigine (Lamictal Tab) 150 mg QPM PO 01/06/17 21:00 02/05/17 20:59 01/08/17 20:31 150 MG Acetaminophen/ Hydrocodone Bitart (Circle 5/325 Tab) 1 tab Q8 PRN PO 01/06/17 13:45 01/20/17 13:44 01/09/17 06:37 1 TAB Warfarin Sodium (Coumadin Tab) 1 mg MoFr@1600 PO 01/06/17 18:30 02/05/17 17:29 Future Hold 01/06/17 19:13 1 MG Vancomycin HCl (Consult) 1 ea UD PRN N/A 01/06/17 16:45 02/05/17 16:44 Miconazole Nitrate 1 appln 1 appln PRN PRN EXT 01/06/17 18:45 02/05/17 18:44 01/06/17 20:54 1 APPLN Piperacillin Sod/ Tazobactam Sod/ Dextrose (Zosyn Iv/D5 100ml) 120 ml @ 30 mls/hr Q8H IV 01/07/17 16:00 01/14/17 15:59 01/09/17 09:44 30 MLS/HR Piperacillin Sod/ Tazobactam Sod 1 ea 1 ea UD PRN N/A 01/07/17 10:30 02/06/17 10:29 Vancomycin HCl/ Sodium Chloride (Vancomycin Inj/ Nss 500ml) 533 ml @ 200 mls/hr Q18H IV 01/07/17 13:00 01/13/17 23:59 01/09/17 01:45 200 MLS/HR Insulin Glargine (Lantus Solostar Pen) 20 unit Q12 SC 01/07/17 21:00 02/06/17 20:59 01/09/17 08:05 20 UNIT Carbidopa/Levodopa (Sinemet 25/ 100MG Tab) 2 tab DAILY@0500,0700,1100,1500,2000 PO 01/07/17 20:00 02/06/17 19:59 01/09/17 06:38 2 TAB Prednisone (PredniSONE TAB) 20 mg DAILY PO 01/09/17 09:00 02/08/17 08:59 01/09/17 08:03 20 MG Insulin Aspart (novoLOG ASPART) SLIDING SCALE If C... ACHS SC 01/08/17 11:00 02/07/17 10:59 01/09/17 07:58 19 UNITS Prednisone (PredniSONE TAB) 10 mg ONE ONCE PO 01/09/17 10:45 01/09/17 10:46 Warfarin Sodium (Coumadin Tab) 1 mg TODAY@1600 PO 01/09/17 16:00 01/09/17 18:00 Objective Vital Signs Date Time Temp Pulse Resp B/P Pulse Ox O2 Delivery O2 Flow Rate FiO2 01/09/17 08:47 36.5 88 20 141/85 95 Nasal Cannula 3.0 01/09/17 08:00 97 Nasal Cannula 3.0 01/09/17 06:55 71 20 97 Nasal Cannula 3.0 01/09/17 04:00 BiPAP 3.0 01/09/17 03:52 36.6 78 22 132/63 97 BiPAP 01/09/17 00:00 36.8 79 22 122/54 98 BiPAP 01/09/17 00:00 BiPAP 3.0 01/08/17 21:21 85 99 50 01/08/17 20:00 Nasal Cannula 3.0 01/08/17 19:47 36.8 90 20 120/69 93 Nasal Cannula 3.0 01/08/17 19:38 85 20 97 Nasal Cannula 3.0 01/08/17 16:00 Nasal Cannula 3.0 01/08/17 15:33 36.9 82 20 142/79 98 Nasal Cannula 2.5 01/08/17 15:15 81 20 94 Nasal Cannula 3.0 01/08/17 12:00 Nasal Cannula 3.0 01/08/17 11:49 71 20 96 Nasal Cannula 3.0 01/08/17 11:29 36.5 82 20 117/75 97 Nasal Cannula 3.0 01/08/17 11:09 36.4 75 22 114/69 98 Room Air 3.0 Physical Exam General Appearance: no apparent distress, + obese Eyes: normal inspection, sclerae normal ENT: hearing grossly normal Neck: supple, trachea midline Respiratory/Chest: no accessory muscle use, + decreased breath sounds (bases) Cardiovascular: regular rate, rhythm Abdomen: normal bowel sounds, + pertinent finding (obese) Extremities: + swelling (bilateral lower extremities) Neurologic/Psychiatric: alert, normal mood/affect Skin: + pertinent finding (very mild erythema of the bilateral lower extremities- LLE improved. No drainage. No real [facility] today) Laboratory Results Item Value Date Time Urine Culture - Final Complete 01/07/17 1045 Urine,Catheterized Yeast Not Tabatha Albicans Last 24 Hours Test 01/08/17 11:18 01/08/17 16:22 01/08/17 20:19 01/09/17 05:17 Bedside Glucose 151 mg/dl 228 mg/dl 315 mg/dl White Blood Count 7.39 K/uL Red Blood Count 3.46 M/uL Hemoglobin 9.6 g/dL Hematocrit 32.6 % Mean Corpuscular Volume 94.2 fL Mean Corpuscular Hemoglobin 27.7 pg Mean Corpuscular Hemoglobin Concent 29.4 g/dl Platelet Count 264 K/uL Mean Platelet Volume 8.8 fL Neutrophils (%) (Auto) 91.7 % Lymphocytes (%) (Auto) 3.8 % Monocytes (%) (Auto) 4.3 % Eosinophils (%) (Auto) 0.1 % Basophils (%) (Auto) 0.0 % Neutrophils # (Auto) 6.77 K/uL Lymphocytes # (Auto) 0.28 K/uL Monocytes # (Auto) 0.32 K/uL Eosinophils # (Auto) 0.01 K/uL Basophils # (Auto) 0.00 K/uL RDW Standard Deviation 70.6 fL RDW Coefficient of Variation 20.8 % Immature Granulocyte % (Auto) 0.1 % Immature Granulocyte # (Auto) 0.01 K/uL Nucleated RBC Absolute Count (auto) 0.05 K/uL Nucleated Red Blood Cells % 0.7 % Polychromasia 1+ Anisocytosis PRESENT Tear Drop Cells 1+ Echinocytes 1+ Prothrombin Time 23.1 SECONDS Prothromb Time International Ratio 2.1 Sodium Level 141 mmol/L Potassium Level 5.0 mmol/L Chloride Level 110 mmol/L Carbon Dioxide Level 22 mmol/L Anion Gap 9.0 mmol/L Blood Urea Nitrogen 69 mg/dl Creatinine 1.70 mg/dl Est Creatinine Clear Calc Drug Dose 46.3 ml/min Estimated GFR () 38.1 Estimated GFR (Non- 32.9 BUN/Creatinine Ratio 40.7 Random Glucose 158 mg/dl Calcium Level 8.3 mg/dl Magnesium Level 3.2 mg/dl Test 01/09/17 06:22 Bedside Glucose 166 mg/dl Assessment and Plan Diabetic female with chronic immunocompromise following renal transplant with RLL pneumonia and possible LLE acute on chronic cellulitis. Will continue IV Vancomycin due to mild concern for acute on chronic cellulitis of LLE with hx of MRSA and will continue IV Zosyn for continued coverage and concerns of gram negative or anaerobic infection. She likely will need at least 1 more day of IV therapy if she continues to improve hopefully will transition to PO- likely could transition to PO Levaquin alone for 5-7 more days. We will continue to follow. PROVIDER ADDENDUM: Patient reviewed with Ms. Haddad. Agree with above assessment.
[2017-01-09 11:31] LABS: LEGIONELLA ANTIGEN NOT DETECTED (NOT DETECTED)
[2017-01-09] MEDS ORDERED: WARFARIN SOD 1 MG TAB PO SCH (16:00)
[2017-01-09] MEDS ORDERED: VANCOMYCIN TROUGH SCH (18:30)
[2017-01-09] MEDS: MICONAZOLE NITRATE POWDER 43 GM EXT PRN (20:59)
[2017-01-10] VITALS (11 sets, daily range): BP systolic 131–169; BP diastolic 63–88; PULSE 70–94; TEMP 36.8–37.3; O2SAT 92–100; Ht 149.9 cm; Wt 122.1 kg
[2017-01-10] MEDS: ACETAMINOPHEN 325 MG TAB PO PRN ×3 (03:47→14:54)
[2017-01-10] MEDS: CARBIDOPA/LEVODOPA 25/100MG TAB PO SCH ×5 (05:24→21:07)
[2017-01-10] MEDS: CLONAZEPAM 0.5 MG TAB PO PRN ×2 (06:28→16:37)
[2017-01-10 07:35] LABS: INR 1.6 (0.9-1.1); PROTHROMBIN TIME (PATIENT) 17.8 SECONDS (9.0-12.0)
--- NOTE | 2017-01-10 07:43 | PROGRESS NOTE ---
DATE: 01/10/2017 SUBJECTIVE: The patient is comfortable this morning. She has 100% compliance with CPAP and states she feels 100% better than she did at the time of admission. She denies any pain. She states she was out of bed yesterday in the chair. OBJECTIVE: VITAL SIGNS: Stable and she is afebrile. ID notes appreciated. Oxygen saturation is 100% on 40% FIO2 on CPAP. Her weight is 135.8 kilograms; I am not sure if that is accurate, on the she was 127.4. She does have a catheter in place. I\T\Os; 2290 in and 2475 out. She has had a bit more in than out over the last several days. According to nurses' note she had a fairly good night last night, on 3 liters of oxygen she is stable. HEENT: Oral mucosa post-pharynx showed no evidence of thrush. No neck vein distention or HJR noted. HEART: Regular rate and rhythm. No murmurs are heard. LUNGS: Reveal decreased breath sounds bilaterally, otherwise I thought were fairly clear. She does not have a great inspiratory effort because of the obesity. ABDOMEN: Soft, massively obese and nontender. EXTREMITIES: She has no cyanosis or clubbing. The erythema of lower extremities has improved. Chest x-ray did reveal an infiltrative process at the right base on the . Urine culture revealed yeast and not abdoul. MRSA DNA surveillance screen is negative. Blood cultures have been unremarkable. LABORATORY DATA: White count is stable at 7.39, hemoglobin 9.6, hematocrit 32.6%, with a platelet count of 264,000. BUN 69, creatinine 1.7, magnesium was 3.7. Legionella titer is negative. IMPRESSION: 1. Right lower lobe pneumonia. 2. Respiratory failure, markedly improved. 3. Chronic obstructive pulmonary disease with exacerbation. RECOMMENDATIONS: 1. Continue with her present antimicrobial agents. The prednisone could be tapered down to 15 mg daily and that will help with glucose control as well. 2. Continue with treatment for the Parkinson's disease with a good antireflux regimen. 3. Continue on the Advair just at the 250/50 dose; one inhalation b.i.d. with a mouth rinse. Use DuoNeb four times a day and q. 4 hours p.r.n. Her INR has been stable. It is pending for this morning as well. Overall, she is improved. She should have a chest x-ray done again; perhaps Friday or Friday this coming week to assess the right lower lobe infiltrative process. JATINDER
[2017-01-10 07:49] LABS: BUN/CREATININE RATIO 40.9 (10-20); CALCIUM 8.3 mg/dl (8.5-10.1); CREATININE 1.3 mg/dl (0.60-1.20); MAGNESIUM 2.9 mg/dl (1.8-2.4); POTASSIUM 4.4 mmol/L (3.5-5.1)
[2017-01-10 07:50] LABS: PHOSPHORUS 2.6 mg/dl (2.5-4.9)
[2017-01-10] MEDS: ALBUT/IPRATROP 3MG/0.5MG NEB 3 ML VIAL INH SCH ×4 (08:15→19:05)
[2017-01-10] MEDS: ROSUVASTATIN CALCIUM 10 MG TAB PO SCH (08:39)
[2017-01-10] MEDS: CycloSPORINE (NEORAL) 25 MG CAP PO SCH ×2 (08:40→21:06)
[2017-01-10] MEDS: GABAPENTIN 300 MG CAP PO SCH ×3 (08:41→21:08)
[2017-01-10] MEDS: PANTOprazole SOD 40 MG TAB PO SCH (08:42)
[2017-01-10] MEDS: ROPINIROLE HCL 1 MG TAB PO SCH ×3 (08:42→21:08)
[2017-01-10] MEDS: AZATHIOPRINE 50 MG TAB PO SCH ×2 (08:45→21:06)
[2017-01-10] MEDS: PIPERACILL/TAZOBAC IV 4.5 GM in DEXTROSE 5% 100ML 100 ML IV SCH ×2 (08:45→16:37)
[2017-01-10] MEDS: FLUTICASONE/SALMETEROL 250/50 (ADVAIR) 14 PUFF/1 INHALER INH SCH ×2 (08:45→21:04)
[2017-01-10] MEDS: INSULIN ASPART 100 UNITS/ML 3 ML PEN SC SCH ×4 (08:51→21:18)
[2017-01-10] MEDS: INSULIN GLARGINE SOLOSTAR 100 UNITS/ML 3 ML PEN SC SCH ×2 (08:52→21:19)
--- NOTE | 2017-01-10 10:52 | Pharmacy Progress Note ---
Glycemic Control: Progress Nt Date of Service Jan 10, 2017. Scope Glycemic Pharmacist consulted by Dr Szymanski on 01/06/17 for glycemic control and to write orders per [facility] inpatient glycemic control protocol. Objective Accuchecks BSG (last 24hrs): Test 01/09/17 11:05 01/09/17 16:40 01/09/17 19:54 01/10/17 06:54 Bedside Glucose 316 mg/dl (70-90) 207 mg/dl (70-90) 220 mg/dl (70-90) Random Glucose 173 mg/dl (70-99) Test 01/10/17 08:02 Bedside Glucose 158 mg/dl (70-90) Laboratory Data (last 24hrs) Test 01/10/17 06:54 Anion Gap 6.0 mmol/L BUN/Creatinine Ratio 40.9 Blood Urea Nitrogen 53 mg/dl Creatinine 1.30 mg/dl Potassium Level 4.4 mmol/L Sodium Level 140 mmol/L HbA1c: Test 01/07/17 05:03 Hemoglobin A1c 6.6 % (4.5-5.6) H Recent Pertinent Medications Outpatient Anti-diabetic Regimen: * Lantus 40 units Q HS * Novolog 10 units TID w/ meals * A1c = 6.6 % 01/07/17 The patient is currently receiving: * Basal insulin: Lantus 20 units every 12 hours * Correctional Insulin: Novolog Correction per scale ACHS Goal Range: Low 120 mg/dL - High 160 mg/dL Correction Factor: 12 mg/dL/unit * Prandial insulin: Per carb ratio of 1 unit per 4 grams CHO consumed * Oral Agents: None currently Risk Factors for Insulin Resistance: * Steroids: Prednisone 20mg PO daily * Infection: HAP receiving Zosyn + Vancomycin IV * Pressors: n/a * IVF: n/a * Recent Surgery: n/a * Diet: ordered T2DM diet and tolerating well per carb counts * Mechanical Ventilation: n/a Assessment & Plan ASSESSMENT: From 01/06/17 note: * ADA & AACE recommend a goal blood sugar range 140-180 mg/dl for the majority of critically ill & non-critically ill patients. However, more stringent targets may be selected in individual cases. * Ms Haas is a 56 year old F who is familiar to the glycemic service. She is currently being admitted for respiratory distress. She has a couple day history of increased shortness of breath and confusion. She has a cough with sputum. She has been admitted and is started on steroids with antibiotics. * Based upon previous data for the patient where she required Lantus 35 units twice daily and Novolog (correction factor of 1:10 and carbohydrate ratio of 1:5 ) while eating, she required approximately 120 units/day while on the same steroids regimen. Her kidney function was slightly better, but I believe current kidney dysfunction will resolve shortly. This previous data lends itself to a 50/50 basal/bolus split of Lantus 30 units BID while keeping the same Novolog parameters (reduced doses are utilized due to NPO status). As the patient has reasonable outpatient control of her diabetes and with the utilization of steroids, a lower goal range will be used. Overnight Accuchecks will be added to ensure that the patient will not have too high of blood sugars as there are several factors that are different about this admission. 01/07/17 * Ms. Haas has had stable BSGs on the current insulin regimen but steroids are being decreased further tonight * She is also still NPO * Will plan to reduce Lantus further and loosen the CF to coincide with the steroid reduction. The CR is comparable to her previous admission on the same daily dose of steroids so will continue with this. 01/08/2017 * Ms Haas was started on a diet today. As she was NPO yesterday, she received a total of 46 units of insulin which represents her basal needs. I believe now that she has started on a diet, I will continue the basal at Lantus 20 units BID. I will also continue the same correction factor and carbohydrate ratio. * Based upon previous data, whenever the patient changes from IV steroids to PO steroids, the patient does require a correction factor and carbohydrate ratio of 1:15 and 1:5. I will continue this regimen and adjust as the steroids decrease. 01/09/17 * Ms. Haas rec'd 82 units of insulin yesterday w/ BSGs ranging from a fasting of 158 to 315 last evening * BSGs have started to increase secondary to po intake * I will plan to continue the basal dose and same CF/CR for now, even though steroids are being reduced. This is because po intake has been advanced and she was still high yesterday after receiving her Novolog. * From previous admissions on a similar steroid dose, she required ~80 units/ day so her current regimen should be appropriate. 01/10/17 * Fasting BSG somewhat elevated again this AM (FBS 158) w/ 40 units of Lantus on board - same as home dose; she is receiving a higher dose of prednisone than she does as an outpatient. There are no new orders to taper the prednisone dose at this time. Will consider increasing the basal insulin dose if fasting remains elevated and steroid not tapered. * Current BSG pattern suggests prandial insulin deficiency as well. The CR was adjusted yesterday w/ lunch with some improvement in post-prandial BSGs. If pre -lunch BSG elevated, will adjust the CR again PLAN FOR INPATIENT GLYCEMIC CONTROL: * Continuing Lantus 20 units SQ BID for now, but consider increasing the dose tomorrow if fasting elevated again tomorrow * Continuing correction factor 12 mg/dl/unit * Continuing carb ratio 1 unit per 4 grams CHO consumed - for now, but may need to increase this dose further * Changing goal range to Low 110 mg/dL - High 140 mg/dL to allow for a few additional units w/ meals * Reassess insulin doses w/ each step down in steroid dose * Please note that the plan above was derived based on current level of insulin resistance and hospital stress. These recommendations are appropriate for inpatient admission only. Plan of care upon discharge will need to be reassessed to avoid potential outpatient hypo/hyperglycemia. Thank you.
--- NOTE | 2017-01-10 13:31 | Progress Note ---
Internal Med Progress Note Date of Service: Jan 10, 2017. Provider Documentation: SUBJECTIVE: Patient is seen and examined at bedside. States having left knee pain especially while ambulating. cough, SOB is improving. SOB. Denies chest pain, wheezing, abd pain. Offers no other complaints. Family at bedside. OBJECTIVE: Vital Signs-as noted below Physical Exam: General Appearance:Obese, No apparent distress Head: normocephalic, Atraumatic Eyes: normal inspection, EOMI, PERRL Neck: supple, Trachea midline Respiratory/Chest: Decreased breath sounds, + few scattered creps Cardiovascular: S1, S2, No murmur Abdomen/GI:Soft, Non tender, Bowel sounds present, Obese Extremities/Musculoskelatal:B/L LE erythematous, + edema Neurologic/Psych:AAOX3, Able to move all extremities Skin: normal color, warm Lab data as noted below. ASSESSMENT & PLAN: ACUTE on CHRONIC RESPIRATORY FAILURE RLL Pneumonia Hypercapnia and Hypoxemia H/O COPD: mild COPD exacerbation secondary to HCAP Chronic oxygen dependency 3L NC CXR with RLL infiltrate, afebrile Respiratory support per pulmonology Continue IV antibiotics per ID. Plan to transition to PO Levaquin for 5-7 more days S/P IV solu mderol Continue PO prednisone taper 15mg starting tomorrow Continue duonebs Follow up cultures: No growth to date Appreciate Pulmonary input Needs repeat CXR likely on Friday to monitor progression Left Knee pain: Likely musculoskeletal Will get Knee X ray to rule out any fractures Coagulopathy: Likely secondary to meds Resolved INR:1.6 today Will give Coumadin 2mg today Resume regular home scheduled Coumadin tomorrow No active bleeding Monitor INR Possible UTI: Less likely Urine culture: yeast B/L LE CELLULITIS: Continue IV antibiotics per ID Blood cultures: No growth to date Appreciate ID consult HYPERKALEMIA/HYPERMAGNESEMIA/HYPERPHOSPHATEMIA Likely secondary to EMMA Improved No EKG changes S/P IV hydration Monitor labs EMMA H/O renal transplant : on Azathioprine Recent Bactrim use (stopped on 01/04/17) after biopsy of BCC Cr baseline 1.2 Slowly improvin.3 today Cr levels stable S/P IVF Plan to resume home diuretics today (On Lasix 40mg BID) Avoid nephrotoxic agents Monitor renal function PRASANNA Not compliant with CPAP at night ELEVATED TROPONIN Mild troponin elevation Denies chest pain, EKG nonischemic ECHO: normal LV wall motion DIASTOLIC CHF ECHO: as below EF:55-60% Resume Lasix 40mg BID chronic lower extremity edema per family Monitor volume status DM II Uncontrolled secondary to steroid use ISS, accu checks PARKINSON'S DISEASE continue Carbidopa/levodopa per recommendations from Neurology 25/250 mg Sinemet tablets discontinued Continue two 25/100 mg Sinemet tablets 5 times per day Appreciate Neurology input Needs follow up with upon discharge GERD continue PPI H/O MRSA contact precautions HLD continue statin DEPRESSION continue Lamictal, Requip and clonazepam H/O PE: On Coumadin INR therapeutic CODE STATUS: FULL CODE DVT PX: On Coumadin INR therapeutic DISPOSITION: Continue to monitor Patient and family refuses rehab placement and prefers to be discharged home PROCEDURES: ECHO: * The left ventricle is normal in size. * There is normal left ventricular wall thickness. * Left ventricular systolic function is normal. * The left ventricular wall motion is normal. * Ejection Fraction = 55-60%. * Dilated inferior vena cava with reduced collapsability with sniff indicates an elevated right atrial pressure of 15 mmHg * There is no pericardial effusion. Vital Signs: Date Time Temp Pulse Resp B/P Pulse Ox O2 Delivery O2 Flow Rate FiO2 01/10/17 11:39 85 20 97 Nasal Cannula 3.0 01/10/17 11:19 37.0 79 22 150/63 97 3.0 01/10/17 09:04 36.9 74 20 131/70 97 3.0 01/10/17 07:40 Nasal Cannula 3.0 01/10/17 07:32 75 20 99 Nasal Cannula 3.0 01/10/17 04:30 36.8 70 20 162/88 100 CPAP 01/10/17 00:10 98 CPAP 01/09/17 23:57 36.9 73 18 145/73 95 CPAP 3.0 01/09/17 21:41 85 98 40 01/09/17 19:46 36.9 81 20 145/75 97 Nasal Cannula 3.0 01/09/17 19:17 84 20 94 Nasal Cannula 3.0 01/09/17 16:19 36.9 79 20 124/67 94 Nasal Cannula 3.0 01/09/17 16:00 Nasal Cannula 3.0 01/09/17 15:44 83 20 98 Nasal Cannula 3.0 01/09/17 14:23 36.9 80 18 153/83 98 Nasal Cannula 2.0 01/09/17 14:14 36.6 79 20 97 3.0 Lab Results: Results Past 24 Hours Test 01/09/17 16:40 01/09/17 18:52 01/09/17 19:54 01/10/17 06:54 Range/Units Bedside Glucose 207 220 70-90 mg/dl Vancomycin Level Trough 30.2 SEE COMMENT mcg/ml Prothrombin Time 17.8 9.0-12.0 SECONDS Prothromb Time International Ratio 1.6 0.9-1.1 Sodium Level 140 136-145 mmol/L Potassium Level 4.4 3.5-5.1 mmol/L Chloride Level 108 98-107 mmol/L Carbon Dioxide Level 26 21-32 mmol/L Anion Gap 6.0 3-11 mmol/L Blood Urea Nitrogen 53 7-18 mg/dl Creatinine 1.30 0.60-1.20 mg/dl Est Creatinine Clear Calc Drug Dose 61.1 ml/min Estimated GFR () 52.7 Estimated GFR (Non- 45.5 BUN/Creatinine Ratio 40.9 10-20 Random Glucose 173 70-99 mg/dl Calcium Level 8.3 8.5-10.1 mg/dl Phosphorus Level 2.6 2.5-4.9 mg/dl Magnesium Level 2.9 1.8-2.4 mg/dl Test 01/10/17 08:02 01/10/17 11:48 01/10/17 12:23 Range/Units Bedside Glucose 158 161 70-90 mg/dl Random Vancomycin Level 20.1 mcg/ml
--- NOTE | 2017-01-10 13:32 | DIAGNOSTIC IMAGING REPORT ---
LEFT KNEE 1 OR 2 VIEWS ROUTINE CLINICAL HISTORY: knee pain pain COMPARISON: None. DISCUSSION: Degenerative change medial joint compartment. Soft tissue vascular calcification. No acute bony abnormality. No significant joint effusion. Moderate degenerative changes of patellofemoral joint. There is no evidence for soft tissue swelling. IMPRESSION: Moderate to significant degenerative change of the medial joint compartments and to a lesser extent patellofemoral joint. No acute process. Electronically signed by: Denzel Alejo M.D. 01/10/2017 1:29 PM Dictated Date/Time: 01/10/2017 1:29 PM
[2017-01-10] MEDS: BENZONATATE 100MG CAP PO PRN (13:36)
[2017-01-10] MEDS ORDERED: WARFARIN SOD 2 MG TAB PO ONE (16:00)
[2017-01-10] MEDS: HYDROCODONE/ACETAMOPHEN 5/325MG TAB PO PRN (16:38)
[2017-01-10] MEDS: FUROSEMIDE 40 MG TAB PO SCH (17:16)
[2017-01-11] VITALS (8 sets, daily range): BP systolic 144–173; BP diastolic 72–79; PULSE 67–98; TEMP 36.6–36.9; O2SAT 91–100
[2017-01-11] MEDS: PIPERACILL/TAZOBAC IV 4.5 GM in DEXTROSE 5% 100ML 100 ML IV SCH ×2 (00:29→08:38)
[2017-01-11] MEDS: HYDROCODONE/ACETAMOPHEN 5/325MG TAB PO PRN ×3 (00:30→20:34)
[2017-01-11] MEDS: ACETAMINOPHEN 325 MG TAB PO PRN ×3 (05:03→23:03)
[2017-01-11] MEDS: CARBIDOPA/LEVODOPA 25/100MG TAB PO SCH ×5 (05:03→20:19)
[2017-01-11] MEDS: CLONAZEPAM 0.5 MG TAB PO PRN ×2 (05:13→16:23)
[2017-01-11 06:16] LABS: BASO % 0.2 %; BASO ABS # 0.01 K/uL (0-0.2); EOS % 2.9 %; HEMATOCRIT 34.1 % (37-47); IG% 0.5 %; LYMPH ABS # 0.66 K/uL (1.2-3.4); MEAN CELL VOLUME 91.4 fL (80-100); MEAN CORPUSCULAR HEMOGLOBIN 27.3 pg (25-34); MEAN CORPUSCULAR HGB CONC 29.9 g/dl (32-36); MEAN PLATELET VOLUME 8.2 fL (7.4-10.4); NEUT % 74.4 %; PLATELET COUNT 245 K/uL (130-400); RED BLOOD COUNT 3.73 M/uL (4.2-5.4); WHITE BLOOD COUNT 5.51 K/uL (4.8-10.8)
[2017-01-11 06:22] LABS: INR 1.5 (0.9-1.1)
[2017-01-11 06:54] LABS: BUN/CREATININE RATIO 42.3 (10-20); CALCIUM 8.6 mg/dl (8.5-10.1); CREATININE 0.95 mg/dl (0.60-1.20); POTASSIUM 3.9 mmol/L (3.5-5.1)
[2017-01-11] MEDS: ALBUT/IPRATROP 3MG/0.5MG NEB 3 ML VIAL INH SCH ×4 (06:57→19:00)
[2017-01-11 07:03] LABS: ANISOCYTOSIS PRESENT; COMPLETE YES; LARGE PLATELETS 1+; TEAR DROP CELLS 1+
[2017-01-11] MEDS: INSULIN ASPART 100 UNITS/ML 3 ML PEN SC SCH ×4 (08:36→20:29)
[2017-01-11] MEDS: INSULIN GLARGINE SOLOSTAR 100 UNITS/ML 3 ML PEN SC SCH ×2 (08:36→20:33)
[2017-01-11] MEDS: FLUTICASONE/SALMETEROL 250/50 (ADVAIR) 14 PUFF/1 INHALER INH SCH ×2 (08:37→20:19)
[2017-01-11] MEDS: AZATHIOPRINE 50 MG TAB PO SCH ×2 (08:42→20:22)
[2017-01-11] MEDS: ROSUVASTATIN CALCIUM 10 MG TAB PO SCH (08:42)
[2017-01-11] MEDS: CycloSPORINE (NEORAL) 25 MG CAP PO SCH ×2 (08:45→20:20)
[2017-01-11] MEDS: GABAPENTIN 300 MG CAP PO SCH ×3 (08:46→20:24)
[2017-01-11] MEDS: PANTOprazole SOD 40 MG TAB PO SCH (08:47)
[2017-01-11] MEDS: ROPINIROLE HCL 1 MG TAB PO SCH ×3 (08:47→20:23)
[2017-01-11] MEDS: FUROSEMIDE 40 MG TAB PO SCH ×2 (08:49→16:24)
[2017-01-11] MEDS: BENZONATATE 100MG CAP PO PRN (11:54)
--- NOTE | 2017-01-11 15:21 | Pharmacy Progress Note ---
Glycemic: Assessment & Plan Date of Service Jan 11, 2017. Assessment & Plan Recent Pertinent Medications Outpatient Anti-diabetic Regimen: * Lantus 40 units Q HS * NovoLog 10 units TID w/ meals * A1c = 6.6 % 01/07/17 The patient is currently receiving: * Basal insulin: Lantus 20 units every 12 hours * Correctional Insulin: NovoLog Correction per scale AC/HS Goal Range: Low 120 mg/dL - High 160 mg/dL Correction Factor: 12 mg/dL/unit * Prandial insulin: Per carb ratio of 1 unit per 4 grams CHO consumed Risk Factors for Insulin Resistance: * Steroids: Prednisone 20mg PO daily --> Prednisone 15mg PO daily * Infection: HAP receiving Zosyn + Vancomycin IV * Diet: ordered T2DM diet and tolerating well per carb counts Assessment & Plan ASSESSMENT: From 01/06/17 note: * ADA & AACE recommend a goal blood sugar range 140-180 mg/dl for the majority of critically ill & non-critically ill patients. However, more stringent targets may be selected in individual cases. * Ms Haas is a 56 year old F who is familiar to the glycemic service. She is currently being admitted for respiratory distress. She has a couple day history of increased shortness of breath and confusion. She has a cough with sputum. She has been admitted and is started on steroids with antibiotics. * Based upon previous data for the patient where she required Lantus 35 units twice daily and Novolog (correction factor of 1:10 and carbohydrate ratio of 1:5 ) while eating, she required approximately 120 units/day while on the same steroids regimen. Her kidney function was slightly better, but I believe current kidney dysfunction will resolve shortly. This previous data lends itself to a 50/50 basal/bolus split of Lantus 30 units BID while keeping the same Novolog parameters (reduced doses are utilized due to NPO status). As the patient has reasonable outpatient control of her diabetes and with the utilization of steroids, a lower goal range will be used. Overnight Accu-checks will be added to ensure that the patient will not have too high of blood sugars as there are several factors that are different about this admission. 01/08/2017 * Ms Haas was started on a diet today. As she was NPO yesterday, she received a total of 46 units of insulin which represents her basal needs. I believe now that she has started on a diet, I will continue the basal at Lantus 20 units BID. I will also continue the same correction factor and carbohydrate ratio. * Based upon previous data, whenever the patient changes from IV steroids to PO steroids, the patient does require a correction factor and carbohydrate ratio of 1:15 and 1:5. I will continue this regimen and adjust as the steroids decrease. 01/10/17 * Fasting BSG somewhat elevated again this AM (FBS 158) w/ 40 units of Lantus on board - same as home dose; she is receiving a higher dose of prednisone than she does as an outpatient. There are no new orders to taper the prednisone dose at this time. Will consider increasing the basal insulin dose if fasting remains elevated and steroid not tapered. * Current BSG pattern suggests prandial insulin deficiency as well. The CR was adjusted yesterday w/ lunch with some improvement in post-prandial BSGs. If pre -lunch BSG elevated, will adjust the CR again 01/11/17 * Fasting BSG below goal range today after receiving 40 units of basal insulin yesterday * Steroid dose decreased this AM * PM dose of Lantus to avoid hypoglycemia in AM (steroids wearing off overnight) * May need to loosen NovoLog parameters, however pre-lunch BSG quite elevated * no change today, continue to monitor PLAN FOR INPATIENT GLYCEMIC CONTROL: * Basal insulin * Lantus 20 units SQ q AM * Lantus 10 units SQ q PM * Bolus insulin * NovoLog AC and HS * Correction factor 12 mg/dl/unit * Carb ratio 1 unit per 4 grams CHO consumed - for now, but may need to increase this dose further * Goal range to Low 110 mg/dL - High 140 mg/dL to allow for a few additional units w/ meals * Reassess insulin doses w/ each step down in steroid dose * Please note that the plan above was derived based on current level of insulin resistance and hospital stress. These recommendations are appropriate for inpatient admission only. Plan of care upon discharge will need to be reassessed to avoid potential outpatient hypo/hyperglycemia. Thank you.
[2017-01-11] MEDS: LEVOFLOXACIN 750 MG TAB PO SCH (16:23)
[2017-01-11] MEDS: MICONAZOLE NITRATE POWDER 43 GM EXT PRN (16:26)
--- NOTE | 2017-01-11 16:57 | Progress Note ---
Internal Med Progress Note Date of Service: Jan 11, 2017. Provider Documentation: SUBJECTIVE: Patient is seen and examined at bedside. States she was feeling better and was able to sit in chair today. Left knee pain is controlled. Denies cough, chest pain, wheezing, abd pain. SOB is improving. Offers no other complaints. Eager to get discharged. OBJECTIVE: Vital Signs-as noted below Physical Exam: General Appearance:Obese, No apparent distress Head: normocephalic, Atraumatic Eyes: normal inspection, EOMI, PERRL Neck: supple, Trachea midline Respiratory/Chest: Decreased breath sounds, + scattered creps Cardiovascular: S1, S2, No murmur Abdomen/GI:Soft, Non tender, Bowel sounds present, Obese Extremities/Musculoskelatal:B/L LE erythematous, + edema Neurologic/Psych:AAOX3, Able to move all extremities Skin: normal color, warm Lab data as noted below. ASSESSMENT & PLAN: ACUTE on CHRONIC RESPIRATORY FAILURE RLL Pneumonia Hypercapnia and Hypoxemia H/O COPD: mild COPD exacerbation secondary to HCAP Chronic oxygen dependency 3L NC CXR with RLL infiltrate, afebrile Respiratory support per pulmonology S/P IV antibiotics Continue PO Levaquin for 7 days Da# 1 S/P IV solu medrol Continue PO prednisone taper Continue duonebs Follow up cultures: No growth to date Appreciate Pulmonary input Will repeat CXR in AM Left Knee pain: Likely musculoskeletal Knee X ray: No fractures PT/OT Coagulopathy: Likely secondary to meds Resolved INR:1.5 today Will give Coumadin 3mg today Resume regular home scheduled Coumadin once INR therapeutic No active bleeding Monitor INR Possible UTI: Less likely Urine culture: yeast B/L LE CELLULITIS: S/P IV vanco and Zosyn per ID Blood cultures: No growth to date Appreciate ID consult HYPERKALEMIA/HYPERMAGNESEMIA/HYPERPHOSPHATEMIA Likely secondary to EMMA No EKG changes S/P IV hydration Monitor labs Resolved EMMA H/O renal transplant : on Azathioprine Recent Bactrim use (stopped on 01/04/17) after biopsy of BCC Cr baseline 1.2 Cr at baseline today S/P IVF Continue home PO lasix 40mg BID Avoid nephrotoxic agents Monitor renal function PRASANNA Not compliant with CPAP at night ELEVATED TROPONIN Mild troponin elevation Denies chest pain, EKG nonischemic ECHO: normal LV wall motion DIASTOLIC CHF ECHO: as below EF:55-60% Continue Lasix 40mg BID chronic lower extremity edema per family Monitor volume status DM II Uncontrolled secondary to steroid use ISS, accu checks PARKINSON'S DISEASE continue Carbidopa/levodopa per recommendations from Neurology 25/250 mg Sinemet tablets discontinued Continue two 25/100 mg Sinemet tablets 5 times per day Appreciate Neurology input Needs follow up with upon discharge GERD continue PPI H/O MRSA contact precautions HLD continue statin DEPRESSION continue Lamictal, Requip and clonazepam H/O PE: On Coumadin INR therapeutic CODE STATUS: FULL CODE DVT PX: On Coumadin INR therapeutic DISPOSITION: Continue to monitor Patient and family refuses rehab placement and prefers to be discharged home with home health PROCEDURES: ECHO: * The left ventricle is normal in size. * There is normal left ventricular wall thickness. * Left ventricular systolic function is normal. * The left ventricular wall motion is normal. * Ejection Fraction = 55-60%. * Dilated inferior vena cava with reduced collapsability with sniff indicates an elevated right atrial pressure of 15 mmHg * There is no pericardial effusion. Vital Signs: Date Time Temp Pulse Resp B/P Pulse Ox O2 Delivery O2 Flow Rate FiO2 01/11/17 16:00 Nasal Cannula 3.0 01/11/17 15:20 83 20 91 Nasal Cannula 3.0 01/11/17 15:15 36.6 89 20 144/72 99 Nasal Cannula 3.0 01/11/17 11:10 74 20 98 Nasal Cannula 3.0 01/11/17 08:00 Nasal Cannula 3.0 01/11/17 07:53 36.9 70 18 161/78 94 Nasal Cannula 3.0 01/11/17 06:57 67 20 97 Nasal Cannula 3.0 01/10/17 23:59 Nasal Cannula 3.0 Humidified Air 01/10/17 23:37 37.0 74 18 145/72 97 BiPAP 40 01/10/17 22:12 75 98 40 01/10/17 20:00 Nasal Cannula 3.0 Humidified Air 01/10/17 19:05 89 20 96 Nasal Cannula 3.0 Lab Results: Results Past 24 Hours Test 01/10/17 20:05 01/11/17 05:19 01/11/17 07:36 01/11/17 11:28 Range/Units Bedside Glucose 191 93 314 70-90 mg/dl White Blood Count 5.51 4.8-10.8 K/uL Red Blood Count 3.73 4.2-5.4 M/uL Hemoglobin 10.2 12.0-16.0 g/dL Hematocrit 34.1 37-47 % Mean Corpuscular Volume 91.4 80-100 fL Mean Corpuscular Hemoglobin 27.3 25-34 pg Mean Corpuscular Hemoglobin Concent 29.9 32-36 g/dl Platelet Count 245 130-400 K/uL Mean Platelet Volume 8.2 7.4-10.4 fL Neutrophils (%) (Auto) 74.4 % Lymphocytes (%) (Auto) 12.0 % Monocytes (%) (Auto) 10.0 % Eosinophils (%) (Auto) 2.9 % Basophils (%) (Auto) 0.2 % Neutrophils # (Auto) 4.10 1.4-6.5 K/uL Lymphocytes # (Auto) 0.66 1.2-3.4 K/uL Monocytes # (Auto) 0.55 0.11-0.59 K/uL Eosinophils # (Auto) 0.16 0-0.5 K/uL Basophils # (Auto) 0.01 0-0.2 K/uL RDW Standard Deviation 67.3 36.4-46.3 fL RDW Coefficient of Variation 20.2 11.5-14.5 % Immature Granulocyte % (Auto) 0.5 % Immature Granulocyte # (Auto) 0.03 0.00-0.02 K/uL Nucleated RBC Absolute Count (auto) 0.03 0-0 K/uL Nucleated Red Blood Cells % 0.6 % Large Platelets 1+ Anisocytosis PRESENT Tear Drop Cells 1+ Prothrombin Time 16.0 9.0-12.0 SECONDS Prothromb Time International Ratio 1.5 0.9-1.1 Sodium Level 142 136-145 mmol/L Potassium Level 3.9 3.5-5.1 mmol/L Chloride Level 106 98-107 mmol/L Carbon Dioxide Level 32 21-32 mmol/L Anion Gap 4.0 3-11 mmol/L Blood Urea Nitrogen 40 7-18 mg/dl Creatinine 0.95 0.60-1.20 mg/dl Est Creatinine Clear Calc Drug Dose 81.6 ml/min Estimated GFR () 77.1 Estimated GFR (Non- 66.5 BUN/Creatinine Ratio 42.3 10-20 Random Glucose 98 70-99 mg/dl Calcium Level 8.6 8.5-10.1 mg/dl Test 01/11/17 16:11 Range/Units Bedside Glucose 105 70-90 mg/dl Microbiology Results 01/11/17 Gram Stain, Received Pending 01/11/17 Sputum Culture, Received Pending
[2017-01-11] MEDS ORDERED: WARFARIN SOD 3 MG TAB PO ONE (17:30)
[2017-01-12] VITALS (10 sets, daily range): BP systolic 113–179; BP diastolic 62–90; PULSE 75–104; TEMP 36.5–36.6; O2SAT 94–100
[2017-01-12] MEDS: HYDROCODONE/ACETAMOPHEN 5/325MG TAB PO PRN ×3 (05:28→23:25)
[2017-01-12] MEDS: CARBIDOPA/LEVODOPA 25/100MG TAB PO SCH ×5 (05:29→20:10)
[2017-01-12 06:03] LABS: INR 1.7 (0.9-1.1); PROTHROMBIN TIME (PATIENT) 19.1 SECONDS (9.0-12.0)
[2017-01-12] MEDS: CLONAZEPAM 0.5 MG TAB PO PRN ×2 (06:37→18:20)
[2017-01-12 06:43] LABS: BUN/CREATININE RATIO 41.1 (10-20); CALCIUM 8.8 mg/dl (8.5-10.1); CREATININE 0.85 mg/dl (0.60-1.20); POTASSIUM 3.8 mmol/L (3.5-5.1)
[2017-01-12] MEDS: ALBUT/IPRATROP 3MG/0.5MG NEB 3 ML VIAL INH SCH ×4 (06:59→19:05)
[2017-01-12] MEDS: MICONAZOLE NITRATE POWDER 43 GM EXT PRN (07:27)
--- NOTE | 2017-01-12 07:33 | PROGRESS NOTE ---
DATE: 01/12/2017 SUBJECTIVE: The patient states she is quite comfortable today. She is compliant with wearing CPAP at night. She was out of bed most of the day yesterday without difficulty. She remains on 3 liters of oxygen. She states she feels considerably better than she did at the time of admission. Her vital signs are stable and she is afebrile. OBJECTIVE: VITAL SIGNS: Blood pressure is 173/79, oxygen saturation is 99% on 40% FiO2 by nasal cannula. I O; 1629 in and 7175 out with marked diuresis on the and 15. Her weight is 128 kilograms. She was up as high as 137.8 by the built-in bed scale. GENERAL: Nurses' notes and medications were reviewed. NECK: Posterior pharynx shows no evidence of thrush. There is no neck vein distention or HJR. HEART: Regular rate and rhythm, 1/6 systolic murmur heard at the apex. LUNGS: Clear with decreased breath sounds. No crackles at the right base are noted now. No wheezing is noted. ABDOMEN: Soft and massively obese. EXTREMITIES: She has +1 edema of the pretibial area. Chest x-ray did reveal a right lower lobe pulmonary infiltrate. LABORATORY DATA: White count is 5.5, hemoglobin 10.2, hematocrit 34.1% with a platelet count of 245,000. INR is 1.7 today. Sugars have been under fairly good control. BUN was 40. Urine culture did reveal yeast. She had a sputum Gram stain done yesterday that is pending. IMPRESSION: 1. Right lower lobe pneumonia. 2. Respiratory failure, improved. 3. Chronic obstructive pulmonary disease with exacerbation. 4. Status post renal transplant. 5. Mild pulmonary hypertension. RECOMMENDATIONS: 1. Continue with her present medications, BIPAP at night and weight reduction. 2. I would increase the patient's activity as much as possible. She will need to be followed for aspiration as well, we spoke with her about anti-aspiration maneuvers today and she understands. 3. Finish out the Levaquin after a full 7-10 days. 4. Recheck chest x-ray again in approximately one week. Overall, she is improving. [facility]
[2017-01-12] MEDS ORDERED: INSULIN GLARGINE SOLOSTAR 100 UNITS/ML 3 ML PEN SC SCH (08:00)
[2017-01-12] MEDS: INSULIN ASPART 100 UNITS/ML 3 ML PEN SC SCH ×4 (08:03→21:00)
[2017-01-12] MEDS: FLUTICASONE/SALMETEROL 250/50 (ADVAIR) 14 PUFF/1 INHALER INH SCH ×2 (08:06→20:07)
[2017-01-12] MEDS: ROSUVASTATIN CALCIUM 10 MG TAB PO SCH (08:16)
[2017-01-12] MEDS: AZATHIOPRINE 50 MG TAB PO SCH ×2 (08:18→20:07)
[2017-01-12] MEDS: CycloSPORINE (NEORAL) 25 MG CAP PO SCH ×2 (08:19→20:08)
[2017-01-12] MEDS: GABAPENTIN 300 MG CAP PO SCH ×3 (08:20→20:09)
[2017-01-12] MEDS: PANTOprazole SOD 40 MG TAB PO SCH (08:21)
[2017-01-12] MEDS: ROPINIROLE HCL 1 MG TAB PO SCH ×3 (08:21→20:09)
[2017-01-12] MEDS: FUROSEMIDE 40 MG TAB PO SCH ×2 (08:22→17:04)
[2017-01-12] MEDS: ACETAMINOPHEN 325 MG TAB PO PRN ×2 (08:23→12:53)
--- NOTE | 2017-01-12 09:48 | DIAGNOSTIC IMAGING REPORT ---
SINGLE VIEW CHEST CLINICAL HISTORY: Dyspnea. FINDINGS: An AP, portable, upright chest radiograph is compared to study dated 01/06/2017 and correlated with chest CT dated 08/24/2016. The examination is degraded by portable technique, large body habitus, and patient rotation. The heart is enlarged and there is atherosclerotic calcification of the thoracic aorta. There is pulmonary vascular congestion. Small pleural effusions are suspected there is bibasilar atelectasis. No pneumothorax is identified. The skeletal structures are osteopenic. The bony thorax is grossly intact. Calcific tendinopathy is noted in the left shoulder. IMPRESSION: 1. Cardiomegaly with evidence of mild congestive failure. 2. Small pleural effusions are suspected. Electronically signed by: Irvin Hernandez M.D. 01/12/2017 9:46 AM Dictated Date/Time: 01/12/2017 9:44 AM
[2017-01-12] MEDS: LEVOFLOXACIN 750 MG TAB PO SCH (11:01)
--- NOTE | 2017-01-12 11:53 | Progress Note ---
Internal Med Progress Note Date of Service: Jan 12, 2017. Provider Documentation: SUBJECTIVE: Patient is seen and examined at bedside. Overall she feels better today. Eager to get discharged. Denies cough, chest pain, wheezing, abd pain. SOB is improving. Offers no other complaints. Ambulating better. Family at bedside. OBJECTIVE: Vital Signs-as noted below Physical Exam: General Appearance:Obese, No apparent distress Head: normocephalic, Atraumatic Eyes: normal inspection, EOMI, PERRL Neck: supple, Trachea midline Respiratory/Chest: Decreased breath sounds, CTA Cardiovascular: S1, S2, No murmur Abdomen/GI:Soft, Non tender, Bowel sounds present, Obese Extremities/Musculoskelatal:B/L LE erythematous, + edema Neurologic/Psych:AAOX3, Able to move all extremities Skin: normal color, warm Lab data as noted below. ASSESSMENT & PLAN: ACUTE on CHRONIC RESPIRATORY FAILURE RLL Pneumonia Hypercapnia and Hypoxemia H/O COPD: mild COPD exacerbation secondary to HCAP Chronic oxygen dependency 3L NC CXR with RLL infiltrate, afebrile Respiratory support per pulmonology S/P IV antibiotics Continue PO Levaquin for 7 days Day# 2 S/P IV solu medrol, Continue PO prednisone taper Continue duonebs Follow up cultures: No growth to date Appreciate Pulmonary input Needs repeat CXR in 1 week Continue BiPAP at bedtime. needs to be arranged prior to DC Needs sleep study as outpatient Needs follow up with Pulm as outpatient Check nocturnal pulse Oximetry Left Knee pain: Likely musculoskeletal Knee X ray: No fractures PT/OT Coagulopathy: Likely secondary to meds Resolved INR:1.7 today Will give Coumadin 3mg today Resume regular home scheduled Coumadin once INR therapeutic No active bleeding Monitor INR Possible UTI: Less likely Urine culture: yeast B/L LE CELLULITIS: S/P IV vanco and Zosyn per ID Blood cultures: No growth to date Appreciate ID consult HYPERKALEMIA/HYPERMAGNESEMIA/HYPERPHOSPHATEMIA Likely secondary to EMMA No EKG changes S/P IV hydration Monitor labs Resolved EMMA H/O renal transplant : on Azathioprine Recent Bactrim use (stopped on 01/04/17) after biopsy of BCC Cr baseline 1.2 Cr at baseline today S/P IVF Continue home PO lasix 40mg BID Avoid nephrotoxic agents Monitor renal function PRASANNA Not compliant with CPAP at night as outpatient ELEVATED TROPONIN Mild troponin elevation Denies chest pain, EKG nonischemic ECHO: normal LV wall motion DIASTOLIC CHF ECHO: as below EF:55-60% Continue Lasix 40mg BID chronic lower extremity edema per family Monitor volume status DM II Uncontrolled secondary to steroid use ISS, accu checks PARKINSON'S DISEASE continue Carbidopa/levodopa per recommendations from Neurology 25/250 mg Sinemet tablets discontinued Continue two 25/100 mg Sinemet tablets 5 times per day Appreciate Neurology input Needs follow up with upon discharge GERD continue PPI H/O MRSA contact precautions HLD continue statin DEPRESSION continue Lamictal, Requip and clonazepam H/O PE: On Coumadin INR therapeutic CODE STATUS: FULL CODE DVT PX: On Coumadin INR therapeutic DISPOSITION: Continue to monitor Patient and family refuses rehab placement and prefers to be discharged home with home health PROCEDURES: ECHO: * The left ventricle is normal in size. * There is normal left ventricular wall thickness. * Left ventricular systolic function is normal. * The left ventricular wall motion is normal. * Ejection Fraction = 55-60%. * Dilated inferior vena cava with reduced collapsability with sniff indicates an elevated right atrial pressure of 15 mmHg * There is no pericardial effusion. Vital Signs: Date Time Temp Pulse Resp B/P Pulse Ox O2 Delivery O2 Flow Rate FiO2 01/12/17 15:02 75 20 97 Nasal Cannula 3.0 01/12/17 14:48 36.5 104 20 137/67 100 Nasal Cannula 3.0 01/12/17 11:40 81 20 98 Nasal Cannula 3.0 01/12/17 10:59 82 113/62 01/12/17 08:00 Nasal Cannula 3.0 01/12/17 07:30 36.6 85 22 179/90 95 Nasal Cannula 2.0 01/12/17 06:59 85 20 94 Nasal Cannula 3.0 01/12/17 02:17 88 99 40 01/12/17 00:00 Nasal Cannula 3.0 CPAP 01/11/17 23:20 36.8 87 20 173/79 100 CPAP 01/11/17 22:06 98 99 40 01/11/17 20:00 Nasal Cannula 3.0 01/11/17 19:00 80 20 100 Nasal Cannula 3.0 01/11/17 16:00 Nasal Cannula 3.0 Lab Results: Results Past 24 Hours Test 01/11/17 16:11 01/11/17 20:10 01/12/17 05:05 01/12/17 05:28 Range/Units Bedside Glucose 105 112 70-90 mg/dl Sodium Level 143 136-145 mmol/L Potassium Level 3.8 3.5-5.1 mmol/L Chloride Level 104 98-107 mmol/L Carbon Dioxide Level 32 21-32 mmol/L Anion Gap 7.0 3-11 mmol/L Blood Urea Nitrogen 35 7-18 mg/dl Creatinine 0.85 0.60-1.20 mg/dl Est Creatinine Clear Calc Drug Dose 88.9 ml/min Estimated GFR () 88.2 Estimated GFR (Non- 76.1 BUN/Creatinine Ratio 41.1 10-20 Random Glucose 105 70-99 mg/dl Calcium Level 8.8 8.5-10.1 mg/dl Prothrombin Time 19.1 9.0-12.0 SECONDS Prothromb Time International Ratio 1.7 0.9-1.1 Test 01/12/17 07:36 01/12/17 11:05 Range/Units Bedside Glucose 118 121 70-90 mg/dl
--- NOTE | 2017-01-12 13:37 | Pharmacy Progress Note ---
Glycemic Control: Progress Nt Date of Service Jan 12, 2017. Scope Glycemic Pharmacist consulted by Dr Szymanski on 01/06/17 for glycemic control and to write orders per [facility] inpatient glycemic control protocol. Objective Accuchecks BSG (last 24hrs): Test 01/11/17 16:11 01/11/17 20:10 01/12/17 05:05 01/12/17 07:36 Bedside Glucose 105 mg/dl (70-90) 112 mg/dl (70-90) 118 mg/dl (70-90) Random Glucose 105 mg/dl (70-99) Test 01/12/17 11:05 Bedside Glucose 121 mg/dl (70-90) Laboratory Data (last 24hrs) Test 01/12/17 05:05 Anion Gap 7.0 mmol/L BUN/Creatinine Ratio 41.1 Blood Urea Nitrogen 35 mg/dl Creatinine 0.85 mg/dl Potassium Level 3.8 mmol/L Sodium Level 143 mmol/L HbA1c: Test 01/07/17 05:03 Hemoglobin A1c 6.6 % (4.5-5.6) H Recent Pertinent Medications Outpatient Anti-diabetic Regimen: * Lantus 40 units Q HS * NovoLog 10 units TID w/ meals * A1c = 6.6 % 01/07/17 The patient is currently receiving: * Basal insulin: Lantus 20 units every AM + 10 units every PM * Correctional Insulin: NovoLog Correction per scale AC/HS Goal Range: Low 110 mg/dL - High 140 mg/dL Correction Factor: 12 mg/dL/unit * Prandial insulin: Per carb ratio of 1 unit per 4 grams CHO consumed Risk Factors for Insulin Resistance: * Steroids: Prednisone 20mg PO daily --> Prednisone 15mg PO daily --> Prednisone 10mg PO daily * Infection: HAP - levofloxacin PO * Diet: ordered T2DM diet and tolerating well per carb counts Assessment & Plan ASSESSMENT: From 01/06/17 note: * ADA & AACE recommend a goal blood sugar range 140-180 mg/dl for the majority of critically ill & non-critically ill patients. However, more stringent targets may be selected in individual cases. * Ms Haas is a 56 year old F who is familiar to the glycemic service. She is currently being admitted for respiratory distress. She has a couple day history of increased shortness of breath and confusion. She has a cough with sputum. She has been admitted and is started on steroids with antibiotics. * Based upon previous data for the patient where she required Lantus 35 units twice daily and Novolog (correction factor of 1:10 and carbohydrate ratio of 1:5 ) while eating, she required approximately 120 units/day while on the same steroids regimen. Her kidney function was slightly better, but I believe current kidney dysfunction will resolve shortly. This previous data lends itself to a 50/50 basal/bolus split of Lantus 30 units BID while keeping the same Novolog parameters (reduced doses are utilized due to NPO status). As the patient has reasonable outpatient control of her diabetes and with the utilization of steroids, a lower goal range will be used. Overnight Accu-checks will be added to ensure that the patient will not have too high of blood sugars as there are several factors that are different about this admission. 01/08/2017 * Ms Haas was started on a diet today. As she was NPO yesterday, she received a total of 46 units of insulin which represents her basal needs. I believe now that she has started on a diet, I will continue the basal at Lantus 20 units BID. I will also continue the same correction factor and carbohydrate ratio. * Based upon previous data, whenever the patient changes from IV steroids to PO steroids, the patient does require a correction factor and carbohydrate ratio of 1:15 and 1:5. I will continue this regimen and adjust as the steroids decrease. 01/11/17 * Fasting BSG below goal range today after receiving 40 units of basal insulin yesterday * Steroid dose decreased this AM * PM dose of Lantus to avoid hypoglycemia in AM (steroids wearing off overnight) * May need to loosen NovoLog parameters, however pre-lunch BSG quite elevated * no change today, continue to monitor 01/12/17 * BSGs well controlled with the exception of one value above goal range. * Steroids continue to be tapered * Loosen CF and CR today in response to this * Continue same basal insulin dose, however may need decrease in doses tomorrow PLAN FOR INPATIENT GLYCEMIC CONTROL: * Basal insulin * Lantus 20 units SQ q AM * Lantus 10 units SQ q PM * Bolus insulin * NovoLog AC and HS * Correction factor 15 mg/dl/unit * Carb ratio 1 unit per 5 grams CHO consumed * Goal range to Low 110 mg/dL - High 140 mg/dL * Reassess insulin doses w/ each step down in steroid dose RECOMMENDATIONS FOR DISCHARGE: * Likely, Ms Haas can resume her home insulin doses at dischage given her A1c of 6.6% * Please note that the plan above was derived based on current level of insulin resistance and hospital stress. These recommendations are appropriate for inpatient admission only. Plan of care upon discharge will need to be reassessed to avoid potential outpatient hypo/hyperglycemia. Thank you.
[2017-01-12] MEDS ORDERED: WARFARIN SOD 3 MG TAB PO ONE (16:00)
[2017-01-12] MEDS: INSULIN GLARGINE SOLOSTAR 100 UNITS/ML 3 ML PEN SC SCH (22:02)
[2017-01-13] VITALS (10 sets, daily range): BP systolic 149–170; BP diastolic 74–79; PULSE 77–98; TEMP 36.5–37.1; O2SAT 92–100
[2017-01-13] MEDS: CARBIDOPA/LEVODOPA 25/100MG TAB PO SCH ×5 (05:12→20:00)
[2017-01-13 05:42] LABS: HEMATOCRIT 35.1 % (37-47)
[2017-01-13 06:02] LABS: INR 1.8 (0.9-1.1); PROTHROMBIN TIME (PATIENT) 19.2 SECONDS (9.0-12.0)
[2017-01-13 06:04] LABS: CALCIUM 8.8 mg/dl (8.5-10.1); CREATININE 0.92 mg/dl (0.60-1.20); POTASSIUM 3.8 mmol/L (3.5-5.1)
[2017-01-13] MEDS: CLONAZEPAM 0.5 MG TAB PO PRN ×2 (06:13→17:45)
[2017-01-13] MEDS: ALBUT/IPRATROP 3MG/0.5MG NEB 3 ML VIAL INH SCH ×4 (07:42→19:05)
[2017-01-13] MEDS: ROSUVASTATIN CALCIUM 10 MG TAB PO SCH (07:45)
[2017-01-13] MEDS: AZATHIOPRINE 50 MG TAB PO SCH ×2 (07:45→20:34)
[2017-01-13] MEDS: CycloSPORINE (NEORAL) 25 MG CAP PO SCH ×2 (07:47→20:34)
[2017-01-13] MEDS: GABAPENTIN 300 MG CAP PO SCH ×3 (07:47→20:35)
[2017-01-13] MEDS: PANTOprazole SOD 40 MG TAB PO SCH (07:48)
[2017-01-13] MEDS: ROPINIROLE HCL 1 MG TAB PO SCH ×3 (07:48→20:35)
[2017-01-13] MEDS: FLUTICASONE/SALMETEROL 250/50 (ADVAIR) 14 PUFF/1 INHALER INH SCH ×2 (07:50→20:31)
[2017-01-13] MEDS: HYDROCODONE/ACETAMOPHEN 5/325MG TAB PO PRN ×2 (07:50→22:23)
[2017-01-13] MEDS: INSULIN ASPART 100 UNITS/ML 3 ML PEN SC SCH ×4 (09:17→20:42)
[2017-01-13] MEDS: FUROSEMIDE 40 MG TAB PO SCH ×2 (09:18→16:47)
[2017-01-13] MEDS: MICONAZOLE NITRATE POWDER 43 GM EXT PRN (11:21)
[2017-01-13] MEDS: LEVOFLOXACIN 750 MG TAB PO SCH (11:43)
[2017-01-13] MEDS ORDERED: INSULIN GLARGINE SOLOSTAR 100 UNITS/ML 3 ML PEN SC SCH (12:00)
--- NOTE | 2017-01-13 12:02 | Pharmacy Progress Note ---
Glycemic Control: Progress Nt Date of Service Jan 13, 2017. Scope Glycemic Pharmacist consulted by Dr Szymanski on 01/06/2017 for glycemic control and to write orders per [facility] inpatient glycemic control protocol. Objective Accuchecks BSG (last 24hrs): Test 01/12/17 11:05 01/12/17 16:23 01/12/17 21:20 01/13/17 05:10 Bedside Glucose 121 mg/dl (70-90) 154 mg/dl (70-90) 124 mg/dl (70-90) Random Glucose 110 mg/dl (70-99) Test 01/13/17 07:51 Bedside Glucose 113 mg/dl (70-90) Laboratory Data (last 24hrs) Test 01/13/17 05:10 Anion Gap 3.0 mmol/L BUN/Creatinine Ratio 35.0 Blood Urea Nitrogen 32 mg/dl Creatinine 0.92 mg/dl Potassium Level 3.8 mmol/L Sodium Level 146 mmol/L HbA1c: Test 01/07/17 05:03 Hemoglobin A1c 6.6 % (4.5-5.6) H Recent Pertinent Medications Outpatient Anti-diabetic Regimen: * Lantus 40 units HS plus Novolog 10 units with meals Risk Factors for Insulin Resistance: * Steroids: prednisone 10 mg daily * Infection: respiratory/UTI on Levaquin PO * Diet: Type 2 diabetic diet Assessment & Plan ASSESSMENT: * ADA & AACE recommend a goal blood sugar range 140-180 mg/dl for the majority of critically ill & non-critically ill patients. However, more stringent targets may be selected in individual cases. 01/14/2016 * On admission, Ms Haas was NPO and started on Solu-Medrol 40 mg IV q8 hours. Her Lantus was split into BID dosing for easier titration. The steroids have been tapered downwards to prednisone 10 mg daily along with insulin. Daily insulin requirements have decreased from 82units/day, 121 units/day, 96 units/ day, 93 units/day, and 84 units/day. * Ms Haas's blood sugars yesterday were well controlled and all below goal range except for dinner which was 154 mg/dL. Her fasting was within goal. The patient's oral prednisone appears to be continued on 10 mg daily. * The patient is no longer NPO and is stable. In order to transition to a home regimen which was Lantus 40 units qHS, will transition to once daily dosing with Lantus 30 units with lunchtime and the qHS at bedtime on 01/14/2017. * I will loosen carbohydrate and correction factor to 1:6 and 1:20 respectively as her Lantus is now once daily and steroids have been tapered downwards to prednisone 10 mg daily. I expect less prandial coverage with less steroids. PLAN FOR INPATIENT GLYCEMIC CONTROL: * TRANSITION to Lantus 30 units qHS with dose at lunch today and then HS dosing (patient takes Lantus once daily at night as an outpatient) * NOVOLOG ACHS * Goal Range: Low 120 mg/dL - High 160 mg/dL * LOOSEN: Correction Factor: 20 mg/dL/unit * LOOSEN: Nutritional / Prandial insulin per carb ratio of 1 unit per 6 grams CHO consumed * Please note that the plan above was derived based on current level of insulin resistance and hospital stress. These recommendations are appropriate for inpatient admission only. Plan of care upon discharge will need to be reassessed to avoid potential outpatient hypo/hyperglycemia. Thank you.
[2017-01-13 13:02] LABS: ARTERIAL BLD GAS O2 SATURATION 94.9 % (90-95); ARTERIAL BLOOD GAS BASE EXCESS 7.1 mEq/L (-9-1.8); ARTERIAL BLOOD GAS HCO3 32 mmol/L (19-24); ARTERIAL BLOOD GAS PO2 80 mm/Hg (80-95); ARTERIAL BLOOD GAS pH 7.43 (7.35-7.45)
[2017-01-13 13:03] LABS: ALLEN TEST POS (POS); O2 ADMINISTRATION 3L
[2017-01-13] MEDS: ACETAMINOPHEN 325 MG TAB PO PRN (15:04)
--- NOTE | 2017-01-13 15:45 | Progress Note ---
Internal Med Progress Note Date of Service: Jan 13, 2017. Provider Documentation: SUBJECTIVE: Patient is seen and examined at bedside. States having back pain. Denies cough, chest pain, wheezing, abd pain. SOB is improving. Offers no other complaints. Could not get Nocturnal oximetry test done yesterday. OBJECTIVE: Vital Signs-as noted below Physical Exam: General Appearance:Obese, No apparent distress Head: normocephalic, Atraumatic Eyes: normal inspection, EOMI, PERRL Neck: supple, Trachea midline Respiratory/Chest: Decreased breath sounds, CTA Cardiovascular: S1, S2, No murmur Abdomen/GI:Soft, Non tender, Bowel sounds present, Obese Extremities/Musculoskelatal:B/L LE erythematous, + edema Neurologic/Psych:AAOX3, Able to move all extremities Skin: normal color, warm Lab data as noted below. ASSESSMENT & PLAN: ACUTE on CHRONIC RESPIRATORY FAILURE RLL Pneumonia Hypercapnia and Hypoxemia H/O COPD: mild COPD exacerbation secondary to HCAP Chronic oxygen dependency 3L NC CXR with RLL infiltrate, afebrile Respiratory support per pulmonology S/P IV antibiotics Continue PO Levaquin for 7 days Day# 3 S/P IV solu medrol, Continue PO prednisone taper to complete tomorrow Continue duonebs Cultures: No growth to date Appreciate Pulmonary input Needs repeat CXR in 1 week Continue BiPAP at bedtime. needs to be arranged prior to DC Needs sleep study as outpatient Needs follow up with Pulm as outpatient Check nocturnal pulse Oximetry and ABG:to qualify for BIPAP at night Left Knee pain: Likely musculoskeletal Knee X ray: No fractures PT/OT Back Pain: Resume her home pain meds Coagulopathy: Likely secondary to meds Resolved INR:1.8 today Will give Coumadin 4mg today Resume regular home scheduled Coumadin once INR therapeutic No active bleeding Monitor INR Possible UTI: Less likely Urine culture: yeast B/L LE CELLULITIS: S/P IV vanco and Zosyn per ID Blood cultures: No growth to date Appreciate ID consult HYPERKALEMIA/HYPERMAGNESEMIA/HYPERPHOSPHATEMIA Likely secondary to EMMA No EKG changes S/P IV hydration Monitor labs Resolved EMMA H/O renal transplant : on Azathioprine Recent Bactrim use (stopped on 01/04/17) after biopsy of BCC Cr baseline 1.2 Cr at baseline currently S/P IVF Continue home PO lasix 40mg BID Avoid nephrotoxic agents Monitor renal function PRASANNA Not compliant with CPAP at night as outpatient Needs CPAP setup as outpatient upon discharge ELEVATED TROPONIN Mild troponin elevation Denies chest pain, EKG nonischemic ECHO: normal LV wall motion DIASTOLIC CHF ECHO: as below EF:55-60% Continue Lasix 40mg BID chronic lower extremity edema per family Monitor volume status DM II Uncontrolled secondary to steroid use ISS, accu checks PARKINSON'S DISEASE continue Carbidopa/levodopa per recommendations from Neurology 25/250 mg Sinemet tablets discontinued Continue two 25/100 mg Sinemet tablets 5 times per day Appreciate Neurology input Needs follow up with upon discharge GERD continue PPI H/O MRSA contact precautions HLD continue statin DEPRESSION continue Lamictal, Requip and clonazepam H/O PE: On Coumadin INR therapeutic CODE STATUS: FULL CODE DVT PX: On Coumadin INR subtherapeutic DISPOSITION: Continue to monitor Patient and family refuses rehab placement and prefers to be discharged home with home health Plan to discharge in 1-2 days if stable PROCEDURES: ECHO: * The left ventricle is normal in size. * There is normal left ventricular wall thickness. * Left ventricular systolic function is normal. * The left ventricular wall motion is normal. * Ejection Fraction = 55-60%. * Dilated inferior vena cava with reduced collapsability with sniff indicates an elevated right atrial pressure of 15 mmHg * There is no pericardial effusion. Vital Signs: Date Time Temp Pulse Resp B/P Pulse Ox O2 Delivery O2 Flow Rate FiO2 01/13/17 15:40 37.1 98 20 170/74 92 Nasal Cannula 3.0 01/13/17 11:19 84 20 96 Nasal Cannula 3.0 01/13/17 08:00 Nasal Cannula 3.0 01/13/17 07:43 79 20 96 Nasal Cannula 3.0 01/13/17 07:33 36.6 77 20 169/79 99 3.0 01/13/17 02:59 36.7 79 18 159/79 97 CPAP 01/13/17 02:41 80 98 40 01/13/17 00:00 100 CPAP 3.0 40 01/12/17 23:12 36.6 80 16 149/82 100 CPAP 01/12/17 21:37 84 100 40 01/12/17 19:55 Nasal Cannula 3.0 01/12/17 19:05 89 20 96 Nasal Cannula 3.0 Lab Results: Results Past 24 Hours Test 01/12/17 16:23 01/12/17 21:20 01/13/17 05:10 01/13/17 07:51 Range/Units Bedside Glucose 154 124 113 70-90 mg/dl Hemoglobin 10.4 12.0-16.0 g/dL Hematocrit 35.1 37-47 % Prothrombin Time 19.2 9.0-12.0 SECONDS Prothromb Time International Ratio 1.8 0.9-1.1 Sodium Level 146 136-145 mmol/L Potassium Level 3.8 3.5-5.1 mmol/L Chloride Level 104 98-107 mmol/L Carbon Dioxide Level 39 21-32 mmol/L Anion Gap 3.0 3-11 mmol/L Blood Urea Nitrogen 32 7-18 mg/dl Creatinine 0.92 0.60-1.20 mg/dl Est Creatinine Clear Calc Drug Dose 82.2 ml/min Estimated GFR () 80.1 Estimated GFR (Non- 69.1 BUN/Creatinine Ratio 35.0 10-20 Random Glucose 110 70-99 mg/dl Calcium Level 8.8 8.5-10.1 mg/dl Test 01/13/17 11:25 01/13/17 12:51 Range/Units Bedside Glucose 141 70-90 mg/dl Arterial Blood pH 7.43 7.35-7.45 Arterial Blood Partial Pressure CO2 50 35-46 mmHg Arterial Blood Partial Pressure O2 80 80-95 mm/Hg Arterial Blood HCO3 32 19-24 mmol/L Arterial Blood Oxygen Saturation 94.9 90-95 % Arterial Blood Base Excess 7.1 -9-1.8 mEq/L Arterial Blood Gas Delivery 3L Stu Test POS POS
[2017-01-13] MEDS ORDERED: WARFARIN SOD 4 MG TAB PO ONE (16:00)
[2017-01-13] MEDS ORDERED: OXYCODONE HCL IR 5 MG TAB (IMMEDIATE RELEASE) PO PRN (16:15)
--- NOTE | 2017-01-13 18:09 | PULMONARY PROGRESS NOTE ---
DATE: 01/13/2017 TIME: 05:25 p.m. SUBJECTIVE: The patient states she feels better. She is less short of breath. She has less cough. The staff is trying to help her get a BiPAP at home. She admits she feels that it helps with her breathing. She is not that fond of that, but she is willing to wear it if it can be obtained. Generally, she feels better than when she was admitted about a week ago. OBJECTIVE: GENERAL: The patient was comfortable at rest. She was having supper. She was cooperative and alert. VITAL SIGNS: Temperature was 37.1. The heart rate was 100 per minute. Occasional extrasystoles were heard. Blood pressure 170/74. Respiratory rate 20 breaths per minute. Oxygen saturation was 99% on 3 liters. SKIN: She was a bit sweaty. NECK: She has a large neck. No lymph nodes are palpable. ABDOMEN: Obese. Bowel sounds were present. LABORATORY DATA: Hemoglobin today is 10.4. Two days ago, it was 10.2 and thus, there has been stability. INR today is 1.8. Blood gas done today showed a pH of 7.43 with a pCO2 of 50 and a pO2 of 80 done on 3 liter nasal cannula. Electrolytes show sodium 146, potassium 3.8, chloride 104, and bicarb 39. BUN was 32 with a creatinine of 0.92. Several blood sugars have been done today. The highest is 141. The patient had a chest x-ray done yesterday. This was a portable There is cardiomegaly. Mild CHF was suggested with possible effusions. The patient is obese and this does tend to make the lung markings look more prominent. IMPRESSIONS: 1. Right lower lobe pneumonia -- improved. 2. Respiratory failure with hypoxia and hypercarbia. 3. Obesity hypoventilation syndrome. COMMENTS AND RECOMMENDATIONS: The patient is being evaluated by myself for the first time. It would appear that she would likely be very immobile. I am not sure what her situation at home is. She certainly has the body habitus and symptom complex for sleep apnea. However, she had a sleep study done last summer that did not show any sleep apnea, although it had relatively small amounts of sleep. The question is whether she could obtain a BiPAP at home. By Medicare guidelines, the pCO2 needs to be above 52. She may not have Medicare; however, I am not certain of that. There is an overnight pulse oximetry study apparently pending. Would continue with the current therapy for now.
[2017-01-14] MEDS: ACETAMINOPHEN 325 MG TAB PO PRN (03:00)
[2017-01-14] MEDS: CARBIDOPA/LEVODOPA 25/100MG TAB PO SCH ×2 (04:56→09:32)
[2017-01-14 05:49] LABS: INR 1.6 (0.9-1.1); PROTHROMBIN TIME (PATIENT) 17.9 SECONDS (9.0-12.0)
[2017-01-14 06:04] LABS: BUN/CREATININE RATIO 35.1 (10-20); CALCIUM 8.9 mg/dl (8.5-10.1); CREATININE 0.85 mg/dl (0.60-1.20); POTASSIUM 3.9 mmol/L (3.5-5.1)
[2017-01-14 06:57] VITALS: BP 181/98; PULSE 82; TEMP 36.6; O2SAT 100
[2017-01-14 07:10] VITALS: PULSE 80; O2SAT 98
[2017-01-14] MEDS: ALBUT/IPRATROP 3MG/0.5MG NEB 3 ML VIAL INH SCH ×2 (07:10→11:40)
[2017-01-14] MEDS: CycloSPORINE (NEORAL) 25 MG CAP PO SCH (09:27)
[2017-01-14] MEDS: FLUTICASONE/SALMETEROL 250/50 (ADVAIR) 14 PUFF/1 INHALER INH SCH (09:28)
[2017-01-14] MEDS: LEVOFLOXACIN 750 MG TAB PO SCH (09:29)
[2017-01-14] MEDS: GABAPENTIN 300 MG CAP PO SCH (09:30)
[2017-01-14] MEDS: FUROSEMIDE 40 MG TAB PO SCH (09:30)
[2017-01-14] MEDS: PANTOprazole SOD 40 MG TAB PO SCH (09:31)
[2017-01-14] MEDS: AZATHIOPRINE 50 MG TAB PO SCH (09:32)
[2017-01-14] MEDS: ROSUVASTATIN CALCIUM 10 MG TAB PO SCH (09:32)
[2017-01-14] MEDS: CLONAZEPAM 0.5 MG TAB PO PRN (09:34)
[2017-01-14] MEDS: HYDROCODONE/ACETAMOPHEN 5/325MG TAB PO PRN (09:35)
[2017-01-14] MEDS: INSULIN ASPART 100 UNITS/ML 3 ML PEN SC SCH (09:36)
[2017-01-14 10:32] VITALS: BP 136/77; PULSE 82; O2SAT 96
--- NOTE | 2017-01-14 10:38 | Progress Note ---
Internal Med Progress Note Date of Service: Jan 14, 2017. Provider Documentation: SUBJECTIVE: Patient is seen and examined at bedside. States feeling well this morning. Denies cough, chest pain, dizziness, wheezing. Chronic SOB. Offers no other complaints. Eager to get discharged. OBJECTIVE: Vital Signs-as noted below Physical Exam: General Appearance:Obese, No apparent distress Head: normocephalic, Atraumatic Eyes: normal inspection, EOMI, PERRL Neck: supple, Trachea midline Respiratory/Chest: Decreased breath sounds, CTA Cardiovascular: S1, S2, No murmur Abdomen/GI:Soft, Non tender, Bowel sounds present, Obese Extremities/Musculoskelatal:B/L LE erythematous, + edema Neurologic/Psych:AAOX3, Able to move all extremities Skin: normal color, warm Lab data as noted below. ASSESSMENT & PLAN: ACUTE on CHRONIC RESPIRATORY FAILURE RLL Pneumonia Hypercapnia and Hypoxemia H/O COPD: mild COPD exacerbation secondary to HCAP Chronic oxygen dependency 3L NC CXR with RLL infiltrate, afebrile Respiratory support per pulmonology S/P IV antibiotics Continue PO Levaquin for 5 days Day# 4 S/P IV solu medrol, Completed PO prednisone taper Continue duonebs Cultures: No growth to date Appreciate Pulmonary input Continue BiPAP at bedtime. Plan to arranged for BIPAP if she qualifies On chronic prednisone 5mg daily Nocturnal Pulse Ox study:No desaturation on 3lNC ABG:PCO2:50 Had previously had inhouse sleep study and home sleep study but was not diagnosed to have sleep apnea Needs repeat CXR in 2-3 weeks outpatient Left Knee pain: Likely musculoskeletal Knee X ray: No fractures PT/OT Back Pain: Resume her home pain meds Coagulopathy: Likely secondary to meds Resolved INR:1.6 today Will give Coumadin 5mg today Resume regular home scheduled Coumadin once INR therapeutic No active bleeding Monitor INR Needs PT/INR checked as outpatient Possible UTI: Less likely Urine culture: yeast B/L LE CELLULITIS: S/P IV vanco and Zosyn per ID Blood cultures: No growth to date Appreciate ID consult HYPERKALEMIA/HYPERMAGNESEMIA/HYPERPHOSPHATEMIA Likely secondary to EMMA No EKG changes S/P IV hydration Monitor labs Resolved EMMA H/O renal transplant : on Azathioprine Recent Bactrim use (stopped on 01/04/17) after biopsy of BCC Cr baseline 1.2 Cr at baseline currently S/P IVF Continue home PO lasix 40mg BID Avoid nephrotoxic agents Monitor renal function PRASANNA Had previously had inhouse sleep study and home sleep study but was not diagnosed to have sleep apnea ELEVATED TROPONIN Mild troponin elevation Denies chest pain, EKG nonischemic ECHO: normal LV wall motion DIASTOLIC CHF ECHO: as below EF:55-60% Continue Lasix 40mg BID chronic lower extremity edema per family Monitor volume status DM II Uncontrolled secondary to steroid use ISS, accu checks PARKINSON'S DISEASE continue Carbidopa/levodopa per recommendations from Neurology 25/250 mg Sinemet tablets discontinued Continue two 25/100 mg Sinemet tablets 5 times per day Appreciate Neurology input Needs follow up with upon discharge GERD continue PPI H/O MRSA contact precautions HLD continue statin HTN: Labile continue lasix BID Asymptomatic Follow up with your PCP for BP meds adjustment DEPRESSION continue Lamictal, Requip and clonazepam H/O PE: On Coumadin INR therapeutic CODE STATUS: FULL CODE DVT PX: On Coumadin INR subtherapeutic DISPOSITION: Continue to monitor Patient and family refuses rehab placement and prefers to be discharged home with home health Plan to discharge home today Follow up with on January 16, 2017 at 11:00AM Follow up your Neurologist in 2 weeks as advised Get PT/INR checked tomorrow () and follow up with coumadin clinic for further coumadin dosage Take 5mg Coumadin today Continue oxygen via Nasal Cannula 2L based on recommendations from your veterinary milk specialist. Get repeat CXR in 2-3 weeks and follow up with your Primary Care Physician with results PROCEDURES: ECHO: * The left ventricle is normal in size. * There is normal left ventricular wall thickness. * Left ventricular systolic function is normal. * The left ventricular wall motion is normal. * Ejection Fraction = 55-60%. * Dilated inferior vena cava with reduced collapsability with sniff indicates an elevated right atrial pressure of 15 mmHg * There is no pericardial effusion. Vital Signs: Date Time Temp Pulse Resp B/P Pulse Ox O2 Delivery O2 Flow Rate FiO2 01/14/17 07:10 80 20 98 Nasal Cannula 3.0 01/14/17 06:57 36.6 82 19 181/98 100 Humidified Oxygen 3.0 01/14/17 00:02 Nasal Cannula 3.0 01/13/17 23:49 36.5 85 18 149/75 96 Nasal Cannula 3.0 01/13/17 19:52 Nasal Cannula 3.0 01/13/17 19:05 89 20 100 Nasal Cannula 3.0 01/13/17 16:00 Nasal Cannula 3.0 01/13/17 15:55 96 20 99 Nasal Cannula 3.0 01/13/17 15:40 37.1 98 20 170/74 92 Nasal Cannula 3.0 Lab Results: Results Past 24 Hours Test 01/13/17 12:51 01/13/17 16:39 01/13/17 19:55 01/14/17 04:45 Range/Units Arterial Blood pH 7.43 7.35-7.45 Arterial Blood Partial Pressure CO2 50 35-46 mmHg Arterial Blood Partial Pressure O2 80 80-95 mm/Hg Arterial Blood HCO3 32 19-24 mmol/L Arterial Blood Oxygen Saturation 94.9 90-95 % Arterial Blood Base Excess 7.1 -9-1.8 mEq/L Arterial Blood Gas Delivery 3L Stu Test POS POS Bedside Glucose 141 183 70-90 mg/dl Prothrombin Time 17.9 9.0-12.0 SECONDS Prothromb Time International Ratio 1.6 0.9-1.1 Sodium Level 144 136-145 mmol/L Potassium Level 3.9 3.5-5.1 mmol/L Chloride Level 102 98-107 mmol/L Carbon Dioxide Level 38 21-32 mmol/L Anion Gap 4.0 3-11 mmol/L Blood Urea Nitrogen 30 7-18 mg/dl Creatinine 0.85 0.60-1.20 mg/dl Est Creatinine Clear Calc Drug Dose 87.9 ml/min Estimated GFR () 88.2 Estimated GFR (Non- 76.1 BUN/Creatinine Ratio 35.1 10-20 Random Glucose 134 70-99 mg/dl Calcium Level 8.9 8.5-10.1 mg/dl Test 01/14/17 07:34 01/14/17 11:25 Range/Units Bedside Glucose 154 108 70-90 mg/dl
[2017-01-14] MEDS ORDERED: AMLODIPINE BESYLATE 5 MG TAB PO ONE (10:45)
[2017-01-14] MEDS: ROPINIROLE HCL 1 MG TAB PO SCH (11:18)
--- NOTE | 2017-01-14 11:32 | PULMONARY PROGRESS NOTE ---
DATE: 01/14/2017 DATE: 01/14/2017. TIME: 11:05 a.m. SUBJECTIVE: The patient feels good. She is not complaining of any shortness of breath today. She denies any cough. She feels that she is back to her baseline. OBJECTIVE: GENERAL: The patient looks comfortable. VITAL SIGNS: Temperature is 36.6. NECK: She has a very large neck. The neck veins did not appear distended. HEART: Rate is 82 per minute. Blood pressure 181/98. Respiratory rate 20 breaths per minute. The breath sounds are mildly diminished in intensity, but there were no wheezes, rales or rhonchi heard. Oxygen saturation today was 98% on 3 liters. ABDOMEN: Obese. Bowel sounds are present. Examination of the posterior thorax shows evidence of a maculopapular rash. She states this is itchy. EXTREMITIES: Showed no change in the skin color change noted previously. The patient had an overnight pulse oximetry study done on 3 liters. This did not show any significant oxygen desaturation. Almost the entire night was above 88%. LABORATORY DATA: INR today is 1.6. As noted, her blood gas yesterday showed a pH of 7.43 with a pCO2 of 50 and a pO2 of 80. Electrolytes today show sodium 144, potassium 3.9, chloride 102, bicarbonate 38. BUN is 30 with a creatinine of 0.85. Blood sugar is 134. IMPRESSIONS: 1. Right lower lobe pneumonia -- improved. 2. Respiratory failure with hypoxia and hypercarbia. 3. Obesity hypoventilation syndrome. COMMENTS AND RECOMMENDATIONS: The patient appears to be stable for discharge. Unfortunately, it does not appear that she qualifies for home BiPAP. I spoke with her also about doing a home sleep study. She tells me she has already had a home sleep study and an in-lab sleep study and neither one showed sleep apnea. I believe that it would be hansen to keep her continuous oxygen at 2 liters. Keeping her oxygen saturation little lower may help stimulate ventilation somewhat to try and keep the pCO2 as low as it can possibly be. I believe she would be a good candidate for BiPAP, but she probably is not qualifying according to Medicare guidelines. This could be verified by the managers. The patient should keep an eye on the rash that she has on her back. If it would develop on the trunk anteriorly or on her extremities that would increase the possibility of a drug related rash and she should let her primary doctors now.
[2017-01-14 11:37] VITALS: BP 136/77; TEMP 36.6; O2SAT 96
[2017-01-14 11:40] VITALS: PULSE 81; O2SAT 97
[2017-01-14] MEDS ORDERED: SNM/25100 PO (11:54)
[2017-01-14] MEDS ORDERED: OXGN (11:54)
[2017-01-14] MEDS ORDERED: LVQ750 PO (11:54)
--- NOTE | 2017-01-14 12:00 | Discharge Summary ---
Discharge Summary Date of Service Jan 14, 2017. Discharge Summary Admission Date: Jan 06, 2017 at 12:36 Discharge Date: Jan 14, 2017 Discharge Disposition: Home with services Principal Diagnosis: Pneumonia, Mild COPD exacerbation, EMMA, Hyperkalemia Procedures: CXR: 1. Right lower lung opacity which favors pneumonia. Radiographic follow-up to ensure resolution is recommended. 2. Linear left lower lung opacities which favor atelectasis. Knee X ray: Moderate to significant degenerative change of the medial joint compartments and to a lesser extent patellofemoral joint. No acute process. ECHO: * The left ventricle is normal in size. * There is normal left ventricular wall thickness. * Left ventricular systolic function is normal. * The left ventricular wall motion is normal. * Ejection Fraction = 55-60%. * Dilated inferior vena cava with reduced collapsability with sniff indicates an elevated right atrial pressure of 15 mmHg * There is no pericardial effusion. Consultations: ID, pulmonary, Neurology Pending Studies/Follow-Up: Follow up with on January 16, 2017 at 11:00AM Follow up your Neurologist in 2 weeks as advised Get PT/INR checked tomorrow () and follow up with coumadin clinic for further coumadin dosage Take 5mg Coumadin today Continue oxygen via Nasal Cannula 2L based on recommendations from your order control clerk blood bank. Get repeat CXR in 2-3 weeks and follow up with your Primary Care Physician with results Medication Reconciliation New Medications: Levodopa/Carbidopa (Sinemet 25MG/100MG) 1 Ea Tab 2 TAB PO DAILY@0500,0700,1100,1500,2000 for 30 Days, #300 TAB Levofloxacin (Levofloxacin) 750 Mg Tab 750 MG PO DAILY@11 for 1 Day, #1 TAB Changed Medications: Oxygen (Oxygen) Gas 2 LITERS NA CONTINOUS for 30 Days, #1 (Changed from: 3 LITERS) Continued Medications: Acetaminophen (Tylenol) 325 Mg Tab 650 MG PO Q4H PRN for Pain or Fever, TAB NEEDED FOR PAIN # 1-5 OR TEMP > 100f NTE 3GM APAP/24HRS Azathioprine (Imuran) 50 Mg Tab 50 MG PO BID, TAB Clonazepam (Clonazepam) 0.5 Mg Tab 0.5 MG PO BID PRN for Anxiety Cyclosporine (Neoral) 25 Mg Cap 75 MG PO BID Fluticasone Prop/Salmeterol (Advair Diskus 250/50 60 Dose) 1 Ea Aerp 1 PUFF INH BID, #60 Furosemide (Lasix) 40 Mg Tab 40 MG PO BID, TAB Gabapentin (Neurontin) 300 Mg Cap 300 MG PO TID, CAP Hydrocodone/Acetaminophen 5MG/325MG ([place] 5MG/325MG) Tab 1 TABLET PO HS PRN for Pain, TAB PRN PAIN Insulin Aspart (Novolog Flexpen) 100 Units/Ml Inj 10 UNITS SC TIDM for 30 Days Insulin Glargine (Lantus Solostar) 100 Unit/Ml Inj 40 UNITS SQ HS, PEN Ipratropium-Albuterol (Duoneb) 3 Ml Nebu 1 TREATMENT INH QID , INHA Ipratropium-Albuterol (Duoneb) 3 Ml Nebu 1 TREATMENT INH Q4H PRN for SOB/Wheezing, INHA Lamotrigine (Lamictal) 100 Mg Tab 100 MG PO QAM, TAB Lamotrigine (Lamictal) 150 Mg Tab 150 MG PO QPM, TAB Oxycodone Ir (Roxicodone Ir) 5 Mg Tab 5 MG PO Q6H PRN for Pain, TAB NEEDED FOR PAIN # 6-10 Pantoprazole (Pantoprazole Sodium) 40 Mg Tab 40 MG PO DAILY Polyethylene Glycol 3350 (Miralax) 1 Pow Pow 17 GM PO DAILY PRN for Constipation, #527 GM Prednisone (Prednisone) 5 Mg Tab 5 MG PO QAM, TAB TAKE WITH BREAKFAST Repaglinide (Prandin) 1 Mg Tab 1 MG PO BID, TAB 15 MINUTES BEFORE LUNCH AND SUPPER Ropinirole Hydrochloride (Requip) 3 Mg Tab 3 MG PO TID, TAB Rosuvastatin Calcium (Crestor) 5 Mg Tab 2 TAB PO DAILY for 30 Days, #60 TAB 5 Refills Sennosides (Senexon) 8.6 Mg Tab 8.6 MG PO HS PRN for Constipation Tizanidine Hcl (Tizanidine Hcl) 2 Mg Cap 2 MG PO BID Warfarin Sod (Jantoven) 1 Mg Tab 1 MG PO 2XWK, TAB FRIDAY AND FRIDAY Warfarin Sod (Jantoven) 2 Mg Tab 2 MG PO 5XWK, TAB FRIDAY,FRIDAY,FRIDAY, FRIDAY & FRIDAY Discontinued Medications: Carbidopa/Levodopa (Sinemet 25MG/250MG) Tab 1 TAB PO BID, TAB Dosing schedule was a verbal obtained from Dr. Szymanski after she reviewed [facility] records 01/06/17. Carbidopa/Levodopa (Sinemet 25MG/100MG) Tab 1 TAB PO 5XD, TAB Dosing schedule was a verbal obtained from Dr. Szymanski after she reviewed [facility] records. Per pt's : 5 x daily dosing times are 05,07,11,15,20. Admission Information HPI (per Admitting provider): Patient seen and examined. 56 year old female with PMHx of Renal Transplant, COPD on chronic oxygen, Parkinson's disease, DM, h/o PE on Coumadin and other problems listed below presents to the ED complaining of SOB x 2 days. History is taken primarily from the patient's who states the patient seemed more SOB starting last evening. She seemed to be confused and maybe hallucinating as well. She was not following commands as well as she usually does. She slept well through the night. She reports an associated cough, without sputum production. She also reports nasal congestion. Today when home health came they thought she seemed SOB so she was referred to the ED for further evaluation. Reportedly at home patient's oxygen level was in the 70s on her chronic 3 liters. EMS placed patient on CPAP and she was transported to the ED. She denies fevers, chills, chest pain, nausea, vomiting, diarrhea, dysuria, calf pain. Patient recently finished a course of Bactrim for LLE wound. She has chronic skin changes to the BLLE, reports edema is chronic. Patient has had a complicated last several months with [facility] She was discharged home from rehab on 12/06. In the ED patient is placed on BIPAP , she is CXR shows pneumonia. She received IVFs, Solu-Medrol, duonebs and Zyvox and Levaquin. She will be admitted for further workup and treatment Physical Exam (per Admitting): General Appearance: + pertinent finding (Obses 56 year old female lying in bed on BIPAP, in NAD with family at bedside ) Head: normocephalic, atraumatic Eyes: PERRL, EOMI, sclerae normal ENT: hearing grossly normal Neck: supple, no JVD Respiratory/Chest: chest non-tender, + pertinent finding (BIPAP, dreased breath sound, respiratory rate 24 per minute, able to speak in sentences ) Cardiovascular: regular rate, rhythm, no gallop, no JVD, no murmur, normal peripheral pulses Abdomen/GI: normal bowel sounds, non tender, soft Back: normal inspection, no muscle spasm Extremities/Musculoskelatal: no calf tenderness, + pertinent finding (+2 edema, stasis dermatitis, mild erythema to BLLE no drainage ) Neurologic/Psych: alert, oriented x 3, + pertinent finding ( nonfocal ) Skin: warm/dry, no rash Lymphatic: no adenopathy Hospital Course ACUTE on CHRONIC RESPIRATORY FAILURE RLL Pneumonia Hypercapnia and Hypoxemia H/O COPD: mild COPD exacerbation secondary to HCAP Chronic oxygen dependency 3L NC CXR with RLL infiltrate, afebrile Respiratory support per pulmonology S/P IV antibiotics Continue PO Levaquin for 5 days Day# 4 S/P IV solu medrol, Completed PO prednisone taper On chronic prednisone 5mg daily Continue duonebs Cultures: No growth to date Appreciate Pulmonary input Continue BiPAP at bedtime. Plan to arranged for BIPAP if she qualifies Nocturnal Pulse Ox study:No desaturation on 3lNC ABG:PCO2:50 Had previously had inhouse sleep study and home sleep study but was not diagnosed to have sleep apnea Needs repeat CXR in 2-3 weeks outpatient Left Knee pain: Likely musculoskeletal Knee X ray: No fractures PT/OT Back Pain: Resume her home pain meds Coagulopathy: Likely secondary to meds Resolved INR:1.6 today Will give Coumadin 5mg today Resume regular home scheduled Coumadin once INR therapeutic No active bleeding Monitor INR Needs PT/INR checked as outpatient Possible UTI: Less likely Urine culture: yeast B/L LE CELLULITIS: S/P IV vanco and Zosyn per ID Blood cultures: No growth to date Appreciate ID consult HYPERKALEMIA/HYPERMAGNESEMIA/HYPERPHOSPHATEMIA Likely secondary to EMMA No EKG changes S/P IV hydration Monitor labs Resolved EMMA H/O renal transplant : on Azathioprine Recent Bactrim use (stopped on 01/04/17) after biopsy of BCC Cr baseline 1.2 Cr at baseline currently S/P IVF Continue home PO lasix 40mg BID Avoid nephrotoxic agents Monitor renal function PRASANNA Had previously had inhouse sleep study and home sleep study but was not diagnosed to have sleep apnea ELEVATED TROPONIN Mild troponin elevation Denies chest pain, EKG nonischemic ECHO: normal LV wall motion DIASTOLIC CHF ECHO: as below EF:55-60% Continue Lasix 40mg BID chronic lower extremity edema per family Monitor volume status DM II Uncontrolled secondary to steroid use ISS, accu checks PARKINSON'S DISEASE continue Carbidopa/levodopa per recommendations from Neurology 25/250 mg Sinemet tablets discontinued Continue two 25/100 mg Sinemet tablets 5 times per day Appreciate Neurology input Needs follow up with upon discharge GERD continue PPI H/O MRSA contact precautions HLD continue statin HTN: Labile continue lasix BID Asymptomatic Follow up with your PCP for BP meds adjustment DEPRESSION continue Lamictal, Requip and clonazepam H/O PE: On Coumadin INR therapeutic CODE STATUS: FULL CODE DVT PX: On Coumadin INR subtherapeutic DISPOSITION: Continue to monitor Patient and family refuses rehab placement and prefers to be discharged home with home health Plan to discharge home today Follow up with on January 16, 2017 at 11:00AM Follow up your Neurologist in 2 weeks as advised Get PT/INR checked tomorrow () and follow up with coumadin clinic for further coumadin dosage Take 5mg Coumadin today Continue oxygen via Nasal Cannula 2L based on recommendations from your order control clerk blood bank. Get repeat CXR in 2-3 weeks and follow up with your Primary Care Physician with results PROCEDURES: ECHO: * The left ventricle is normal in size. * There is normal left ventricular wall thickness. * Left ventricular systolic function is normal. * The left ventricular wall motion is normal. * Ejection Fraction = 55-60%. * Dilated inferior vena cava with reduced collapsability with sniff indicates an elevated right atrial pressure of 15 mmHg * There is no pericardial effusion. Total time spent on discharge = 40 minutes This includes examination of the patient, discharge planning, medication reconciliation, and communication with other providers. Discharge Instructions Discharge Instructions Date of Service Jan 14, 2017. Admission Reason for Admission: Respiratory Distress Discharge Discharge Diagnosis / Problem: Pneumonia, Mild COPD exacerbation, EMMA, Hyperkalemia Discharge Goals Goal(s): Decrease discomfort, Improve function Activity Recommendations Activity Limitations: resume your previous activity Exercise/Sports Limitations: as tolerated . Instructions / Follow-Up Instructions / Follow-Up Follow up with on January 16, 2017 at 11:00AM Follow up your Neurologist in 2 weeks as advised Get PT/INR checked tomorrow () and follow up with coumadin clinic for further coumadin dosage Take 5mg Coumadin today Continue oxygen via Nasal Cannula 2L based on recommendations from your order control clerk blood bank. Get repeat CXR in 2-3 weeks and follow up with your Primary Care Physician with results Current Hospital Diet Patient's current hospital diet: Diabetes Type 2 Diet, Low Sodium Diet (2gm Na) Discharge Diet Recommended Diet: Low Sodium Diet (2gm Na), Diabetes Type 2 Diet Pending Studies Studies pending at discharge: no Laboratory Results Hemoglobin A1c Test 01/07/17 05:03 Range/Units Estimated Average Glucose 143 mg/dl Hemoglobin A1c 6.6 H 4.5-5.6 % Medical Emergencies . Who to Call and When: Medical Emergencies: If at any time you feel your situation is an emergency, please call 911 immediately. . Non-Emergent Contact Non-Emergency issues call your: Primary Care Provider, Neurologist Call Non-Emergent contact if: you have a fever, your pain is not controlled, your pain is worsening, your pain is unusual for you, you have any medication questions If your shortness of breath/cough wheezing or rash is worsening . . "Provider Documentation" section prepared by Karson Hardy. VTE Core Measure Inpt VTE Proph given/why not?: Unfractionated heparin SQ, Warfarin (Coumadin)
[2017-01-14] MEDS ORDERED: WARFARIN SOD 5 MG TAB PO ONE (16:00)
[2017-01-15] MEDS ORDERED: AMLODIPINE BESYLATE 5 MG TAB PO SCH (08:00)
[2017-02-12] MEDS ORDERED: KLN5 PO (15:11)
[2017-02-12] MEDS ORDERED: HYDR-4330 PO (15:11)
== END 2017-01-14 13:43 | disposition home health service (06) | DRG 193 ==
LOC: ENRESERVDT → ENRESERVTM → EDBD 09:05 → C.EDB 09:08 → C.2T 12:36 → EDBEDREQ 12:50 → C.4E 01-09 14:16
PROVIDERS: ADMIT Hospitalist; ATTEND Internal Medicine
DX: J18.1 Lobar pneumonia, unspecified organism (principal); J96.01 Acute respiratory failure with hypoxia; J96.02 Acute respiratory failure with hypercapnia; J81.0 Acute pulmonary edema; J44.1 Chronic obstructive pulmonary disease with (acute) exacerbation; N17.9 Acute kidney failure, unspecified; I50.32 Chronic diastolic (congestive) heart failure; Z94.0 Kidney transplant status; L03.115 Cellulitis of right lower limb; L03.116 Cellulitis of left lower limb; E11.9 Type 2 diabetes mellitus without complications; N18.3 Chronic kidney disease, stage 3 (moderate); K21.9 Gastro-esophageal reflux disease without esophagitis; G20 Parkinson's disease; E78.5 Hyperlipidemia, unspecified; G89.29 Other chronic pain; F32.9 Major depressive disorder, single episode, unspecified; E87.5 Hyperkalemia; E83.41 Hypermagnesemia; E83.39 Other disorders of phosphorus metabolism; Z99.81 Dependence on supplemental oxygen; Z86.711 Personal history of pulmonary embolism; Z79.4 Long term (current) use of insulin

== ENCOUNTER 2017-02-04 13:21 | Inpatient (IN) | payer OTHER ==
[~2017-02-04] VITALS: Ht 149.9 cm; Wt 123.1 kg
[~2017-02-04 13:21] MED LIST changes: +ADVIN25/60 INH; -ATOR-54 PO; -CARB25TA12 PO; -CARB25TA14 PO; -ECON0.05 TD; -FLUT1INH INH; +HYDR-5688 PO; +LVQ750 PO; -MULT-513 PO; -NYST100010 TD; -POTA-74 PO; -PRLSR20 PO; +PRT40 PO; +ROSU5TAB PO; +SNM/25100 PO; -TCMD2 PO; +WARF1TAB6 PO; +WARF2TAB8 PO
[2017-02-04] MEDS ORDERED: METHYLPREDNISOLONE 125 MG VIAL ONE (14:01)
[2017-02-04] MEDS ORDERED: WARF5TAB7 PO (14:06)
[2017-02-04] MEDS ORDERED: ALBUT/IPRATROP 3MG/0.5MG NEB 3 ML VIAL INH ONE (14:15)
[2017-02-04 14:26] LABS: INR 2.1 (0.9-1.1); PARTIAL THROMBOPLASTIN RATIO 1.4; PROTHROMBIN TIME (PATIENT) 23.7 SECONDS (9.0-12.0)
[2017-02-04] MEDS ORDERED: CRS/10 PO (14:30)
[2017-02-04] MEDS ORDERED: OXGN (14:30)
[2017-02-04] MEDS ORDERED: CARB25TA14 PO (14:30)
[2017-02-04] MEDS ORDERED: HYDR-4330 PO (14:30)
--- NOTE | 2017-02-04 14:46 | DIAGNOSTIC IMAGING REPORT ---
CHEST ONE VIEW PORTABLE CLINICAL HISTORY: Sepsis dyspnea COMPARISON STUDY: 01/12/2017 FINDINGS: Mild stable cardiomegaly. Comment pulmonary vasculature. Diaphragms are smooth. Components of congestive heart failure. IMPRESSION: Congestive heart failure Electronically signed by: Denzel Alejo M.D. 02/04/2017 2:44 PM Dictated Date/Time: 02/04/2017 2:44 PM
[2017-02-04 14:56] LABS: HEMATOCRIT 32.7 % (37-47); MEAN CELL VOLUME 94.2 fL (80-100); MEAN CORPUSCULAR HEMOGLOBIN 26.8 pg (25-34); MEAN CORPUSCULAR HGB CONC 28.4 g/dl (32-36); MEAN PLATELET VOLUME 8.1 fL (7.4-10.4); PLATELET COUNT 321 K/uL (130-400); RED BLOOD COUNT 3.47 M/uL (4.2-5.4); WHITE BLOOD COUNT 5.91 K/uL (4.8-10.8)
[2017-02-04 14:58] LABS: BASO % 0.3 %; BASO ABS # 0.02 K/uL (0-0.2); COMPLETE YES; EOS % 2.9 %; IG% 0.8 %; LYMPH % 9.8 %; LYMPH ABS # 0.58 K/uL (1.2-3.4); MONO % 7.8 %; NEUT % 78.4 %
[2017-02-04 15:04] LABS: ALB/GLOB RATIO 0.7 (0.9-2); ALKALINE PHOSPHATASE 151 U/L (45-117); ALT/SGPT 7 U/L (12-78); BLOOD UREA NITROGEN 42 mg/dl (7-18); CALCIUM 8.7 mg/dl (8.5-10.1); CARBON DIOXIDE 29 mmol/L (21-32); CHLORIDE 109 mmol/L (98-107); GLUCOSE 178 mg/dl (70-99); SODIUM 141 mmol/L (136-145)
[2017-02-04 15:32] VITALS: PULSE 80; O2SAT 92
[2017-02-04] MEDS ORDERED: FUROSEMIDE 40 MG/4 ML VIAL IV STA (15:57)
[2017-02-04] MEDS ORDERED: CARB25TA12 PO (16:29)
[2017-02-04] MEDS ORDERED: NITROGLYCERIN 0.4 MG SL PER TAB CHARGE SL PRN (17:15)
[2017-02-04] MEDS ORDERED: NORCO 5/325MG HOME PACK PO PRN (17:15)
[2017-02-04] MEDS ORDERED: ONDANSETRON INJ 2 MG/ML 2 ML VIAL IV PRN (17:15)
[2017-02-04] MEDS ORDERED: GLUCAGON FOR INJ 1 MG VIAL SQ PRN (17:30)
[2017-02-04] MEDS ORDERED: GLUCOSE 10 TABS/TUBE PO PRN (17:30)
[2017-02-04] MEDS ORDERED: GLUCOSE 40% GEL 15 GM TUBE PO PRN (17:30)
[2017-02-04] MEDS ORDERED: DEXTROSE 50% 50 ML SYR IV PRN (17:30)
--- NOTE | 2017-02-04 17:43 | History and Physical ---
History & Physical Date & Time of Service: February 04, 2017 at 17:23 Chief Complaint: Low Oxygen Saturation Primary Care Physician: Cindy Valdez M.D. History of Present Illness Source: patient, clinic records, hospital records Patient seen and examined. 56 year old female with complex PMHx of IDDM, h/o renal transplant, COPD, diastolic CHF, Parkinson's disease,h/o PE on Coumadin, and other problems listed below presents to the ED complaining of SOB x 1 day. Patient reports she became increasingly SOB last evening. She chronically uses oxygen at home which she states she was complaint with but still felt SOB. She reports orthopnea. She states she feels like she has gained weight and reports worsening peripheral edema. She reports some wheezing. She was seen by her home health nurse this morning and her pulse ox was in the 70s. She was referred to the ED for further evaluation. She states she has been compliant with lasix and a low sodium diet. She denies fevers, chills, cough, sputum production, chest pain, nausea, vomiting, diarrhea, dysuria, calf pain. She was recently admitted. last month with similar complaints. She has previously not qualified for BIPAP at home. In the ED patient is febrile, and tachypneic. CXR shows CHF, INR is therapeutic at 2.1. She received IV Lasix, steroids and duonebs. She will be admitted for further workup and treatment. Past Medical/Surgical History Medical Problems: (1) Anxiety Status: Chronic (2) Chronic diastolic heart failure Permanent Comment: echo 02/2015 - EF 60-65%, grade II diastolic dysfunction Status: Chronic (3) Chronic kidney disease stage 3 Status: Chronic (4) Chronic obstructive lung disease Permanent Comment: Steroid and O2 dependent Status: Chronic (5) Chronic pain Status: Chronic (6) Depression Status: Chronic (7) Diabetes mellitus type 2 Permanent Comment: on insulin Status: Chronic (8) Dyslipidemia Status: Chronic (9) GERD (gastroesophageal reflux disease) Status: Chronic (10) History of DVT (deep vein thrombosis) Permanent Comment: anticoagulated on Coumadin Status: Chronic (11) History of pulmonary embolism Permanent Comment: anticoagulated on Coumadin Status: Chronic (12) Parkinson's disease Status: Chronic Surgical Problems: (1) History of cataract surgery Permanent Comment: R eye July 2014, L eye August 2014 Status: Chronic (2) History of delivery Status: Chronic (3) Hx of rotator cuff surgery Permanent Comment: 2003 Status: Chronic (4) S/p cadaver renal transplant Status: Chronic Family History Cancer Diabetes mellitus Heart disease Hypertension Kidney disease Kidney stones Social History Smoking Status: Never Smoker Alcohol Use: none Drug Use: none Marital Status: Housing status: lives with family Occupational Status: unemployed Immunizations History of Influenza Vaccine: Yes Influenza Vaccine Date: Jun 17, 2014 History of Tetanus Vaccine?: Yes Tetanus Immunization Date: Aug 11, 2007 History of Pneumococcal: Yes Pneumococcal Date: Oct 17, 2006 History of Hepatitis B Vaccine: Yes Hepatitis Immunization Date: Jun 27, 2014 Multi-Drug Resistant Organisms History of MDRO: Yes Type of MDRO: MRSA Allergies Coded Allergies: Carisoprodol (Verified Allergy, Unknown, ., 02/04/17) Tiotropium (Verified Allergy, Unknown, UNK, 02/04/17) Cimetidine (Verified Adverse Reaction, Mild, SEVERE BRUISING, 02/04/17) Cyclobenzaprine (Verified Adverse Reaction, Mild, HALLUCINATIONS, 02/04/17) Iodinated Diagnostic Agents (Verified Adverse Reaction, Unknown, KIDNEY PROBLEMS, 02/04/17) Quetiapine (Verified Adverse Reaction, Unknown, HALLUCINATIONS, 02/04/17) Home Medications Scheduled Azathioprine (Imuran), 50 MG PO BID Carbidopa/Levodopa (Sinemet 25MG/250MG), 1 TAB PO 5XD Carbidopa/Levodopa (Sinemet 25MG/100MG), 1 TAB PO 5XD Cyclosporine (Neoral), 75 MG PO BID Fluticasone Prop/Salmeterol (Advair Diskus 250/50 60 Dose), 1 PUFF INH BID Furosemide (Lasix), 40 MG PO BID Gabapentin (Neurontin), 300 MG PO TID Insulin Aspart (Novolog Flexpen), 10 UNITS SC TIDM Insulin Glargine (Lantus Solostar), 40 UNITS SQ HS Lamotrigine (Lamictal), 100 MG PO QAM Lamotrigine (Lamictal), 150 MG PO QPM Pantoprazole (Pantoprazole Sodium), 40 MG PO DAILY Prednisone (Prednisone), 5 MG PO QAM Repaglinide (Prandin), 1 MG PO BID Ropinirole Hydrochloride (Requip), 3 MG PO TID Rosuvastatin Calcium (Crestor), 10 MG PO DAILY Tizanidine Hcl (Tizanidine Hcl), 2 MG PO BID Warfarin Sod (Jantoven), 2.5 MG PO DAILY Scheduled PRN Acetaminophen (Tylenol), 650 MG PO Q4H PRN for Pain or Fever Clonazepam (Clonazepam), 0.5 MG PO BID PRN for Anxiety Hydrocodone-Acetaminophen (Lortab 5-325 mg), 1 TAB PO Q8 PRN for Pain Ipratropium-Albuterol (Duoneb), 1 TREATMENT INH Q4H PRN for SOB/Wheezing Polyethylene Glycol 3350 (Miralax), 17 GM PO DAILY PRN for Constipation Sennosides (Senexon), 8.6 MG PO HS PRN for Constipation Miscellaneous Medications Oxygen (Oxygen), 3 LITER NA Review of Systems Constitutional: No chills, No fever Eyes: No worsening of vision ENT: No nasal symptoms Respiratory: + dyspnea at rest, + dyspnea on exertion, + shortness of breath, + wheezing, No cough, No sputum Cardiovascular: + edema, + orthopnea, No chest pain, No palpitations Abdomen: No nausea, No pain, No vomiting Musculoskeletal: + joint pain (knee pain - osteoarthritis ), + swelling, No calf pain Genitourinary - Female: No dysuria Neurologic: No numbness/tingling, No vertigo Psychiatric: No depression symptoms Endocrine: No excessive thirst, No fatigue Hematologic / Lymphatic: No abnormal bleeding/bruising Integumentary: + problem reported (chronic BLLE skin changes ), No itch, No rash Allergic / Immunologic: No environmental allergies Physical Exam Vital Signs Date Time Temp Pulse Resp B/P Pulse Ox O2 Delivery O2 Flow Rate FiO2 02/04/17 16:31 88 25 135/63 02/04/17 16:00 83 20 116/72 96 02/04/17 15:37 79 22 130/65 94 Nebulizer 02/04/17 15:32 80 24 92 Nasal Cannula 4.0 02/04/17 14:10 94 Nasal Cannula 4.0 02/04/17 14:07 92 02/04/17 14:00 91 24 177/100 97 Room Air 02/04/17 13:48 93 Nasal Cannula 4.0 02/04/17 13:45 38.0 102 24 173/75 89 Nasal Cannula 2.0 02/04/17 13:30 38.0 91 22 173/75 93 Nasal Cannula 4.0 02/04/17 13:30 88 Nasal Cannula 2.0 General Appearance: + pertinent finding (Obese ill appearing 56 year old female in mild respiratory distress ) Head: normocephalic, atraumatic Eyes: EOMI, sclerae normal ENT: hearing grossly normal, pharynx normal Neck: supple, no JVD Respiratory/Chest: chest non-tender, + respiratory distress, + decreased breath sounds, + accessory muscle use Cardiovascular: regular rate, rhythm, no gallop, no JVD, no murmur, normal peripheral pulses Abdomen/GI: normal bowel sounds, non tender, soft Back: normal inspection, no muscle spasm Extremities/Musculoskelatal: no calf tenderness, normal capillary refill, + pedal edema (+1), + pertinent finding (chronic skin changes to BLLE, with erythema and warmth, no drainage noted ) Neurologic/Psych: no motor/sensory deficits, alert, oriented x 3 Skin: normal color, warm/dry Lymphatic: no adenopathy Diagnostics Laboratory Results Results Past 24 Hours Test 02/04/17 13:50 02/04/17 14:28 02/04/17 17:01 Range/Units White Blood Count 5.91 4.8-10.8 K/uL Red Blood Count 3.47 4.2-5.4 M/uL Hemoglobin 9.3 12.0-16.0 g/dL Hematocrit 32.7 37-47 % Mean Corpuscular Volume 94.2 80-100 fL Mean Corpuscular Hemoglobin 26.8 25-34 pg Mean Corpuscular Hemoglobin Concent 28.4 32-36 g/dl Platelet Count 321 130-400 K/uL Mean Platelet Volume 8.1 7.4-10.4 fL Neutrophils (%) (Auto) 78.4 % Lymphocytes (%) (Auto) 9.8 % Monocytes (%) (Auto) 7.8 % Eosinophils (%) (Auto) 2.9 % Basophils (%) (Auto) 0.3 % Neutrophils # (Auto) 4.63 1.4-6.5 K/uL Lymphocytes # (Auto) 0.58 1.2-3.4 K/uL Monocytes # (Auto) 0.46 0.11-0.59 K/uL Eosinophils # (Auto) 0.17 0-0.5 K/uL Basophils # (Auto) 0.02 0-0.2 K/uL RDW Standard Deviation 62.6 36.4-46.3 fL RDW Coefficient of Variation 18.3 11.5-14.5 % Immature Granulocyte % (Auto) 0.8 % Immature Granulocyte # (Auto) 0.05 0.00-0.02 K/uL Nucleated RBC Absolute Count (auto) 0.07 0-0 K/uL Nucleated Red Blood Cells % 1.2 % Red Blood Cell Morphology Unremarkable Prothrombin Time 23.7 9.0-12.0 SECONDS Prothromb Time International Ratio 2.1 0.9-1.1 Activated Partial Thromboplast Time 36.8 21.0-31.0 SECONDS Partial Thromboplastin Ratio 1.4 Sodium Level 141 136-145 mmol/L Potassium Level 3.5-5.1 mmol/L Chloride Level 109 98-107 mmol/L Carbon Dioxide Level 29 21-32 mmol/L Anion Gap 3.0 3-11 mmol/L Blood Urea Nitrogen 42 7-18 mg/dl Creatinine 1.40 0.60-1.20 mg/dl Est Creatinine Clear Calc Drug Dose 57.4 ml/min Estimated GFR () 48.2 Estimated GFR (Non- 41.6 BUN/Creatinine Ratio 30.0 10-20 Random Glucose 178 70-99 mg/dl Calcium Level 8.7 8.5-10.1 mg/dl Total Bilirubin 0.5 0.2-1 mg/dl Aspartate Amino Transf (AST/SGOT) 15-37 U/L Alanine Aminotransferase (ALT/SGPT) 7 12-78 U/L Alkaline Phosphatase 151 45-117 U/L Total Protein 6.9 6.4-8.2 gm/dl Albumin 2.8 3.4-5.0 gm/dl Globulin 4.1 2.5-4.0 gm/dl Albumin/Globulin Ratio 0.7 0.9-2 Bedside Lactic Acid Venous 0.88 0.90-1.70 mmol/L Microbiology Results 02/04/17 Blood Culture, Received Pending 02/04/17 Blood Culture, Received Pending Diagnostic Radiology CHF Per radiologist read: IMPRESSION: Congestive heart failure EKG NSR 96 BPM, QTc 404 Impression Assessment and Plan Complex 56 year old female presents to the ED with increased SOB and hypoxia at home. CXR consistent with CHF ACUTE on CHRONIC RESPIRATORY FAILURE -Admit to tele -H/O CHF, COPD with chronic respiratory failure on 3L NC, presents with hypoxia , respiratory distress -Likely secondary to acute exacerbation of CHF -CXR with CHF -Currently on NC, appears very uncomfortable with accessory muscle use, and tachypnea -start BIPAP for respiratory support -diuresis for CHF as outlined below -Duonebs QID and q2h prn -Wean BIPAP as able -CBC, PRP, Mg in AM ACUTE DECOMPENSATED DIASTOLIC CHF -last echo in December with preserved EF -presents with, respiratory distress, orthopnea, CXR with CHF -on Lasix 40mg po BID at home -Start Lasix 40mg IV BID -strict I&Os, daily weights -silva cath -Check K+ hemolyzed in ED, may need supplementation with increased Lasix use -serial [place] BILATERAL LOWER EXTREMITY CELLULITIS -does have chronic skin changes, presents with fever today, no leukocytosis -will empirically treat with Zosyn, Vancomycin for now COPD -Presents with acute respiratory distress, no increased cough/sputum production , likely symptoms more from CHF than acute exacerbation -continue home inhalers -will schedule nebs -continue outpatient prednisone (on this for renal transplant) H/O RENAL TRANSPLANT -continue immunosuppressants IDDM -A1c 6.6 in December -Decrease Lantus to 30 Units HS -SSI coverage -BSG AC HS -consistent carb diet H/O PE -INR 2.1 -continue Coumadin 2. mg daily PARKINSON'S DISEASE -continue Carbidopa/levodopa GERD -continue PPI H/O MRSA -contact precautions -check MRSA swab HLD -continue statin DEPRESSION -continue Lamictal, Requip and clonazepam CODE STATUS:FULL CODE DVT PROPHYLAXIS: Coumadin DISPO:In my clinical judgment this beneficiary meets acute admission criteria, established by CMS, that includes being hospitalized through two midnights. Patient seen in collaboration with Dr. Lopez ADDENDUM: This is a 56 year old female, complicated history including CHF, morbid obesity , COPD, chronic respiratory failure using 3L O2 continuously at baseline, insulin dependent DM2, venous stasis dermatitis and recurrent cellulitis, likely obesity-hypoventilation presents with worsening shortness of breath. During exam, she is in moderate respiratory distress, tachypneic, using accessory muscles. On 4L O2 via NC during exam. Denies chest pain. Decreased lung sounds on exam, no wheezing no murmurs noted +2-3 pitting edema b/l LE, erythematous and warm to touch b/l LE Plan: Switch to Bipap for now Will switch to IV Lasix 40mg BID Silva catheter Monitor kidney function For cellulitis (+fever) = treat with Zosyn + vanco for now, cultures pending, de -escalate as soon as possible INR therapeutic - continue Coumadin VTE Prophylaxis VTE Risk Assessment Done? Y/N: Yes Risk Level: Moderate
[2017-02-04] MEDS ORDERED: FUROSEMIDE 40 MG/4 ML VIAL ONE (18:06)
[2017-02-04] MEDS ORDERED: HYDROCODONE/ACETAMOPHEN 5/325MG TAB ONE (18:06)
[2017-02-04] MEDS ORDERED: PHARMACY GLYCEMIC MGMT CONSULT PRN (18:15)
--- NOTE | 2017-02-04 18:19 | EMERGENCY ROOM VISIT NOTE ---
History Report prepared by Silva: Shonda Harry Under the Supervision of: Dr. Wilfredo Black M.D. First contact with patient: 13:54 Chief Complaint: SHORTNESS OF BREATH Stated Complaint: LOW OXYGEN SATURATION Nursing Triage Summary: Patient arrived via EMS. EMS reports patient Home Health nurse called because pt sats were in the 70s when they arrived to her home. Patient had Duoneb at home. EMS reports pt wears O2 2L at all times at home, on 4L on arrival 95%. On arrival to ED. Pt SOB, grunting, audible wheezing at time. Patient sats 88% on 2L. Hx COPD, CHF, DM BSG 284 for EMS. PT Pt c/o pain in back and hips, that she has osteoarthritis, pain in chronic. Pt c/o SOB. Patient skin escoriated under breasts and panis. Edema bilateral lower legs. Patient states she is able to ambulate at home with a walker, family states she doesn't walk well. History of Present Illness The patient is a 56 year old female who presents to the Emergency Room with complaints of constant shortness of breath beginning yesterday. The patient states that her home health nurse noted that her O2 saturation was in the 70s on her usual 2L of oxygen this morning. She states that she was given 2 duoneb treatments and is not feeling any relief of her symptoms. The patient complains of a fever, brown and green productive cough, leg swelling that she is on Lasix for, and recent weight gain. She denies any chest pain. Source of History: patient Onset: last night Position: other (global) Symptom Intensity: severe Quality: other (shortness of breath) Timing: constant Associated Symptoms: + cough, + fevers, No chest pain Note: The patient complains of a leg swelling that she is on Lasix for and recent weight gain. Review of Systems See HPI for pertinent positives & negatives. A total of 10 systems reviewed and were otherwise negative. Past Medical & Surgical Medical Problems: (1) Acute and chronic respiratory failure ([id number]) (2) Anxiety (3) CHF exacerbation (4) Chronic diastolic heart failure (5) Chronic kidney disease stage 3 (6) Chronic obstructive lung disease (7) Chronic pain (8) Depression (9) Diabetes mellitus type 2 (10) Dyslipidemia (11) GERD (gastroesophageal reflux disease) (12) History of DVT (deep vein thrombosis) (13) History of pulmonary embolism (14) Parkinson's disease (15) Respiratory distress Surgical Problems: (1) History of cataract surgery (2) History of delivery (3) Hx of rotator cuff surgery (4) S/p cadaver renal transplant Family History Cancer Diabetes mellitus Heart disease Hypertension Kidney disease Kidney stones Social History Smoking Status: Never Smoker Alcohol Use: none Drug Use: none Marital Status: Housing Status: lives with significant other Occupation Status: unemployed Current/Historical Medications Scheduled Azathioprine (Imuran), 50 MG PO BID Carbidopa/Levodopa (Sinemet 25MG/250MG), 1 TAB PO 5XD Carbidopa/Levodopa (Sinemet 25MG/100MG), 1 TAB PO 5XD Cyclosporine (Neoral), 75 MG PO BID Fluticasone Prop/Salmeterol (Advair Diskus 250/50 60 Dose), 1 PUFF INH BID Furosemide (Lasix), 40 MG PO BID Gabapentin (Neurontin), 300 MG PO TID Insulin Aspart (Novolog Flexpen), 10 UNITS SC TIDM Insulin Glargine (Lantus Solostar), 40 UNITS SQ HS Lamotrigine (Lamictal), 100 MG PO QAM Lamotrigine (Lamictal), 150 MG PO QPM Pantoprazole (Pantoprazole Sodium), 40 MG PO DAILY Prednisone (Prednisone), 5 MG PO QAM Repaglinide (Prandin), 1 MG PO BID Ropinirole Hydrochloride (Requip), 3 MG PO TID Rosuvastatin Calcium (Crestor), 10 MG PO DAILY Tizanidine Hcl (Tizanidine Hcl), 2 MG PO BID Warfarin Sod (Jantoven), 2.5 MG PO DAILY Scheduled PRN Acetaminophen (Tylenol), 650 MG PO Q4H PRN for Pain or Fever Clonazepam (Clonazepam), 0.5 MG PO BID PRN for Anxiety Hydrocodone-Acetaminophen (Lortab 5-325 mg), 1 TAB PO Q8 PRN for Pain Ipratropium-Albuterol (Duoneb), 1 TREATMENT INH Q4H PRN for SOB/Wheezing Polyethylene Glycol 3350 (Miralax), 17 GM PO DAILY PRN for Constipation Sennosides (Senexon), 8.6 MG PO HS PRN for Constipation Miscellaneous Medications Oxygen (Oxygen), 3 LITER NA Allergies Coded Allergies: Carisoprodol (Verified Allergy, Unknown, ., 02/04/17) Tiotropium (Verified Allergy, Unknown, UNK, 02/04/17) Cimetidine (Verified Adverse Reaction, Mild, SEVERE BRUISING, 02/04/17) Cyclobenzaprine (Verified Adverse Reaction, Mild, HALLUCINATIONS, 02/04/17) Iodinated Diagnostic Agents (Verified Adverse Reaction, Unknown, KIDNEY PROBLEMS, 02/04/17) Quetiapine (Verified Adverse Reaction, Unknown, HALLUCINATIONS, 02/04/17) Physical Exam Vital Signs Date Time Temp Pulse Resp B/P Pulse Ox O2 Delivery O2 Flow Rate FiO2 02/04/17 18:00 95 26 127/97 91 02/04/17 17:30 96 29 134/58 90 02/04/17 17:00 97 24 144/102 91 02/04/17 16:31 88 25 135/63 02/04/17 16:00 83 20 116/72 96 02/04/17 15:37 79 22 130/65 94 Nebulizer 02/04/17 15:32 80 24 92 Nasal Cannula 4.0 02/04/17 14:10 94 Nasal Cannula 4.0 02/04/17 14:07 92 02/04/17 14:00 91 24 177/100 97 Room Air 02/04/17 13:48 93 Nasal Cannula 4.0 02/04/17 13:45 38.0 102 24 173/75 89 Nasal Cannula 2.0 02/04/17 13:30 38.0 91 22 173/75 93 Nasal Cannula 4.0 02/04/17 13:30 88 Nasal Cannula 2.0 Physical Exam Constitutional: Vital signs reviewed. Eyes: Pupils are equal round reactive to light. Conjunctiva are noninjected. ENT: Pharynx is clear without erythema or exudate. Mucous membranes are moist. Neck supple without meningeal signs. Respiratory: Expiratory wheezing bilaterally, pursed lip breathing. Breath sounds are equal bilaterally. Cardiovascular: Regular rate and rhythm. No rubs or gallops. GI: Soft, nondistended and nontender. Bowel sounds are present. Musculoskeletal: No peripheral edema. No lower extremity tenderness. Bilateral lower extremity edema with erythema and without increased warmth. Integumentary: No cyanosis. Neurological: The patient is awake and alert. No focal deficits. Psychiatric: Normal affect. Medical Decision & Procedures ER Provider Diagnostic Interpretation: X-ray results as stated below per interpretation by me and the radiologist: CHEST ONE VIEW PORTABLE FINDINGS: Mild stable cardiomegaly. Comment pulmonary vasculature. Diaphragms are smooth. Components of congestive heart failure. IMPRESSION: Congestive heart failure Electronically signed by: Denzel Alejo M.D. 02/04/2017 2:44 PM Dictated Date/Time: 02/04/2017 2:44 PM Laboratory Results 02/04/17 13:50 Red Blood Count 3.47, Mean Corpuscular Volume 94.2, Mean Corpuscular Hemoglobin 26.8, Mean Corpuscular Hemoglobin Concent 28.4, Mean Platelet Volume 8.1, Neutrophils (%) (Auto) 78.4, Lymphocytes (%) (Auto) 9.8, Monocytes (%) (Auto) 7.8, Eosinophils (%) (Auto) 2.9, Basophils (%) (Auto) 0.3, Neutrophils # (Auto) 4.63, Lymphocytes # (Auto) 0.58, Monocytes # (Auto) 0.46, Eosinophils # (Auto) 0.17, Basophils # (Auto) 0.02 02/04/17 13:50 Test 02/04/17 13:50 02/04/17 14:28 02/04/17 17:01 White Blood Count 5.91 K/uL (4.8-10.8) Red Blood Count 3.47 M/uL (4.2-5.4) Hemoglobin 9.3 g/dL (12.0-16.0) Hematocrit 32.7 % (37-47) Mean Corpuscular Volume 94.2 fL (80-100) Mean Corpuscular Hemoglobin 26.8 pg (25-34) Mean Corpuscular Hemoglobin Concent 28.4 g/dl (32-36) Platelet Count 321 K/uL (130-400) Mean Platelet Volume 8.1 fL (7.4-10.4) Neutrophils (%) (Auto) 78.4 % Lymphocytes (%) (Auto) 9.8 % Monocytes (%) (Auto) 7.8 % Eosinophils (%) (Auto) 2.9 % Basophils (%) (Auto) 0.3 % Neutrophils # (Auto) 4.63 K/uL (1.4-6.5) Lymphocytes # (Auto) 0.58 K/uL (1.2-3.4) Monocytes # (Auto) 0.46 K/uL (0.11-0.59) Eosinophils # (Auto) 0.17 K/uL (0-0.5) Basophils # (Auto) 0.02 K/uL (0-0.2) RDW Standard Deviation 62.6 fL (36.4-46.3) RDW Coefficient of Variation 18.3 % (11.5-14.5) Immature Granulocyte % (Auto) 0.8 % Immature Granulocyte # (Auto) 0.05 K/uL (0.00-0.02) Nucleated RBC Absolute Count (auto) 0.07 K/uL (0-0) Nucleated Red Blood Cells % 1.2 % Red Blood Cell Morphology Unremarkable Prothrombin Time 23.7 SECONDS (9.0-12.0) Prothromb Time International Ratio 2.1 (0.9-1.1) Activated Partial Thromboplast Time 36.8 SECONDS (21.0-31.0) Partial Thromboplastin Ratio 1.4 Anion Gap 3.0 mmol/L (3-11) Est Creatinine Clear Calc Drug Dose 57.4 ml/min Estimated GFR () 48.2 Estimated GFR (Non- 41.6 BUN/Creatinine Ratio 30.0 (10-20) Calcium Level 8.7 mg/dl (8.5-10.1) Total Bilirubin 0.5 mg/dl (0.2-1) Aspartate Amino Transf (AST/SGOT) U/L (15-37) Alanine Aminotransferase (ALT/SGPT) 7 U/L (12-78) Alkaline Phosphatase 151 U/L (45-117) Total Protein 6.9 gm/dl (6.4-8.2) Albumin 2.8 gm/dl (3.4-5.0) Globulin 4.1 gm/dl (2.5-4.0) Albumin/Globulin Ratio 0.7 (0.9-2) Bedside Lactic Acid Venous 0.88 mmol/L (0.90-1.70) Laboratory results as reviewed by me. Medications Administered Medications (Trade) Dose Ordered Sig/Tato Route Start Time Stop Time Status Last Admin Dose Admin Methylprednisolone Sodium Succinate (Solu-Medrol IV) 125 mg STK-MED ONCE .ROUTE 02/04/17 14:01 5/9/17 14:02 DC 02/04/17 14:09 125 MG Albuterol/ Ipratropium (Duoneb) 12 ml ONE ONCE INH 02/04/17 14:15 02/04/17 14:16 DC 02/04/17 14:15 12 ML Furosemide (Lasix Inj) 40 mg NOW STAT IV 02/04/17 15:57 02/04/17 15:58 DC 02/04/17 18:12 40 MG Acetaminophen/ Hydrocodone Bitart ([place] 5/325 Tab) 1 tab STK-MED ONCE .ROUTE 02/04/17 18:06 02/04/17 18:07 DC 02/04/17 18:09 1 TAB ECG Indication: SOB/dyspnea Rate (beats per minute): 96 Rhythm: normal sinus Findings: no acute ischemic change, no ectopy ED Course 1354: The patient was evaluated in room B3B. A complete history and physical exam was performed. 1402: Solu-Medrol IV 125mg IV. 1415: Duoneb 12ml INH. 1513: I reevaluated the patient. She has not gotten her duoneb yet. 1555: I reevaluated the patient. She is still wheezing and tachypneic. 1557: Lasix Inj 40mg IV. 1628: I spoke with Elise Martinez of [facility]. We discussed the patient and her results. The patient will be further evaluated by Elise Martinez. Medical Decision This is a 56-year-old female who presents with shortness of breath and hypoxemia. Differential diagnosis includes COPD exacerbation, CHF exacerbation , pulmonary edema, anemia, pneumonia, bronchitis. I did perform a limited focused review of portions of the patient's old chart on the electronic medical record. The patient was admitted on 01/06 for COPD exacerbation, right sided pneumonia, bilateral lower extremity cellulitis, and an acute kidney injury. I did evaluate the patient as noted above. She is wheezing diffusely. She is tachypneic. IV access was established. The patient was placed on a continuous school lunch monitor. I did treat her with an hour-long DuoNeb. She is also given Solu-Medrol IV. I did order and personally review the patient's 12-lead EKG and chest x-ray as described above. I did order and review the patient's blood work as noted in the electronic medical record. INR is therapeutic. She is anemic. I did reassess the patient. She is still short of breath and has wheezing. I did recommend hospitalization. I did discuss case with the hospitalist and case packer and sealer. Consults Time Called: [phone] Consulting Physician: Elise Del Real Returned Call: [phone] I spoke with Elise Martinez of [facility]. We discussed the patient and her results. The patient will be further evaluated by Elise Martinez. Impression Primary Impression: COPD exacerbation Additional Impressions: CHF exacerbation Hypoxemia Anticoagulated on Coumadin Scribe Attestation The scribe's documentation has been prepared under my direct and personally reviewed by me in its entirety. I confirm that the note above accurately reflects all work, treatment, procedures, and medical decision making performed by me. Departure Information Dispostion Being Evaluated By Hospitalist Referrals Cindy Valdez M.D. (PCP) Patient Instructions My [facility] Problem Qualifiers Additional Impressions: CHF exacerbation Congestive heart failure type: unspecified congestive heart failure type Qualified Codes: I50.9 - Heart failure, unspecified
[2017-02-04] MEDS ORDERED: [UNRECOGNIZED DRUG - OTHER] PRN (18:25)
[2017-02-04] MEDS ORDERED: [UNRECOGNIZED DRUG - OTHER] PRN (18:30)
[2017-02-04] MEDS ORDERED: PIPERACILL/TAZOBAC IV 4.5 GM in DEXTROSE 5% 100ML IV ONE (19:00)
[2017-02-04 19:10] VITALS: PULSE 87; O2SAT 92
[2017-02-04] MEDS: ALBUT/IPRATROP 3MG/0.5MG NEB 3 ML VIAL INH SCH (19:10)
[2017-02-04 19:20] LABS: POTASSIUM 5.5 mmol/L (3.5-5.1)
[2017-02-04] MEDS ORDERED: NURSING DECISION MEDICATION ORDER SCH (19:45)
[2017-02-04] MEDS: CLONAZEPAM 0.5 MG TAB PO PRN (19:51)
[2017-02-04] MEDS ORDERED: VANCOMYCIN INJ 2,700 MG in SODIUM CHLORIDE 0.9% 500ML 500 ML IV SCH (20:00)
--- NOTE | 2017-02-04 20:28 | Pharmacy Progress Note ---
Glycemic Control Intl Consult Date of Service February 04, 2017. Scope Glycemic Pharmacist consulted by Elise Martinez PA-C on 02/04/17 for glycemic control and to write orders per [facility] inpatient glycemic control protocol Objective Weight (Kilograms): 140.30 Accuchecks BSG (last 24hrs): Test 02/04/17 13:50 02/04/17 19:53 Random Glucose 178 mg/dl (70-99) Bedside Glucose 227 mg/dl (70-90) Laboratory Data (last 24hrs) HbA1c 6.6% 01/07/17 Recent Pertinent Medications Outpatient Anti-diabetic Regimen: * Lantus 40 units Q HS * NovoLog 10 units TID w/ meals * A1c = 6.6 % 01/07/17 The patient is currently receiving: * Basal insulin: Lantus 30 units every 24 hours * Correctional Insulin: Novolog Correction per scale ACHS Goal Range: Low 100 mg/dL - High 140 mg/dL Correction Factor: 30 mg/dL/unit * Prandial insulin: Per carb ratio of 1 unit per 11 grams CHO consumed Risk Factors for Insulin Resistance: * Steroids * Infection * Diet Assessment & Plan ASSESSMENT: * 56yo T2DM female known to the pharmacy glycemic service from previous admissions (most recently December 2016) * Pt with well controlled diabetes as an outpatient per recent A1c * However, unsure of how reliable this value is d/t renal transplant * Pt with minimal risk factors for insulin resistance other than baseline insulin resistance and infection. Pt is only being maintained on small outpatient dosing of prednisone 5mg PO daily. * When pt is adm with RTC high dose steroids 100+ units of insulin are required per day for adequate control * Once steroids taper (prednisone 10mg daily) pt typically requires ~ 80 units of insulin per day. Since pt will only be receiving 5mg prednisone will continue reduced basal insulin dosing per provider but utilize aggressive bolus insulin parameters for "steroid induced hyperglycemia" * Will adjust insulin orders daily to maintain fasting BSG < 140mg/dl and post- prandial BSGs < 180 * ADA & AACE recommend a goal blood sugar range 140-180 mg/dl for the majority of critically ill & non-critically ill patients. However, more stringent targets may be selected in individual cases. Will utilize more stringent goal of 110-140mg/dl based on patient age and tight glycemic control at baseline. Additionally, tighter glycemic control is warranted to facilitate wound/ infection healing. PLAN FOR INPATIENT GLYCEMIC CONTROL: Utilize dosing per 12/2016 - end of admission when steroid dosing c/w current adm. * Basal insulin * Lantus 30 units SQ HS * Bolus Insulin * NovoLog per scale ACHS or Q6hrs while NPO * Goal Range: Low 110 mg/dL - High 140 mg/dL * Correction Factor: 20 mg/dL/unit * Nutritional / Prandial insulin per carb ratio of 1 unit per 6 grams CHO consumed * Please note that the plan above was derived based on current level of insulin resistance and hospital stress. These recommendations are appropriate for inpatient admission only. Plan of care upon discharge will need to be reassessed to avoid potential outpatient hypo/hyperglycemia. Thank you.
--- NOTE | 2017-02-04 20:50 | Pharmacy Progress Note ---
Pharmacy Antibiotic Consult Date of Service: February 04, 2017. Pharmacy Dosing Scope Pharmacy is consulted to initiate [] IV dosing therapy, order appropriate labs and adjust drug dose/frequency. Subjective The patient is a 56 year old female admitted on February 04, 2017 at 17:05 with BLE cellulitis. Objective Height (Feet): 4 Height (Inches): 11 Weight (Kilograms): 140.30 Lab Results (24hrs): Test 02/04/17 13:50 02/04/17 14:28 02/04/17 18:45 02/04/17 19:53 White Blood Count 5.91 K/uL (4.8-10.8) Red Blood Count 3.47 M/uL (4.2-5.4) Hemoglobin 9.3 g/dL (12.0-16.0) Hematocrit 32.7 % (37-47) Mean Corpuscular Volume 94.2 fL (80-100) Mean Corpuscular Hemoglobin 26.8 pg (25-34) Mean Corpuscular Hemoglobin Concent 28.4 g/dl (32-36) Platelet Count 321 K/uL (130-400) Mean Platelet Volume 8.1 fL (7.4-10.4) Neutrophils (%) (Auto) 78.4 % Lymphocytes (%) (Auto) 9.8 % Monocytes (%) (Auto) 7.8 % Eosinophils (%) (Auto) 2.9 % Basophils (%) (Auto) 0.3 % Neutrophils # (Auto) 4.63 K/uL (1.4-6.5) Lymphocytes # (Auto) 0.58 K/uL (1.2-3.4) Monocytes # (Auto) 0.46 K/uL (0.11-0.59) Eosinophils # (Auto) 0.17 K/uL (0-0.5) Basophils # (Auto) 0.02 K/uL (0-0.2) RDW Standard Deviation 62.6 fL (36.4-46.3) RDW Coefficient of Variation 18.3 % (11.5-14.5) Immature Granulocyte % (Auto) 0.8 % Immature Granulocyte # (Auto) 0.05 K/uL (0.00-0.02) Nucleated RBC Absolute Count (auto) 0.07 K/uL (0-0) Nucleated Red Blood Cells % 1.2 % Red Blood Cell Morphology Unremarkable Prothrombin Time 23.7 SECONDS (9.0-12.0) Prothromb Time International Ratio 2.1 (0.9-1.1) Activated Partial Thromboplast Time 36.8 SECONDS (21.0-31.0) Partial Thromboplastin Ratio 1.4 Sodium Level 141 mmol/L (136-145) Potassium Level mmol/L (3.5-5.1) 5.5 mmol/L (3.5-5.1) Chloride Level 109 mmol/L (98-107) Carbon Dioxide Level 29 mmol/L (21-32) Anion Gap 3.0 mmol/L (3-11) Blood Urea Nitrogen 42 mg/dl (7-18) Creatinine 1.40 mg/dl (0.60-1.20) Est Creatinine Clear Calc Drug Dose 57.4 ml/min Estimated GFR () 48.2 Estimated GFR (Non- 41.6 BUN/Creatinine Ratio 30.0 (10-20) Random Glucose 178 mg/dl (70-99) Calcium Level 8.7 mg/dl (8.5-10.1) Total Bilirubin 0.5 mg/dl (0.2-1) Aspartate Amino Transf (AST/SGOT) U/L (15-37) Alanine Aminotransferase (ALT/SGPT) 7 U/L (12-78) Alkaline Phosphatase 151 U/L (45-117) Total Protein 6.9 gm/dl (6.4-8.2) Albumin 2.8 gm/dl (3.4-5.0) Globulin 4.1 gm/dl (2.5-4.0) Albumin/Globulin Ratio 0.7 (0.9-2) Bedside Lactic Acid Venous 0.88 mmol/L (0.90-1.70) Troponin I < 0.015 ng/ml (0-0.045) Bedside Glucose 227 mg/dl (70-90) Micro Results: blood cx x 2 are pending. Assessment & Plan Patient admitted with BLE cellulitis, hx of MDRO, renal transplant patient on immunosuppression. Recent admission 12/2016, on vancomycin during that admission. More aggressive dosing of 1650mg q 18 hrs yielded high trough, so will dose more conservatively today. Vancomycin Loading dose: 2700 mg IV X 1 dose (~19mg/kg) then: 1500 mg IV every 24 hours (10.7mg/kg) Goal trough level estimate: between 15 - 20 mcg/mL. Peak and trough or random level has been ordered for: 02/07 prior to 2000 dose. Patient is also ordered Zosyn as pharmacy consult, and dosing is 4.5gm q 8 hrs extended infusion for BMI 62.4kg/m2 and CrCl 57.4ml/min. Pharmacy will continue to follow and will adjust dose/frequency as necessary. Thank you
[2017-02-04 20:51] VITALS: BP 154/75; PULSE 85; PULSE 97; TEMP 36.8; O2SAT 93; O2SAT 96; Ht 149.9 cm; Wt 123.1 kg
[2017-02-04] MEDS ORDERED: INSULIN GLARGINE SOLOSTAR 100 UNITS/ML 3 ML PEN SC SCH (21:00)
[2017-02-04] MEDS: INSULIN ASPART 100 UNITS/ML 3 ML PEN SC SCH ×2 (21:26→23:58)
[2017-02-04] MEDS: AZATHIOPRINE 50 MG TAB PO SCH (21:31)
[2017-02-04] MEDS: FLUTICASONE/SALMETEROL 250/50 (ADVAIR) 14 PUFF/1 INHALER INH SCH (21:31)
[2017-02-04] MEDS: GABAPENTIN 300 MG CAP PO SCH (21:34)
[2017-02-04] MEDS: ROPINIROLE HCL 1 MG TAB PO SCH (21:35)
[2017-02-04] MEDS: CARBIDOPA/LEVODOPA 25-250 1 EA TAB PO SCH (21:40)
[2017-02-04] MEDS: CycloSPORINE (NEORAL) 25 MG CAP PO SCH (21:40)
[2017-02-04] MEDS: CARBIDOPA/LEVODOPA 25/100MG TAB PO SCH (21:41)
[2017-02-04] MEDS: ACETAMINOPHEN 325 MG TAB PO PRN (21:45)
[2017-02-04 22:01] VITALS: PULSE 84; O2SAT 96
[2017-02-04 23:42] VITALS: BP 134/73; PULSE 73; TEMP 37; O2SAT 95
[2017-02-05] VITALS (15 sets, daily range): BP systolic 112–154; BP diastolic 61–85; PULSE 65–84; TEMP 36.3–37.1; O2SAT 94–100
[2017-02-05 00:02] LABS: CKMB/CK RATIO 2.7 (0-3.0)
[2017-02-05] MEDS: PIPERACILL/TAZOBAC IV 4.5 GM in DEXTROSE 5% 100ML IV SCH ×3 (04:16→19:58)
[2017-02-05] MEDS: CARBIDOPA/LEVODOPA 25-250 1 EA TAB PO SCH ×5 (04:16→21:50)
[2017-02-05] MEDS: CARBIDOPA/LEVODOPA 25/100MG TAB PO SCH ×5 (04:16→21:50)
[2017-02-05] MEDS: HYDROCODONE/ACETAMOPHEN 5/325MG TAB PO PRN ×2 (04:17→16:59)
[2017-02-05 06:06] LABS: INR 2.5 (0.9-1.1); PROTHROMBIN TIME (PATIENT) 27.4 SECONDS (9.0-12.0)
[2017-02-05 06:31] LABS: BLOOD UREA NITROGEN 45 mg/dl (7-18); BUN/CREATININE RATIO 34.4 (10-20); CALCIUM 9.1 mg/dl (8.5-10.1); CARBON DIOXIDE 29 mmol/L (21-32); CHLORIDE 108 mmol/L (98-107); GLUCOSE 242 mg/dl (70-99); MAGNESIUM 2.8 mg/dl (1.8-2.4); POTASSIUM 5.4 mmol/L (3.5-5.1); SODIUM 142 mmol/L (136-145)
[2017-02-05 06:36] LABS: CKMB/CK RATIO 2.5 (0-3.0)
[2017-02-05] MEDS: ALBUT/IPRATROP 3MG/0.5MG NEB 3 ML VIAL INH SCH ×4 (07:05→19:37)
[2017-02-05] MEDS: ACETAMINOPHEN 325 MG TAB PO PRN ×2 (07:34→20:03)
[2017-02-05] MEDS: CLONAZEPAM 0.5 MG TAB PO PRN ×2 (07:34→19:57)
[2017-02-05] MEDS: FUROSEMIDE INJ 40 MG in SYRINGE 0 ML IV SCH ×2 (07:38→16:37)
[2017-02-05] MEDS: ROPINIROLE HCL 1 MG TAB PO SCH ×3 (07:39→21:49)
[2017-02-05] MEDS: GABAPENTIN 300 MG CAP PO SCH ×3 (07:40→21:47)
[2017-02-05] MEDS: PANTOprazole SOD 40 MG TAB PO SCH (07:40)
[2017-02-05] MEDS: AZATHIOPRINE 50 MG TAB PO SCH ×2 (07:41→21:48)
[2017-02-05] MEDS: ROSUVASTATIN CALCIUM 10 MG TAB PO SCH (07:41)
[2017-02-05] MEDS: CycloSPORINE (NEORAL) 25 MG CAP PO SCH ×2 (07:41→21:49)
[2017-02-05] MEDS: FLUTICASONE/SALMETEROL 250/50 (ADVAIR) 14 PUFF/1 INHALER INH SCH ×2 (07:45→21:41)
[2017-02-05 08:11] LABS: MEAN CELL VOLUME 94.1 fL (80-100); MEAN CORPUSCULAR HEMOGLOBIN 26.3 pg (25-34); MEAN PLATELET VOLUME 8.5 fL (7.4-10.4); PLATELET COUNT 285 K/uL (130-400); RED BLOOD COUNT 3.72 M/uL (4.2-5.4); WHITE BLOOD COUNT 5.44 K/uL (4.8-10.8)
[2017-02-05] MEDS: INSULIN ASPART 100 UNITS/ML 3 ML PEN SC SCH ×4 (08:49→21:55)
[2017-02-05 09:34] LABS: POINT OF CARE TROPONIN I 0.02 ng/ml (0-0.045)
--- NOTE | 2017-02-05 09:41 | DIAGNOSTIC IMAGING REPORT ---
CHEST ONE VIEW PORTABLE CLINICAL HISTORY: Congestive heart failure. COMPARISON STUDY: Chest radiograph February 04, 2017. FINDINGS: Cardiomegaly is unchanged. There is no pneumothorax. No pleural effusion is identified. Bilateral opacities and interstitial thickening persists. IMPRESSION: Persistent, but slightly improved, interstitial thickening and bilateral opacities. Pulmonary edema is favored although an infectious process could appear similar. Electronically signed by: Isaac Magdaleno M.D. 02/05/2017 9:39 AM Dictated Date/Time: 02/05/2017 9:38 AM
[2017-02-05] MEDS ORDERED: INSULIN GLARGINE SOLOSTAR 100 UNITS/ML 3 ML PEN SC ONE (12:15)
--- NOTE | 2017-02-05 13:16 | Progress Note ---
Internal Med Progress Note Date of Service: February 05, 2017. Provider Documentation: SUBJECTIVE: Patient is seen and examined at bedside. SOB and cough improving. Denies any chest pain, dizziness, palpitations, abd pain. Family at bedside. OBJECTIVE: Vital Signs-as noted below General Appearance:Obese, No apparent distress Head: normocephalic, Atraumatic Eyes: normal inspection, EOMI, PERRL Neck: supple, Trachea midline Respiratory/Chest: Decreased breath sounds, CTA Cardiovascular: S1, S2, No murmur Abdomen/GI:Soft, Non tender, Bowel sounds present, Obese Extremities/Musculoskelatal:Chronic B/L LE erythematous, + edema Neurologic/Psych:AAOX3, Able to move all extremities Skin: normal color, warm Lab data as noted below. ASSESSMENT & PLAN: ACUTE on CHRONIC RESPIRATORY FAILURE ACUTE ON CHRONIC DIASTOLIC CHF H/O CHF, COPD with chronic respiratory failure on 3L NC, presents with hypoxia, respiratory distress Acute secondary to acute exacerbation of CHF CXR findings suggestive of CHF BIPAP PRN for respiratory support Continue diuresis with Lasix 40mg BID Monitor I/Os, daily weight Duonebs PRN ECHO in December: Preserved EF Monitor electrolytes B/L LOWER EXTREMITY CELLULITIS Patient has chronic skin changes, presents with fever, no leukocytosis Continue empiric Zosyn, Vancomycin Follow up cultures, check UA COPD Presented with acute respiratory distress, no increased cough/sputum production No signs of acute exacerbation continue home inhalers, nebs continue outpatient prednisone (on this for renal transplant) HYPERKALEMIA: Monitor levels on Lasix H/O RENAL TRANSPLANT continue immunosuppressants Monitor renal function IDDM A1c 6.6 in 01/13 Decrease Lantus to 30 Units HS SSI coverage H/O PE INR Therapeutic continue Coumadin 2.5 mg daily Monitor INR PARKINSON'S DISEASE continue Carbidopa/levodopa GERD continue PPI H/O MRSA contact precautions HLD continue statin DEPRESSION continue Lamictal, Requip and clonazepam CODE STATUS: FULL CODE DVT PX: On Coumadin DISPOSITION: Continue to monitor in Tele Vital Signs: Date Time Temp Pulse Resp B/P Pulse Ox O2 Delivery O2 Flow Rate FiO2 02/05/17 12:02 36.8 68 22 124/65 94 Nasal Cannula 4.0 02/05/17 12:00 Mask 4.0 02/05/17 11:48 84 14 98 Nasal Cannula 4.0 02/05/17 08:00 Nasal Cannula 4.0 02/05/17 07:10 36.4 79 18 139/85 99 Nasal Cannula 2.0 02/05/17 07:05 80 28 98 Nasal Cannula 2.0 02/05/17 04:26 36.7 67 16 154/75 96 BiPAP 35 02/05/17 04:00 BiPAP 02/05/17 02:01 65 97 02/05/17 00:00 BiPAP 02/04/17 23:42 37.0 73 18 134/73 95 CPAP 16.0 02/04/17 22:01 84 96 02/04/17 20:51 36.8 97 26 154/75 93 Nasal Cannula 4.0 02/04/17 20:51 85 96 02/04/17 19:10 87 32 92 Nasal Cannula 4.0 02/04/17 18:30 92 27 134/69 92 02/04/17 18:00 95 26 127/97 91 02/04/17 17:30 96 29 134/58 90 02/04/17 17:00 97 24 144/102 91 02/04/17 16:31 88 25 135/63 02/04/17 16:00 83 20 116/72 96 02/04/17 15:37 79 22 130/65 94 Nebulizer 02/04/17 15:32 80 24 92 Nasal Cannula 4.0 02/04/17 14:10 94 Nasal Cannula 4.0 02/04/17 14:07 92 02/04/17 14:00 91 24 177/100 97 Room Air Lab Results: Results Past 24 Hours Test 02/04/17 14:28 02/04/17 14:40 02/04/17 18:45 02/04/17 19:53 Range/Units Bedside Lactic Acid Venous 0.88 0.90-1.70 mmol/L Bedside Troponin I 0.020 0-0.045 ng/ml IV-[id number]-[id number]-Type Natriuretic Peptide 1808 0-900 pg/ml Potassium Level 5.5 3.5-5.1 mmol/L Troponin I < 0.015 0-0.045 ng/ml Bedside Glucose 227 70-90 mg/dl Test 02/04/17 23:05 02/04/17 23:35 02/05/17 05:20 02/05/17 07:23 Range/Units Total Creatine Kinase 128 119 26-192 U/L Creatine Kinase MB 3.5 3.0 0.5-3.6 ng/ml Creatine Kinase MB Ratio 2.7 2.5 0-3.0 Troponin I < 0.015 < 0.015 0-0.045 ng/ml Bedside Glucose 231 234 70-90 mg/dl White Blood Count 5.44 4.8-10.8 K/uL Red Blood Count 3.72 4.2-5.4 M/uL Hemoglobin 9.8 12.0-16.0 g/dL Hematocrit 35.0 37-47 % Mean Corpuscular Volume 94.1 80-100 fL Mean Corpuscular Hemoglobin 26.3 25-34 pg Mean Corpuscular Hemoglobin Concent 28.0 32-36 g/dl RDW Standard Deviation 62.2 36.4-46.3 fL RDW Coefficient of Variation 18.1 11.5-14.5 % Platelet Count 285 130-400 K/uL Mean Platelet Volume 8.5 7.4-10.4 fL Nucleated RBC Absolute Count (auto) 0.12 0-0 K/uL Nucleated Red Blood Cells % 2.1 % Prothrombin Time 27.4 9.0-12.0 SECONDS Prothromb Time International Ratio 2.5 0.9-1.1 Sodium Level 142 136-145 mmol/L Potassium Level 5.4 3.5-5.1 mmol/L Chloride Level 108 98-107 mmol/L Carbon Dioxide Level 29 21-32 mmol/L Anion Gap 5.0 3-11 mmol/L Blood Urea Nitrogen 45 7-18 mg/dl Creatinine 1.30 0.60-1.20 mg/dl Est Creatinine Clear Calc Drug Dose 61.9 ml/min Estimated GFR () 52.7 Estimated GFR (Non- 45.5 BUN/Creatinine Ratio 34.4 10-20 Random Glucose 242 70-99 mg/dl Calcium Level 9.1 8.5-10.1 mg/dl Magnesium Level 2.8 1.8-2.4 mg/dl Test 02/05/17 11:37 Range/Units Bedside Glucose 285 70-90 mg/dl Microbiology Results 02/04/17 Blood Culture, Received Pending 02/04/17 MRSA DNA Surveillance Screen - Final, Complete Specimen Positive for MRSA by DNA Probe
--- NOTE | 2017-02-05 14:37 | Pharmacy Progress Note ---
Glycemic: Assessment & Plan Date of Service February 05, 2017. Assessment & Plan Outpatient Anti-diabetic Regimen: * Lantus 40 units Q HS * NovoLog 10 units TID w/ meals * A1c = 6.6 % 01/07/17 ASSESSMENT: 02/05/17: * Patient has been hyperglycemic for the past ~24 hours. * Patient received 125mg of SoluMedrol yesterday afternoon x1 dose, which is likely the cause for elevated BSGs this morning. * Will resume home dose of Lantus this evening, plus give a small supplemental dose this afternoon to make up for basal insulin deficiency from reduced dose given last evening. * If hyperglycemia persists overnight, will consider tightening Novolog parameters tomorrow. 02/04/17 * 56yo T2DM female known to the pharmacy glycemic service from previous admissions (most recently December 2016) * Pt with well controlled diabetes as an outpatient per recent A1c * However, unsure of how reliable this value is d/t renal transplant * Pt with minimal risk factors for insulin resistance other than baseline insulin resistance and infection. Pt is only being maintained on small outpatient dosing of prednisone 5mg PO daily. * When pt is adm with RTC high dose steroids 100+ units of insulin are required per day for adequate control * Once steroids taper (prednisone 10mg daily) pt typically requires ~ 80 units of insulin per day. Since pt will only be receiving 5mg prednisone will continue reduced basal insulin dosing per provider but utilize aggressive bolus insulin parameters for "steroid induced hyperglycemia" * Will adjust insulin orders daily to maintain fasting BSG < 140mg/dl and post- prandial BSGs < 180 * ADA & AACE recommend a goal blood sugar range 140-180 mg/dl for the majority of critically ill & non-critically ill patients. However, more stringent targets may be selected in individual cases. Will utilize more stringent goal of 110-140mg/dl based on patient age and tight glycemic control at baseline. Additionally, tighter glycemic control is warranted to facilitate wound/ infection healing. PLAN FOR INPATIENT GLYCEMIC CONTROL: * Basal insulin * Lantus 40 units SQ HS - give additional 10 units x1 dose today at lunchtime * Bolus Insulin * NovoLog per scale ACHS or Q6hrs while NPO * Goal Range: Low 110 mg/dL - High 140 mg/dL * Correction Factor: 20 mg/dL/unit * Nutritional / Prandial insulin per carb ratio of 1 unit per 6 grams CHO consumed * Please note that the plan above was derived based on current level of insulin resistance and hospital stress. These recommendations are appropriate for inpatient admission only. Plan of care upon discharge will need to be reassessed to avoid potential outpatient hypo/hyperglycemia. Thank you.
[2017-02-05 15:12] LABS: URINE APPEARANCE TURBID (CLEAR); URINE BILIRUBIN NEG (NEG); URINE COLOR DK YELLOW; URINE EPITHELIAL CELL AUTO >30 /lpf (0-5); URINE NITRITE NEG (NEG); UROBILINOGEN NEG (NEG); ZZURINE CULT IF INDIC CATH YES
[2017-02-05 15:23] LABS: MANUAL MICROSCOPIC REQUIRED? NO; REVIEW REQ? YES
[2017-02-05] MEDS ORDERED: WARFARIN SOD 2.5 MG TAB PO SCH (16:00)
[2017-02-05] MEDS: VANCOMYCIN INJ 1,500 MG in SODIUM CHLORIDE 0.9% 500ML 500 ML IV SCH (16:36)
[2017-02-05] MEDS ORDERED: VANCOMYCIN INJ 1,500 MG in SODIUM CHLORIDE 0.9% 500ML 500 ML IV SCH (20:00)
[2017-02-05] MEDS: MICONAZOLE NITRATE POWDER 43 GM EXT PRN (21:47)
[2017-02-05] MEDS: INSULIN GLARGINE SOLOSTAR 100 UNITS/ML 3 ML PEN SC SCH (21:56)
[2017-02-06] VITALS (13 sets, daily range): BP systolic 98–127; BP diastolic 57–75; PULSE 62–87; TEMP 36.6–36.9; O2SAT 94–100
[2017-02-06] MEDS: HYDROCODONE/ACETAMOPHEN 5/325MG TAB PO PRN ×3 (01:11→21:43)
[2017-02-06] MEDS: PIPERACILL/TAZOBAC IV 4.5 GM in DEXTROSE 5% 100ML IV SCH ×3 (04:01→20:20)
[2017-02-06] MEDS: CARBIDOPA/LEVODOPA 25-250 1 EA TAB PO SCH ×5 (04:07→21:37)
[2017-02-06] MEDS: CARBIDOPA/LEVODOPA 25/100MG TAB PO SCH ×5 (04:07→21:37)
[2017-02-06] MEDS: ALBUT/IPRATROP 3MG/0.5MG NEB 3 ML VIAL INH SCH ×4 (07:19→19:46)
[2017-02-06 07:39] LABS: INR 3.4 (0.9-1.1); PROTHROMBIN TIME (PATIENT) 38.8 SECONDS (9.0-12.0)
[2017-02-06 07:56] LABS: BASO % 0.2 %; BASO ABS # 0.01 K/uL (0-0.2); COMPLETE YES; EOS % 1.1 %; HEMATOCRIT 33.4 % (37-47); IG% 0.5 %; LYMPH % 7.4 %; LYMPH ABS # 0.49 K/uL (1.2-3.4); MEAN CELL VOLUME 93.8 fL (80-100); MEAN CORPUSCULAR HEMOGLOBIN 26.4 pg (25-34); MEAN CORPUSCULAR HGB CONC 28.1 g/dl (32-36); MEAN PLATELET VOLUME 8.6 fL (7.4-10.4); MONO % 6.2 %; NEUT % 84.6 %; PLATELET COUNT 293 K/uL (130-400); RED BLOOD COUNT 3.56 M/uL (4.2-5.4); WHITE BLOOD COUNT 6.65 K/uL (4.8-10.8)
[2017-02-06 07:59] LABS: BUN/CREATININE RATIO 38.9 (10-20); CREATININE 1.4 mg/dl (0.60-1.20); POTASSIUM 4.6 mmol/L (3.5-5.1)
[2017-02-06 08:28] LABS: CALCIUM 9.2 mg/dl (8.5-10.1)
[2017-02-06] MEDS: FLUTICASONE/SALMETEROL 250/50 (ADVAIR) 14 PUFF/1 INHALER INH SCH ×2 (08:54→21:35)
[2017-02-06] MEDS: ROPINIROLE HCL 1 MG TAB PO SCH ×3 (08:54→21:36)
[2017-02-06] MEDS: SENNA 8.6 MG TAB PO PRN (08:55)
[2017-02-06] MEDS: PANTOprazole SOD 40 MG TAB PO SCH (08:55)
[2017-02-06] MEDS: AZATHIOPRINE 50 MG TAB PO SCH ×2 (08:56→21:35)
[2017-02-06] MEDS: ROSUVASTATIN CALCIUM 10 MG TAB PO SCH (08:56)
[2017-02-06] MEDS: VANCOMYCIN INJ 1,500 MG in SODIUM CHLORIDE 0.9% 500ML 500 ML IV SCH (08:56)
[2017-02-06] MEDS: FUROSEMIDE INJ 40 MG in SYRINGE 0 ML IV SCH ×2 (08:57→16:42)
[2017-02-06] MEDS: CycloSPORINE (NEORAL) 25 MG CAP PO SCH ×2 (08:58→21:36)
[2017-02-06] MEDS: GABAPENTIN 300 MG CAP PO SCH ×3 (08:58→21:36)
[2017-02-06] MEDS: INSULIN ASPART 100 UNITS/ML 3 ML PEN SC SCH ×4 (09:11→21:41)
--- NOTE | 2017-02-06 10:56 | Progress Note ---
Internal Med Progress Note Date of Service: February 06, 2017. Provider Documentation: SUBJECTIVE: Patient is seen and examined at bedside. Feels better today. States SOB is improving. Denies any chest pain, dizziness, palpitations, abd pain. OBJECTIVE: Vital Signs-as noted below General Appearance:Obese, No apparent distress Head: normocephalic, Atraumatic Eyes: normal inspection, EOMI, PERRL Neck: supple, Trachea midline Respiratory/Chest: Decreased breath sounds, CTA Cardiovascular: S1, S2, No murmur Abdomen/GI:Soft, Non tender, Bowel sounds present, Obese Extremities/Musculoskelatal:Chronic B/L LE erythematous, + edema Neurologic/Psych:AAOX3, Able to move all extremities Skin: normal color, warm Lab data as noted below. ASSESSMENT & PLAN: ACUTE on CHRONIC RESPIRATORY FAILURE ACUTE ON CHRONIC DIASTOLIC CHF H/O CHF, COPD with chronic respiratory failure on 3L NC, presents with hypoxia, respiratory distress Acute secondary to acute exacerbation of CHF CXR findings suggestive of CHF BIPAP PRN for respiratory support Continue diuresis with IV Lasix 40mg BID Monitor I/Os, daily weight Duonebs PRN ECHO in December: Preserved EF Monitor electrolytes B/L LOWER EXTREMITY CELLULITIS Patient has chronic skin changes, presents with fever, no leukocytosis Continue empiric Zosyn, Vancomycin Follow up cultures: Blood cultures: No growth to date ? UTI: Follow up urine culture Continue Zosyn for now COPD Presented with acute respiratory distress, no increased cough/sputum production No signs of acute exacerbation continue home inhalers, nebs continue outpatient prednisone (on this for renal transplant) HYPERKALEMIA: Resolved Monitor levels while on Lasix H/O RENAL TRANSPLANT continue immunosuppressants Monitor renal function IDDM A1c 6.6 in 01/13 Decrease Lantus to 30 Units HS SSI coverage H/O PE Hold Coumadin for now Takes 2.5 mg daily at home Monitor INR: 2.1>>2.5>>3.4 PARKINSON'S DISEASE continue Carbidopa/levodopa GERD continue PPI H/O MRSA contact precautions HLD continue statin DEPRESSION continue Lamictal, Requip and clonazepam CODE STATUS: FULL CODE DVT PX: On Coumadin DISPOSITION: Continue to monitor in Tele Vital Signs: Date Time Temp Pulse Resp B/P Pulse Ox O2 Delivery O2 Flow Rate FiO2 02/06/17 08:00 Nasal Cannula 5.0 02/06/17 07:49 36.7 69 22 106/67 94 Nasal Cannula 5.0 02/06/17 07:19 67 14 100 Nasal Cannula 5.0 02/06/17 04:33 63 127/75 02/06/17 04:00 BiPAP 02/06/17 03:10 36.6 62 20 98/57 100 CPAP 02/06/17 00:00 BiPAP 02/05/17 23:25 36.3 72 20 120/71 97 BiPAP 02/05/17 22:00 82 98 02/05/17 20:00 97 BiPAP 5.0 02/05/17 19:38 74 14 100 Nasal Cannula 4.5 02/05/17 19:24 36.5 73 28 112/61 95 Nasal Cannula 4.0 02/05/17 16:00 97 BiPAP 5.0 02/05/17 15:36 37.1 83 22 120/68 97 BiPAP 02/05/17 15:00 65 96 02/05/17 14:59 84 14 100 Diffusion Mask 5.0 02/05/17 12:02 36.8 68 22 124/65 94 Nasal Cannula 4.0 02/05/17 12:00 Mask 4.0 02/05/17 11:48 84 14 98 Nasal Cannula 4.0 Lab Results: Results Past 24 Hours Test 02/05/17 11:37 02/05/17 14:30 02/05/17 16:14 02/05/17 20:18 Range/Units Bedside Glucose 285 228 239 70-90 mg/dl Urine Color DK YELLOW Urine Appearance TURBID CLEAR Urine pH 5.0 4.5-7.5 Urine Specific [place] 1.020 1.000-1.030 Urine Protein TRACE NEG Urine Glucose (UA) TRACE NEG Urine Ketones NEG NEG Urine Occult Blood 3+ NEG Urine Nitrite NEG NEG Urine Bilirubin NEG NEG Urine Urobilinogen NEG NEG Urine Leukocyte Esterase LARGE NEG Urine WBC (Auto) >30 0-5 /hpf Urine RBC (Auto) >30 0-4 /hpf Urine Hyaline Casts (Auto) 5-10 0-5 /lpf Urine Epithelial Cells (Auto) >30 0-5 /lpf Urine Bacteria (Auto) 2+ NEG Urine Pathogenic Casts 0 /lpf Urine Yeast (Auto) BUD W/ HYPHAE NONE PRSENT Test 02/06/17 06:35 02/06/17 07:36 Range/Units White Blood Count 6.65 4.8-10.8 K/uL Red Blood Count 3.56 4.2-5.4 M/uL Hemoglobin 9.4 12.0-16.0 g/dL Hematocrit 33.4 37-47 % Mean Corpuscular Volume 93.8 80-100 fL Mean Corpuscular Hemoglobin 26.4 25-34 pg Mean Corpuscular Hemoglobin Concent 28.1 32-36 g/dl Platelet Count 293 130-400 K/uL Mean Platelet Volume 8.6 7.4-10.4 fL Neutrophils (%) (Auto) 84.6 % Lymphocytes (%) (Auto) 7.4 % Monocytes (%) (Auto) 6.2 % Eosinophils (%) (Auto) 1.1 % Basophils (%) (Auto) 0.2 % Neutrophils # (Auto) 5.64 1.4-6.5 K/uL Lymphocytes # (Auto) 0.49 1.2-3.4 K/uL Monocytes # (Auto) 0.41 0.11-0.59 K/uL Eosinophils # (Auto) 0.07 0-0.5 K/uL Basophils # (Auto) 0.01 0-0.2 K/uL RDW Standard Deviation 61.5 36.4-46.3 fL RDW Coefficient of Variation 18.0 11.5-14.5 % Immature Granulocyte % (Auto) 0.5 % Immature Granulocyte # (Auto) 0.03 0.00-0.02 K/uL Nucleated RBC Absolute Count (auto) 0.06 0-0 K/uL Nucleated Red Blood Cells % 0.9 % Prothrombin Time 38.8 9.0-12.0 SECONDS Prothromb Time International Ratio 3.4 0.9-1.1 Sodium Level 141 136-145 mmol/L Potassium Level 4.6 3.5-5.1 mmol/L Chloride Level 105 98-107 mmol/L Carbon Dioxide Level 29 21-32 mmol/L Anion Gap 7.0 3-11 mmol/L Blood Urea Nitrogen 54 7-18 mg/dl Creatinine 1.40 0.60-1.20 mg/dl Est Creatinine Clear Calc Drug Dose 56.0 ml/min Estimated GFR () 48.2 Estimated GFR (Non- 41.6 BUN/Creatinine Ratio 38.9 10-20 Random Glucose 175 70-99 mg/dl Calcium Level 9.2 8.5-10.1 mg/dl Bedside Glucose 170 70-90 mg/dl Microbiology Results 02/05/17 Urine Culture, Received Pending
--- NOTE | 2017-02-06 13:15 | Pharmacy Progress Note ---
Glycemic: Assessment & Plan Date of Service February 06, 2017. Assessment & Plan Outpatient Anti-diabetic Regimen: * Lantus 40 units Q HS * NovoLog 10 units TID w/ meals * A1c = 6.6 % 01/07/17 ASSESSMENT: 02/06/17: * BSGs are much improved today, but there is still room for tighter glycemic control. * If fasting BSG remains above goal tomorrow, will consider increasing Lantus dose. * Novolog parameters were "tightened" this morning to provide additional coverage throughout the day. Will continue to adjust as needed. 02/05/17 * Patient has been hyperglycemic for the past ~24 hours. * Patient received 125mg of SoluMedrol yesterday afternoon x1 dose, which is likely the cause for elevated BSGs this morning. * Will resume home dose of Lantus this evening, plus give a small supplemental dose this afternoon to make up for basal insulin deficiency from reduced dose given last evening. * If hyperglycemia persists overnight, will consider tightening Novolog parameters tomorrow. 02/04/17 * 56yo T2DM female known to the pharmacy glycemic service from previous admissions (most recently December 2016) * Pt with well controlled diabetes as an outpatient per recent A1c * However, unsure of how reliable this value is d/t renal transplant * Pt with minimal risk factors for insulin resistance other than baseline insulin resistance and infection. Pt is only being maintained on small outpatient dosing of prednisone 5mg PO daily. * When pt is adm with RTC high dose steroids 100+ units of insulin are required per day for adequate control * Once steroids taper (prednisone 10mg daily) pt typically requires ~ 80 units of insulin per day. Since pt will only be receiving 5mg prednisone will continue reduced basal insulin dosing per provider but utilize aggressive bolus insulin parameters for "steroid induced hyperglycemia" * Will adjust insulin orders daily to maintain fasting BSG < 140mg/dl and post- prandial BSGs < 180 * ADA & AACE recommend a goal blood sugar range 140-180 mg/dl for the majority of critically ill & non-critically ill patients. However, more stringent targets may be selected in individual cases. Will utilize more stringent goal of 110-140mg/dl based on patient age and tight glycemic control at baseline. Additionally, tighter glycemic control is warranted to facilitate wound/ infection healing. PLAN FOR INPATIENT GLYCEMIC CONTROL: * Basal insulin * Lantus 40 units SQ HS * Bolus Insulin * NovoLog per scale ACHS or Q6hrs while NPO * Goal Range: Low 110 mg/dL - High 140 mg/dL * Correction Factor: 15 mg/dL/unit * Nutritional / Prandial insulin per carb ratio of 1 unit per 5 grams CHO consumed DISCHARGE PLANNING: * Patient can likely resume home regimen on discharge. HbA1c appears to be reasonable, though may be slightly unreliable in the setting of renal transplant. * Please note that the plan above was derived based on current level of insulin resistance and hospital stress. These recommendations are appropriate for inpatient admission only. Plan of care upon discharge will need to be reassessed to avoid potential outpatient hypo/hyperglycemia. Thank you.
[2017-02-06] MEDS: CLONAZEPAM 0.5 MG TAB PO PRN (15:24)
[2017-02-06] MEDS: ACETAMINOPHEN 325 MG TAB PO PRN (15:41)
[2017-02-06] MEDS: MICONAZOLE NITRATE POWDER 43 GM EXT PRN (21:34)
[2017-02-06] MEDS: INSULIN GLARGINE SOLOSTAR 100 UNITS/ML 3 ML PEN SC SCH (21:42)
[2017-02-07] VITALS (13 sets, daily range): BP systolic 112–148; BP diastolic 66–79; PULSE 61–88; TEMP 36.3–36.9; O2SAT 90–100
[2017-02-07] MEDS: ACETAMINOPHEN 325 MG TAB PO PRN ×3 (00:57→21:03)
[2017-02-07] MEDS ORDERED: VANCOMYCIN TROUGH SCH ×2 (03:30→19:30)
[2017-02-07] MEDS: CARBIDOPA/LEVODOPA 25/100MG TAB PO SCH ×5 (04:19→20:54)
[2017-02-07] MEDS: CARBIDOPA/LEVODOPA 25-250 1 EA TAB PO SCH ×5 (04:20→20:54)
[2017-02-07] MEDS: PIPERACILL/TAZOBAC IV 4.5 GM in DEXTROSE 5% 100ML IV SCH ×2 (04:21→12:54)
[2017-02-07] MEDS: VANCOMYCIN INJ 1,500 MG in SODIUM CHLORIDE 0.9% 500ML 500 ML IV SCH (04:21)
[2017-02-07 04:28] LABS: BASO % 0.4 %; BASO ABS # 0.02 K/uL (0-0.2); COMPLETE YES; EOS % 2.9 %; HEMATOCRIT 33.8 % (37-47); IG% 0.6 %; LYMPH % 12.6 %; LYMPH ABS # 0.65 K/uL (1.2-3.4); MEAN CELL VOLUME 93.4 fL (80-100); MEAN CORPUSCULAR HGB CONC 27.8 g/dl (32-36); MEAN PLATELET VOLUME 8.3 fL (7.4-10.4); MONO % 9.7 %; NEUT % 73.8 %; PLATELET COUNT 285 K/uL (130-400); RED BLOOD COUNT 3.62 M/uL (4.2-5.4); WHITE BLOOD COUNT 5.14 K/uL (4.8-10.8)
[2017-02-07 04:36] LABS: INR 2.5 (0.9-1.1); PROTHROMBIN TIME (PATIENT) 27.3 SECONDS (9.0-12.0)
[2017-02-07 04:44] LABS: BUN/CREATININE RATIO 36.4 (10-20); CALCIUM 8.7 mg/dl (8.5-10.1); CREATININE 1.3 mg/dl (0.60-1.20); POTASSIUM 3.8 mmol/L (3.5-5.1)
[2017-02-07] MEDS: ALBUT/IPRATROP 3MG/0.5MG NEB 3 ML VIAL INH SCH ×4 (07:25→20:00)
[2017-02-07] MEDS: FUROSEMIDE INJ 40 MG in SYRINGE 0 ML IV SCH ×2 (07:42→16:49)
[2017-02-07] MEDS: ROSUVASTATIN CALCIUM 10 MG TAB PO SCH (08:11)
[2017-02-07] MEDS: PANTOprazole SOD 40 MG TAB PO SCH (08:11)
[2017-02-07] MEDS: SENNA 8.6 MG TAB PO PRN (08:12)
[2017-02-07] MEDS: ROPINIROLE HCL 1 MG TAB PO SCH ×3 (08:12→20:53)
[2017-02-07] MEDS: AZATHIOPRINE 50 MG TAB PO SCH ×2 (08:13→20:53)
[2017-02-07] MEDS: GABAPENTIN 300 MG CAP PO SCH ×3 (08:14→20:55)
[2017-02-07] MEDS: CycloSPORINE (NEORAL) 25 MG CAP PO SCH ×2 (08:14→20:53)
[2017-02-07] MEDS: FLUTICASONE/SALMETEROL 250/50 (ADVAIR) 14 PUFF/1 INHALER INH SCH ×2 (08:15→20:54)
[2017-02-07] MEDS: INSULIN ASPART 100 UNITS/ML 3 ML PEN SC SCH ×4 (08:20→20:59)
[2017-02-07] MEDS: MICONAZOLE NITRATE POWDER 43 GM EXT PRN ×2 (09:44→21:00)
[2017-02-07] MEDS: POLYETHYLENE (MIRALAX) 17 GM PACK PO PRN (09:48)
[2017-02-07] MEDS: HYDROCODONE/ACETAMOPHEN 5/325MG TAB PO PRN ×2 (09:50→18:38)
[2017-02-07] MEDS: CLONAZEPAM 0.5 MG TAB PO PRN ×2 (10:11→16:07)
--- NOTE | 2017-02-07 11:31 | Progress Note ---
Internal Med Progress Note Date of Service: February 07, 2017. Provider Documentation: SUBJECTIVE: Patient is seen and examined at bedside. States having a panic attack this morning. Cough has resolved. SOB is better. Denies any chest pain, dizziness, palpitations, abd pain. Family at bedside. OBJECTIVE: Vital Signs-as noted below General Appearance:Obese, No apparent distress Head: normocephalic, Atraumatic Eyes: normal inspection, EOMI, PERRL Neck: supple, Trachea midline Respiratory/Chest: Decreased breath sounds, CTA Cardiovascular: S1, S2, No murmur Abdomen/GI:Soft, Non tender, Bowel sounds present, Obese Extremities/Musculoskelatal:Chronic B/L LE erythematous, + edema Neurologic/Psych:AAOX3, Able to move all extremities Skin: normal color, warm Lab data as noted below. ASSESSMENT & PLAN: ACUTE on CHRONIC RESPIRATORY FAILURE ACUTE ON CHRONIC DIASTOLIC CHF H/O CHF, COPD with chronic respiratory failure on 3L NC, presents with hypoxia, respiratory distress Acute secondary to acute exacerbation of CHF CXR findings suggestive of CHF BIPAP PRN for respiratory support Continue diuresis with IV Lasix 40mg BID Monitor I/Os, daily weight Duonebs PRN ECHO in December: Preserved EF Monitor electrolytes Weight down by around 7kg since admission Plan to resume to PO Lasix tomorrow Repeat CXR in AM B/L LOWER EXTREMITY CELLULITIS Patient has chronic skin changes, presents with fever, no leukocytosis Continue Vancomycin DC Zosyn Blood/Urine cultures: No growth to date ? UTI: Urine culture: yeast Plan to deescalate antibiotics today COPD Presented with acute respiratory distress, no increased cough/sputum production No signs of acute exacerbation continue home inhalers, nebs continue outpatient prednisone (on this for renal transplant) HYPERKALEMIA: Resolved Monitor levels while on Lasix H/O RENAL TRANSPLANT continue immunosuppressants Monitor renal function IDDM A1c 6.6 in 01/13 Decrease Lantus to 30 Units HS SSI coverage H/O PE Hold Coumadin for now Takes 2.5 mg daily at home Monitor INR: 2.1>>2.5>>3.4>>2.5 Plan to resume Coumadin based on INR PARKINSON'S DISEASE continue Carbidopa/levodopa GERD continue PPI H/O MRSA contact precautions HLD continue statin DEPRESSION continue Lamictal, Requip and clonazepam CODE STATUS: FULL CODE DVT PX: On Coumadin INR therapeutic DISPOSITION: Continue to monitor in Tele Vital Signs: Date Time Temp Pulse Resp B/P Pulse Ox O2 Delivery O2 Flow Rate FiO2 02/07/17 11:20 85 14 95 Nasal Cannula 3.0 02/07/17 08:00 Nasal Cannula 3.0 02/07/17 07:40 36.3 66 18 112/68 99 02/07/17 07:25 61 14 100 Nasal Cannula 3.0 02/07/17 05:00 36.6 66 18 112/68 99 CPAP 3.0 02/07/17 04:00 BiPAP 02/07/17 03:45 74 94 02/07/17 00:00 BiPAP 02/07/17 00:00 36.7 76 20 147/79 97 CPAP 76 02/06/17 22:25 84 95 02/06/17 20:00 96 Nasal Cannula 3.0 Humidified Oxygen 02/06/17 19:56 36.9 87 28 120/71 96 Nasal Cannula 3.0 02/06/17 19:10 82 14 95 Nasal Cannula 3.0 02/06/17 16:13 74 14 95 Nasal Cannula 3.0 02/06/17 16:00 96 Nasal Cannula 3.0 Humidified Oxygen 02/06/17 15:25 36.9 79 28 124/68 96 Nasal Cannula 3.0 02/06/17 12:00 Nasal Cannula 5.0 Lab Results: Results Past 24 Hours Test 02/06/17 16:25 02/06/17 20:29 02/07/17 04:00 02/07/17 07:20 Range/Units Bedside Glucose 133 120 78 70-90 mg/dl White Blood Count 5.14 4.8-10.8 K/uL Red Blood Count 3.62 4.2-5.4 M/uL Hemoglobin 9.4 12.0-16.0 g/dL Hematocrit 33.8 37-47 % Mean Corpuscular Volume 93.4 80-100 fL Mean Corpuscular Hemoglobin 26.0 25-34 pg Mean Corpuscular Hemoglobin Concent 27.8 32-36 g/dl Platelet Count 285 130-400 K/uL Mean Platelet Volume 8.3 7.4-10.4 fL Neutrophils (%) (Auto) 73.8 % Lymphocytes (%) (Auto) 12.6 % Monocytes (%) (Auto) 9.7 % Eosinophils (%) (Auto) 2.9 % Basophils (%) (Auto) 0.4 % Neutrophils # (Auto) 3.79 1.4-6.5 K/uL Lymphocytes # (Auto) 0.65 1.2-3.4 K/uL Monocytes # (Auto) 0.50 0.11-0.59 K/uL Eosinophils # (Auto) 0.15 0-0.5 K/uL Basophils # (Auto) 0.02 0-0.2 K/uL RDW Standard Deviation 60.6 36.4-46.3 fL RDW Coefficient of Variation 17.9 11.5-14.5 % Immature Granulocyte % (Auto) 0.6 % Immature Granulocyte # (Auto) 0.03 0.00-0.02 K/uL Nucleated RBC Absolute Count (auto) 0.04 0-0 K/uL Nucleated Red Blood Cells % 0.7 % Prothrombin Time 27.3 9.0-12.0 SECONDS Prothromb Time International Ratio 2.5 0.9-1.1 Sodium Level 143 136-145 mmol/L Potassium Level 3.8 3.5-5.1 mmol/L Chloride Level 105 98-107 mmol/L Carbon Dioxide Level 34 21-32 mmol/L Anion Gap 4.0 3-11 mmol/L Blood Urea Nitrogen 47 7-18 mg/dl Creatinine 1.30 0.60-1.20 mg/dl Est Creatinine Clear Calc Drug Dose 60.3 ml/min Estimated GFR () 52.7 Estimated GFR (Non- 45.5 BUN/Creatinine Ratio 36.4 10-20 Random Glucose 81 70-99 mg/dl Calcium Level 8.7 8.5-10.1 mg/dl Vancomycin Level Trough 23.4 SEE COMMENT mcg/ml
--- NOTE | 2017-02-07 11:36 | Pharmacy Progress Note ---
Pharmacy Abx Dose Short Note Date of Service February 07, 2017. Assessment & Plan Assessment 56 year old female receiving Vancomycin + Zosyn for treatment of BLE Cellulitis Regimen is appropriate based on risk factors for MDRO (MRSA +, recent hospital stay, h/o MDRO, immunosuppression) Day # 4 of antimicrobial therapy Plan VANCOMYCIN: * Trough level drawn today is slightly supratherapeutic at 23.4mcg/ml * Pt with BMI > 35 and vancomycin likely to continue accumulating once Vd filled and at steady state * Will continue current dosing of Vancomycin 1,500mg (~11mg/kg) but extend interval from Q18hrs to Q24hrs to allow for additional vancomycin excretion to maintain goal trough level * Goal trough level estimate: between 10 - 20 mcg/mL for cellulitis (goal ~ 15+ ) * Recheck trough level on 02/10/17 @ 0600 ZOSYN: Piperacillin/Tazobactam Extended Infusion: * 4.5 grams IV bolus, 4.5 grams IV every 8 hours for est CrCL > 20mL/min. * 4.5 grams IV bolus, 4.5 grams IV every 12 hours for est CrCL 20mL/min or below * Consider this more aggressive regimen if: critically ill, obese with BMI 35 or above, cystic fibrosis, TRAVON > 16 g/mL
--- NOTE | 2017-02-07 14:14 | Pharmacy Progress Note ---
Glycemic Control: Progress Nt Date of Service February 07, 2017. Scope Glycemic Pharmacist consulted by Wale Martinez on 02/04/17 for glycemic control and to write orders per [facility] inpatient glycemic control protocol. Objective Accuchecks BSG (last 24hrs): Test 02/06/17 16:25 02/06/17 20:29 02/07/17 04:00 02/07/17 07:20 Bedside Glucose 133 mg/dl (70-90) 120 mg/dl (70-90) 78 mg/dl (70-90) Random Glucose 81 mg/dl (70-99) Test 02/07/17 12:07 Bedside Glucose 130 mg/dl (70-90) Laboratory Data (last 24hrs) Test 02/07/17 04:00 Anion Gap 4.0 mmol/L BUN/Creatinine Ratio 36.4 Blood Urea Nitrogen 47 mg/dl Creatinine 1.30 mg/dl Potassium Level 3.8 mmol/L Sodium Level 143 mmol/L White Blood Count 5.14 K/uL Red Blood Count 3.62 M/uL Hemoglobin 9.4 g/dL Hematocrit 33.8 % Mean Corpuscular Volume 93.4 fL Mean Corpuscular Hemoglobin 26.0 pg Mean Corpuscular Hemoglobin Concent 27.8 g/dl Platelet Count 285 K/uL Mean Platelet Volume 8.3 fL Neutrophils (%) (Auto) 73.8 % Lymphocytes (%) (Auto) 12.6 % Monocytes (%) (Auto) 9.7 % Eosinophils (%) (Auto) 2.9 % Basophils (%) (Auto) 0.4 % Neutrophils # (Auto) 3.79 K/uL Lymphocytes # (Auto) 0.65 K/uL Monocytes # (Auto) 0.50 K/uL Eosinophils # (Auto) 0.15 K/uL Basophils # (Auto) 0.02 K/uL Recent Pertinent Medications Outpatient Anti-diabetic Regimen: * Lantus 40 units SQ HS * NovoLog 10 units SQ TID with meals prednisone 5mg PO q AM is taken at home * A1c = 6.6 % 01/07/17 renal transplant The patient is currently receiving: * Basal insulin: * Lantus 40 units SQ q PM * Bolus Insulin: * NovoLog Correction per scale AC/HS - Goal Range: Low 110 mg/dL - High 140 mg/dL - Correction Factor: 15 mg/dL/unit - Carb ratio of 1 unit per 5 grams CHO consumed Risk Factors for Insulin Resistance: * Steroids: Prednisone 5mg PO daily (chronic home dose) * Infection: vancomycin and piperacillin/tazobactam * Diet: tolerating PO intake well Assessment & Plan ASSESSMENT: Initial: * 56yo T2DM female known to the pharmacy glycemic service from previous admissions (most recently December 2016) * Pt with well controlled diabetes as an outpatient per recent A1c * However, unsure of how reliable this value is d/t renal transplant * Pt with minimal risk factors for insulin resistance other than baseline insulin resistance and infection. Pt is only being maintained on small outpatient dosing of prednisone 5mg PO daily. * When pt is adm with RTC high dose steroids 100+ units of insulin are required per day for adequate control * Once steroids taper (prednisone 10mg daily) pt typically requires ~ 80 units of insulin per day. Since pt will only be receiving 5mg prednisone will continue reduced basal insulin dosing per provider but utilize aggressive bolus insulin parameters for "steroid induced hyperglycemia" * Will adjust insulin orders daily to maintain fasting BSG < 140mg/dl and post- prandial BSGs < 180 * ADA & AACE recommend a goal blood sugar range 140-180 mg/dl for the majority of critically ill & non-critically ill patients. However, more stringent targets may be selected in individual cases. Will utilize more stringent goal of 110-140mg/dl based on patient age and tight glycemic control at baseline. Additionally, tighter glycemic control is warranted to facilitate wound/ infection healing. Current: * Ms Haas required 84 units of insulin over the past 24 hours with BSGs ranging from 120-175mg/dL * this is appropriate glycemic control, however BSG this AM was slightly lower than goal range and may indicate too much basal insulin. - Will decrease basal insulin and have a goal of ~70u of insulin per day * NovoLog parameters appear appropriate at this time PLAN FOR INPATIENT GLYCEMIC CONTROL: * Basal insulin * Lantus 35 units SQ HS * Bolus Insulin * NovoLog per scale ACHS or Q6hrs while NPO * Goal Range: Low 110 mg/dL - High 140 mg/dL * Correction Factor: 15 mg/dL/unit * Nutritional / Prandial insulin per carb ratio of 1 unit per 5 grams CHO consumed DISCHARGE PLANNING: * Patient can likely resume home regimen on discharge. HbA1c appears to be reasonable, though may be slightly unreliable in the setting of renal transplant. * Please note that the plan above was derived based on current level of insulin resistance and hospital stress. These recommendations are appropriate for inpatient admission only. Plan of care upon discharge will need to be reassessed to avoid potential outpatient hypo/hyperglycemia. Thank you.
[2017-02-07] MEDS ORDERED: INSULIN GLARGINE SOLOSTAR 100 UNITS/ML 3 ML PEN SC SCH (21:00)
[2017-02-08] VITALS (10 sets, daily range): BP systolic 108–152; BP diastolic 58–84; PULSE 63–91; TEMP 36.6–37.2; O2SAT 91–100
[2017-02-08] MEDS: CLONAZEPAM 0.5 MG TAB PO PRN ×3 (00:30→17:47)
[2017-02-08] MEDS: HYDROCODONE/ACETAMOPHEN 5/325MG TAB PO PRN ×2 (02:41→11:22)
[2017-02-08] MEDS: CARBIDOPA/LEVODOPA 25/100MG TAB PO SCH ×5 (04:53→19:54)
[2017-02-08] MEDS: CARBIDOPA/LEVODOPA 25-250 1 EA TAB PO SCH ×5 (04:53→20:00)
[2017-02-08] MEDS ORDERED: VANCOMYCIN INJ 1,500 MG in SODIUM CHLORIDE 0.9% 500ML 500 ML IV SCH (06:00)
[2017-02-08] MEDS: ACETAMINOPHEN 325 MG TAB PO PRN ×2 (06:16→16:32)
[2017-02-08 06:41] LABS: INR 1.8 (0.9-1.1); PROTHROMBIN TIME (PATIENT) 19.9 SECONDS (9.0-12.0)
[2017-02-08 07:00] LABS: BUN/CREATININE RATIO 31.8 (10-20); CALCIUM 8.9 mg/dl (8.5-10.1); CREATININE 1.1 mg/dl (0.60-1.20); POTASSIUM 3.7 mmol/L (3.5-5.1)
[2017-02-08] MEDS: ALBUT/IPRATROP 3MG/0.5MG NEB 3 ML VIAL INH SCH ×4 (07:18→19:23)
[2017-02-08] MEDS: FLUTICASONE/SALMETEROL 250/50 (ADVAIR) 14 PUFF/1 INHALER INH SCH ×2 (08:07→19:54)
[2017-02-08] MEDS: AZATHIOPRINE 50 MG TAB PO SCH ×2 (08:10→20:01)
[2017-02-08] MEDS: ROSUVASTATIN CALCIUM 10 MG TAB PO SCH (08:10)
[2017-02-08] MEDS: PANTOprazole SOD 40 MG TAB PO SCH (08:11)
[2017-02-08] MEDS: GABAPENTIN 300 MG CAP PO SCH ×3 (08:12→19:56)
[2017-02-08] MEDS: CycloSPORINE (NEORAL) 25 MG CAP PO SCH ×2 (08:12→19:59)
[2017-02-08] MEDS: ROPINIROLE HCL 1 MG TAB PO SCH ×3 (08:14→20:00)
[2017-02-08] MEDS: FUROSEMIDE INJ 40 MG in SYRINGE 0 ML IV SCH (08:22)
--- NOTE | 2017-02-08 08:25 | DIAGNOSTIC IMAGING REPORT ---
CHEST ONE VIEW PORTABLE HISTORY: Short of breath. COMPARISON: Chest 02/05/2017. FINDINGS: No pneumothorax. The heart remains enlarged. Mild pulmonary edema has slightly improved. There are trace bilateral pleural effusions, unchanged. No new focal lung consolidations. IMPRESSION: Improvement in the mild pulmonary edema. Electronically signed by: Bakari Bray M.D. 02/08/2017 8:24 AM Dictated Date/Time: 02/08/2017 8:23 AM
[2017-02-08] MEDS: INSULIN ASPART 100 UNITS/ML 3 ML PEN SC SCH ×3 (08:26→18:55)
--- NOTE | 2017-02-08 10:42 | Pharmacy Progress Note ---
Glycemic Control: Progress Nt Date of Service February 08, 2017. Scope Glycemic Pharmacist consulted by Wale Martinez on 02/04/17 for glycemic control and to write orders per [facility] inpatient glycemic control protocol. Objective Accuchecks BSG (last 24hrs): Test 02/07/17 12:07 02/07/17 16:14 02/07/17 20:33 02/08/17 06:10 Bedside Glucose 130 mg/dl (70-90) 192 mg/dl (70-90) 203 mg/dl (70-90) Random Glucose 76 mg/dl (70-99) Test 02/08/17 07:30 Bedside Glucose 70 mg/dl (70-90) Laboratory Data (last 24hrs) Test 02/08/17 06:10 Anion Gap 2.0 mmol/L BUN/Creatinine Ratio 31.8 Blood Urea Nitrogen 35 mg/dl Creatinine 1.10 mg/dl Potassium Level 3.7 mmol/L Sodium Level 143 mmol/L Recent Pertinent Medications Outpatient Anti-diabetic Regimen: * Lantus 40 units SQ HS * NovoLog 10 units SQ TID with meals prednisone 5mg PO q AM is taken at home * A1c = 6.6 % 01/07/17 renal transplant The patient is currently receiving: * Basal insulin: * Lantus 35 units SQ q PM * Bolus Insulin: * NovoLog Correction per scale AC/HS - Goal Range: Low 110 mg/dL - High 140 mg/dL - Correction Factor: 15 mg/dL/unit - Carb ratio of 1 unit per 5 grams CHO consumed Risk Factors for Insulin Resistance: * Steroids: Prednisone 5mg PO daily (chronic home dose) * Infection: vancomycin IV * Diet: tolerating PO intake well Assessment & Plan ASSESSMENT: Initial: * 56yo T2DM female known to the pharmacy glycemic service from previous admissions (most recently December 2016) * Pt with well controlled diabetes as an outpatient per recent A1c * However, unsure of how reliable this value is d/t renal transplant * Pt with minimal risk factors for insulin resistance other than baseline insulin resistance and infection. Pt is only being maintained on small outpatient dosing of prednisone 5mg PO daily. * When pt is adm with RTC high dose steroids 100+ units of insulin are required per day for adequate control * Once steroids taper (prednisone 10mg daily) pt typically requires ~ 80 units of insulin per day. Since pt will only be receiving 5mg prednisone will continue reduced basal insulin dosing per provider but utilize aggressive bolus insulin parameters for "steroid induced hyperglycemia" * Will adjust insulin orders daily to maintain fasting BSG < 140mg/dl and post- prandial BSGs < 180 * ADA & AACE recommend a goal blood sugar range 140-180 mg/dl for the majority of critically ill & non-critically ill patients. However, more stringent targets may be selected in individual cases. Will utilize more stringent goal of 110-140mg/dl based on patient age and tight glycemic control at baseline. Additionally, tighter glycemic control is warranted to facilitate wound/ infection healing. 02/07/17 * Ms Haas required 84 units of insulin over the past 24 hours with BSGs ranging from 120-175mg/dL * this is appropriate glycemic control, however BSG this AM was slightly lower than goal range and may indicate too much basal insulin. - Will decrease basal insulin and have a goal of ~70u of insulin per day * NovoLog parameters appear appropriate at this time 02/08/17 * BSGs ranging from 78-203mg/dL over the past 24 hours with 68 units of insulin * continue basal dose despite fasting this AM was below goal - will be removing HS NovoLog which should prevent this and decrease Lantus again * Prednisone elevating prandial BSGs. This, coupled with NovoLog as an outpatient given TID with meals, leads me to alter the current NovoLog regimen: * Change AC/HS --> TID with meals (as patient likely does not need HS coverage) * Tighten carb coverage to aid in postprandial hyperglycemia * Since we will not be having an Accu-check at HS, change Lantus to be given with dinner for ease of administration/patient preference PLAN FOR INPATIENT GLYCEMIC CONTROL: * Basal insulin * Lantus 30 units SQ WITH DINNER * Bolus Insulin * NovoLog per scale TID with meals * Goal Range: Low 110 mg/dL - High 140 mg/dL * Correction Factor: 15 mg/dL/unit * Carb ratio of 1 unit per 4 grams CHO consumed DISCHARGE PLANNING: * Patient can likely resume home regimen on discharge. HbA1c appears to be reasonable, though may be slightly unreliable in the setting of renal transplant. * Please note that the plan above was derived based on current level of insulin resistance and hospital stress. These recommendations are appropriate for inpatient admission only. Plan of care upon discharge will need to be reassessed to avoid potential outpatient hypo/hyperglycemia. Thank you.
--- NOTE | 2017-02-08 11:46 | Progress Note ---
Internal Med Progress Note Date of Service: February 08, 2017. Provider Documentation: SUBJECTIVE: Patient is seen and examined at bedside. "I feel Iffy" Denies cough, chest pain. Reports SOB is much improved. Wants to decide if she is willing to consider SNF/Rehab placement tomorrow. Offers no other complaints. OBJECTIVE: Vital Signs-as noted below General Appearance:Obese, No apparent distress Head: normocephalic, Atraumatic Eyes: normal inspection, EOMI, PERRL Neck: supple, Trachea midline Respiratory/Chest: Decreased breath sounds, CTA Cardiovascular: S1, S2, No murmur Abdomen/GI:Soft, Non tender, Bowel sounds present, Obese Extremities/Musculoskelatal:Chronic B/L LE erythematous, + edema Neurologic/Psych:AAOX3, Able to move all extremities Skin: normal color, warm Lab data as noted below. ASSESSMENT & PLAN: ACUTE on CHRONIC RESPIRATORY FAILURE ACUTE ON CHRONIC DIASTOLIC CHF H/O CHF, COPD with chronic respiratory failure on 3L NC, presents with hypoxia, respiratory distress Acute secondary to acute exacerbation of CHF CXR findings suggestive of CHF BIPAP PRN for respiratory support Received IV Lasix 40mg BID >>> switch to PO lasix 40mg BID Monitor I/Os, daily weight Duonebs PRN ECHO in December: Preserved EF Monitor electrolytes Weight down by around 10kg since admission Repeat CXR:Improved B/L LOWER EXTREMITY CELLULITIS Patient has chronic skin changes, presents with fever, no leukocytosis DC Vancomycin and Zosyn Blood/Urine cultures: No growth to date Start Keflex COPD Presented with acute respiratory distress, no increased cough/sputum production No signs of acute exacerbation continue home inhalers, nebs continue outpatient prednisone (on this for renal transplant) HYPERKALEMIA: Resolved Monitor levels while on Lasix H/O RENAL TRANSPLANT continue immunosuppressants Monitor renal function IDDM A1c 6.6 in 01/13 Continue Lantus, ISS H/O PE Hold Coumadin for now Takes 2.5 mg daily at home Monitor INR: 2.1>>2.5>>3.4>>2.5>>1.8 Resume Coumadin today PARKINSON'S DISEASE continue Carbidopa/levodopa GERD continue PPI H/O MRSA contact precautions HLD continue statin DEPRESSION continue Lamictal, Requip and clonazepam CODE STATUS: FULL CODE DVT PX: On Coumadin DISPOSITION: Plan to transfer medical floor Vital Signs: Date Time Temp Pulse Resp B/P Pulse Ox O2 Delivery O2 Flow Rate FiO2 02/08/17 11:39 37.2 91 20 151/79 91 02/08/17 11:29 91 20 93 Nasal Cannula 3.0 02/08/17 08:00 Nasal Cannula 3.0 02/08/17 07:38 36.9 66 20 152/84 100 02/08/17 07:18 63 20 98 Nasal Cannula 3.0 02/08/17 04:45 36.7 66 20 136/76 96 Nasal Cannula 3.0 02/08/17 04:00 CPAP 02/08/17 00:01 CPAP 02/07/17 23:35 36.4 71 22 127/66 96 CPAP 4.0 02/07/17 21:30 74 98 02/07/17 20:32 74 20 90 Nasal Cannula 3.0 02/07/17 20:00 Nasal Cannula 3.0 02/07/17 19:19 36.8 73 24 121/74 99 Nasal Cannula 3.0 02/07/17 16:00 Nasal Cannula 3.0 02/07/17 15:53 88 20 90 Nasal Cannula 3.0 02/07/17 15:12 36.5 76 20 118/76 97 Lab Results: Results Past 24 Hours Test 02/07/17 16:14 02/07/17 20:33 02/08/17 06:10 02/08/17 07:30 Range/Units Bedside Glucose 192 203 70 70-90 mg/dl Prothrombin Time 19.9 9.0-12.0 SECONDS Prothromb Time International Ratio 1.8 0.9-1.1 Sodium Level 143 136-145 mmol/L Potassium Level 3.7 3.5-5.1 mmol/L Chloride Level 103 98-107 mmol/L Carbon Dioxide Level 38 21-32 mmol/L Anion Gap 2.0 3-11 mmol/L Blood Urea Nitrogen 35 7-18 mg/dl Creatinine 1.10 0.60-1.20 mg/dl Est Creatinine Clear Calc Drug Dose 69.7 ml/min Estimated GFR () 64.5 Estimated GFR (Non- 55.7 BUN/Creatinine Ratio 31.8 10-20 Random Glucose 76 70-99 mg/dl Calcium Level 8.9 8.5-10.1 mg/dl Test 02/08/17 11:27 Range/Units Bedside Glucose 85 70-90 mg/dl
[2017-02-08] MEDS: CEPHALEXIN MONOHYDRATE 500 MG CAP PO SCH ×3 (13:29→19:54)
[2017-02-08] MEDS ORDERED: WARFARIN SOD 2.5 MG TAB PO SCH (16:00)
[2017-02-08] MEDS ORDERED: INSULIN GLARGINE SOLOSTAR 100 UNITS/ML 3 ML PEN SC SCH (17:00)
[2017-02-08] MEDS: INSULIN GLARGINE SOLOSTAR 100 UNITS/ML 3 ML PEN SC SCH (18:56)
[2017-02-08] MEDS: FUROSEMIDE 40 MG TAB PO SCH (20:02)
[2017-02-09] VITALS (12 sets, daily range): BP systolic 142–179; BP diastolic 68–85; PULSE 73–92; TEMP 36.4–36.7; O2SAT 92–98
[2017-02-09] MEDS: ACETAMINOPHEN 325 MG TAB PO PRN ×2 (01:20→16:31)
[2017-02-09] MEDS: CLONAZEPAM 0.5 MG TAB PO PRN ×3 (01:26→15:29)
[2017-02-09] MEDS: CARBIDOPA/LEVODOPA 25-250 1 EA TAB PO SCH ×5 (04:50→19:59)
[2017-02-09] MEDS: CARBIDOPA/LEVODOPA 25/100MG TAB PO SCH ×5 (04:51→19:55)
[2017-02-09] MEDS: HYDROCODONE/ACETAMOPHEN 5/325MG TAB PO PRN ×3 (04:57→23:54)
[2017-02-09 06:42] LABS: INR 1.5 (0.9-1.1); PROTHROMBIN TIME (PATIENT) 16.1 SECONDS (9.0-12.0)
[2017-02-09 06:45] LABS: BASO % 0.2 %; BASO ABS # 0.01 K/uL (0-0.2); COMPLETE YES; EOS % 3.1 %; HEMATOCRIT 37.6 % (37-47); IG% 0.8 %; LYMPH % 12.9 %; LYMPH ABS # 0.66 K/uL (1.2-3.4); MEAN CELL VOLUME 91.3 fL (80-100); MEAN CORPUSCULAR HEMOGLOBIN 25.5 pg (25-34); MEAN CORPUSCULAR HGB CONC 27.9 g/dl (32-36); MEAN PLATELET VOLUME 8.2 fL (7.4-10.4); MONO % 7.3 %; NEUT % 75.7 %; PLATELET COUNT 267 K/uL (130-400); RED BLOOD COUNT 4.12 M/uL (4.2-5.4)
[2017-02-09 07:09] LABS: BUN/CREATININE RATIO 31.7 (10-20); CALCIUM 9.4 mg/dl (8.5-10.1); CREATININE 0.89 mg/dl (0.60-1.20); POTASSIUM 3.6 mmol/L (3.5-5.1)
[2017-02-09] MEDS: ALBUT/IPRATROP 3MG/0.5MG NEB 3 ML VIAL INH SCH ×4 (07:27→19:30)
[2017-02-09] MEDS: FLUTICASONE/SALMETEROL 250/50 (ADVAIR) 14 PUFF/1 INHALER INH SCH ×2 (07:33→19:54)
[2017-02-09] MEDS: GABAPENTIN 300 MG CAP PO SCH ×3 (07:33→19:59)
[2017-02-09] MEDS: ROPINIROLE HCL 1 MG TAB PO SCH ×3 (07:33→19:57)
[2017-02-09] MEDS: CEPHALEXIN MONOHYDRATE 500 MG CAP PO SCH ×4 (07:34→19:56)
[2017-02-09] MEDS: SENNA 8.6 MG TAB PO PRN (07:35)
[2017-02-09] MEDS: FUROSEMIDE 40 MG TAB PO SCH ×2 (07:35→16:33)
[2017-02-09] MEDS: MICONAZOLE NITRATE POWDER 43 GM EXT PRN (07:43)
[2017-02-09] MEDS: CycloSPORINE (NEORAL) 25 MG CAP PO SCH ×2 (07:44→19:55)
[2017-02-09] MEDS: PANTOprazole SOD 40 MG TAB PO SCH (07:44)
[2017-02-09] MEDS: ROSUVASTATIN CALCIUM 10 MG TAB PO SCH (07:45)
[2017-02-09] MEDS: AZATHIOPRINE 50 MG TAB PO SCH ×2 (09:52→19:58)
[2017-02-09] MEDS: INSULIN ASPART 100 UNITS/ML 3 ML PEN SC SCH ×3 (09:55→18:03)
--- NOTE | 2017-02-09 15:04 | Progress Note ---
Internal Med Progress Note Date of Service: February 09, 2017. Provider Documentation: SUBJECTIVE: Patient is seen and examined at bedside. States feeling well today. Denies chest pain, SOB. States she would prefer to go to SNF. Offers no other complaints. OBJECTIVE: Vital Signs-as noted below General Appearance:Obese, No apparent distress Head: normocephalic, Atraumatic Eyes: normal inspection, EOMI, PERRL Neck: supple, Trachea midline Respiratory/Chest: Normal breath sounds, CTA Cardiovascular: S1, S2, No murmur Abdomen/GI:Soft, Non tender, Bowel sounds present, Obese Extremities/Musculoskelatal:Chronic B/L LE erythematous, + edema Neurologic/Psych:AAOX3, Able to move all extremities Skin: normal color, warm Lab data as noted below. ASSESSMENT & PLAN: ACUTE on CHRONIC RESPIRATORY FAILURE ACUTE ON CHRONIC DIASTOLIC CHF H/O CHF, COPD with chronic respiratory failure on 3L NC, presents with hypoxia, respiratory distress Acute secondary to acute exacerbation of CHF CXR findings suggestive of CHF BIPAP PRN for respiratory support Received IV Lasix 40mg BID >>> switch to PO lasix 40mg BID Monitor I/Os, daily weight Duonebs PRN ECHO in December: Preserved EF Monitor electrolytes Weight down by around 10kg since admission Repeat CXR:Improved B/L LOWER EXTREMITY CELLULITIS Patient has chronic skin changes, presents with fever, no leukocytosis DC Vancomycin and Zosyn Blood/Urine cultures: No growth to date Continue Keflex COPD Presented with acute respiratory distress, no increased cough/sputum production No signs of acute exacerbation continue home inhalers, nebs continue outpatient prednisone (on this for renal transplant) HYPERKALEMIA: Resolved Monitor levels while on Lasix H/O RENAL TRANSPLANT continue immunosuppressants Monitor renal function IDDM A1c 6.6 in 01/13 Continue Lantus, ISS H/O PE Takes 2.5 mg daily at home Monitor INR: 1.5 Give 5mg Coumadin today PARKINSON'S DISEASE continue Carbidopa/levodopa GERD continue PPI H/O MRSA contact precautions HLD continue statin DEPRESSION continue Lamictal, Requip and clonazepam CODE STATUS: FULL CODE DVT PX: On Coumadin DISPOSITION: Plan to discharge to SNF when accepted Vital Signs: Date Time Temp Pulse Resp B/P Pulse Ox O2 Delivery O2 Flow Rate FiO2 02/09/17 11:19 74 20 92 Nasal Cannula 3.0 35 02/09/17 08:00 93 Room Air 02/09/17 07:39 36.4 92 22 179/85 93 Room Air 02/09/17 07:28 80 94 02/09/17 07:27 80 22 94 BiPAP/CPAP 35 02/09/17 01:04 36.7 73 20 148/75 97 BiPAP 02/09/17 00:00 98 Nasal Cannula 2.0 CPAP 02/08/17 22:32 78 98 02/08/17 19:24 83 28 95 BiPAP/CPAP 35 02/08/17 19:24 74 98 02/08/17 18:28 Nasal Cannula 2.0 02/08/17 15:30 83 20 93 Nasal Cannula 3.0 Lab Results: Results Past 24 Hours Test 02/08/17 17:02 02/08/17 20:00 02/09/17 06:06 02/09/17 06:26 Range/Units Bedside Glucose 175 190 70-90 mg/dl White Blood Count 5.10 4.8-10.8 K/uL Red Blood Count 4.12 4.2-5.4 M/uL Hemoglobin 10.5 12.0-16.0 g/dL Hematocrit 37.6 37-47 % Mean Corpuscular Volume 91.3 80-100 fL Mean Corpuscular Hemoglobin 25.5 25-34 pg Mean Corpuscular Hemoglobin Concent 27.9 32-36 g/dl Platelet Count 267 130-400 K/uL Mean Platelet Volume 8.2 7.4-10.4 fL Neutrophils (%) (Auto) 75.7 % Lymphocytes (%) (Auto) 12.9 % Monocytes (%) (Auto) 7.3 % Eosinophils (%) (Auto) 3.1 % Basophils (%) (Auto) 0.2 % Neutrophils # (Auto) 3.86 1.4-6.5 K/uL Lymphocytes # (Auto) 0.66 1.2-3.4 K/uL Monocytes # (Auto) 0.37 0.11-0.59 K/uL Eosinophils # (Auto) 0.16 0-0.5 K/uL Basophils # (Auto) 0.01 0-0.2 K/uL RDW Standard Deviation 57.2 36.4-46.3 fL RDW Coefficient of Variation 17.2 11.5-14.5 % Immature Granulocyte % (Auto) 0.8 % Immature Granulocyte # (Auto) 0.04 0.00-0.02 K/uL Prothrombin Time 16.1 9.0-12.0 SECONDS Prothromb Time International Ratio 1.5 0.9-1.1 Sodium Level 142 136-145 mmol/L Potassium Level 3.6 3.5-5.1 mmol/L Chloride Level 101 98-107 mmol/L Carbon Dioxide Level 38 21-32 mmol/L Anion Gap 3.0 3-11 mmol/L Blood Urea Nitrogen 28 7-18 mg/dl Creatinine 0.89 0.60-1.20 mg/dl Est Creatinine Clear Calc Drug Dose 86.2 ml/min Estimated GFR () 83.4 Estimated GFR (Non- 71.9 BUN/Creatinine Ratio 31.7 10-20 Random Glucose 148 70-99 mg/dl Calcium Level 9.4 8.5-10.1 mg/dl Test 02/09/17 08:18 Range/Units Bedside Glucose 152 70-90 mg/dl
[2017-02-09] MEDS ORDERED: WARFARIN SOD 5 MG TAB PO ONE (16:00)
[2017-02-09] MEDS: INSULIN GLARGINE SOLOSTAR 100 UNITS/ML 3 ML PEN SC SCH (18:03)
[2017-02-10] VITALS (10 sets, daily range): BP systolic 147–161; BP diastolic 71–79; PULSE 65–92; TEMP 36.7–37; O2SAT 90–98
[2017-02-10] MEDS: CLONAZEPAM 0.5 MG TAB PO PRN ×3 (03:37→21:05)
[2017-02-10] MEDS: CARBIDOPA/LEVODOPA 25/100MG TAB PO SCH ×5 (03:38→21:01)
[2017-02-10] MEDS: ACETAMINOPHEN 325 MG TAB PO PRN ×2 (03:38→12:22)
[2017-02-10] MEDS: CARBIDOPA/LEVODOPA 25-250 1 EA TAB PO SCH ×5 (03:38→21:01)
[2017-02-10] MEDS ORDERED: VANCOMYCIN TROUGH SCH (05:30)
[2017-02-10] MEDS: ALBUT/IPRATROP 3MG/0.5MG NEB 3 ML VIAL INH SCH ×4 (07:24→19:02)
[2017-02-10 08:15] LABS: INR 1.7 (0.9-1.1); PROTHROMBIN TIME (PATIENT) 18.7 SECONDS (9.0-12.0)
[2017-02-10 08:39] LABS: BUN/CREATININE RATIO 31.2 (10-20); CREATININE 0.81 mg/dl (0.60-1.20); POTASSIUM 3.5 mmol/L (3.5-5.1)
[2017-02-10] MEDS: FLUTICASONE/SALMETEROL 250/50 (ADVAIR) 14 PUFF/1 INHALER INH SCH ×2 (08:46→20:54)
[2017-02-10] MEDS: ROSUVASTATIN CALCIUM 10 MG TAB PO SCH (08:46)
[2017-02-10] MEDS: AZATHIOPRINE 50 MG TAB PO SCH ×2 (08:46→20:55)
[2017-02-10] MEDS: CEPHALEXIN MONOHYDRATE 500 MG CAP PO SCH ×4 (08:46→20:56)
[2017-02-10] MEDS: CycloSPORINE (NEORAL) 25 MG CAP PO SCH ×2 (08:47→20:57)
[2017-02-10] MEDS: PANTOprazole SOD 40 MG TAB PO SCH (08:47)
[2017-02-10] MEDS: GABAPENTIN 300 MG CAP PO SCH ×3 (08:47→20:56)
[2017-02-10] MEDS: ROPINIROLE HCL 1 MG TAB PO SCH ×3 (08:47→20:58)
[2017-02-10] MEDS: FUROSEMIDE 40 MG TAB PO SCH ×2 (08:48→16:47)
[2017-02-10] MEDS: HYDROCODONE/ACETAMOPHEN 5/325MG TAB PO PRN ×2 (08:49→21:05)
[2017-02-10] MEDS: MICONAZOLE NITRATE POWDER 43 GM EXT PRN (08:50)
[2017-02-10] MEDS: INSULIN ASPART 100 UNITS/ML 3 ML PEN SC SCH ×3 (08:53→18:33)
[2017-02-10 09:16] LABS: CALCIUM 9.3 mg/dl (8.5-10.1)
--- NOTE | 2017-02-10 11:30 | Pharmacy Progress Note ---
Glycemic Control: Progress Nt Date of Service February 10, 2017. Scope Glycemic Pharmacist consulted by Elise Martinez PA-C on 02/04/17 for glycemic control and to write orders per [facility] inpatient glycemic control protocol. Objective Accuchecks BSG (last 24hrs): Test 02/09/17 11:57 02/09/17 17:20 02/09/17 19:55 02/10/17 07:28 Bedside Glucose 174 mg/dl (70-90) 205 mg/dl (70-90) 177 mg/dl (70-90) Random Glucose 124 mg/dl (70-99) Test 02/10/17 07:55 Bedside Glucose 127 mg/dl (70-90) HbA1c: 6.6% on 01/07/17 Recent Pertinent Medications Outpatient Anti-diabetic Regimen: * Lantus 40 units Q HS * NovoLog 10 units TID w/ meals * A1c = 6.6 % 01/07/17 The patient is currently receiving: * Basal insulin: Lantus 30 units every 24 hours * Correctional Insulin: Novolog Correction per scale ACHS Goal Range: Low 110 mg/dL - High 140 mg/dL Correction Factor: 15 mg/dL/unit * Prandial insulin: Per carb ratio of 1 unit per 4 grams CHO consumed Risk Factors for Insulin Resistance: * Steroids * Infection * Diet Assessment & Plan ASSESSMENT: Initial: * 56yo T2DM female known to the pharmacy glycemic service from previous admissions (most recently December 2016) * Pt with well controlled diabetes as an outpatient per recent A1c * However, unsure of how reliable this value is d/t renal transplant * Pt with minimal risk factors for insulin resistance other than baseline insulin resistance and infection. Pt is only being maintained on small outpatient dosing of prednisone 5mg PO daily secondary to renal transplant. * When pt is adm with RTC high dose steroids 100+ units of insulin are required per day for adequate control * Once steroids taper (prednisone 10mg daily) pt typically requires ~ 80 units of insulin per day. Since pt will only be receiving 5mg prednisone will continue reduced basal insulin dosing per provider but utilize aggressive bolus insulin parameters for "steroid induced hyperglycemia" * Will adjust insulin orders daily to maintain fasting BSG < 140mg/dl and post- prandial BSGs < 180 * ADA & AACE recommend a goal blood sugar range 140-180 mg/dl for the majority of critically ill & non-critically ill patients. However, more stringent targets may be selected in individual cases. Will utilize more stringent goal of 110-140mg/dl based on patient age and tight glycemic control at baseline. Additionally, tighter glycemic control is warranted to facilitate wound/ infection healing. 02/10/17 * Pt requiring ~ 65 units of insulin per day for adequate control. This is similar to outpatient dosing as pt currently just receiving outpatient dosing of prednisone. * BSGs ranging 127 -205mg/dl * Patient has adequate overnight basal insulin secretion per drop in BSG from HS to AM without correctional insulin. HS NovoLog check/coverage d/c to prevent low AM fasting BSG. * Currently regimen is split ~ 50% basal: 50% prandial insulin which is preferred split to prevent hypo when PO intake changes/decreases * Prednisone elevating post-prandial BSGs. * Will continue aggressive CF/CR for steroid induced hyperglycemia. * Since we will not be having an Accu-check at HS, change Lantus to be given with dinner for ease of administration/patient preference PLAN FOR INPATIENT GLYCEMIC CONTROL: No changes to regimen needed today. BSGs adequately controlled with current regimen. * Basal insulin * No change, continue Lantus 30 units SQ WITH DINNER * Bolus Insulin * No change, continue NovoLog per scale TID with meals * Goal Range: Low 110 mg/dL - High 140 mg/dL * Correction Factor: 15 mg/dL/unit * Carb ratio of 1 unit per 4 grams CHO consumed DISCHARGE PLANNING: * Patient can likely resume home regimen on discharge. HbA1c appears to be reasonable, though may be slightly unreliable in the setting of renal transplant.
--- NOTE | 2017-02-10 14:47 | Progress Note ---
Internal Med Progress Note Date of Service: February 10, 2017. Provider Documentation: SUBJECTIVE: Patient is seen and examined at bedside. States feeling well today. Denies chest pain, SOB. States she would prefer to go to SNF. Offers no other complaints. OBJECTIVE: Vital Signs-as noted below General Appearance:Obese, No apparent distress Head: normocephalic, Atraumatic Eyes: normal inspection, EOMI, PERRL Neck: supple, Trachea midline Respiratory/Chest: Normal breath sounds, CTA Cardiovascular: S1, S2, No murmur Abdomen/GI:Soft, Non tender, Bowel sounds present, Obese Extremities/Musculoskelatal:Chronic B/L LE erythematous, + edema Neurologic/Psych:AAOX3, Able to move all extremities Skin: normal color, warm Lab data as noted below. ASSESSMENT & PLAN: ACUTE on CHRONIC RESPIRATORY FAILURE ACUTE ON CHRONIC DIASTOLIC CHF H/O CHF, COPD with chronic respiratory failure on 3L NC, presents with hypoxia, respiratory distress Acute secondary to acute exacerbation of CHF CXR findings suggestive of CHF BIPAP PRN for respiratory support Received IV Lasix 40mg BID >>> switch to PO lasix 40mg BID Monitor I/Os, daily weight Duonebs PRN ECHO in December: Preserved EF Monitor electrolytes Weight down by around 10kg since admission Repeat CXR:Improved B/L LOWER EXTREMITY CELLULITIS Patient has chronic skin changes, presents with fever, no leukocytosis DC Vancomycin and Zosyn Blood/Urine cultures: No growth to date Continue Keflex COPD Presented with acute respiratory distress, no increased cough/sputum production No signs of acute exacerbation continue home inhalers, nebs continue outpatient prednisone (on this for renal transplant) HYPERKALEMIA: Resolved Monitor levels while on Lasix H/O RENAL TRANSPLANT continue immunosuppressants Monitor renal function IDDM A1c 6.6 in 01/13 Continue Lantus, ISS H/O PE Takes 2.5 mg daily at home Monitor INR: 1.5 Give 5mg Coumadin today PARKINSON'S DISEASE continue Carbidopa/levodopa GERD continue PPI H/O MRSA contact precautions HLD continue statin DEPRESSION continue Lamictal, Requip and clonazepam CODE STATUS: FULL CODE DVT PX: On Coumadin DISPOSITION: Plan to discharge to SNF when accepted Vital Signs: Date Time Temp Pulse Resp B/P Pulse Ox O2 Delivery O2 Flow Rate FiO2 02/10/17 15:43 36.9 92 20 161/71 90 Nasal Cannula 2.0 5/15/17 15:25 88 18 91 Nasal Cannula 2.0 02/10/17 11:29 84 18 90 Nasal Cannula 2.0 02/10/17 10:56 Nasal Cannula 3.0 02/10/17 07:30 36.7 65 20 147/79 98 Nasal Cannula 3.0 02/10/17 07:24 66 18 96 Nasal Cannula 3.0 02/10/17 03:10 81 95 02/10/17 00:00 BiPAP 02/09/17 23:54 36.7 78 22 142/68 95 BiPAP 02/09/17 22:02 88 95 02/09/17 19:30 80 18 96 Nasal Cannula 3.0 02/09/17 16:44 36.7 81 22 147/73 94 Nasal Cannula 3.0 Lab Results: Results Past 24 Hours Test 02/09/17 17:20 02/09/17 19:55 02/10/17 07:28 02/10/17 07:48 Range/Units Bedside Glucose 205 177 70-90 mg/dl Sodium Level 143 136-145 mmol/L Potassium Level 3.5 3.5-5.1 mmol/L Chloride Level 100 98-107 mmol/L Carbon Dioxide Level 37 21-32 mmol/L Anion Gap 6.0 3-11 mmol/L Blood Urea Nitrogen 25 7-18 mg/dl Creatinine 0.81 0.60-1.20 mg/dl Est Creatinine Clear Calc Drug Dose 94.7 ml/min Estimated GFR () 93.4 Estimated GFR (Non- 80.6 BUN/Creatinine Ratio 31.2 10-20 Random Glucose 124 70-99 mg/dl Calcium Level 9.3 8.5-10.1 mg/dl Prothrombin Time 18.7 9.0-12.0 SECONDS Prothromb Time International Ratio 1.7 0.9-1.1 Test 02/10/17 07:55 02/10/17 11:51 Range/Units Bedside Glucose 127 133 70-90 mg/dl
--- NOTE | 2017-02-10 16:04 | Progress Note ---
Internal Med Progress Note Date of Service: February 10, 2017. Provider Documentation: SUBJECTIVE: Patient is seen and examined at bedside. Clinically no significant change from yesterday. Denies chest pain, SOB. Offers no other complaints. OBJECTIVE: Vital Signs-as noted below General Appearance:Obese, No apparent distress Head: normocephalic, Atraumatic Eyes: normal inspection, EOMI, PERRL Neck: supple, Trachea midline Respiratory/Chest: Normal breath sounds, CTA Cardiovascular: S1, S2, No murmur Abdomen/GI:Soft, Non tender, Bowel sounds present, Obese Extremities/Musculoskelatal:Chronic B/L LE erythematous, + edema Neurologic/Psych:AAOX3, Able to move all extremities Skin: normal color, warm Lab data as noted below. ASSESSMENT & PLAN: ACUTE on CHRONIC RESPIRATORY FAILURE ACUTE ON CHRONIC DIASTOLIC CHF H/O CHF, COPD with chronic respiratory failure on 3L NC, presents with hypoxia, respiratory distress Acute secondary to acute exacerbation of CHF CXR findings suggestive of CHF BIPAP PRN for respiratory support Received IV Lasix 40mg BID >>> switch to PO lasix 40mg BID Monitor I/Os, daily weight Duonebs PRN ECHO in December: Preserved EF Monitor electrolytes Weight down by around 10kg since admission Repeat CXR:Improved B/L LOWER EXTREMITY CELLULITIS Patient has chronic skin changes, presents with fever, no leukocytosis DC Vancomycin and Zosyn received for 3 days Blood/Urine cultures: No growth to date Continue Keflex # 3 COPD Presented with acute respiratory distress, no increased cough/sputum production No signs of acute exacerbation continue home inhalers, nebs continue outpatient prednisone (on this for renal transplant) HYPERKALEMIA: Resolved Monitor levels while on diuretics H/O RENAL TRANSPLANT continue immunosuppressants Monitor renal function IDDM A1c 6.6 in 01/13 Continue Lantus, ISS H/O PE Takes 2.5 mg daily at home Monitor INR: 1.7 Give 5mg Coumadin today PARKINSON'S DISEASE continue Carbidopa/levodopa GERD continue PPI H/O MRSA contact precautions HLD continue statin DEPRESSION continue Lamictal, Requip and clonazepam CODE STATUS: FULL CODE DVT PX: On Coumadin DISPOSITION: Plan to discharge to SNF when accepted Vital Signs: Date Time Temp Pulse Resp B/P Pulse Ox O2 Delivery O2 Flow Rate FiO2 02/10/17 15:43 36.9 92 20 161/71 90 Nasal Cannula 2.0 5/15/17 15:25 88 18 91 Nasal Cannula 2.0 02/10/17 11:29 84 18 90 Nasal Cannula 2.0 02/10/17 10:56 Nasal Cannula 3.0 02/10/17 07:30 36.7 65 20 147/79 98 Nasal Cannula 3.0 02/10/17 07:24 66 18 96 Nasal Cannula 3.0 02/10/17 03:10 81 95 02/10/17 00:00 BiPAP 02/09/17 23:54 36.7 78 22 142/68 95 BiPAP 02/09/17 22:02 88 95 02/09/17 19:30 80 18 96 Nasal Cannula 3.0 02/09/17 16:44 36.7 81 22 147/73 94 Nasal Cannula 3.0 Lab Results: Results Past 24 Hours Test 02/09/17 17:20 02/09/17 19:55 02/10/17 07:28 02/10/17 07:48 Range/Units Bedside Glucose 205 177 70-90 mg/dl Sodium Level 143 136-145 mmol/L Potassium Level 3.5 3.5-5.1 mmol/L Chloride Level 100 98-107 mmol/L Carbon Dioxide Level 37 21-32 mmol/L Anion Gap 6.0 3-11 mmol/L Blood Urea Nitrogen 25 7-18 mg/dl Creatinine 0.81 0.60-1.20 mg/dl Est Creatinine Clear Calc Drug Dose 94.7 ml/min Estimated GFR () 93.4 Estimated GFR (Non- 80.6 BUN/Creatinine Ratio 31.2 10-20 Random Glucose 124 70-99 mg/dl Calcium Level 9.3 8.5-10.1 mg/dl Prothrombin Time 18.7 9.0-12.0 SECONDS Prothromb Time International Ratio 1.7 0.9-1.1 Test 02/10/17 07:55 02/10/17 11:51 Range/Units Bedside Glucose 127 133 70-90 mg/dl
[2017-02-10] MEDS ORDERED: WARFARIN SOD 5 MG TAB PO ONE (16:30)
[2017-02-10] MEDS: INSULIN GLARGINE SOLOSTAR 100 UNITS/ML 3 ML PEN SC SCH (18:34)
[2017-02-11] VITALS (9 sets, daily range): BP systolic 123–150; BP diastolic 63–71; PULSE 68–92; TEMP 36.6–37.1; O2SAT 91–98
[2017-02-11] MEDS: ACETAMINOPHEN 325 MG TAB PO PRN ×3 (00:06→19:11)
[2017-02-11] MEDS: CARBIDOPA/LEVODOPA 25/100MG TAB PO SCH ×5 (03:54→21:07)
[2017-02-11] MEDS: CARBIDOPA/LEVODOPA 25-250 1 EA TAB PO SCH ×5 (03:54→21:06)
[2017-02-11] MEDS: MICONAZOLE NITRATE POWDER 43 GM EXT PRN (04:39)
[2017-02-11] MEDS: CLONAZEPAM 0.5 MG TAB PO PRN ×2 (04:39→11:33)
[2017-02-11] MEDS: HYDROCODONE/ACETAMOPHEN 5/325MG TAB PO PRN ×3 (04:40→20:57)
[2017-02-11] MEDS: ALBUT/IPRATROP 3MG/0.5MG NEB 3 ML VIAL INH SCH ×4 (08:05→19:42)
[2017-02-11 08:45] LABS: INR 1.9 (0.9-1.1); PROTHROMBIN TIME (PATIENT) 21.2 SECONDS (9.0-12.0)
[2017-02-11 09:02] LABS: BUN/CREATININE RATIO 28.3 (10-20); CREATININE 0.81 mg/dl (0.60-1.20); POTASSIUM 3.6 mmol/L (3.5-5.1)
[2017-02-11] MEDS: FLUTICASONE/SALMETEROL 250/50 (ADVAIR) 14 PUFF/1 INHALER INH SCH ×2 (09:03→21:01)
[2017-02-11] MEDS: SENNA 8.6 MG TAB PO PRN (09:04)
[2017-02-11] MEDS: CEPHALEXIN MONOHYDRATE 500 MG CAP PO SCH ×4 (09:04→20:59)
[2017-02-11] MEDS: AZATHIOPRINE 50 MG TAB PO SCH ×2 (09:04→21:00)
[2017-02-11] MEDS: PANTOprazole SOD 40 MG TAB PO SCH (09:05)
[2017-02-11] MEDS: ROSUVASTATIN CALCIUM 10 MG TAB PO SCH (09:05)
[2017-02-11] MEDS: GABAPENTIN 300 MG CAP PO SCH ×3 (09:05→21:01)
[2017-02-11] MEDS: CycloSPORINE (NEORAL) 25 MG CAP PO SCH ×2 (09:06→21:04)
[2017-02-11] MEDS: ROPINIROLE HCL 1 MG TAB PO SCH ×3 (09:06→21:02)
[2017-02-11] MEDS: FUROSEMIDE 40 MG TAB PO SCH ×2 (09:06→16:32)
[2017-02-11] MEDS: INSULIN ASPART 100 UNITS/ML 3 ML PEN SC SCH ×3 (09:13→17:55)
--- NOTE | 2017-02-11 11:18 | Progress Note ---
Internal Med Progress Note Date of Service: February 11, 2017. Provider Documentation: SUBJECTIVE: Patient is seen and examined at bedside. States feeling well. Denies chest pain , SOB, cough. Offers no other complaints. Family a bedside. OBJECTIVE: Vital Signs-as noted below General Appearance:Obese, No apparent distress Head: normocephalic, Atraumatic Eyes: normal inspection, EOMI, PERRL Neck: supple, Trachea midline Respiratory/Chest: Normal breath sounds, CTA Cardiovascular: S1, S2, No murmur Abdomen/GI:Soft, Non tender, Bowel sounds present, Obese Extremities/Musculoskelatal:Chronic B/L LE erythematous, + edema Neurologic/Psych:AAOX3, Able to move all extremities Skin: normal color, warm Lab data as noted below. ASSESSMENT & PLAN: ACUTE on CHRONIC RESPIRATORY FAILURE ACUTE ON CHRONIC DIASTOLIC CHF H/O CHF, COPD with chronic respiratory failure on 3L NC, presents with hypoxia, respiratory distress Acute secondary to acute exacerbation of CHF CXR findings suggestive of CHF BIPAP PRN for respiratory support Received IV Lasix 40mg BID >>> switch to PO lasix 40mg BID Monitor I/Os, daily weight Duonebs PRN ECHO in December: Preserved EF Monitor electrolytes Weight down by around 10kg since admission Repeat CXR:Improved B/L LOWER EXTREMITY CELLULITIS Patient has chronic skin changes, presents with fever, no leukocytosis DC Vancomycin and Zosyn received for 3 days Blood/Urine cultures: No growth to date Continue Keflex # 4. To stop after today. COPD Presented with acute respiratory distress, no increased cough/sputum production No signs of acute exacerbation continue home inhalers, nebs continue outpatient prednisone (on this for renal transplant) HYPERKALEMIA: Resolved Monitor levels while on diuretics H/O RENAL TRANSPLANT continue immunosuppressants Monitor renal function IDDM A1c 6.6 in 01/13 Continue Lantus, ISS H/O PE Takes 2.5 mg daily at home Monitor INR: 1.9 Give 5mg Coumadin today PARKINSON'S DISEASE continue Carbidopa/levodopa GERD continue PPI H/O MRSA contact precautions HLD continue statin DEPRESSION continue Lamictal, Requip and clonazepam CODE STATUS: FULL CODE DVT PX: On Coumadin DISPOSITION: Plan to discharge to SNF when accepted Vital Signs: Date Time Temp Pulse Resp B/P Pulse Ox O2 Delivery O2 Flow Rate FiO2 02/11/17 08:06 86 20 93 Nasal Cannula 2.0 02/11/17 08:00 93 Nasal Cannula 3.0 02/11/17 07:24 36.6 68 20 123/69 98 BiPAP 02/10/17 23:45 37.0 84 20 150/73 95 CPAP 02/10/17 23:39 BiPAP 02/10/17 22:36 88 94 02/10/17 19:02 86 20 90 Nasal Cannula 2.0 02/10/17 16:00 90 Nasal Cannula 2.0 02/10/17 15:43 36.9 92 20 161/71 90 Nasal Cannula 2.0 02/10/17 15:25 88 18 91 Nasal Cannula 2.0 Lab Results: Results Past 24 Hours Test 02/10/17 11:51 02/10/17 16:33 02/10/17 20:13 02/11/17 07:36 Range/Units Bedside Glucose 133 253 242 144 70-90 mg/dl Test 02/11/17 07:57 Range/Units Prothrombin Time 21.2 9.0-12.0 SECONDS Prothromb Time International Ratio 1.9 0.9-1.1 Sodium Level 144 136-145 mmol/L Potassium Level 3.6 3.5-5.1 mmol/L Chloride Level 102 98-107 mmol/L Carbon Dioxide Level 38 21-32 mmol/L Anion Gap 4.0 3-11 mmol/L Blood Urea Nitrogen 23 7-18 mg/dl Creatinine 0.81 0.60-1.20 mg/dl Est Creatinine Clear Calc Drug Dose 90.9 ml/min Estimated GFR () 93.4 Estimated GFR (Non- 80.6 BUN/Creatinine Ratio 28.3 10-20 Random Glucose 141 70-99 mg/dl Calcium Level 9.0 8.5-10.1 mg/dl Magnesium Level 2.0 1.8-2.4 mg/dl
--- NOTE | 2017-02-11 15:11 | Pharmacy Progress Note ---
Glycemic Control: Progress Nt Date of Service February 11, 2017. Scope Glycemic Pharmacist consulted for glycemic control and to write orders per [facility] inpatient glycemic control protocol. Objective Accuchecks BSG (last 24hrs): Test 02/10/17 16:33 02/10/17 20:13 02/11/17 07:36 02/11/17 07:57 Bedside Glucose 253 mg/dl (70-90) 242 mg/dl (70-90) 144 mg/dl (70-90) Random Glucose 141 mg/dl (70-99) Test 02/11/17 11:22 Laboratory Data (last 24hrs) Recent Pertinent Medications Outpatient Anti-diabetic Regimen: * Lantus 40 units Q HS * NovoLog 10 units TID w/ meals * A1c = 6.6 % 01/07/17 The patient is currently receiving: * Basal insulin: Lantus 30 units every 24 hours given with dinner * Correctional Insulin: Novolog Correction per scale AC only (no HS check) Goal Range: Low 110 mg/dL - High 140 mg/dL Correction Factor: 15 mg/dL/unit * Prandial insulin: Per carb ratio of 1 unit per 4 grams CHO consumed Risk Factors for Insulin Resistance: * Steroids * Infection * Diet Assessment & Plan ASSESSMENT: Initial: * 56yo T2DM female known to the pharmacy glycemic service from previous admissions (most recently December 2016) * Pt with well controlled diabetes as an outpatient per recent A1c * However, unsure of how reliable this value is d/t renal transplant * Pt with minimal risk factors for insulin resistance other than baseline insulin resistance and infection. Pt is only being maintained on small outpatient dosing of prednisone 5mg PO daily secondary to renal transplant. * When pt is adm with RTC high dose steroids 100+ units of insulin are required per day for adequate control * Once steroids taper (prednisone 10mg daily) pt typically requires ~ 80 units of insulin per day. Since pt will only be receiving 5mg prednisone will continue reduced basal insulin dosing per provider but utilize aggressive bolus insulin parameters for "steroid induced hyperglycemia" * Will adjust insulin orders daily to maintain fasting BSG < 140mg/dl and post- prandial BSGs < 180 * ADA & AACE recommend a goal blood sugar range 140-180 mg/dl for the majority of critically ill & non-critically ill patients. However, more stringent targets may be selected in individual cases. Will utilize more stringent goal of 110-140mg/dl based on patient age and tight glycemic control at baseline. Additionally, tighter glycemic control is warranted to facilitate wound/ infection healing. 02/11/17 * Pt requiring ~ 75units of insulin per day for adequate control. This is similar to outpatient dosing as pt currently just receiving outpatient dosing of prednisone. * BSGs ranging 127 -253mg/dl * Patient has adequate overnight basal insulin secretion per drop in BSG from HS to AM without correctional insulin. HS NovoLog check/coverage d/c to prevent low AM fasting BSG. * AM fasting BSG elevated at 144mg/dl. Will increase basal insulin towards outpatient dosing and continue to titrate to maintain AM fasting BSG < 140mg/ dl. * Currently regimen is split ~ 50% basal: 50% prandial insulin which is preferred split to prevent hypo when PO intake changes/decreases * Prednisone elevating post-prandial BSGs. * Will continue aggressive CF/CR for steroid induced hyperglycemia. * Since we will not be having an Accu-check at HS, change Lantus to be given with dinner for ease of administration/patient preference PLAN FOR INPATIENT GLYCEMIC CONTROL: No changes to regimen needed today. BSGs adequately controlled with current regimen. * Basal insulin * INCREASE Lantus 35 units SQ WITH DINNER * Bolus Insulin * No change, continue NovoLog per scale TID with meals * Goal Range: Low 110 mg/dL - High 140 mg/dL * Correction Factor: 15 mg/dL/unit * Carb ratio of 1 unit per 4 grams CHO consumed DISCHARGE PLANNING: * Patient can likely resume home regimen on discharge. HbA1c appears to be reasonable, though may be slightly unreliable in the setting of renal transplant.
[2017-02-11] MEDS ORDERED: WARFARIN SOD 5 MG TAB PO ONE (16:00)
[2017-02-11] MEDS ORDERED: INSULIN GLARGINE SOLOSTAR 100 UNITS/ML 3 ML PEN SC SCH (17:00)
[2017-02-12] MEDS: ACETAMINOPHEN 325 MG TAB PO PRN ×2 (01:17→17:01)
[2017-02-12] MEDS: CARBIDOPA/LEVODOPA 25/100MG TAB PO SCH ×3 (06:05→13:54)
[2017-02-12] MEDS: CARBIDOPA/LEVODOPA 25-250 1 EA TAB PO SCH ×3 (06:05→13:51)
[2017-02-12 07:11] VITALS: PULSE 85; O2SAT 95
[2017-02-12] MEDS: ALBUT/IPRATROP 3MG/0.5MG NEB 3 ML VIAL INH SCH ×3 (07:11→15:37)
[2017-02-12 08:00] VITALS: O2SAT 96
[2017-02-12 08:15] VITALS: BP 151/84; PULSE 87; TEMP 36.4; O2SAT 100
[2017-02-12 08:52] LABS: BUN/CREATININE RATIO 26.9 (10-20); CREATININE 0.89 mg/dl (0.60-1.20); MAGNESIUM 2.2 mg/dl (1.8-2.4); POTASSIUM 3.8 mmol/L (3.5-5.1)
[2017-02-12 08:54] LABS: CALCIUM 9.4 mg/dl (8.5-10.1)
[2017-02-12] MEDS: CycloSPORINE (NEORAL) 25 MG CAP PO SCH (09:00)
[2017-02-12] MEDS: SENNA 8.6 MG TAB PO PRN (09:00)
[2017-02-12] MEDS: AZATHIOPRINE 50 MG TAB PO SCH (09:00)
[2017-02-12] MEDS: GABAPENTIN 300 MG CAP PO SCH ×2 (09:01→13:51)
[2017-02-12] MEDS: ROPINIROLE HCL 1 MG TAB PO SCH ×2 (09:01→13:52)
[2017-02-12] MEDS: ROSUVASTATIN CALCIUM 10 MG TAB PO SCH (09:01)
[2017-02-12] MEDS: CEPHALEXIN MONOHYDRATE 500 MG CAP PO SCH (09:01)
[2017-02-12] MEDS: PANTOprazole SOD 40 MG TAB PO SCH (09:01)
[2017-02-12] MEDS: FLUTICASONE/SALMETEROL 250/50 (ADVAIR) 14 PUFF/1 INHALER INH SCH (09:01)
[2017-02-12] MEDS: CLONAZEPAM 0.5 MG TAB PO PRN ×2 (09:03→16:58)
[2017-02-12] MEDS: POLYETHYLENE (MIRALAX) 17 GM PACK PO PRN (09:03)
[2017-02-12] MEDS: HYDROCODONE/ACETAMOPHEN 5/325MG TAB PO PRN (09:03)
[2017-02-12] MEDS: INSULIN ASPART 100 UNITS/ML 3 ML PEN SC SCH ×2 (09:06→13:04)
[2017-02-12] MEDS: FUROSEMIDE 40 MG TAB PO SCH (09:09)
[2017-02-12 11:15] VITALS: BP 130/76; PULSE 84; TEMP 36.9; O2SAT 94
--- NOTE | 2017-02-12 13:12 | Progress Note ---
Internal Med Progress Note Date of Service: February 12, 2017. Provider Documentation: SUBJECTIVE: Patient is at her baseline. Denies any worsening of SOB, Cough. No chest pain, fever, chills. On Oxygen 3 L OBJECTIVE: Vital Signs-as noted below Exam: General Appearance:Morbidly Obese, No apparent distress Neck: supple Respiratory/Chest: Air entry bilaterally decreased, No wheezing, rhonchi Cardiovascular: S1, S2, No murmur Extremities/Musculoskelatal:Chronic B/L LE erythematous, + edema Neurologic/Psych:AAOX3, grossly no focal deficits Lab data as noted below. ASSESSMENT & PLAN: ASSESSMENT & PLAN: ACUTE ON CHRONIC HYPERCAPNEIC RESPIRATORY FAILURE - Resolved ACUTE ON CHRONIC DIASTOLIC CHF- Resolved H/O CHF, COPD with chronic respiratory failure on 3L NC, presents with hypoxia, respiratory distress Acute secondary to acute exacerbation of CHF - Improved. Weight is down by 10 Kilos since admission. -CXR findings suggestive of CHF --> Repeat CXR- improved -BIPAP q HS and PRN for respiratory support -Received IV Lasix 40mg BID --- >>> switched to PO lasix 40mg BID -Duonebs PRN -ECHO in December: Preserved EF B/L LOWER EXTREMITY CELLULITIS Patient has chronic skin changes, presents with fever, no leukocytosis -D/C Vancomycin and Zosyn received for 3 days -Blood/Urine cultures: No growth to date -Continue Keflex # 5. Completed course--> no indication for any more antibiotics COPD Presented with acute respiratory distress, no increased cough/sputum production -No signs of acute exacerbation -continue home inhalers, nebs -continue outpatient prednisone (on this for renal transplant) HYPERKALEMIA: Resolved -Monitor levels while on diuretics H/O RENAL TRANSPLANT -Continue immunosuppressants -Monitor renal function IDDM A1c 6.6 in 01/13 -Continue Lantus, ISS H/O PE Takes 2.5 mg daily at home Monitor INR: 1.9 -Follow up BMP today -Continue with coumadin PARKINSON'S DISEASE -Continue Carbidopa/levodopa GERD -continue PPI H/O MRSA -contact precautions HLD -continue statin DEPRESSION -continue Lamictal, Requip and clonazepam MORBID OBESITY/OBESITY HYPOVENTILATION SYNDROME -Recommend BIPAP at night and prn CODE STATUS: FULL CODE DVT PX: -On Coumadin DISPOSITION: -Plan to discharge to SNF when accepted - OK to discharge from medical point of view, Awaiting placement. Vital Signs: Date Time Temp Pulse Resp B/P Pulse Ox O2 Delivery O2 Flow Rate FiO2 02/12/17 11:15 36.9 84 20 130/76 94 Nasal Cannula 3.0 02/12/17 08:15 36.4 87 20 151/84 100 BiPAP 02/12/17 08:00 96 Nasal Cannula 3.0 02/12/17 07:11 85 18 95 BiPAP/CPAP 35 02/12/17 00:00 Nasal Cannula 3.0 02/11/17 23:04 36.8 86 22 150/63 97 CPAP 02/11/17 22:37 86 93 02/11/17 19:42 88 18 92 Nasal Cannula 3.0 02/11/17 16:00 Nasal Cannula 3.0 02/11/17 15:43 37.1 92 20 125/71 91 Nasal Cannula 3.0 02/11/17 14:48 90 18 93 Nasal Cannula 3.0 Lab Results: Results Past 24 Hours Test 02/11/17 16:39 02/11/17 19:54 02/12/17 07:45 02/12/17 07:54 Range/Units Bedside Glucose 173 167 156 70-90 mg/dl Sodium Level 143 136-145 mmol/L Potassium Level 3.8 3.5-5.1 mmol/L Chloride Level 102 98-107 mmol/L Carbon Dioxide Level 34 21-32 mmol/L Anion Gap 7.0 3-11 mmol/L Blood Urea Nitrogen 24 7-18 mg/dl Creatinine 0.89 0.60-1.20 mg/dl Est Creatinine Clear Calc Drug Dose 82.8 ml/min Estimated GFR () 83.4 Estimated GFR (Non- 71.9 BUN/Creatinine Ratio 26.9 10-20 Random Glucose 154 70-99 mg/dl Calcium Level 9.4 8.5-10.1 mg/dl Magnesium Level 2.2 1.8-2.4 mg/dl Test 02/12/17 11:26 02/12/17 12:54 Range/Units Bedside Glucose 131 70-90 mg/dl
[2017-02-12 13:51] LABS: INR 2.6 (0.9-1.1); PROTHROMBIN TIME (PATIENT) 28.4 SECONDS (9.0-12.0)
--- NOTE | 2017-02-12 15:10 | Discharge Instructions ---
Discharge Instructions Date of Service February 12, 2017. Admission Reason for Admission: Acute And Chronic Respiratory Failure Discharge Discharge Diagnosis / Problem: 1. CHF exacerbation 2. Acute on chronic respiratory failure Discharge Goals Goal(s): Diagnostic testing, Therapeutic intervention Activity Recommendations Activity Limitations: resume your previous activity (as tolerated) . Instructions / Follow-Up Instructions / Follow-Up MEDICATION CHANGES -No changes in medications BIPAP USE: 12/6 settings every night and as needed during day time FOLLOW UP 1.Follow up with PCP in 1 week Call your Primary Care doctor if any of the following symptoms or problems start or get worse: * Shortness of breath or difficulty breathing * Wake up at night short of breath * Chest pain * Cough * Swelling of your hands, feet, or legs * More fatigued or tired with your normal activity * Palpitations - sudden fast heart beats WEIGHT * Weigh yourself every morning after using the bathroom. * Use the same scale. * Wear the same amount of clothing. * Write your weight down on a chart. * Call your Primary Care doctor if you gain more than 2-3 pounds in 1-2 days. MEDICATIONS * Use this discharge instruction sheet for medication instructions. * Take your medications at the time your doctor ordered. * Do not skip a dose of your medicines. * If you miss a dose of medicine, take it as soon as possible, but DO NOT DOUBLE A DOSE. * Read your medicine information when you get home. * Know all of the side effects of your medicine. If in doubt, ask your pharmacist * Call your Primary Care doctor's office if you have any side effects. * Be sure all of your doctors know what medicine and herbs you take (including cold, flu, and herbal medicine). Take the following with you to your follow-up doctor appointments: * Weight Chart * Medication List * List of questions Do not drink excessive alcohol, beer or wine. Current Hospital Diet Patient's current hospital diet: AHA Diet (Heart Healthy), Diabetes Type 2 Diet Discharge Diet Recommended Diet: AHA Diet (Heart Healthy), Low Sodium Diet (2gm Na), Low Fat Diet Pending Studies Studies pending at discharge: no Laboratory Results Hemoglobin A1c Test 01/07/17 05:03 Range/Units Estimated Average Glucose 143 mg/dl Hemoglobin A1c 6.6 H 4.5-5.6 % Medical Emergencies . Who to Call and When: Call 911 or go to the Emergency Room if: * If at any time you feel your situation is an emergency * You have tightness or pain in your chest that does not go away with rest or Nitroglycerin * You are very short of breath even with rest . Non-Emergent Contact Non-Emergency issues call your: Primary Care Provider . . "Provider Documentation" section prepared by Teresita Acosta. . VTE Core Measure Inpt VTE Proph given/why not?: Warfarin (Coumadin)
[2017-02-12] MEDS ORDERED: KLN5 PO (15:11)
[2017-02-12] MEDS ORDERED: HYDR-4330 PO (15:11)
--- NOTE | 2017-02-12 15:16 | Discharge Summary ---
Discharge Summary Date of Service February 12, 2017. Discharge Summary Admission Date: February 04, 2017 at 17:05 Discharge Date: February 12, 2017 Principal Diagnosis: 1. Acute on chronic respiratory failure 2. Acute on chronic CHF exacerbation 3. Possible B/L Lower extremity cellulitis, Mild 4. COPD without exacerbation 5. Morbid obesity/Obesity hypoventilation syndrome 6. Hyperkalemia Secondary Diagnoses/Problems: 1. Hx of Renal transplant 2. DM, IDDM 3. Parkinsons disease 4. GERD 5. Hyperlipidemia 6. Hx of Pulmonary embolism on chronic anticoagulation 7. Depression Procedures: Tele monitoring Serial CXR Nebs IV lasix BIPAP Consultations: None Pending Studies/Follow-Up: . Instructions / Follow-Up Instructions / Follow-Up MEDICATION CHANGES -No changes in medications BIPAP USE: 12/6 settings every night and as needed during day time FOLLOW UP 1.Follow up with PCP in 1 week Medication Reconciliation Continued Medications: Acetaminophen (Tylenol) 325 Mg Tab 650 MG PO Q4H PRN for Pain or Fever, TAB NEEDED FOR PAIN # 1-5 OR TEMP > 100f NTE 3GM APAP/24HRS Azathioprine (Imuran) 50 Mg Tab 50 MG PO BID, TAB Carbidopa/Levodopa (Sinemet 25MG/250MG) Tab 1 TAB PO 5XD, TAB 0400/1000/1400/1800/2200 Carbidopa/Levodopa (Sinemet 25MG/100MG) Tab 1 TAB PO 5XD, TAB 0400/1000/1400/1800/2200 Clonazepam (Clonazepam) 0.5 Mg Tab 0.5 MG PO BID PRN for Anxiety, #30 (This prescription has been renewed) Cyclosporine (Neoral) 25 Mg Cap 75 MG PO BID Fluticasone Prop/Salmeterol (Advair Diskus 250/50 60 Dose) 1 Ea Aerp 1 PUFF INH BID, #60 Furosemide (Lasix) 40 Mg Tab 40 MG PO BID, TAB Gabapentin (Neurontin) 300 Mg Cap 300 MG PO TID, CAP Hydrocodone-Acetaminophen (Lortab 5-325 mg) 1 Tab Tab 1 TAB PO Q8 PRN for Pain, #30 (This prescription has been renewed) Insulin Aspart (Novolog Flexpen) 100 Units/Ml Inj 10 UNITS SC TIDM for 30 Days Insulin Glargine (Lantus Solostar) 100 Unit/Ml Inj 40 UNITS SQ HS, PEN Ipratropium-Albuterol (Duoneb) 3 Ml Nebu 1 TREATMENT INH Q4H PRN for SOB/Wheezing, INHA Lamotrigine (Lamictal) 100 Mg Tab 100 MG PO QAM, TAB Lamotrigine (Lamictal) 150 Mg Tab 150 MG PO QPM, TAB Oxygen (Oxygen) Gas 3 LITER NA Pantoprazole (Pantoprazole Sodium) 40 Mg Tab 40 MG PO DAILY Polyethylene Glycol 3350 (Miralax) 1 Pow Pow 17 GM PO DAILY PRN for Constipation, #527 GM Prednisone (Prednisone) 5 Mg Tab 5 MG PO QAM, TAB TAKE WITH BREAKFAST Repaglinide (Prandin) 1 Mg Tab 1 MG PO BID, TAB 15 MINUTES BEFORE LUNCH AND SUPPER Ropinirole Hydrochloride (Requip) 3 Mg Tab 3 MG PO TID, TAB Rosuvastatin Calcium (Crestor) 10 Mg Tab 10 MG PO DAILY, TAB Sennosides (Senexon) 8.6 Mg Tab 8.6 MG PO HS PRN for Constipation Tizanidine Hcl (Tizanidine Hcl) 2 Mg Cap 2 MG PO BID Warfarin Sod (Jantoven) 5 Mg Tab 2.5 MG PO DAILY, TAB Admission Information HPI (per Admitting provider): Patient seen and examined. 56 year old female with complex PMHx of IDDM, h/o renal transplant, COPD, diastolic CHF, Parkinson's disease,h/o PE on Coumadin, and other problems listed below presents to the ED complaining of SOB x 1 day. Patient reports she became increasingly SOB last evening. She chronically uses oxygen at home which she states she was complaint with but still felt SOB. She reports orthopnea. She states she feels like she has gained weight and reports worsening peripheral edema. She reports some wheezing. She was seen by her home health nurse this morning and her pulse ox was in the 70s. She was referred to the ED for further evaluation. She states she has been compliant with lasix and a low sodium diet. She denies fevers, chills, cough, sputum production, chest pain, nausea, vomiting, diarrhea, dysuria, calf pain. She was recently admitted. last month with similar complaints. She has previously not qualified for BIPAP at home. In the ED patient is febrile, and tachypneic. CXR shows CHF, INR is therapeutic at 2.1. She received IV Lasix, steroids and duonebs. She will be admitted for further workup and treatment. Physical Exam (per Admitting): General Appearance: + pertinent finding (Obese ill appearing 56 year old female in mild respiratory distress ) Head: normocephalic, atraumatic Eyes: EOMI, sclerae normal ENT: hearing grossly normal, pharynx normal Neck: supple, no JVD Respiratory/Chest: chest non-tender, + respiratory distress, + decreased breath sounds, + accessory muscle use Cardiovascular: regular rate, rhythm, no gallop, no JVD, no murmur, normal peripheral pulses Abdomen/GI: normal bowel sounds, non tender, soft Back: normal inspection, no muscle spasm Extremities/Musculoskelatal: no calf tenderness, normal capillary refill, + pedal edema (+1), + pertinent finding (chronic skin changes to BLLE, with erythema and warmth, no drainage noted ) Neurologic/Psych: no motor/sensory deficits, alert, oriented x 3 Skin: normal color, warm/dry Lymphatic: no adenopathy Hospital Course ASSESSMENT & PLAN: ACUTE ON CHRONIC RESPIRATORY FAILURE - Resolved ACUTE ON CHRONIC DIASTOLIC CHF- Resolved H/O CHF, COPD with chronic respiratory failure on 3L NC, presents with hypoxia, respiratory distress Acute secondary to acute exacerbation of CHF - Improved. Weight is down by 10 Kilos since admission. -CXR findings suggestive of CHF --> Repeat CXR- improved -BIPAP q HS and PRN for respiratory support -Received IV Lasix 40mg BID --- >>> switched to PO lasix 40mg BID -Duonebs PRN -ECHO in December: Preserved EF B/L LOWER EXTREMITY CELLULITIS Patient has chronic skin changes, presents with fever, no leukocytosis -D/C Vancomycin and Zosyn received for 3 days -Blood/Urine cultures: No growth to date -Continue Keflex # 5. Completed course--> no indication for any more antibiotics COPD Presented with acute respiratory distress, no increased cough/sputum production -No signs of acute exacerbation -continue home inhalers, nebs -continue outpatient prednisone (on this for renal transplant) HYPERKALEMIA: Resolved -Monitor levels while on diuretics H/O RENAL TRANSPLANT -Continue immunosuppressants -Monitor renal function IDDM A1c 6.6 in 01/13 -Continue Lantus, ISS H/O PE Takes 2.5 mg daily at home Monitor INR: 1.9 -Follow up BMP today -Continue with coumadin PARKINSON'S DISEASE -Continue Carbidopa/levodopa GERD -continue PPI H/O MRSA -contact precautions HLD -continue statin DEPRESSION -continue Lamictal, Requip and clonazepam MORBID OBESITY/OBESITY HYPOVENTILATION SYNDROME -Recommend BIPAP at night and prn CODE STATUS: FULL CODE DVT PX: -On Coumadin DISPOSITION: Discharge to [facility] with PT/OT today Total time spent on discharge = 38 minutes This includes examination of the patient, discharge planning, medication reconciliation, and communication with other providers. Discharge Instructions Discharge Goals Goal(s): Diagnostic testing, Therapeutic intervention Activity Recommendations Activity Limitations: resume your previous activity (as tolerated) . Instructions / Follow-Up Instructions / Follow-Up MEDICATION CHANGES -No changes in medications BIPAP USE: 12/6 settings every night and as needed during day time FOLLOW UP 1.Follow up with PCP in 1 week Call your Primary Care doctor if any of the following symptoms or problems start or get worse: * Shortness of breath or difficulty breathing * Wake up at night short of breath * Chest pain * Cough * Swelling of your hands, feet, or legs * More fatigued or tired with your normal activity * Palpitations - sudden fast heart beats WEIGHT * Weigh yourself every morning after using the bathroom. * Use the same scale. * Wear the same amount of clothing. * Write your weight down on a chart. * Call your Primary Care doctor if you gain more than 2-3 pounds in 1-2 days. MEDICATIONS * Use this discharge instruction sheet for medication instructions. * Take your medications at the time your doctor ordered. * Do not skip a dose of your medicines. * If you miss a dose of medicine, take it as soon as possible, but DO NOT DOUBLE A DOSE. * Read your medicine information when you get home. * Know all of the side effects of your medicine. If in doubt, ask your pharmacist * Call your Primary Care doctor's office if you have any side effects. * Be sure all of your doctors know what medicine and herbs you take (including cold, flu, and herbal medicine). Take the following with you to your follow-up doctor appointments: * Weight Chart * Medication List * List of questions Do not drink excessive alcohol, beer or wine. Current Hospital Diet Patient's current hospital diet: AHA Diet (Heart Healthy), Diabetes Type 2 Diet Discharge Diet Recommended Diet: AHA Diet (Heart Healthy), Low Sodium Diet (2gm Na), Low Fat Diet Pending Studies Studies pending at discharge: no Laboratory Results Hemoglobin A1c Test 01/07/17 05:03 Range/Units Estimated Average Glucose 143 mg/dl Hemoglobin A1c 6.6 H 4.5-5.6 % Medical Emergencies . Who to Call and When: Call 911 or go to the Emergency Room if: * If at any time you feel your situation is an emergency * You have tightness or pain in your chest that does not go away with rest or Nitroglycerin * You are very short of breath even with rest . Non-Emergent Contact Non-Emergency issues call your: Primary Care Provider . . "Provider Documentation" section prepared by Teresita Acosta. . VTE Core Measure Inpt VTE Proph given/why not?: Warfarin (Coumadin)
[2017-02-12 15:24] VITALS: BP 112/70; PULSE 79; TEMP 36.7; O2SAT 94
[2017-02-12 15:37] VITALS: PULSE 81; O2SAT 93
== END 2017-02-12 17:05 | DRG 291 ==
LOC: ENRESERVDT → ENRESERVTM → EDBD 13:21 → C.EDB 13:24 → UNDOADMIN 17:05 → C.MED 17:05 → EDBEDREQ 18:29 → C.MED 02-08 14:36 → C.MS4W 02-08 14:36
PROVIDERS: ADMIT Family Medicine; ATTEND Internal Medicine
DX: I50.33 Acute on chronic diastolic (congestive) heart failure (principal); J96.21 Acute and chronic respiratory failure with hypoxia; L03.115 Cellulitis of right lower limb; L03.116 Cellulitis of left lower limb; Z94.0 Kidney transplant status; E66.2 Morbid (severe) obesity with alveolar hypoventilation; Z68.43 Body mass index [BMI] 50.0-59.9, adult; E11.22 Type 2 diabetes mellitus with diabetic chronic kidney disease; N18.3 Chronic kidney disease, stage 3 (moderate); K21.9 Gastro-esophageal reflux disease without esophagitis; J44.9 Chronic obstructive pulmonary disease, unspecified; G20 Parkinson's disease; E78.5 Hyperlipidemia, unspecified; F32.9 Major depressive disorder, single episode, unspecified; E87.5 Hyperkalemia; Z79.01 Long term (current) use of anticoagulants; Z79.4 Long term (current) use of insulin; Z79.899 Other long term (current) drug therapy; Z79.52 Long term (current) use of systemic steroids; Z86.711 Personal history of pulmonary embolism